=== PATIENT | female | born 1940 | race Caucasian/White ===

== ENCOUNTER 2017-06-10 15:57 | Emergency (ER) | payer MEDICARE ==
[2017-06-10] MEDS ORDERED: SODIUM CHLORIDE 0.9% 500 ML IV ONE (16:31)
[2017-06-10 16:42] LABS: Basophils # (A) 0.1 k/uL (0-0.2); Basophils % (A) 1 %; CH 30.9; CHCM 33.9; Eosinophils % (A) 0 %; HCT 43.3 % (34.0-46.0); HDW 2.79; Luc # (Auto) 0.27; Luc % (Auto) 3; Lymphocytes # (A) 0.8 k/uL (1.0-4.8); Lymphocytes % (A) 8 %; MCH 31.8 pg (25.0-35.0); MCHC 34.7 g/dL (31.0-37.0); MCV 91.6 fL (80.0-100.0); Mean Platelet Volume 8.1; Monocytes # (A) 0.9 k/uL (0-1.0); Monocytes % (A) 8 %; Neutrophils % (A) 81 %; RBC 4.73 m/uL (3.80-5.40); RDW 13.5 % (11.5-15.5); WBC (Perox) 11.32
--- NOTE | 2017-06-10 16:44 | ED ---
Syncope HPI - General Source: patient Mode of arrival: wheelchair Limitations: no limitations <Maxim Cash - Last Filed: 06/10/17 16:49> <YovanapetarPérez desai - Last Filed: 06/10/17 17:50> - General Chief Complaint: Syncope Stated Complaint: Fall left arm injury Time Seen by Provider: 06/10/17 16:20 - History of Present Illness Initial Comments: This is a 77-year-old female with a history of CHF with a pacemaker and AICD who presents emergency Department after a syncopal episode. She states that she was sitting on her couch watching NASCAR when all of a sudden she woke up on the ground. She was unable to get up and bruised her knee attempting to get up off the ground. She used her car alarm to notify her neighbor that she was in trouble came over and helped her back into her chair. The fall was around 140 in the afternoon today. The son was notified and told her that she needed to come emergency department because of the fact that she passed out. The patient complains mostly of bilateral arm pain which has been chronic for her after a fall previously however states it is worse. Also complaining of left knee pain. No headache. No nausea or vomiting. She also has chronic neck pain that is unchanged. No numbness, [place], or weakness in her extremities. No chest pain or shortness of breath. She states she had no preceding symptoms. Her photofinishing laboratory worker is Dr. Grijalva (Maxim Cash) - Related Data Home Medications Medication Instructions Recorded Confirmed ALPRAZolam [Xanax] 0.125 mg PO DAILY PRN 06/08/15 07/03/16 Aspirin 81 mg PO DAILY 06/08/15 07/03/16 Carvedilol [Coreg] 3.125 mg PO DAILY 06/08/15 07/03/16 Cholecalciferol [Vitamin D3] 2,000 unit PO DAILY 06/08/15 07/03/16 Levothyroxine Sodium [Synthroid] 50 mcg PO DAILY 06/08/15 07/03/16 Multivitamin [Children's 1 tab PO DAILY 06/08/15 07/03/16 Multivitamins] Omeprazole [PriLOSEC] 20 mg PO DAILY 06/08/15 07/03/16 Sennosides [Senokot] 8.6 mg PO DAILY 06/08/15 07/03/16 Simvastatin [Zocor] 40 mg PO HS 06/08/15 07/03/16 Furosemide [Lasix] 40 mg PO BID 10/17/15 07/03/16 Potassium Chloride [Klor-Con 40 meq PO BID 10/17/15 07/03/16 Packets] Febuxostat [Uloric] 40 mg PO DAILY 07/03/16 07/03/16 HYDROcodone/APAP 7.5-325MG [[place] 1 tab PO Q6H PRN 07/03/16 07/03/16 7.5-325] Spironolactone [Aldactone] 25 mg PO DAILY 07/03/16 07/03/16 Previous Rx's Medication Instructions Recorded Cefuroxime Axetil [Ceftin] 500 mg PO BID #4 tablet 07/06/16 Folic Acid 1 mg PO DAILY@1200 #30 tab 07/06/16 Metolazone [Zaroxolyn] 2.5 mg PO MoTh@0800 #10 tab 07/06/16 Thiamine [Vitamin B-1] 100 mg PO DAILY@1200 #30 tab 07/06/16 Allergies Allergy/AdvReac Type Severity Reaction Status Date / Time Penicillins Allergy Unknown Verified 06/10/17 16:01 dexamethasone AdvReac Unknown Verified 06/10/17 16:01 methylprednisolone AdvReac Unknown Verified 06/10/17 16:01 Review of Systems ROS Other: All systems not noted in ROS Statement are negative. <Maxim Cash - Last Filed: 06/10/17 16:49> ROS Other: All systems not noted in ROS Statement are negative. <Pérez Augustin - Last Filed: 06/10/17 17:50> ROS Statement: Those systems with pertinent positive or pertinent negative responses have been documented in the HPI. Past Medical History Past Medical History: Coronary Artery Disease (CAD), Heart Failure, COPD, Deep Vein Thrombosis (DVT), Myocardial Infarction (CA), Osteoarthritis (OA) Additional Past Medical History / Comment(s): uti-ecoli(05-23-14), 2013 rt axillary,brachial artery thrombosis, afib 2012, cardiomyopathy ef 35-40%(2012), djd ,falls, RENAL FX AT 65%(PER FAMILY), APPETITE DECREASED SINCE MARCH Last Myocardial Infarction Date:: 1999 History of Any Multi-Drug Resistant Organisms: None Reported Past Surgical History: Adenoidectomy, AICD, Breast Surgery, Cholecystectomy, Heart Catheterization With Stent, Hysterectomy, Joint Replacement, Pacemaker, Tonsillectomy, Tubal Ligation Additional Past Surgical History / Comment(s): 08-07-13 aicd(biventricular dual chamber aicd/pacemaker-[employer], thrombectomy rt arm,rt knee replacement Past Anesthesia/Blood Transfusion Reactions: No Reported Reaction Additional Past Anesthesia/Blood Transfusion Reaction / Comment(s): blood trandfusion 1968 Date of Last Stent Placement:: unk Type of Cardiac Device: Permanent Pacemaker, AICD Device Placement Date:: 08-07-13 Past Psychological History: Anxiety Smoking Status: Former smoker Past Alcohol Use History: None Reported Past Drug Use History: None Reported - Past Family History Father Family Medical History: Diabetes Mellitus, Myocardial Infarction (CA) Mother Family Medical History: Cancer, Hyperlipidemia, Hypertension Additional Family Medical History / Comment(s): BREAST CA Brother(s) Family Medical History: Myocardial Infarction (CA) Additional Family Medical History / Comment(s): AGE 57 FROM CA Sister(s) Family Medical History: Cancer Additional Family Medical History / Comment(s): YOUNGER SISTER FROM OVARIAN CANCER AGE 51 AND ANOTHER SISTER HAD CA/CAD,OPEN HEART W/VALVE REPLACEMENT AND DM <Maxim Cash - Last Filed: 06/10/17 16:49> General Exam Limitations: no limitations <Maxim Cash - Last Filed: 06/10/17 16:49> <Pérez Augustin - Last Filed: 06/10/17 17:50> - General Exam Comments Initial Comments: Constitutional: Awake alert Appears comfortable Head: Normocephalic, there is a contusion to the left frontal scalp Eyes: no conjunctival injection No scleral icterus EOMI, pupils are 4 mm and reactive bilaterally Neck: No JVD Supple, no midline tenderness, full range of motion Heart: Regular rate rhythm normal S1-S2 no murmurs Lungs: Clear to auscultation bilaterally No wheezing No rales Abdomen: Soft nondistended nontender Extremities: Non edematous DP pulses intact Radial pulses intact, there is tenderness to palpation in bilateral upper arm, no bruising to this area, no deformity, there is also a bruise to the left knee however the knee has full range of motion. Neurovascularly intact distally Neuro: A&Ox3 No focal neurologic deficits Psych: Appropriate mood and affect (Maxim Cash) Course <Maxim Cash - Last Filed: 06/10/17 16:49> <Pérez Augustin - Last Filed: 06/10/17 17:50> Vital Signs 06/10/17 16:00 Temperature 97.5 F L Pulse Rate 50 L Respiratory 20 Rate Blood Pressure 136/61 O2 Sat by Pulse 99 Oximetry - Reevaluation(s) Reevaluation #1: 06/10/17 16:49 Patient's care transitioned to Dr. Augustin. (Maxim Cash) EKG Findings - EKG Comments: EKG Findings:: EKG showing atrial paced rhythm with a rate of 50. No abnormal ST segment changes or T-wave inversions. QTC is 419. Other intervals are normal. No ectopy. <Maxim Cash - Last Filed: 06/10/17 16:49> Medical Decision Making - Lab Data Result diagrams: 06/10/17 16:15 <Maxim Cash - Last Filed: 06/10/17 16:49> - Lab Data Result diagrams: 06/10/17 16:15 06/10/17 16:15 <Pérez Augustin - Last Filed: 06/10/17 17:50> - Medical Decision Making 77 female, signed out from the previous doctor with chief complaint of syncope and head trauma. Patient does have a small hematoma on the right forehead. Head CT was obtained and was positive for subdural, subarachnoid, and interventricular blood. The patient is on Coumadin and her INR is 2.7. CT cervical spine shows no acute fracture dislocation. Patient was given vitamin K and 1 unit of fresh frozen plasma, awaiting transfer for neurosurgical evaluation. Patient will likely also require syncopal workup in addition to her intracranial hemorrhage. X-rays of the chest, pelvis, and upper extremities are pending at the time of this dictation. Diagnosis: Intracranial hemorrhage on Coumadin, disposition: Transfer to [facility] (Pérez Augustin) - Lab Data Lab Results 06/10/17 06/10/17 06/10/17 Range/Units 16:15 16:15 16:15 WBC 11.0 H (3.8-10.6) k/uL RBC 4.73 (3.80-5.40) m/uL Hgb 15.0 (11.4-16.0) gm/dL Hct 43.3 (34.0-46.0) % MCV 91.6 (80.0-100.0) fL MCH 31.8 (25.0-35.0) pg MCHC 34.7 (31.0-37.0) g/dL RDW 13.5 (11.5-15.5) % Plt Count 155 (150-450) k/uL Neutrophils % 81 % Lymphocytes % 8 % Monocytes % 8 % Eosinophils % 0 % Basophils % 1 % Neutrophils # 9.0 H (1.3-7.7) k/uL Lymphocytes # 0.8 L (1.0-4.8) k/uL Monocytes # 0.9 (0-1.0) k/uL Eosinophils # 0.0 (0-0.7) k/uL Basophils # 0.1 (0-0.2) k/uL PT (9.0-12.0) sec INR (<1.2) APTT (22.0-30.0) sec Sodium 139 (137-145) mmol/L Potassium 4.3 (3.5-5.1) mmol/L Chloride 99 (98-107) mmol/L Carbon Dioxide 30 (22-30) mmol/L Anion Gap 10 mmol/L BUN 32 H (7-17) mg/dL Creatinine 1.26 H (0.52-1.04) mg/dL Est GFR (MDRD) Af Amer 50 (>60 ml/min/1.73 sqM) Est GFR (MDRD) Non-Af 41 (>60 ml/min/1.73 sqM) Glucose 102 H (74-99) mg/dL Calcium 9.5 (8.4-10.2) mg/dL Magnesium 1.9 (1.6-2.3) mg/dL Total Bilirubin 1.2 (0.2-1.3) mg/dL AST 39 H (14-36) U/L ALT 35 (9-52) U/L Alkaline Phosphatase 89 (38-126) U/L CK-MB (CK-2) 1.8 (0.0-2.4) ng/mL Troponin I 0.023 (0.000-0.034) ng/mL NT-Pro-B Natriuret Pep pg/mL Total Protein 7.0 (6.3-8.2) g/dL Albumin 4.2 (3.5-5.0) g/dL 06/10/17 06/10/17 Range/Units 16:15 16:15 WBC (3.8-10.6) k/uL RBC (3.80-5.40) m/uL Hgb (11.4-16.0) gm/dL Hct (34.0-46.0) % MCV (80.0-100.0) fL MCH (25.0-35.0) pg MCHC (31.0-37.0) g/dL RDW (11.5-15.5) % Plt Count (150-450) k/uL Neutrophils % % Lymphocytes % % Monocytes % % Eosinophils % % Basophils % % Neutrophils # (1.3-7.7) k/uL Lymphocytes # (1.0-4.8) k/uL Monocytes # (0-1.0) k/uL Eosinophils # (0-0.7) k/uL Basophils # (0-0.2) k/uL PT 26.5 H (9.0-12.0) sec INR 2.7 H (<1.2) APTT 29.8 (22.0-30.0) sec Sodium (137-145) mmol/L Potassium (3.5-5.1) mmol/L Chloride (98-107) mmol/L Carbon Dioxide (22-30) mmol/L Anion Gap mmol/L BUN (7-17) mg/dL Creatinine (0.52-1.04) mg/dL Est GFR (MDRD) Af Amer (>60 ml/min/1.73 sqM) Est GFR (MDRD) Non-Af (>60 ml/min/1.73 sqM) Glucose (74-99) mg/dL Calcium (8.4-10.2) mg/dL Magnesium (1.6-2.3) mg/dL Total Bilirubin (0.2-1.3) mg/dL AST (14-36) U/L ALT (9-52) U/L Alkaline Phosphatase (38-126) U/L CK-MB (CK-2) (0.0-2.4) ng/mL Troponin I (0.000-0.034) ng/mL NT-Pro-B Natriuret Pep 2470 pg/mL Total Protein (6.3-8.2) g/dL Albumin (3.5-5.0) g/dL Critical Care Time Critical Care Time: Yes Total Critical Care Time: 42 <Pérez Augustin - Last Filed: 06/10/17 17:50> Disposition <Maxim Cash - Last Filed: 06/10/17 16:49> - Out of Hospital Transfer - Req. Specs Out of Hospital Transfer - Requested Specifics: Surgical ICU (Transfer to [facility]) <Pérez Augustin - Last Filed: 06/10/17 17:50> Clinical Impression: Intracranial hemorrhage Disposition: OTHER INSTITUTION NOT DEFINED Condition: Serious Referrals: Lan Hedrick DO [Primary Care Provider] - 1-2 days
[2017-06-10 16:50] LABS: INR 2.7 (<1.2); Partial Thromboplastin Time 29.8 sec (22.0-30.0); Prothrombin Time 26.5 sec (9.0-12.0)
[2017-06-10 16:55] LABS: Calcium 9.5 mg/dL (8.4-10.2); Magnesium 1.9 mg/dL (1.6-2.3); Potassium 4.3 mmol/L (3.5-5.1); Total Bilirubin 1.2 mg/dL (0.2-1.3)
[2017-06-10 17:16] LABS: Creatine Kinase MB 1.8 ng/mL (0.0-2.4); Troponin I 0.023 ng/mL (0.000-0.034)
--- NOTE | 2017-06-10 17:26 | CT ---
EXAMINATION TYPE: CT brain tonny ying DATE OF EXAM: 06/10/2017 COMPARISON: 07/04/2016 HISTORY: 77-year-old female with fall injury today. CT DLP: 1269.1 mGycm Automated exposure control for dose reduction was used. Technique: Examination of the head was done in axial plane without intravenous contrast. Coronal and sagittal reconstructions performed. CT of the cervical spine was obtained in axial plane without intravenous injection of contrast mater ial. Coronal and sagittal reformatted images were obtained from the axial views for evaluation of f ractures, spinal alignment and canal. FINDINGS: Head: There is mild generalized supratentorial volume loss. Small amount of acute subarachnoid blood is present in the superior right frontal region. There may b e some additional subtle subarachnoid blood in the region of the left sylvian fissure. There are a couple nodular foci of hyperdensity along the mid falx at the level of the lateral ventri cles measuring is a 7 mm suspected to represent tiny subdurals. Minimal layering intraventricular hem orrhage within the occipital horn of the left lateral ventricle. No midline shift or mass effect. No hydrocephalus. No effacement of basal subarachnoid cisterns. Paranasal sinuses and mastoid air cells are well pneumatized. Orbits and globes are intact. No calvar ial fracture. Cervical spine: No craniocervical junction abnormality, predental space widening, or prevertebral soft tissue swellin g. There is leftward tilt of the patient's head that could be positional. Mild to moderate multilevel degenerative disc disease. Additional hypertrophic facet arthropathy and uncovertebral joint degenerative change. There is grade 1 anterolisthesis at C4-C5. Posterior disc protrusion at C5-6 mildly narrow the spinal canal. No acute fracture identified cervical spine. Mild left neuroforaminal stenosis and C4-C5 and mild rig ht C5-C6. Sagittal and coronal reformatted images confirm above findings. COMBINED IMPRESSION: 1. Small amounts of scattered acute intracranial hemorrhage. This includes a small subarachnoid bleed in the right frontal region, in the left sylvian fissure, a couple small nodular subdurals along the mid falx measuring up to 7 mm, and trace layering intraventricular hemorrhage in the occipital horn of the left lateral ventricle. No mass effect or midline shift. 2. No acute fracture of the cervical spine. Moderate spondylotic change with a degenerative grade 1 a nterolisthesis at C4-C5. Mild spinal canal stenosis at C5-C6. 3. Leftward tilt of the patient's head could be positional or due to muscle spasm/pain. Critical findings called to Dr. Augustin in the ER at 5:20 PM.
[2017-06-10] MEDS ORDERED: PHYTONADIONE 5 MG in SODIUM CHLORIDE 0.9% 50 ML IVPB STA (17:28)
--- NOTE | 2017-06-10 17:51 | XR ---
EXAMINATION TYPE: XR chest 2V, XR pelvis AP view, XR knee complete 3 views LT, XR humerus bilateral 2 views each DATE OF EXAM: 06/10/2017 COMPARISON: Chest 07/05/2016 HISTORY: 77-year-old female with pain after fall FINDINGS: CHEST: Left anterior chest wall AICD generator with right atrial and right ventricular leads. Heart is borde rline to mildly enlarged. Diffuse interstitial prominence has a chronic appearance. No consolidation, pneumothorax, or pleural effusion. Pelvis: There is marked osteopenia and further limitations due to patient's large body habitus. Mild degenera tive changes of the right hip and moderate at the left hip. Some surgical material projects at the [facility] lower abdomen. No displaced fracture seen. Left knee: Tricompartmental degenerative change with joint space narrowing and marginal spurring. There is synov ial and meniscal chondrocalcinosis noted. Small knee joint effusion. Mild anterior soft tissue swelli ng overlying the patellar tendon. Extensor mechanism is intact. No acute fracture, subluxation, or di slocation seen. Humeri: Bony changes on both sides suggests chronic rotator cuff tendinopathy. Additional degenerative change at the AC joints. No humeral shaft fracture on either side. IMPRESSION: 1. Chest: Cardiomegaly with chronic changes. No acute process seen. 2. Pelvis: Osteopenia without displaced fracture. Moderate left and mild right hip osteoarthrosis. Du e to the osteopenia, if the patient is nonweightbearing, MRI can provide more sensitive evaluation. 3. Left knee: Tricompartmental osteoarthrosis, meniscal chondrocalcinosis, synovial calcifications, a nd small knee joint effusion. 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 No acute osseous abnormality seen . Anterior soft tissue swelling could represent soft tissue contusion. 4. Humeri: No acute osseous abnormal seen.
[2017-06-10 18:24] VITALS: BP 148/85; PULSE 72; RESP 18; TEMP 97.9
== END 2017-06-10 18:30 | disposition other institution (70) ==
LOC: EC 15:57
DX: S06.9X0A Unspecified intracranial injury without loss of consciousness, initial encounter (principal); S80.02XA Contusion of left knee, initial encounter; I50.9 Heart failure, unspecified; I25.10 Atherosclerotic heart disease of native coronary artery without angina pectoris; I25.2 Old myocardial infarction; M19.90 Unspecified osteoarthritis, unspecified site; Z86.718 Personal history of other venous thrombosis and embolism; Z87.891 Personal history of nicotine dependence; Z79.01 Long term (current) use of anticoagulants; Z79.82 Long term (current) use of aspirin; Z79.899 Other long term (current) drug therapy; Z88.0 Allergy status to penicillin; Z88.8 Allergy status to other drugs, medicaments and biological substances; W18.39XA Other fall on same level, initial encounter
CPT/HCPCS: 36415; 93005; 83880; 80053; 82553; 83735; 84484; 85025; 85610; 85730; 71020; 73060; 72170; 73562; 72125; 70450; 99291; 96365; P9059; J3430

== ENCOUNTER → 2017-08-02 | Outpatient (CLI) | payer MEDICARE ==
--- NOTE | 2017-08-02 09:40 | CT ---
EXAMINATION TYPE: CT brain wo con DATE OF EXAM: 08/02/2017 COMPARISON: 06/10/2017 HISTORY: 77-year-old female follow-up Intracranial hemorrhage TECHNIQUE: Examination was done in axial plane without intravenous contrast. Coronal and sagittal r econstructions performed. CT DLP: 1380 mGycm Automated exposure control for dose reduction was used. FINDINGS: There is no evidence of acute intracranial hemorrhage, acute ischemic changes, mass, mass-effect, or extra-axial fluid collection. There is no effacement of cerebral sulci or basal subarachnoid cister ns. There is no hydrocephalus. There is no midline shift. Colvin-white matter distinction is preserv ed. Moderate cerebral cortical volume loss is similar. Previous subarachnoid hemorrhages in the right frontal lobe and left sylvian fissure, tiny nodular nails bdural hematomas along the midline septum, and layering intraventricular hemorrhage in the left occip ital horn have all resolved in the interval. Paranasal sinuses and mastoid air cells are well pneumatized. Orbits and globes are intact. IMPRESSION: 1. Interval resolution of the previous scattered areas of acute intracranial bleeding. No acute intra cranial abnormality seen. 2. Similar moderate cortical atrophy.
== END | disposition home or self-care (01) ==
LOC: RADCTMAIN 08:59
PROVIDERS: ATTEND Family Medicine
DX: G31.9 Degenerative disease of nervous system, unspecified (principal)
CPT/HCPCS: 70450

== ENCOUNTER → 2017-10-05 | Outpatient (CLI) | payer MEDICARE ==
--- NOTE | 2017-10-05 08:45 | US ---
EXAMINATION TYPE: US kidneys/renal and bladder DATE OF EXAM: 10/05/2017 COMPARISON: Ultrasound 10/17/2015 CLINICAL HISTORY: 77-year-old female R60.0 EDEMA. Edema to extremities, abnormal labs. TECHNIQUE: Multiple sonographic images of the kidneys and bladder are obtained. FINDINGS: DEFENSE ANALYST NOTES: Difficult exam, elderly pt unable to ambulate well Right Kidney: 9.4 x 4.5 x 4.6 cm without hydronephrosis. There is a 4.4 x 4.1 x 3.8 cm cyst at the l ateral midpole. In 2014, this measured 5.4 cm. Some minimal internal echoes are felt to be artifactua l. Left Kidney: 10.0 x 4.5 x 4.9 cm without hydronephrosis. Limited visualization of the upper and lower pole due to shadowing from bowel gas. There is an echogenic focus in the lower pole measuring 1 cm. Underdistention of the bladder limits its evaluation. IMPRESSION: 1. No hydronephrosis. 2. The 4.4 cm right renal cyst is 1 cm smaller from 2014. 3. Suggestion of a 1 cm nonobstructive calculus in the left lower pole. 4. Nondistention of the bladder limits its evaluation.
== END | disposition home or self-care (01) ==
LOC: RADUSWWP 07:59
PROVIDERS: ATTEND Internal Medicine Nephrology
DX: N28.1 Cyst of kidney, acquired (principal)
CPT/HCPCS: 76770

== ENCOUNTER 2017-12-12 14:01 | Inpatient (IN) | payer MEDICARE ==
[~2017-12-12 14:01] MED LIST: MAGNESIUM SULFATE SYG 4.06 MEQ/ML SYRINGE ONE
[2017-12-12 14:18] LABS: Basophils % (A) 0 %; Eosinophils % (A) 1 %; HCT 40.5 % (34.0-46.0); HGB 13.1 gm/dL (11.4-16.0); Lymphocytes # (A) 0.6 k/uL (1.0-4.8); Lymphocytes % (A) 11 %; MCH 29.9 pg (25.0-35.0); MCHC 32.4 g/dL (31.0-37.0); MCV 92.5 fL (80.0-100.0); Mean Platelet Volume 9.3; Monocytes # (A) 0.2 k/uL (0-1.0); Monocytes % (A) 4 %; Neutrophils # (A) 4.7 k/uL (1.3-7.7); Neutrophils % (A) 82 %; Platelet Count 105 k/uL (150-450); RBC 4.38 m/uL (3.80-5.40); RDW 14.3 % (11.5-15.5); WBC 5.7 k/uL (3.8-10.6)
[2017-12-12] MEDS ORDERED: SODIUM CHLORIDE 0.9% 1,000 ML IV ONE ×3 (14:26→15:15)
--- NOTE | 2017-12-12 14:26 | XR ---
EXAMINATION TYPE: XR chest 1V portable DATE OF EXAM: 12/12/2017 COMPARISON: Chest x-ray June 10, 2017 HISTORY: Chest pain. ST elevated myocardial infarction. TECHNIQUE: Single AP portable frontal upright view of the chest is obtained. FINDINGS: There is chronic parenchymal change without suspicious new focal air space opacity, pleura l effusion, or pneumothorax seen. The cardiac silhouette size remains enlarged with dual lead pacema ker and atherosclerotic aorta. The osseous structures remain demineralized. IMPRESSION: Chronic changes and cardiomegaly without acute pulmonary process. No significant change from prior.
[2017-12-12] MEDS: ASPIRIN 81 MG PO STA ×2 (14:27→14:28)
--- NOTE | 2017-12-12 14:29 | ED ---
Chest Pain HPI - General Chief Complaint: Chest Pain Stated Complaint: Stemi Time Seen by Provider: 12/12/17 14:08 Source: patient, EMS Mode of arrival: ambulatory Limitations: no limitations - History of Present Illness Initial Comments: Patient presents with chest pain. Pain is substernal. It does not radiate. Nothing makes it better or worse. She describes the pain as pressure. She rates the pain 8/10. She was given aspirin by EMS prior to arrival. She has no nausea or vomiting or diaphoresis. She has no neck pain or stiffness. She has no headache. - Related Data Home Medications Medication Instructions Recorded Confirmed ALPRAZolam [Xanax] 0.125 mg PO DAILY PRN 06/08/15 06/10/17 Aspirin 81 mg PO DAILY 06/08/15 06/10/17 Cholecalciferol [Vitamin D3] 2,000 unit PO DAILY 06/08/15 06/10/17 Levothyroxine Sodium [Synthroid] 50 mcg PO DAILY 06/08/15 06/10/17 Omeprazole [PriLOSEC] 20 mg PO DAILY 06/08/15 06/10/17 Sennosides [Senokot] 8.6 mg PO DAILY 06/08/15 06/10/17 Simvastatin [Zocor] 40 mg PO HS 06/08/15 06/10/17 Furosemide [Lasix] 40 mg PO BID 10/17/15 06/10/17 HYDROcodone/APAP 7.5-325MG [[place] 1 tab PO Q6H PRN 07/03/16 06/10/17 7.5-325] Spironolactone [Aldactone] 50 mg PO DAILY 07/03/16 06/10/17 Carvedilol [Coreg] 3.125 mg PO DAILY 06/10/17 06/10/17 Febuxostat [Uloric] 80 mg PO DAILY 06/10/17 06/10/17 Metolazone [Zaroxolyn] 2.5 mg PO Q7D 06/10/17 06/10/17 Multivitamin [Multivitamins Adult 1 tab PO DAILY 06/10/17 06/10/17 Gummies] Potassium Chloride [K-Tab ER] 10 meq PO 5XD 06/10/17 06/10/17 Warfarin Sodium [Coumadin] 4 mg PO DAILY 06/10/17 06/10/17 Previous Rx's Medication Instructions Recorded Folic Acid 1 mg PO DAILY@1200 #30 tab 07/06/16 Allergies Allergy/AdvReac Type Severity Reaction Status Date / Time Penicillins Allergy Unknown Verified 12/12/17 14:27 dexamethasone AdvReac Unknown Verified 12/12/17 14:27 methylprednisolone AdvReac Unknown Verified 12/12/17 14:27 Review of Systems ROS Statement: Those systems with pertinent positive or pertinent negative responses have been documented in the HPI. ROS Other: All systems not noted in ROS Statement are negative. EKG Findings - EKG Comments: EKG Findings:: Twelve-lead EKG shows ventricular rate 126 bpm, the QRS complexes are wide, there is evidence of ST elevation with reciprocal changes. Interpreted by me as STEMI. Past Medical History Past Medical History: Coronary Artery Disease (CAD), Heart Failure, COPD, Deep Vein Thrombosis (DVT), Myocardial Infarction ([place]), Osteoarthritis (OA) Additional Past Medical History / Comment(s): uti-ecoli(05-23-14), 2012 rt axillary,brachial artery thrombosis, afib 2012, cardiomyopathy ef 35-40%(2012), djd ,falls, RENAL FX AT 65%(PER FAMILY), APPETITE DECREASED SINCE MARCH Last Myocardial Infarction Date:: 1999 History of Any Multi-Drug Resistant Organisms: None Reported Past Surgical History: Adenoidectomy, AICD, Breast Surgery, Cholecystectomy, Heart Catheterization With Stent, Hysterectomy, Joint Replacement, Pacemaker, Tonsillectomy, Tubal Ligation Additional Past Surgical History / Comment(s): 08-07-13 aicd(biventricular dual chamber aicd/pacemaker-[employer], thrombectomy rt arm,rt knee replacement Past Anesthesia/Blood Transfusion Reactions: No Reported Reaction Additional Past Anesthesia/Blood Transfusion Reaction / Comment(s): blood trandfusion 1968 Date of Last Stent Placement:: unk Type of Cardiac Device: Permanent Pacemaker, AICD Device Placement Date:: 08-07-13 Past Psychological History: Anxiety Smoking Status: Former smoker Past Alcohol Use History: None Reported Past Drug Use History: None Reported - Past Family History Father Family Medical History: Diabetes Mellitus, Myocardial Infarction ([place]) Mother Family Medical History: Cancer, Hyperlipidemia, Hypertension Additional Family Medical History / Comment(s): BREAST CA Brother(s) Family Medical History: Myocardial Infarction ([place]) Additional Family Medical History / Comment(s): AGE 57 FROM [place] Sister(s) Family Medical History: Cancer Additional Family Medical History / Comment(s): YOUNGER SISTER FROM OVARIAN CANCER AGE 51 AND ANOTHER SISTER HAD [place]/CAD,OPEN HEART W/VALVE REPLACEMENT AND DM General Exam Limitations: no limitations General appearance: alert, in no apparent distress Head exam: Present: atraumatic, normocephalic, normal inspection Eye exam: Present: normal appearance, PERRL, EOMI. Absent: scleral icterus, conjunctival injection, periorbital swelling ENT exam: Present: normal exam, mucous membranes moist Neck exam: Present: normal inspection. Absent: tenderness, meningismus, lymphadenopathy Respiratory exam: Present: normal lung sounds bilaterally. Absent: respiratory distress, wheezes, rales, rhonchi, stridor Cardiovascular Exam: Present: regular rate, normal rhythm, normal heart sounds. Absent: systolic murmur, diastolic murmur, rubs, gallop, clicks GI/Abdominal exam: Present: soft, normal bowel sounds. Absent: distended, tenderness, guarding, rebound, rigid Extremities exam: Present: normal inspection, full ROM, normal capillary refill. Absent: tenderness, pedal edema, joint swelling, calf tenderness Back exam: Present: normal inspection Neurological exam: Present: alert, oriented X3, CN II-XII intact Psychiatric exam: Present: normal affect, normal mood Skin exam: Present: warm, dry, intact, normal color. Absent: rash Course Vital Signs 12/12/17 12/12/17 14:03 14:13 Temperature 97.0 F L Pulse Rate 113 H Pulse Rate [ 102 H Oim Consultant ] Respiratory 18 Rate O2 Sat by Pulse 98 Oximetry Chest Pain MDM - [facility] Patient presents with chest pain. She has evidence of acute MN. I activated the [place] pager. Patient will be admitted to the hospital. Disposition Clinical Impression: ST elevation myocardial infarction (STEMI) Disposition: ADMITTED IP TO THIS HOSP Condition: Serious Referrals: Lan Hedrick DO [Primary Care Provider] - 1-2 days Time of Disposition: 14:28
[2017-12-12] MEDS ORDERED: LIDOCAINE 2% INJ 20 MG/ML SQ ONE (14:34)
[2017-12-12] MEDS ORDERED: IV FLUID CONTINUATION 1,000 ML IV ONE (14:35)
[2017-12-12 14:36] LABS: Albumin 3.9 g/dL (3.5-5.0); Calcium 9.8 mg/dL (8.4-10.2); Total Bilirubin 0.9 mg/dL (0.2-1.3); Total Protein 6.4 g/dL (6.3-8.2)
[2017-12-12] MEDS ORDERED: NOREPINEPHRIN 4 MG-0.9% NS PMX 4 MG/250 ML ML IV ONE (14:36)
[2017-12-12] MEDS ORDERED: METOPROLOL TARTRATE 5 MG/5 ML VIAL IVP ONE ×3 (14:37→14:55)
[2017-12-12] MEDS ORDERED: fentaNYL (PF) 50 MCG/ML 2 ML AMP ONE (14:37)
[2017-12-12] MEDS ORDERED: fentaNYL (PF) 50 MCG/ML 2 ML AMP IVP ONE (14:38)
[2017-12-12 14:40] LABS: Potassium 8.2 mmol/L (3.5-5.1)
[2017-12-12 14:41] LABS: Partial Thromboplastin Time 42.8 sec (22.0-30.0); Prothrombin Time 97.5 sec (9.0-12.0)
[2017-12-12] MEDS ORDERED: DEXTROSE 50%-WATER 50 ML SYRINGE IVP ONE ×2 (14:43→15:05)
[2017-12-12] MEDS ORDERED: INSULIN REGULAR 100 UNIT/ML VIAL IV ONE ×3 (14:44→21:31)
[2017-12-12] MEDS ORDERED: AMIODARONE 50 MG/ML 3 ML VIAL IV ONE (14:46)
[2017-12-12] MEDS ORDERED: SODIUM CHLORIDE 0.9% 500 ML IV ONE (14:47)
--- NOTE | 2017-12-12 14:47 | P.CRDCN ---
History of Present Illness Consult date: 12/12/17 Requesting physician: Evelyn Maher Reason for Consult (text): Acute HI Chief complaint: Scapula and upper back discomfort History of present illness: This is a pleasant 77-year-old female who follows with Dr. Waqar Grijalva in the office. She has a known history of coronary artery disease with prior stent placement of the RCA, patient is known to have a total occlusion of the mid circumflex and proximal RCA, ischemic cardio myopathy with prior AICD implantation, paroxysmal atrial fibrillation, hypertension, COPD, hypothyroidism peripheral arterial disease status post carotid endarterectomy, renal insufficiency, hypothyroidism, hyperlipidemia, and history of DVT. Patient presents to the hospital with symptoms of severe discomfort in her upper back and scapula area, positive shortness of breath and diaphoresis. EKG on arrival here showed a normal sinus rhythm with left bundle branch block pattern and ST elevation in the inferior leads with ST depression noted in the anterior leads. Patient continued to have pain in the emergency room, developed significant nausea. Blood pressure 80/60. No lab data is yet back. Patient has been given aspirin as well as sublingual nitroglycerin. She was advised to go directly to the cardiac catheterization lab, the risks and the benefits explained to her in detail. Cardiac catheterization will be performed by Dr. West. Her son and [id number] are present. According to the patient, she just recently lost her sister within this past week, she also states that she lost her son approximately a month ago. Past Medical History Past Medical History: Coronary Artery Disease (CAD), Heart Failure, COPD, Deep Vein Thrombosis (DVT), Myocardial Infarction ([place]), Osteoarthritis (OA) Additional Past Medical History / Comment(s): uti-ecoli(05-23-14), 2013 rt axillary,brachial artery thrombosis, afib 2012, cardiomyopathy ef 35-40%(2012), djd ,falls, RENAL FX AT 65%(PER FAMILY), APPETITE DECREASED SINCE MARCH Last Myocardial Infarction Date:: 1999 History of Any Multi-Drug Resistant Organisms: None Reported Past Surgical History: Adenoidectomy, AICD, Breast Surgery, Cholecystectomy, Heart Catheterization With Stent, Hysterectomy, Joint Replacement, Pacemaker, Tonsillectomy, Tubal Ligation Additional Past Surgical History / Comment(s): 08-07-13 aicd(biventricular dual chamber aicd/pacemaker-[employer], thrombectomy rt arm,rt knee replacement Past Anesthesia/Blood Transfusion Reactions: No Reported Reaction Additional Past Anesthesia/Blood Transfusion Reaction / Comment(s): blood trandfusion 1968 Date of Last Stent Placement:: unk Type of Cardiac Device: Permanent Pacemaker, AICD Device Placement Date:: 08-07-13 Past Psychological History: Anxiety Smoking Status: Former smoker Past Alcohol Use History: None Reported Past Drug Use History: None Reported - Past Family History Father Family Medical History: Diabetes Mellitus, Myocardial Infarction ([place]) Mother Family Medical History: Cancer, Hyperlipidemia, Hypertension Additional Family Medical History / Comment(s): BREAST CA Brother(s) Family Medical History: Myocardial Infarction ([place]) Additional Family Medical History / Comment(s): AGE 57 FROM [place] Sister(s) Family Medical History: Cancer Additional Family Medical History / Comment(s): YOUNGER SISTER FROM OVARIAN CANCER AGE 51 AND ANOTHER SISTER HAD [place]/CAD,OPEN HEART W/VALVE REPLACEMENT AND DM Medications and Allergies Home Medications Medication Instructions Recorded Confirmed Type ALPRAZolam [Xanax] 0.25 mg PO TID PRN 06/08/15 12/12/17 History Aspirin 81 mg PO DAILY 06/08/15 12/12/17 History Cholecalciferol [Vitamin D3] 2,000 unit PO DAILY 06/08/15 12/12/17 History Levothyroxine Sodium [Synthroid] 50 mcg PO DAILY 06/08/15 12/12/17 History Omeprazole [PriLOSEC] 20 mg PO DAILY 06/08/15 12/12/17 History Simvastatin [Zocor] 40 mg PO HS 06/08/15 12/12/17 History Furosemide [Lasix] 40 mg PO BID 10/17/15 12/12/17 History HYDROcodone/APAP 7.5-325MG [[place] 1 tab PO Q4H PRN 07/03/16 12/12/17 History 7.5-325] Spironolactone [Aldactone] 50 mg PO DAILY 07/03/16 12/12/17 History Carvedilol [Coreg] 3.125 mg PO DAILY 06/10/17 12/12/17 History Febuxostat [Uloric] 80 mg PO DAILY 06/10/17 12/12/17 History Metolazone [Zaroxolyn] 2.5 mg PO MOTH 06/10/17 12/12/17 History Multivitamin [Multivitamins Adult 1 tab PO DAILY 06/10/17 12/12/17 History Gummies] Potassium Chloride [K-Tab ER] 10 meq PO QID 06/10/17 12/12/17 History Warfarin Sodium [Coumadin] 4 mg PO DAILY 06/10/17 12/12/17 History Folic Acid 1 mg PO DAILY 12/12/17 12/12/17 History Lisinopril [Prinivil] 5 mg PO DAILY 12/12/17 12/12/17 History Thiamine [Vitamin B-1] 100 mg PO DAILY 12/12/17 12/12/17 History Allergies Allergy/AdvReac Type Severity Reaction Status Date / Time Penicillins Allergy Unknown Verified 12/12/17 14:27 dexamethasone AdvReac Unknown Verified 12/12/17 14:27 methylprednisolone AdvReac Unknown Verified 12/12/17 14:27 Physical Exam Vitals: Vital Signs Temp Pulse Pulse Resp Pulse Ox 12/12/17 14:13 102 H 12/12/17 14:03 97.0 F L 113 H 18 98 Intake and Output 12/11/17 12/12/17 12/12/17 22:59 06:59 14:59 Other: Weight 74.389 kg Patient Weight 12/13/17 06:59 Weight 74.389 kg PHYSICAL EXAMINATION: HEENT: Head is atraumatic, normocephalic. Pupils equal, round. Neck is supple. There is no elevated jugular venous pressure. HEART EXAMINATION: Heart S1 S2 1 systolic murmur is heard. CHEST EXAMINATION: Lungs are clear with diminished air entry to bilateral bases. ABDOMEN: Soft, nontender. Bowel sounds are heard. No organomegaly noted. EXTREMITIES:[ 1+ peripheral pulses with trace evidence of peripheral edema bilateral lower extremity discoloration NEUROLOGIC patient is awake, alert and oriented -3. . Results 12/12/17 14:05 CBC 12/12/17 Range/Units 14:05 WBC 5.7 (3.8-10.6) k/uL RBC 4.38 (3.80-5.40) m/uL Hgb 13.1 (11.4-16.0) gm/dL Hct 40.5 (34.0-46.0) % Plt Count 105 L (150-450) k/uL Current Medications Generic Name Dose Route Start Last Admin Trade Name Freq PRN Reason Stop Dose Admin Sodium Chloride 1,000 mls @ 999 mls/hr 12/12/17 14:26 12/12/17 14:20 Saline 0.9% IV 12/12/17 15:26 999 mls/hr .Q1H1M ONE Administration Intake and Output 12/11/17 12/12/17 12/12/17 22:59 06:59 14:59 Other: Weight 74.389 kg Patient Weight 12/13/17 06:59 Weight 74.389 kg 12/12/17 14:05 EKG Interpretations (text) EKG shows a normal sinus rhythm with left bundle branch block pattern significant ST elevation in the inferior leads with ST depression noted anteriorly Assessment and Plan Plan: Assessment and plan #[address] elevation myocardial infarction #2 history of prior HI with stenting of the right coronary artery, patient has a known total occlusion of the mid circumflex and proximal RCA. #3 ischemic cardio myopathy with prior AICD #4 history of smoking #5 paroxysmal atrial fibrillation, on Coumadin for anticoagulation #6 COPD #7 PAD #8 hypertension #9 hyperlipidemia #10 hypothyroidism Plan Patient was advised to go directly to the cardiac catheterization lab. The risks and benefits were explained to her and her family in detail. Cardiac catheterization will be performed by Dr. Connor. Further recommendations will be based on these findings and patient's clinical course. DNP note has been reviewed, I agree with a documented findings and plan of care. Patient was seen and examined.
[2017-12-12 14:52] LABS: INR >10.0 (<1.2)
[2017-12-12 14:53] LABS: Creatine Kinase MB 1.8 ng/mL (0.0-2.4); Troponin I 0.013 ng/mL (0.000-0.034)
[2017-12-12] MEDS ORDERED: CALCIUM CHLORIDE 100 MG/ML 10 ML SYRINGE IV ONE (14:54)
[2017-12-12] MEDS ORDERED: CALCIUM GLUCONATE 1,000 MG in SODIUM CHLORIDE 0.9% 100 ML IVPB STA (14:56)
[2017-12-12] MEDS ORDERED: ONDANSETRON 4 MG/2 ML VIAL IVP ONE (14:58)
[2017-12-12] MEDS ORDERED: INSULIN REGULAR 100 UNIT in SODIUM CHLORIDE 0.9% 100 ML IV ONE (15:00)
[2017-12-12] MEDS ORDERED: PHYTONADIONE 10 MG in SODIUM CHLORIDE 0.9% 50 ML IVPB STA (15:02)
[2017-12-12] MEDS: NITROGLYCERIN 1000MCG/10ML SYRINGE INTRACORON ONE ×2 (15:23→15:31)
[2017-12-12] MEDS ORDERED: BIVALIRUDIN 250 MG in SODIUM CHLORIDE 0.9% 50 ML IV ONE (15:25)
[2017-12-12] MEDS ORDERED: BIVALIRUDIN BOLUS 250 MG/50 ML IV ONE (15:25)
[2017-12-12] MEDS ORDERED: CLOPIDOGREL 75 MG TAB ONE (15:38)
[2017-12-12] MEDS ORDERED: CLOPIDOGREL 75 MG TAB PO ONE (15:42)
[2017-12-12] MEDS ORDERED: IODIXANOL 320 MG/ML 100 ML INTRAARTER ONE (15:43)
[2017-12-12] MEDS ORDERED: MAG HYDROX/AL HYDROX/SIMETH 30 ML CUP PO PRN (15:45)
[2017-12-12] MEDS ORDERED: ZOLPIDEM 5 MG TAB PO PRN (15:45)
[2017-12-12] MEDS ORDERED: NITROGLYCERIN SL TABS 0.4 MG TAB SUBLINGUAL PRN (15:45)
[2017-12-12] MEDS ORDERED: ATROPINE SULFATE 0.1 MG/ML 10ML SYRINGE IV PRN (15:45)
[2017-12-12] MEDS ORDERED: RX INFO: IV CONTRAST WAS GIVEN 1 EACH MISC MISCELLANE PRN (15:45)
[2017-12-12 16:01] LABS: Albumin 2.9 g/dL (3.5-5.0); Total Bilirubin 0.9 mg/dL (0.2-1.3); Total Protein 5.3 g/dL (6.3-8.2)
[2017-12-12 16:02] LABS: Calcium 10.3 mg/dL (8.4-10.2)
[2017-12-12 16:06] LABS: Potassium 6.5 mmol/L (3.5-5.1)
[2017-12-12 16:45] LABS: Glucose,Whole Blood 145 mg/dL (75-99)
--- NOTE | 2017-12-12 17:27 | PTCA ---
PERCUTANEOUSTRANS CORORONARY ANGIOGRAPHY DATE OF SERVICE: 12/12/2017 PERFORMING PHYSICIAN: Steven Hugo MD, [email or web address]. PROCEDURE PERFORMED: Successful stenting of the proximal left anterior descending coronary artery using a 2.5 x 18 mm Xience drug-eluting stent, with good angiographic results. INDICATION: This is a pleasant 77-year-old female patient who presented to the hospital with back discomfort and was diagnosed with a new left bundle branch block. She was seen and evaluated by Dr. West, who performed a heart catheterization and the patient was found to have severe disease involving the proximal LAD. She was brought today to undergo an intervention. APPROACH: Right common femoral artery. COMPLICATIONS: None. LEVEL OF SEDATION: Moderate with sedation length of 29 minutes. PROCEDURE DESCRIPTION: After diagnostic heart catheterization was performed by Dr. West, anticoagulation was initiated using Angiomax. Subsequently I took a JL3 guide and the LAD was engaged. A Whisper wire was used to wire the LAD. After that I did balloon angioplasty using a 2.0 x 12 mm balloon and then I deployed a 2.5 x 18 mm Xience CAPRICE where the stent was positioned under fluoroscopy guidance and deployed under 12 atmospheres for 20 seconds. The following angiogram showed good angiographic results. The procedure was completed without any complication. POST-PROCEDURE MANAGEMENT: 1. Dual anti-platelet therapy. 2. Risk factor modifications. 3. Followup with the patient. MMODL / IJN: [id number] /
[2017-12-12] MEDS ORDERED: NOREPINEPHRIN 4 MG-0.9% NS PMX 4 MG/250 ML ML IV SCH (17:30)
[2017-12-12] MEDS ORDERED: SODIUM BICARB 8.4% 50 ML SYR (1 MEQ/ML) IV ONE ×3 (17:38→21:31)
[2017-12-12] MEDS ORDERED: ALBUTEROL NEBULIZED (CONC) 20 MG, SODIUM CHLORIDE 0.9% NEBULIZ 3 ML INHALATION ONE ×2 (17:39)
[2017-12-12] MEDS ORDERED: FUROSEMIDE 10 MG/ML 4 ML VIAL IV STA (17:39)
[2017-12-12 17:42] LABS: Magnesium 2.3 mg/dL (1.6-2.3)
[2017-12-12] MEDS ORDERED: ALBUTEROL NEB (CONC) 2.5 MG/0.5 ML INHALATION STA ×2 (17:56→21:31)
--- NOTE | 2017-12-12 18:11 | P.CNPUL ---
History of Present Illness Consult date: 12/12/17 Reason for consult: chest pain, COPD Chief complaint: Chest pain across the back. History of present illness: This is a 77-year-old female with history of multiple medical problems including coronary artery disease, previous stenting of the RCA, history of deep vein thromboses involving the right upper extremity, patient had previous thrombectomy, history of underlying COPD, previous [place], chronic kidney disease, history of ischemic cardiomyopathy and previous AICD placement with paroxysmal atrial fibrillation, patient presented today to the ER with severe pain across the back and the scapular area. Patient was also complaining of shortness of breath and diaphoresis. EKG showed normal sinus rhythm with left bundle branch block pattern and ST elevation in the inferior leads, ST depression in the anterior leads. Patient was in severe pain, blood pressure was 80/60 on presentation. Hence the patient was taken straight to the cardiac labor trainer, underwent stenting of the LAD which was 70% occluded, did not correlate with the findings noted on the EKG which were mostly suggestive of inferior wall myocardial infarction. Patient did have previous inferior wall IL years ago. After cardiac cath, patient was noted to have significantly abnormal labs including elevated INR of more than 10, potassium was 8.2, and with treatment went down to 6.5 given to her by cardiology. Her BUN was 84 on presentation and creatinine was 4.64. Troponin was 0.013 CPK was 162. At any rate, patient was transferred to the ICU from the cardiac labor trainer, and I was asked to see her on consultation. Presently the patient denies any chest pain, no back pain , no shortness of breath, no nausea no vomiting no abdominal pain, no melena, no hematemesis, no nausea no vomiting. She seems to be hemodynamically stable, but the patient is also on 7 mics of levo fed because she was noted to be hypotensive at the end of the procedure in the [employer] [facility]. Review of Systems 14 point review of systems were obtained, please refer to pertinent positives in HPI otherwise remaining systems are negative Past Medical History Past Medical History: Coronary Artery Disease (CAD), Heart Failure, COPD, Deep Vein Thrombosis (DVT), Myocardial Infarction ([place]), Osteoarthritis (OA) Additional Past Medical History / Comment(s): uti-ecoli(05-23-14), 2012 rt axillary,brachial artery thrombosis, afib 2012, cardiomyopathy ef 35-40%(2012), djd ,falls, RENAL FX AT 65%(PER FAMILY), APPETITE DECREASED SINCE MARCH Last Myocardial Infarction Date:: 1999 History of Any Multi-Drug Resistant Organisms: None Reported Past Surgical History: Adenoidectomy, AICD, Breast Surgery, Cholecystectomy, Heart Catheterization With Stent, Hysterectomy, Joint Replacement, Pacemaker, Tonsillectomy, Tubal Ligation Additional Past Surgical History / Comment(s): 08-07-13 aicd(biventricular dual chamber aicd/pacemaker-[employer], thrombectomy rt arm,rt knee replacement Past Anesthesia/Blood Transfusion Reactions: No Reported Reaction Additional Past Anesthesia/Blood Transfusion Reaction / Comment(s): blood trandfusion 1968 Date of Last Stent Placement:: unk Type of Cardiac Device: Permanent Pacemaker, AICD Device Placement Date:: 08-07-13 Past Psychological History: Anxiety Smoking Status: Former smoker Past Alcohol Use History: None Reported Past Drug Use History: None Reported - Past Family History Father Family Medical History: Diabetes Mellitus, Myocardial Infarction ([place]) Mother Family Medical History: Cancer, Hyperlipidemia, Hypertension Additional Family Medical History / Comment(s): BREAST CA Brother(s) Family Medical History: Myocardial Infarction ([place]) Additional Family Medical History / Comment(s): AGE 57 FROM [place] Sister(s) Family Medical History: Cancer Additional Family Medical History / Comment(s): YOUNGER SISTER FROM OVARIAN CANCER AGE 51 AND ANOTHER SISTER HAD [place]/CAD,OPEN HEART W/VALVE REPLACEMENT AND DM Medications and Allergies Home Medications Medication Instructions Recorded Confirmed Type ALPRAZolam [Xanax] 0.25 mg PO TID PRN 06/08/15 12/12/17 History Aspirin 81 mg PO DAILY 06/08/15 12/12/17 History Cholecalciferol [Vitamin D3] 2,000 unit PO DAILY 06/08/15 12/12/17 History Levothyroxine Sodium [Synthroid] 50 mcg PO DAILY 06/08/15 12/12/17 History Omeprazole [PriLOSEC] 20 mg PO DAILY 06/08/15 12/12/17 History Simvastatin [Zocor] 40 mg PO HS 06/08/15 12/12/17 History Furosemide [Lasix] 40 mg PO BID 10/17/15 12/12/17 History HYDROcodone/APAP 7.5-325MG [[place] 1 tab PO Q4H PRN 07/03/16 12/12/17 History 7.5-325] Spironolactone [Aldactone] 50 mg PO DAILY 07/03/16 12/12/17 History Carvedilol [Coreg] 3.125 mg PO DAILY 06/10/17 12/12/17 History Febuxostat [Uloric] 80 mg PO DAILY 06/10/17 12/12/17 History Metolazone [Zaroxolyn] 2.5 mg PO MOTH 06/10/17 12/12/17 History Multivitamin [Multivitamins Adult 1 tab PO DAILY 06/10/17 12/12/17 History Gummies] Potassium Chloride [K-Tab ER] 10 meq PO QID 06/10/17 12/12/17 History Warfarin Sodium [Coumadin] 4 mg PO DAILY 06/10/17 12/12/17 History Folic Acid 1 mg PO DAILY 12/12/17 12/12/17 History Lisinopril [Prinivil] 5 mg PO DAILY 12/12/17 12/12/17 History Thiamine [Vitamin B-1] 100 mg PO DAILY 12/12/17 12/12/17 History Allergies Allergy/AdvReac Type Severity Reaction Status Date / Time Penicillins Allergy Unknown Verified 12/12/17 14:27 dexamethasone AdvReac Unknown Verified 12/12/17 14:27 methylprednisolone AdvReac Unknown Verified 12/12/17 14:27 Physical Exam Vitals: Vital Signs Temp Pulse Pulse Resp BP Pulse Ox 12/12/17 17:00 97.7 F 44 L 14 99/57 96 12/12/17 14:13 102 H 12/12/17 14:03 97.0 F L 113 H 18 98 Intake and Output 12/12/17 12/12/17 12/12/17 06:59 14:59 22:59 Intake Total 700 508.36 Balance 700 508.36 Intake: IV 700 508.36 Other: Weight 74.389 kg 75.3 kg Patient Weight 12/13/17 06:59 Weight 75.3 kg Physical Exam: Revealed a 77-year-old female in no distress, very pleasant. And a very good historian. HEENT:[Neck is supple.] [No neck masses.] [No thyromegaly.] [No JVD.] Chest: [Clear throughout, no crackles, no rhonchi, no wheezes.] Cardiac Exam: [Normal S1 and S2, no S3 gallop, 2/6 systolic murmur heard throughout the precordium.] Abdomen: [Soft, nontender, no megaly, no rebound, no guarding, normal bowel sounds.] Extremities: [No clubbing, no edema, no cyanosis.] Neurological Exam: [No focal neurologic deficit.] Psychiatric: Normal mood affect and mental status examination Musculoskeletal: Normal range of motion, no deformities. Lymphatics: No lymphadenopathy. Results - Laboratory Findings CBC and BMP: 12/12/17 14:05 12/12/17 15:38 PT/INR, D-dimer PT 97.5 sec (9.0-12.0) H 12/12/17 14:05 INR >10.0 (<1.2) H* 12/12/17 14:05 Abnormal lab findings: Abnormal Labs 12/12/17 12/12/17 12/12/17 14:05 14:05 14:05 Plt Count 105 L Lymphocytes # 0.6 L PT INR APTT Sodium Potassium 8.2 H* Carbon Dioxide 20 L BUN 84 H* Creatinine 4.64 H Glucose 118 H POC Glucose (mg/dL) Calcium AST Total Creatine Kinase 162 H Total Protein Albumin 12/12/17 12/12/17 12/12/17 14:05 15:38 16:43 Plt Count Lymphocytes # PT 97.5 H INR >10.0 H* APTT 42.8 H Sodium 135 L Potassium 6.5 H* Carbon Dioxide 17 L BUN 75 H Creatinine 4.15 H Glucose 237 H POC Glucose (mg/dL) 145 H Calcium 10.3 H AST 55 H Total Creatine Kinase Total Protein 5.3 L Albumin 2.9 L - Diagnostic Findings Chest x-ray: image reviewed (Chronic changes, cardiomegaly, no acute pulmonary process noted on presentation.) Assessment and Plan Assessment: Impression: [address] elevation myocardial infarction 2 status post stenting of LAD postoperative day #0 3 history of previous inferior wall [place] and stenting of RCA. Patient had total occlusion of the mid circumflex and proximal RCA. 4 history of ischemic cardiomyopathy and previous AICD placement 5 acute on chronic renal failure, suspect possible some component of cardiorenal syndrome. 6 paroxysmal atrial fibrillation, 7 Coumadin related coagulopathy 8 history of underlying COPD but presently asymptomatic 9 history of benign essential hypertension 10 history of hypothyroidism 11 history of deep vein thromboses involving right upper extremity 12 acute hyperkalemia secondary to renal failure 13 non-anion gap metabolic acidosis related to renal failure Recommendation: Agree with the present treatment plan as outlined by cardiology , also agree with the treatment plan of her hyperkalemia as outlined by nephrology, continue Plavix, Nitrostat, patient received vitamin K for her Coumadin related coagulopathy. Patient is receiving sodium bicarb for her hyperkalemia, and Lasix was given earlier. May or may not require Kayexalate. We'll continue to follow, we'll monitor the patient in the ICU overnight. Time with Patient: Greater than 30
[2017-12-12] MEDS: SODIUM CHLORIDE 0.9% 1,000 ML IV SCH (18:13)
[2017-12-12 20:07] VITALS: BMI 33.5
[2017-12-12] MEDS ORDERED: NALOXONE 0.4 MG/ML 1 ML VIAL IV PRN (20:42)
[2017-12-12] MEDS ORDERED: NOREPINEPHRIN 16 MG-0.9%NS PMX 16 MG/250 ML ML IV SCH (21:15)
[2017-12-12] MEDS ORDERED: CALCIUM GLUCONATE 1,000 MG in SODIUM CHLORIDE 0.9% 100 ML IVPB ONE (21:31)
[2017-12-12 21:35] LABS: Appearance,Urine Clear (Clear); Bilirubin,Urine Negative (Negative); Blood,Urine Small (Negative); Color,Urine Light Yellow; Glucose,Urine (UA) Negative (Negative); Hyaline Casts,Urine 148 /lpf (0-2); Ketones,Urine Negative (Negative); Leukocyte Esterase,Urine Trace (Negative); Nitrite,Urine Negative (Negative); Protein,Urine Negative (Negative); RBC,Urine 8 /hpf (0-5); Specific Gravity,Urine 1.016 (1.001-1.035); Squamous Epithelial Cell,Urine <1 /hpf (0-4); Urobilinogen,Urine <2.0 mg/dL (<2.0); WBC,Urine 2 /hpf (0-5)
[2017-12-12] MEDS ORDERED: FUROSEMIDE 10 MG/ML 10 ML VIAL IV STA (21:42)
[2017-12-12] MEDS ORDERED: DEXTROSE 50%-WATER 50 ML SYRINGE IVP STA (21:42)
[2017-12-12] MEDS ORDERED: HYDROcodone/APAP 7.5-325MG 1 EACH TAB PO PRN (23:07)
--- NOTE | 2017-12-12 23:49 | HP ---
HISTORY AND PHYSICAL DATE OF ADMISSION: 12/12/2017. PRESENTING COMPLAINT: Back pain. HISTORY OF PRESENTING COMPLAINT: This is a pleasant 77-year-old patient of Dr. Hedrick. The patient's chronic stable medical conditions include CHF, COPD, osteoarthritis, chronic kidney disease, and has a known history of coronary artery disease. The patient is going through lot of stress. Patient's son just about a month ago and she is trying to get some of her family memorabilia back from his girlfriend. Also sister and she went to the home this morning. The patient became rather nauseated and had sharp pain in the back. She felt sweaty all morning, tired, run down and decided to come down to the ER. The patient was having an acute WI. The patient was taken to the cardiac laborer operator. Actually patient had a new left bundle branch block. Initial cardiac cath was done by Dr. West. The patient had a stent placed to the LAD. The LAD patient is in the ICU. Blood pressure is running low on Levophed drip. The patient is also hypercalcemic and nephrology was going over the medication with the same. Patient was lying in bed with Levophed drip. Patient also had INR greater than 10 on presentation, was given 10 mg of vitamin K. REVIEW OF SYSTEMS: Constitutional: Weak and tired. HEENT: None. Respiratory: Some shortness of breath. Cardiovascular: As above. Gastrointestinal: None. Genitourinary: None. Musculoskeletal: Arthritic pain in many joints. Dermatological and hematologic lymphatic: None. Psychiatry: None. Neurological: None. PAST MEDICAL HISTORY: Congestive heart failure, COPD, osteoarthritis, coronary artery disease, atrial fibrillation, chronic kidney disease, AICD, brachial artery thrombosis, cardiomyopathy EF 35% to 40%. PAST SURGICAL HISTORY: Adenoidectomy, AICD, breast surgery, cholecystectomy, cardiac cath with stent, hysterectomy, pacemaker, biventricular dual-chamber AICD pacemaker in 2012, thrombectomy of the right arm, right knee replacement. PSYCH HISTORY: Anxiety. SOCIAL HISTORY: Patient smoked about half a pack a day for 30 years. Stopped in 2012. FAMILY HISTORY: Diabetes, myocardial infarction, breast cancer. HOME MEDICATIONS: 1. Coumadin 4 mg daily. 2. Vitamin B1, 100 mg p.o. daily. 3. Potassium 10 mEq p.o. q.i.d. 4. Multivitamin 1 tab p.o. daily. 5. Uloric 80 mg p.o. daily. 6. Vitamin D3, 2000 units p.o. daily. 7. Aldactone 50 mg p.o. daily. 8. Zocor 40 mg at bedtime. 9. Prilosec 20 mg p.o. daily. 10.Zaroxolyn 2.5 mg Sunday and . 11.Prinivil 5 mg p.o. daily. 12.Synthroid 50 mcg p.o. daily. 13.[place] 7.5 one tab every 4 hours p.r.n. 14.Lasix 40 mg p.o. b.i.d. 15.Folic acid 1 mg p.o. daily. 16.Coreg 3.125 p.o. daily. 17.Aspirin 81 mg p.o. daily. 18.Xanax 0.25 p.o. t.i.d. p.r.n. ALLERGIES: 1. Penicillin. 2. Dexamethasone. 3. Methylprednisolone. PHYSICAL EXAMINATION: On examination, afebrile, pulse 50, blood pressure 73/46, pulse of 106/42, pulse ox 94% on 3 L. GENERAL APPEARANC: Well built, BMI 33.5, lying in bed, anxious appearing. EYES: Clear. Conjunctivae normal. HEENT: Oral cavity normal. NECK: JVD not raised. Mass not palpable. RESPIRATORY: Respiratory effort normal. Lungs diminished breath sounds. CARDIOVASCULAR: 1st and 2nd sounds normal. No edema. ABDOMEN: Soft, nontender. Liver and spleen not palpable. LYMPHATIC: No lymph nodes palpable. PSYCHIATRY: Alert, oriented x3. Mood and affect slightly anxious-appearing. NEUROLOGIC: Pupils equal. Cranial nerves grossly intact. Power and sensation grossly intact. MUSCULOSKELETAL: Evidence of osteoarthritis, especially in the hands. INVESTIGATIONS: White count 5.7, hemoglobin 13.1. INR was greater than 10 on presentation. Potassium was 8.2, BUN 84, creatinine 4.64. EKG showed a broadened QRS complex. ASSESSMENT: 1. Acute myocardial infarction with emergent stent to the left anterior descending by Dr. Hugo. 2. Severe hyperkalemia secondary to renal failure. 3. Coumadin toxicity with INR greater than 10. The patient received vitamin K in the ER. 4. Stage 4 chronic kidney disease disease present on admission. 5. Chronic obstructive pulmonary disease. 6. Ex-smoker. 7. Primary osteoarthritis multiple joints bilateral. 8. Known coronary artery disease with prior stents. 9. Automatic implantable cardioverter defibrillator. 10.History of atrial fibrillation for which patient is on Coumadin. 11.Cardiogenic shock. Patient currently on Levophed. 12.Hypothyroidism. 13.Anxiety, not otherwise specified, due to social reasons. PLAN: Patient is currently on aspirin, Plavix, [place], Levophed drip. We will also resume the patient's Synthroid. Consultation to cardiology and Nephrology. Dr. Dunham prescribed medication for hyperkalemia. The patient is a high risk for going into full renal replacement because of additional contrast induced nephropathy. Care was discussed with the patient. MMODL / IJN: [id number] /
[2017-12-13 01:54] LABS: Calcium 10.5 mg/dL (8.4-10.2); Magnesium 2.3 mg/dL (1.6-2.3); Potassium 5.5 mmol/L (3.5-5.1)
[2017-12-13] MEDS: HYDROcodone/APAP 7.5-325MG 1 EACH TAB PO PRN ×4 (02:51→20:00)
[2017-12-13] MEDS: SODIUM CHLORIDE 0.9% 1,000 ML IV SCH (03:49)
[2017-12-13 05:47] LABS: Basophils % (A) 0 %; Eosinophils % (A) 0 %; HCT 40.1 % (34.0-46.0); HGB 12.8 gm/dL (11.4-16.0); Lymphocytes # (A) 0.7 k/uL (1.0-4.8); Lymphocytes % (A) 10 %; MCH 29.8 pg (25.0-35.0); MCHC 31.8 g/dL (31.0-37.0); MCV 93.5 fL (80.0-100.0); Mean Platelet Volume 10.4; Monocytes # (A) 0.7 k/uL (0-1.0); Monocytes % (A) 10 %; Neutrophils # (A) 5.7 k/uL (1.3-7.7); Neutrophils % (A) 78 %; Platelet Count 118 k/uL (150-450); RBC 4.29 m/uL (3.80-5.40); RDW 15.5 % (11.5-15.5); WBC 7.4 k/uL (3.8-10.6)
[2017-12-13 06:11] LABS: Calcium 10.3 mg/dL (8.4-10.2); Magnesium 2.1 mg/dL (1.6-2.3); Phosphorus 5.6 mg/dL (2.5-4.5); Potassium 5.5 mmol/L (3.5-5.1)
--- NOTE | 2017-12-13 08:13 | XR ---
EXAMINATION TYPE: XR chest 1V DATE OF EXAM: 12/13/2017 COMPARISON: Prior chest x-ray 12/12/2017 HISTORY: Abnormal chest x-ray, chest pain, myocardial infarction TECHNIQUE: Single frontal view of the chest is obtained. FINDINGS: Patient is rotated. Defibrillator leads are stable. The heart is enlarged. No evident pneu mothorax or pleural effusion. Pulmonary vascularity and carmelo not significantly changed. Minimal patch y basilar density is noted. Lung volumes somewhat lower. IMPRESSION: Rotated expiratory exam. Basilar atelectasis. Stable cardiomegaly.
[2017-12-13] MEDS ORDERED: NON-FORMULARY DRUG (Omeprazole [Prilosec] 20 MG) PO SCH (09:00)
[2017-12-13] MEDS ORDERED: PHYTONADIONE 1 MG in SODIUM CHLORIDE 0.9% 50 ML IVPB STA (09:26)
[2017-12-13] MEDS: ALLOPURINOL 100 MG TAB PO SCH (09:33)
[2017-12-13] MEDS: FOLIC ACID 1 MG TAB PO SCH (09:34)
[2017-12-13] MEDS: ASPIRIN 325 MG TAB PO SCH (09:34)
[2017-12-13] MEDS: LEVOTHYROXINE 50 MCG TAB PO SCH (09:35)
--- NOTE | 2017-12-13 10:01 | ECHOF ---
Referral Reason:stemi MEASUREMENTS -------- HEIGHT: 132.1 cm WEIGHT: 74.8 kg BP: 140/52 RVIDd: 3.3 cm (< 3.3) IVSd: 0.8 cm (0.6 - 1.1) LVIDd: 4.5 cm (3.9 - 5.3) LVPWd: 0.9 cm (0.6 - 1.1) IVSs: 1.7 cm LVIDs: 3.8 cm LVPWs: 0.8 cm Ao Diam: 3.1 cm (2.0 - 3.7) AV Cusp: 1.7 cm (1.5 - 2.6) LA Diam: 3.2 cm (2.7 - 3.8) MV EXCURSION: 17.354 mm (> 18.000) MV EF SLOPE: 71 mm/s (70 - 150) EPSS: 1.3 cm MV E Dustin: 0.94 m/s MV DecT: 251 ms MV A Dustin: 0.94 m/s MV E/A Ratio: 1.01 RAP: 5.00 mmHg RVSP: 34.81 mmHg FINDINGS -------- Sinus rhythm. AICD This was a technically difficult study with suboptimal views. The left ventricular size is normal. Left ventricular wall thickness is normal. Overall left vent ricular systolic function is moderately impaired with, an EF between 35 - 40 %. Inferiorlateral Hyp okinesis Septal Hypokinesis The right ventricle is normal in size and function. The left atrium is normal in size. The right atrium is normal in size. Aortic valve is trileaflet and is mildly thickened. The mitral valve leaflets are mildly thickened. Mild mitral annular calcification present. Mild m itral regurgitation is present. Severe tricuspid regurgitation present. The right ventricular systolic pressure, as measured by Dop pler, is 34.81mmHg. Pulmonic valve appears structurally normal. The aortic root size is normal. The pericardium is normal. CONCLUSIONS -------- 1. Sinus rhythm. 2. AICD 3. This was a technically difficult study with suboptimal views. 4. The left ventricular size is normal. 5. Left ventricular wall thickness is normal. 6. Overall left ventricular systolic function is moderately impaired with, an EF between 35 - 40 %. 7. Inferiorlateral Hypokinesis 8. Septal Hypokinesis 9. The right ventricle is normal in size and function. 10. The left atrium is normal in size. 11. The right atrium is normal in size. 12. Lumason used 13. Aortic valve is trileaflet and is mildly thickened. 14. The mitral valve leaflets are mildly thickened. 15. Mild mitral annular calcification present. 16. Mild mitral regurgitation is present. 17. Severe tricuspid regurgitation present. 18. The right ventricular systolic pressure, as measured by Doppler, is 34.81mmHg. 19. Pulmonic valve appears structurally normal. 20. The aortic root size is normal. 21. The pericardium is normal. STRIPPING SHOVEL OILER: Marge Swartz RDCS
[2017-12-13] MEDS: PANTOPRAZOLE 40 MG/10 ML VIAL IV SCH (10:16)
[2017-12-13] MEDS: METOPROLOL SUCCINATE (ER) 25 MG TAB.ER.24H PO SCH (10:18)
--- NOTE | 2017-12-13 11:36 | P.NPCON ---
History of Present Illness - Reason for Consult acute renal failure - History of Present Illness Reason for consultation: Acute kidney injury on chronic kidney disease History of present illness: Patient is a 77-year-old female seen in renal consultation for acute kidney injury on chronic kidney disease. Patient has chronic kidney disease stage III with baseline creatinine in the range of 1-1.2. Her creatinine was 4.6 this admission and is down to 4.0 today. Patient presented to the hospital with nausea and also had sharp pain in her back. Patient's has been quite stressed as she lost her son as well as her sister recently. There was concern for acute myocardial infarction and she was taken for a cardiac catheterization and a stent to the LAD was placed. Her potassium was noted to be elevated at 8.2 which was medically treated and is down to 5.5 this morning. She does admit to taking Aldactone, lisinopril as well as potassium supplementation as an outpatient. She is noted to have ejection fraction of 35-40% with severe tricuspid regurgitation. No proteinuria noted on urinalysis. No history of diabetes. She is maintained on normal saline at 100 mL an hour. Urine output is good with 400 mL an hour for the last few hours. She was on levo fed which has now been discontinued. She is awake and alert. Denies any active chest pain or shortness of breath. Vital signs are stable. General: The patient appeared well nourished and normally developed. HEENT: Head exam is unremarkable. Neck is without jugular venous distension. LUNGS: Lungs are clear to auscultation and percussion. Breath sounds decreased. HEART: Rate and Rhythm are regular. First and second heart sounds normal. No murmurs, rubs or gallops. ABDOMEN: Abdominal exam reveals normal bowel sounds. Non-tender and non- distended. No evidence of peritonitis. EXTREMITITES: No clubbing, cyanosis, or edema. 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,brachial artery thrombosis, afib 2012, cardiomyopathy ef 35-40%(2012), djd ,falls, RENAL FX AT 65%(PER FAMILY), APPETITE DECREASED SINCE MARCH Last Myocardial Infarction Date:: 1999 History of Any Multi-Drug Resistant Organisms: None Reported Past Surgical History: Adenoidectomy, AICD, Breast Surgery, Cholecystectomy, Heart Catheterization With Stent, Hysterectomy, Joint Replacement, Pacemaker, Tonsillectomy, Tubal Ligation Additional Past Surgical History / Comment(s): 08-07-13 aicd(biventricular dual chamber aicd/pacemaker-[employer], thrombectomy rt arm,rt knee replacement Past Anesthesia/Blood Transfusion Reactions: No Reported Reaction Additional Past Anesthesia/Blood Transfusion Reaction / Comment(s): blood trandfusion 1968 Date of Last Stent Placement:: unk Type of Cardiac Device: Permanent Pacemaker, AICD Device Placement Date:: 08-07-13 Smoking Status: Former smoker - Past Family History Father Family Medical History: Diabetes Mellitus, Myocardial Infarction (DE) Mother Family Medical History: Cancer, Hyperlipidemia, Hypertension Additional Family Medical History / Comment(s): BREAST CA Brother(s) Family Medical History: Myocardial Infarction (DE) Additional Family Medical History / Comment(s): AGE 57 FROM [place] Sister(s) Family Medical History: Cancer Additional Family Medical History / Comment(s): YOUNGER SISTER FROM OVARIAN CANCER AGE 51 AND ANOTHER SISTER HAD DE/CAD,OPEN HEART W/VALVE REPLACEMENT AND DM Medications and Allergies Home Medications Medication Instructions Recorded Confirmed Type ALPRAZolam [Xanax] 0.25 mg PO TID PRN 06/08/15 12/12/17 History Aspirin 81 mg PO DAILY 06/08/15 12/12/17 History Cholecalciferol [Vitamin D3] 2,000 unit PO DAILY 06/08/15 12/12/17 History Levothyroxine Sodium [Synthroid] 50 mcg PO DAILY 06/08/15 12/12/17 History Omeprazole [PriLOSEC] 20 mg PO DAILY 06/08/15 12/12/17 History Simvastatin [Zocor] 40 mg PO HS 06/08/15 12/12/17 History Furosemide [Lasix] 40 mg PO BID 10/17/15 12/12/17 History HYDROcodone/APAP 7.5-325MG [Erwin 1 tab PO Q4H PRN 07/03/16 12/12/17 History 7.5-325] Spironolactone [Aldactone] 50 mg PO DAILY 07/03/16 12/12/17 History Carvedilol [Coreg] 3.125 mg PO DAILY 06/10/17 12/12/17 History Febuxostat [Uloric] 80 mg PO DAILY 06/10/17 12/12/17 History Metolazone [Zaroxolyn] 2.5 mg PO MOTH 06/10/17 12/12/17 History Multivitamin [Multivitamins Adult 1 tab PO DAILY 06/10/17 12/12/17 History Gummies] Potassium Chloride [K-Tab ER] 10 meq PO QID 06/10/17 12/12/17 History Warfarin Sodium [Coumadin] 4 mg PO DAILY 06/10/17 12/12/17 History Folic Acid 1 mg PO DAILY 12/12/17 12/12/17 History Lisinopril [Prinivil] 5 mg PO DAILY 12/12/17 12/12/17 History Thiamine [Vitamin B-1] 100 mg PO DAILY 12/12/17 12/12/17 History Allergies Allergy/AdvReac Type Severity Reaction Status Date / Time Penicillins Allergy Unknown Verified 12/12/17 14:27 dexamethasone AdvReac Unknown Verified 12/12/17 14:27 methylprednisolone AdvReac Unknown Verified 12/12/17 14:27 Physical Exam Vitals: Vital Signs Temp Pulse Pulse Resp BP Pulse Ox 12/13/17 07:00 53 L 22 125/47 98 12/13/17 06:40 52 L 20 118/71 99 12/13/17 06:20 50 L 21 110/61 100 12/13/17 06:00 53 L 14 128/63 98 12/13/17 05:40 45 L 20 115/45 99 12/13/17 05:20 52 L 18 128/67 98 12/13/17 05:00 52 L 18 115/50 98 12/13/17 04:40 59 L 16 119/55 99 12/13/17 04:20 48 L 11 L 124/63 98 12/13/17 04:00 98.3 F 66 18 111/63 98 12/13/17 03:40 53 L 116 H 84/62 98 12/13/17 03:20 64 17 95/38 97 12/13/17 03:00 55 L 16 156/122 98 12/13/17 02:40 56 L 14 139/85 98 12/13/17 02:20 57 L 16 131/70 96 12/13/17 02:00 53 L 17 138/63 98 12/13/17 01:40 50 L 17 94/45 97 12/13/17 01:20 52 L 16 97/47 97 12/13/17 01:00 50 L 16 119/61 97 12/13/17 00:40 61 17 137/62 96 12/13/17 00:20 55 L 14 104/52 96 12/13/17 00:00 98.2 F 51 L 16 105/54 97 12/12/17 23:40 52 L 17 114/53 97 12/12/17 23:20 57 L 16 136/54 94 L 12/12/17 23:00 77 15 101/58 97 12/12/17 22:40 73 17 81/41 97 12/12/17 22:20 76 18 130/56 97 12/12/17 22:16 75 12/12/17 22:00 50 L 102/70 95 12/12/17 21:55 50 L 12/12/17 21:40 50 L 115/57 94 L 12/12/17 21:20 50 L 107/47 98 12/12/17 21:00 50 L 73/46 94 L 12/12/17 20:40 98.6 F 50 L 109/64 96 12/12/17 20:00 50 L 96 12/12/17 19:24 50 L 12/12/17 19:00 50 L 137/93 96 12/12/17 18:30 49 L 112/60 97 12/12/17 18:15 50 L 118/69 89 L 12/12/17 18:00 49 L 115/54 95 12/12/17 17:45 50 L 112/55 91 L 12/12/17 17:30 44 L 96/62 87 L 12/12/17 17:15 97.7 F 50 L 105/53 99 12/12/17 17:00 97.7 F 44 L 14 99/57 96 12/12/17 14:13 102 H 12/12/17 14:03 97.0 F L 113 H 18 98 Intake and Output 12/12/17 12/13/17 12/13/17 22:59 06:59 14:59 Intake Total 1451.328 961.813 478.642 Output Total 480 955 750 Balance 971.328 6.813 -271.358 Intake: IV 1142.36 924 412 Calcium Gluconate 1,000 100 mg In Sodium Chloride 0.9 % 100 ml @ 100 mls/hr IVPB ONCE ONE Rx#: [id number] D50 25 Pressure Bag for Sheath 9 24 12 Sodium Chloride 0.9% 1, 600 800 400 000 ml @ 100 mls/hr IV . Q10H [facility] Rx#:[id number] Intake, IV Titration 108.968 37.813 66.642 Amount Norepinephrin 16 mg-0.9% 4.531 37.813 16.642 Ns Pmx 16 mg In 250 ml @ Titrate IV .Q0M [facility] Rx#: [id number] Norepinephrin 4 mg-0.9% 104.437 Ns Pmx 4 mg In 250 ml @ Titrate IV .Q0M [facility] Rx#: [id number] Phytonadione 1 mg In 50 Sodium Chloride 0.9% 50 ml @ 100 mls/hr IVPB ONCE STA Rx#:[id number] Oral 200 Output: Urine 480 955 750 Other: Voiding Method Indwelling Catheter Indwelling Catheter Weight 75.3 kg 75.2 kg 75.2 kg Patient Weight 12/14/17 06:59 Weight 75.2 kg ABP, PAP, CO, CI - Last 8 Hours Arterial Blood Pressure 124/44 Arterial Blood Pressure 134/45 Arterial Blood Pressure 131/45 Arterial Blood Pressure 128/45 Arterial Blood Pressure 124/48 Arterial Blood Pressure 123/44 Arterial Blood Pressure 140/52 Arterial Blood Pressure 138/49 Arterial Blood Pressure 140/47 Arterial Blood Pressure 146/52 Arterial Blood Pressure 85/32 Results - Lab Results Most recent lab results Calcium 10.3 mg/dL (8.4-10.2) H 12/13/17 05:40 Phosphorus 5.6 mg/dL (2.5-4.5) H 12/13/17 05:40 Magnesium 2.1 mg/dL (1.6-2.3) 12/13/17 05:40 12/13/17 05:40 12/13/17 05:40 Assessment and Plan Plan: Assessment: #1. Nonoliguric acute kidney injury secondary to ischemic ATN secondary to acute myocardial infarction. Creatinine was 4.6 on admission and is down to 4.0 today. No proteinuria noted on urinalysis. #2. Rule out chronic kidney disease. Baseline creatinine has been in the range of 1-1.2. Etiology is nephrosclerosis and cardiorenal syndrome. #3. Acute DE status post cardiac catheterization with stent placed to the LAD on 12/12/2017. #4. Hyperkalemia secondary to acute kidney injury and metabolic acidosis. Further worsened with the use of Aldactone and potassium supplementation. Improved with medical management. #5. Hypercalcemia. Unclear etiology. I don't see any calcium or vitamin D supplementation and her home medications. #6. Metabolic acidosis secondary to acute kidney injury. Improved. Plan: Continue normal saline to be run at 100 mL an hour. Encouraged oral intake. Avoid nephrotoxic agents and hypotensive episodes. Diuretics held for now. Check PTH, ROULA and vitamin D level. Repeat electrolytes in the morning. No urgent need for renal replacement therapy at this time - patient does not want any form of renal replacement therapy if indicated. Thank you for the consultation. I will continue to follow patient with you during her hospital stay.
--- NOTE | 2017-12-13 11:52 | P.PN ---
Subjective Progress Note Date: 12/13/17 Principal diagnosis: Acute inferior ST elevation myocardial infarction This is a 77-year-old female with history of multiple medical problems including coronary artery disease, previous stenting of the RCA, history of deep vein thromboses involving the right upper extremity, patient had previous thrombectomy, history of underlying COPD, previous GA, chronic kidney disease, history of ischemic cardiomyopathy and previous AICD placement with paroxysmal atrial fibrillation, patient presented today to the ER with severe pain across the back and the scapular area. Patient was also complaining of shortness of breath and diaphoresis. EKG showed normal sinus rhythm with left bundle branch block pattern and ST elevation in the inferior leads, ST depression in the anterior leads. Patient was in severe pain, blood pressure was 80/60 on presentation. Hence the patient was taken straight to the cardiac director of labor and delivery, underwent stenting of the LAD which was 70% occluded, did not correlate with the findings noted on the EKG which were mostly suggestive of inferior wall myocardial infarction. Patient did have previous inferior wall GA years ago. After cardiac cath, patient was noted to have significantly abnormal labs including elevated INR of more than 10, potassium was 8.2, and with treatment went down to 6.5 given to her by cardiology. Her BUN was 84 on presentation and creatinine was 4.64. Troponin was 0.013 CPK was 162. At any rate, patient was transferred to the ICU from the cardiac director of labor and delivery, and I was asked to see her on consultation. Presently the patient denies any chest pain, no back pain , no shortness of breath, no nausea no vomiting no abdominal pain, no melena, no hematemesis, no nausea no vomiting. She seems to be hemodynamically stable, but the patient is also on 7 mics of levo fed because she was noted to be hypotensive at the end of the procedure in the [employer]. Patient was reevaluated today on 12/13/2017, seems to be doing better than yesterday, have some vague chest discomfort, no shortness of breath, no cough no wheezing no nausea no vomiting no abdominal pain. CBC is relatively normal, potassium is down to 5.5 today from 7.1 last night BUN is 73 creatinine is down to 4.0 from 4.20 yesterday. Troponin is 1.170. Chest x-ray showed minimal basilar atelectasis otherwise unremarkable. Objective - Vital Signs Vital signs: Vital Signs Temp 98.3 F 12/13/17 04:00 Pulse 53 L 12/13/17 07:00 Resp 22 12/13/17 07:00 BP 125/47 12/13/17 07:00 Pulse Ox 98 12/13/17 07:00 Intake & Output 12/12/17 12/13/17 12/13/17 18:59 06:59 18:59 Intake Total 6488.507 4644.406 478.642 Output Total 230 1205 750 Balance 1343.735 334.406 -271.358 Weight 75.3 kg 75.2 kg 75.2 kg Intake: IV 1508.36 1258 412 Calcium Gluconate 1,000 100 mg In Sodium Chloride 0.9 % 100 ml @ 100 mls/hr IVPB ONCE ONE Rx#: [id number] D50 25 Pressure Bag for Sheath 33 12 Sodium Chloride 0.9% 1, 300 1100 400 000 ml @ 100 mls/hr IV . Q10H [facility] Rx#:[id number] Intake, IV Titration 65.375 81.406 66.642 Amount Norepinephrin 16 mg-0.9% 42.344 16.642 Ns Pmx 16 mg In 250 ml @ Titrate IV .Q0M [facility] Rx#: [id number] Norepinephrin 4 mg-0.9% 65.375 39.062 Ns Pmx 4 mg In 250 ml @ Titrate IV .Q0M [facility] Rx#: [id number] Phytonadione 1 mg In 50 Sodium Chloride 0.9% 50 ml @ 100 mls/hr IVPB ONCE STA Rx#:[id number] Oral 200 Output: Urine 230 1205 750 Other: Voiding Method Indwelling Catheter Indwelling Catheter ABP, PAP, CO, CI - Last Documented Arterial Blood Pressure 124/44 - Exam Physical Exam: Revealed a 77-year-old female in no distress, very pleasant. And a very good historian. HEENT:[Neck is supple.] [No neck masses.] [No thyromegaly.] [No JVD.] Chest: [Clear throughout, no crackles, no rhonchi, no wheezes.] Cardiac Exam: [Normal S1 and S2, no S3 gallop, 2/6 systolic murmur heard throughout the precordium.] Abdomen: [Soft, nontender, no megaly, no rebound, no guarding, normal bowel sounds.] Extremities: [No clubbing, no edema, no cyanosis.] Neurological Exam: [No focal neurologic deficit.] Psychiatric: Normal mood affect and mental status examination Musculoskeletal: Normal range of motion, no deformities. Lymphatics: No lymphadenopathy. - Labs CBC & Chem 7: 12/13/17 05:40 12/13/17 05:40 Labs: Abnormal Lab Results - Last 24 Hours (Table) 12/12/17 12/12/17 12/12/17 Range/Units 14:05 14:05 14:05 Plt Count 105 L (150-450) k/uL Lymphocytes # 0.6 L (1.0-4.8) k/uL PT (9.0-12.0) sec INR (<1.2) APTT (22.0-30.0) sec Sodium (137-145) mmol/L Potassium 8.2 H* (3.5-5.1) mmol/L Carbon Dioxide 20 L (22-30) mmol/L BUN 84 H* (7-17) mg/dL Creatinine 4.64 H (0.52-1.04) mg/dL Glucose 118 H (74-99) mg/dL POC Glucose (mg/dL) (75-99) mg/dL Calcium (8.4-10.2) mg/dL Phosphorus (2.5-4.5) mg/dL AST (14-36) U/L Total Creatine Kinase 162 H (30-135) U/L Troponin I (0.000-0.034) ng/mL Total Protein (6.3-8.2) g/dL Albumin (3.5-5.0) g/dL Urine Blood (Negative) Ur Leukocyte Esterase (Negative) Urine RBC (0-5) /hpf Hyaline Casts (0-2) /lpf 12/12/17 12/12/17 12/12/17 Range/Units 14:05 15:38 16:43 Plt Count (150-450) k/uL Lymphocytes # (1.0-4.8) k/uL PT 97.5 H (9.0-12.0) sec INR >10.0 H* (<1.2) APTT 42.8 H (22.0-30.0) sec Sodium 135 L (137-145) mmol/L Potassium 6.5 H* (3.5-5.1) mmol/L Carbon Dioxide 17 L (22-30) mmol/L BUN 75 H (7-17) mg/dL Creatinine 4.15 H (0.52-1.04) mg/dL Glucose 237 H (74-99) mg/dL POC Glucose (mg/dL) 145 H (75-99) mg/dL Calcium 10.3 H (8.4-10.2) mg/dL Phosphorus (2.5-4.5) mg/dL AST 55 H (14-36) U/L Total Creatine Kinase (30-135) U/L Troponin I (0.000-0.034) ng/mL Total Protein 5.3 L (6.3-8.2) g/dL Albumin 2.9 L (3.5-5.0) g/dL Urine Blood (Negative) Ur Leukocyte Esterase (Negative) Urine RBC (0-5) /hpf Hyaline Casts (0-2) /lpf 12/12/17 12/12/17 12/13/17 Range/Units 19:35 21:05 01:10 Plt Count (150-450) k/uL Lymphocytes # (1.0-4.8) k/uL PT (9.0-12.0) sec INR (<1.2) APTT (22.0-30.0) sec Sodium (137-145) mmol/L Potassium 7.1 H* 5.5 H (3.5-5.1) mmol/L Carbon Dioxide (22-30) mmol/L BUN 78 H (7-17) mg/dL Creatinine 4.20 H (0.52-1.04) mg/dL Glucose 129 H (74-99) mg/dL POC Glucose (mg/dL) (75-99) mg/dL Calcium 10.5 H (8.4-10.2) mg/dL Phosphorus (2.5-4.5) mg/dL AST (14-36) U/L Total Creatine Kinase (30-135) U/L Troponin I (0.000-0.034) ng/mL Total Protein (6.3-8.2) g/dL Albumin (3.5-5.0) g/dL Urine Blood Small H (Negative) Ur Leukocyte Esterase Trace H (Negative) Urine RBC 8 H (0-5) /hpf Hyaline Casts 148 H (0-2) /lpf 12/13/17 12/13/17 12/13/17 Range/Units 05:40 05:40 05:40 Plt Count 118 L (150-450) k/uL Lymphocytes # 0.7 L (1.0-4.8) k/uL PT 18.0 H (9.0-12.0) sec INR 2.0 H (<1.2) APTT (22.0-30.0) sec Sodium (137-145) mmol/L Potassium 5.5 H (3.5-5.1) mmol/L Carbon Dioxide (22-30) mmol/L BUN 73 H (7-17) mg/dL Creatinine 4.00 H (0.52-1.04) mg/dL Glucose 105 H (74-99) mg/dL POC Glucose (mg/dL) (75-99) mg/dL Calcium 10.3 H (8.4-10.2) mg/dL Phosphorus 5.6 H (2.5-4.5) mg/dL AST (14-36) U/L Total Creatine Kinase (30-135) U/L Troponin I (0.000-0.034) ng/mL Total Protein (6.3-8.2) g/dL Albumin (3.5-5.0) g/dL Urine Blood (Negative) Ur Leukocyte Esterase (Negative) Urine RBC (0-5) /hpf Hyaline Casts (0-2) /lpf 12/13/17 Range/Units 05:40 Plt Count (150-450) k/uL Lymphocytes # (1.0-4.8) k/uL PT (9.0-12.0) sec INR (<1.2) APTT (22.0-30.0) sec Sodium (137-145) mmol/L Potassium (3.5-5.1) mmol/L Carbon Dioxide (22-30) mmol/L BUN (7-17) mg/dL Creatinine (0.52-1.04) mg/dL Glucose (74-99) mg/dL POC Glucose (mg/dL) (75-99) mg/dL Calcium (8.4-10.2) mg/dL Phosphorus (2.5-4.5) mg/dL AST (14-36) U/L Total Creatine Kinase (30-135) U/L Troponin I 1.170 H* (0.000-0.034) ng/mL Total Protein (6.3-8.2) g/dL Albumin (3.5-5.0) g/dL Urine Blood (Negative) Ur Leukocyte Esterase (Negative) Urine RBC (0-5) /hpf Hyaline Casts (0-2) /lpf Assessment and Plan Assessment: Impression: [address] elevation myocardial infarction 2 status post stenting of LAD postoperative day #1 3 history of previous inferior wall GA and stenting of RCA. Patient had total occlusion of the mid circumflex and proximal RCA. 4 history of ischemic cardiomyopathy and previous AICD placement 5 acute on chronic renal failure, suspect possible some component of cardiorenal syndrome. 6 paroxysmal atrial fibrillation, 7 Coumadin related coagulopathy 8 history of underlying COPD but presently asymptomatic 9 history of benign essential hypertension 10 history of hypothyroidism 11 history of deep vein thromboses involving right upper extremity 12 acute hyperkalemia secondary to renal failure 13 non-anion gap metabolic acidosis related to renal failure Recommendation: Agree with the present treatment plan as outlined by cardiology , also agree with the treatment plan of her hyperkalemia as outlined by nephrology, continue Plavix, Nitrostat, patient received vitamin K for her Coumadin related coagulopathy. Patient's potassium is responding well to treatment, still needs to be lowered below 5.5, and again that being addressed by nephrology. We'll continue to follow, consider transferring the patient to a monitored bed on selective today or tomorrow. Time with Patient: Less than 30
--- NOTE | 2017-12-13 12:38 | CC ---
CARDIAC CATHETERIZATION REPORT INDICATION: Acute coronary syndrome. This is a 77-year-old lady who presented to hospital with persistent chest pain, was found to be in wide-complex tachycardia. She was taken for cardiac catheterization with a view to performing emergent cath and possible angioplasty. The patient was explained the risks, benefits and alternatives, understood and accepted. After obtaining informed consent, left heart catheterization and coronary angiogram were performed via the right femoral artery using standard Ruben catheters. The left coronary artery was engaged using a size 3.0 Ruben catheter after trying a 4.0 and a 3.5, and the right coronary artery was selectively engaged using a regular Ruben catheter. Patient received moderate conscious sedation. Total sedation time was 30 minutes. FINDINGS: 1. HEMODYNAMICS: Central aortic pressure was 130/70 mm. 2. LEFT VENTRICULOGRAM: Left ventriculogram was not performed. 3. ANGIOGRAPHIC DATA:. Left main coronary artery appears calcified. LAD and circ have almost separate ostia. The circ has moderate disease in the proximal part. The LAD shows a focal area of stenosis in its midportion. Right coronary artery is chronically occluded in the proximal part. CONCLUSIONS: [place] 3-vessel coronary artery disease with 70% stenosis involving mid left anterior descending artery. PLAN: Patient will undergo angioplasty of the same. After we started the cardiac cath, the patient had runs of ventricular tachycardia and received intravenous amiodarone. We found out that the potassium is 8.0. We gave her calcium gluconate, insulin, dextrose. Subsequently, patient's heart rate came down to 50 beats per minute. She also has renal failure and coagulopathy and she received 10 mg of vitamin K to reverse the Coumadin. MMODL / IJN: [id number] /
--- NOTE | 2017-12-13 12:40 | CONS ---
CONSULTATION Rhoda is a 77-year-old lady who presented to hospital yesterday with acute ischemic syndrome and underwent emergent cardiac catheterization. While we were doing the cardiac catheterization we got back her labs. She had severe hyperkalemia, new onset renal failure and severely elevated INR. Patient underwent cardiac catheterization and angioplasty of the mid LAD. She had a chronically occluded red devil right coronary artery. This morning her potassium is 5.5, troponin is 1.1, hemoglobin is 12.8, INR is down to 2 after receiving vitamin K. She still has sheath in the femoral artery. I will give her another dose of vitamin K and take the sheath off. She does not have any more chest pain and she remains in regular rhythm. Yesterday, she when she came in, she had a wide-complex tachycardia, either an SVT with aberrancy on and she also had runs of ventricular tachycardia. PHYSICAL EXAM: Comfortable at rest. Heart rate is in the 50s per minute. Blood pressure is 125/47, respiratory rate is 18. Chest exam reveals diminished air entry at the bases. Heart exam reveals first and second heart sounds. Systolic murmur at the left lower sternal border. Abdomen is soft. Exam of extremities did not reveal any edema. Peripheral pulses are palpable. Groin has a sheath in place and has mild discomfort. Hemoglobin is 12.8, potassium is 5.5, BUN and creatinine are elevated. ASSESSMENT: 1. Acute ischemic syndrome. 2. Acute on chronic renal failure. 3. Coagulopathy. 4. Patient had an echo done yesterday that revealed moderate left ventricular dysfunction with an ejection fraction of 35% to 40%. 5. Acute coronary syndrome, status post catheterization and angioplasty. PLAN: Patient is on aspirin, Plavix, which I am going to continue. Start on Toprol-XL 25 mg daily and resume the statin that the patient was on at home. I will hold the Coumadin, give her another dose of vitamin K today and pull the sheath later today. MMODL / IJN: [id number] /
[2017-12-13 14:37] LABS: Hemoglobin A1C 5.6 % (4.0-6.0)
[2017-12-13 15:17] LABS: INR 1.6 (<1.2); Prothrombin Time 14.9 sec (9.0-12.0)
[2017-12-13] MEDS ORDERED: ATROPINE SULFATE 0.1 MG/ML 10ML SYRINGE ONE (15:43)
[2017-12-13 16:38] LABS: Vitamin D 25 Hydroxy 33.8 ng/mL (30.0-100.0)
[2017-12-13] MEDS: CLOPIDOGREL 75 MG TAB PO SCH (17:19)
[2017-12-13 18:00] LABS: Parathyroid Hormone Intact 61.4 pg/mL (14.0-72.0)
[2017-12-13] MEDS: ATORVASTATIN 40 MG TAB PO SCH (20:00)
--- NOTE | 2017-12-13 21:48 | P.PN ---
Progress Note - Text Progress Note Date: 12/13/17 DATE OF SERVICE: 12/13/2017 PRESENTING COMPLAINT: Back pain HISTORY OF PRESENT ILLNESS: 77-year-old female who had been having a lot of stress in her life with the of her son, and her sister recently passed with being this morning. Developed nausea feeling tired and rundown sweaty and developed a sharp pain in her back. Came to the emergency department for further evaluation found to be having an acute [place]. Taken to the cardiac catheterization lab and had a stent placed to the LAD. Return to the ICU Hypotensive requiring Levophed drip. INR on admission was 10.0 received vitamin K 2 doses. INTERVAL HISTORY: 12/13/2017: Lying in bed somewhat anxious appearing. Right groin sheath remains in place, awaiting reduced ACT time prior to pulling sheath. Status post angioplasty and stent to LAD. The Levophed off blood pressure stabilized. Potassium was 8.0 received calcium gluconate insulin and dextrose. Remains nothing by mouth. On strict bed rest while sheath in place. REVIEW OF SYSTEMS: Done for constitutional ,cardiovascular, GI, pulmonary with relevant findings as above. CURRENT MEDICATIONS [place], Maalox, Zyloprim, aspirin, Lipitor, atropine, Plavix, folic acid, Synthroid, Toprol-XL, Narcan, Nitrostat, Ambien. PHYSICAL EXAM VITAL SIGNS: Temperature 98.2, pulse 57, respiratory rate 16, oxygen saturation 98% on 3 L, blood pressure 116/43. GENERAL APPEARANCE: Lying in bed, anxious appearing HENT: Normocephalic, JVD not raised. Mass not palpable. Oral cavity normal, external appearance of ears and nose normal. EYES:Pupils equal. Conjunctiva normal. RESPIRATORY: Respiratory effort normal. Lungs diminished to auscultation. CARDIOVASCULAR: First and second sounds normal. No edema. ABDOMEN: Soft. Liver and spleen not palpable. No tenderness. No mass palpable. PSYCHIATRY: Alert and oriented x3. Mood and affect anxious appearing NEUROLOGICAL: Cranial nerves grossly intact. No facial asymmetry. Power and sensation grossly intact EXTREMITY: Right groin site femoral sheath in place no bleeding or hematoma noted INVESTIGATIONS: ASSESSMENT: -Acute myocardial infarction with emergent stent to the left anterior descending by Dr. Hugo. -Severe hyperkalemia secondary to renal failure. -Coumadin toxicity with INR greater than 10. Patient received vitamin K in the ER. -Stage III chronic kidney disease present on admission, due to nephrosclerosis and cardiorenal syndrome. -Chronic obstructive pulmonary disease. -Ex-smoker. -Primary osteoarthritis multiple joints bilateral. -Known coronary artery disease with prior stents. -Automatic implantable cardioverter defibrillator. -History of atrial fibrillation for which patient is on Coumadin. -Cardiogenic shock, resolved, patient was on Levophed. -Hypothyroidism. -Anxiety, not otherwise specified, due to social reasons. PLAN: Continue aspirin and Plavix and add Toprol-XL 25 mg daily per cardiology Coumadin to be held and patient to receive another dose of vitamin K with a sheath to be pulled later today. Continue normal saline, hold diuretics, check parathyroid and vitamin D. Plan of care discussed at the bedside patient is agreeable we'll follow closely. PATROL LADY statement: Patient was seen and examined by nurse practitioner Sandra Brown and all elements of the case discussed with attending Dr. Dorantes
[2017-12-13] MEDS: ALPRAZolam 0.25 MG TAB PO PRN (23:57)
[2017-12-14] MEDS: HYDROcodone/APAP 7.5-325MG 1 EACH TAB PO PRN ×4 (04:30→20:59)
[2017-12-14 05:00] LABS: Basophils % (A) 1 %; Eosinophils # (A) 0.2 k/uL (0-0.7); Eosinophils % (A) 4 %; HCT 39.5 % (34.0-46.0); HGB 12.9 gm/dL (11.4-16.0); Lymphocytes # (A) 0.7 k/uL (1.0-4.8); Lymphocytes % (A) 12 %; MCHC 32.5 g/dL (31.0-37.0); MCV 95.2 fL (80.0-100.0); Mean Platelet Volume 8.9; Monocytes # (A) 0.6 k/uL (0-1.0); Monocytes % (A) 10 %; Neutrophils % (A) 70 %; RBC 4.15 m/uL (3.80-5.40); RDW 15.6 % (11.5-15.5); WBC 5.8 k/uL (3.8-10.6)
[2017-12-14 05:13] LABS: Calcium 9.3 mg/dL (8.4-10.2); Phosphorus 4.3 mg/dL (2.5-4.5); Potassium 4.4 mmol/L (3.5-5.1)
[2017-12-14 05:22] LABS: Platelet Count 70 k/uL (150-450)
--- NOTE | 2017-12-14 07:12 | PN ---
PROGRESS NOTE DATE OF SERVICE: 12/13/17 PRESENTING COMPLAINT: Back pain. INTERVAL HISTORY: This is a patient under a lot of stress, presented with acute MA, underwent cardiac cath with stent to the LAD. The patient's Levophed drip was stopped around 6:30 this morning. Also was on Coumadin toxicity. Did receive vitamin K and really did not eat this morning, tired. The patient's close friend is at the bedside. REVIEW OF SYSTEMS: Done for constitutional, cardiovascular, GI, pulmonary; relevant findings as above. CURRENT MEDICATIONS: Reviewed that include allopurinol, aspirin Lipitor, Plavix, [place], Synthroid, Toprol- XL, Levophed, now taken off Protonix and Ambien. PHYSICAL EXAMINATION: Temperature 97.4, pulse 53, respiration 25, blood pressure 93/36, pulse ox 98% on 2 L. HEENT: Normocephalic. Oral cavity normal. EYES: Pupils equal. Conjunctivae normal. NECK: JVD not raised. Mass not palpable. RESPIRATORY: Effort, lungs are clear. CARDIOVASCULAR: First and second sounds, no edema. ABDOMEN: Soft, nontender. Liver and spleen not palpable. No palpable. PSYCHIATRY: Alert and oriented x3. Mood and affect anxious-appearing. INVESTIGATIONS: White count 7.4, hemoglobin 12.8, potassium 5.5, BUN 33, creatinine 4.0, troponin 1.1, calcium 10.3. ASSESSMENT: 1. Acute myocardial infarction with emergent stent to the LAD. 2. Cardiac catheterization showing triple-vessel disease. 3. Severe hyperkalemia secondary to renal failure slowly coming down. 4. Coumadin toxicity, present on admission. Patient did receive vitamin K in the ER. 5. Stage III chronic kidney disease, present on admission, due to nephrosclerosis and cardiorenal syndrome. 6. Chronic obstructive pulmonary disease in an ex-smoker. 7. Primary osteoarthritis in multiple joints bilateral. 8. AICD. 9. History of atrial fibrillation for which patient had been on Coumadin. 10.Cardiogenic shock, resolved. Patient had been on Levophed, now resolved. 11.Hypothyroidism. 12.Anxiety, not otherwise specified, multifactorial. 13.Hypercalcemia from renal failure. 14.Secondary hyperparathyroidism with elevated phosphorus. PLAN: Continue current medication and treatment plan. Coumadin continues to be held. Levophed had been taken off. Electrolytes are being followed very closely. Care was discussed with the patient and friend at the bedside. Questions were answered. Prognosis guarded. MMODL / IJN: [id number] /
--- NOTE | 2017-12-14 07:47 | XR ---
EXAMINATION TYPE: XR chest 1V DATE OF EXAM: 12/14/2017 COMPARISON: Prior chest x-ray 12/13/2017 HISTORY: Abnormal chest x-ray, assess lungs TECHNIQUE: Single frontal view of the chest is obtained. FINDINGS: Similar findings. Cardiomegaly is noted. Defibrillator leads are stable. No pneumothorax o r pleural effusion. Patchy basilar density is noted. There may be some improvement in aeration. IMPRESSION: Improvement in aeration, volume status. Cardiomegaly.
[2017-12-14] MEDS: ASPIRIN 325 MG TAB PO SCH (08:51)
[2017-12-14] MEDS: ALLOPURINOL 100 MG TAB PO SCH (08:51)
[2017-12-14] MEDS: CLOPIDOGREL 75 MG TAB PO SCH (08:52)
[2017-12-14] MEDS: PANTOPRAZOLE 40 MG/10 ML VIAL IV SCH (08:52)
[2017-12-14] MEDS: LEVOTHYROXINE 50 MCG TAB PO SCH (08:52)
[2017-12-14] MEDS: FOLIC ACID 1 MG TAB PO SCH (08:52)
[2017-12-14] MEDS: METOPROLOL SUCCINATE (ER) 25 MG TAB.ER.24H PO SCH (08:52)
--- NOTE | 2017-12-14 09:35 | PN ---
PROGRESS NOTE Rhoda is a 77-year-old lady who was admitted to the hospital with acute myocardial infarction. Underwent emergent cardiac catheterization and angioplasty, had hyperkalemia with wide-complex tachycardia, renal failure. The patient is getting gradually better. Her urine output has improved. Renal functions have improved. She is free of cardiac symptoms. Her INR was down to 1.4 yesterday and the sheath had been pulled. Will resume the Coumadin that she was on at home. Both BUN and creatinine have improved significantly. On admission, they were 78 and 4.2 and this morning it is 62 and 2.8. Hemoglobin is 12.9. PHYSICAL EXAMINATION: On exam, she is comfortable at rest. Heart rate is 50 beats per minute. Blood pressure is 102/50, respiratory rate is 18. Chest exam reveals diminished air entry at the bases. Heart exam reveals first and second heart sounds. Has a systolic murmur at the left lower sternal border. Abdomen is soft. Exam of the extremities reveals 1+ edema. Peripheral pulses are felt. Patient is currently on aspirin, Lipitor, Plavix, Toprol XL, and Coumadin. At home, patient was on Prinivil and Lasix. I am going to hold the Lasix at this time and also the Prinivil given the renal failure. I will stop the IV fluids at this time as the patient is developing leg edema. ASSESSMENT: 1. Acute myocardial infarction, status post catheterization and angioplasty. 2. Acute on chronic renal failure with severe hyperkalemia. 3. Coagulopathy. The patient is doing much better. We can transfer her out of ICU. Her groin is free of bleeding, bruit, hematoma, appears somewhat tender: We will hold off on spironolactone and Zaroxolyn that she is on currently. MMODL / IJN: [id number] /
--- NOTE | 2017-12-14 12:42 | P.PN ---
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 Patient was also complaining of shortness of breath and diaphoresis. EKG showed normal sinus rhythm with left bundle branch block pattern and ST elevation in the inferior leads, ST depression in the anterior leads. Patient was in severe pain, blood pressure was 80/60 on presentation. Hence the patient was taken straight to the cardiac laboratory chemical assistant, underwent stenting of the LAD which was 70% occluded, did not correlate with the findings noted on the EKG which were mostly suggestive of inferior wall myocardial infarction. Patient did have previous inferior wall CA years ago. After cardiac cath, patient was noted to have significantly abnormal labs including elevated INR of more than 10, potassium was 8.2, and with treatment went down to 6.5 given to her by cardiology. Her BUN was 84 on presentation and creatinine was 4.64. Troponin was 0.013 CPK was 162. At any rate, patient was transferred to the ICU from the cardiac laboratory chemical assistant, and I was asked to see her on consultation. Presently the patient denies any chest pain, no back pain , no shortness of breath, no nausea no vomiting no abdominal pain, no melena, no hematemesis, no nausea no vomiting. She seems to be hemodynamically stable, but the patient is also on 7 mics of levo fed because she was noted to be hypotensive at the end of the procedure in the [facility]. Patient was reevaluated today on 12/13/2017, seems to be doing better than yesterday, have some vague chest discomfort, no shortness of breath, no cough no wheezing no nausea no vomiting no abdominal pain. CBC is relatively normal, potassium is down to 5.5 today from 7.1 last night BUN is 73 creatinine is down to 4.0 from 4.20 yesterday. Troponin is 1.170. Chest x-ray showed minimal basilar atelectasis otherwise unremarkable. Patient was reevaluated today on 12/14/2017, continues to have some neck pain, seems to be musculoskeletal, no chest pain, no diaphoresis. No shortness of breath no cough no wheezing. No nausea no vomiting no abdominal pain. Her labs were reviewed, and her renal profile seems to be significantly improved BUN is down to 62 creatinine is down to 2.80. CBC is relatively unremarkable. Objective - Vital Signs Vital signs: Vital Signs Temp 98.1 F 12/14/17 08:00 Pulse 50 L 12/14/17 12:00 Resp 17 12/14/17 12:00 BP 108/57 12/14/17 12:00 Pulse Ox 92 L 12/14/17 12:00 Intake & Output 12/13/17 12/14/17 12/14/17 18:59 06:59 18:59 Intake Total 0835.973 2665 Output Total 1400 1500 150 Balance -103.358 -200 -150 Weight 75.2 kg 76.3 kg Intake: IV 1230 1300 Pressure Bag for Sheath 30 Sodium Chloride 0.9% 1, 1200 1300 000 ml @ 100 mls/hr IV . Q10H ANNELIESE Rx#:[id number] Intake, IV Titration 66.642 Amount Norepinephrin 16 mg-0.9% 16.642 Ns Pmx 16 mg In 250 ml @ Titrate IV .Q0M ANNELIESE Rx#: [id number] Phytonadione 1 mg In 50 Sodium Chloride 0.9% 50 ml @ 100 mls/hr IVPB ONCE STA Rx#:[id number] Output: Urine 1400 1500 150 Other: Voiding Method Indwelling Catheter Indwelling Catheter Indwelling Catheter ABP, PAP, CO, CI - Last Documented Arterial Blood Pressure 104/44 - Exam Physical Exam: Revealed a 77-year-old female in no distress, very pleasant. And a very good historian. HEENT:[Neck is supple.] [No neck masses.] [No thyromegaly.] [No JVD.] Chest: [Clear throughout, no crackles, no rhonchi, no wheezes.] Cardiac Exam: [Normal S1 and S2, no S3 gallop, 2/6 systolic murmur heard throughout the precordium.] Abdomen: [Soft, nontender, no megaly, no rebound, no guarding, normal bowel sounds.] Extremities: [No clubbing, no edema, no cyanosis.] Neurological Exam: [No focal neurologic deficit.] Psychiatric: Normal mood affect and mental status examination Musculoskeletal: Normal range of motion, no deformities. Lymphatics: No lymphadenopathy. - Labs CBC & Chem 7: 12/14/17 04:30 12/14/17 04:30 Labs: Abnormal Lab Results - Last 24 Hours (Table) 12/13/17 12/13/17 12/14/17 Range/Units 05:40 15:00 04:30 RDW 15.6 H (11.5-15.5) % Plt Count 70 L (150-450) k/uL Lymphocytes # 0.7 L (1.0-4.8) k/uL PT 14.9 H (9.0-12.0) sec INR 1.6 H (<1.2) BUN (7-17) mg/dL Creatinine (0.52-1.04) mg/dL Glucose (74-99) mg/dL Angiotensin Convert Enz 7 L (8-52) U/L 12/14/17 Range/Units 04:30 RDW (11.5-15.5) % Plt Count (150-450) k/uL Lymphocytes # (1.0-4.8) k/uL PT (9.0-12.0) sec INR (<1.2) BUN 62 H (7-17) mg/dL Creatinine 2.80 H (0.52-1.04) mg/dL Glucose 121 H (74-99) mg/dL Angiotensin Convert Enz (8-52) U/L Assessment and Plan Assessment: Impression: [address] elevation myocardial infarction 2 status post stenting of LAD postoperative day #2 3 history of previous inferior wall CA and stenting of RCA. Patient had total occlusion of the mid circumflex and proximal RCA. 4 history of ischemic cardiomyopathy and previous AICD placement 5 acute on chronic renal failure, suspect possible some component of cardiorenal syndrome. Renal functioning seems to be improving, the contrast media may have also contributed to her renal failure 6 paroxysmal atrial fibrillation, 7 Coumadin related coagulopathy 8 history of underlying COPD but presently asymptomatic 9 history of benign essential hypertension 10 history of hypothyroidism 11 history of deep vein thromboses involving right upper extremity 12 acute hyperkalemia secondary to renal failure 13 non-anion gap metabolic acidosis related to renal failure Recommendation: Agree with the present treatment plan consider transferring the patient out of the ICU today, and we can follow on when necessary basis. Time with Patient: Less than 30
--- NOTE | 2017-12-14 14:38 | PN ---
PROGRESS NOTE Patient is seen for followup for acute kidney injury. Patient was admitted to the hospital with a creatinine of about 4.6 mg/dL. She was taken to the Physiotherapy Practice Manager for cardiac catheterization and had stent to LAD. She was also severely hyperkalemic on initial admission with a potassium of 8.2. Her renal function has improved. Creatinine is down to 2.8. Her previous creatinine was 1.26 on 06/10/2017. Currently, patient has had good urine output. She was maintained on normal saline which was discontinued this morning. PHYSICAL EXAMINATION: Patient is comfortable. She is awake. She is not in any acute distress. Blood pressure is 108/57, heart rate 50 per minute. She is afebrile. Examination of the heart, S1, S2. Examination of the lungs, bilateral breath sounds are heard. Abdomen is soft, obese nontender. Examination of the lower extremity shows trace edema bilaterally. REMOTE RECRUITER exam is grossly intact. Patient moving all 4 extremities. LABS: Show sodium 141, potassium 4.4, serum creatinine 2.8, hemoglobin 12.9 g/dL. ASSESSMENT: 1. Acute kidney injury, most likely prerenal, currently improving. Patient is status post IV fluids. Her calcium was also elevated, which definitely contributed to the acute kidney injury. Calcium is now down to 9.3. Patient has had IV contrast and we will continue to monitor her renal function. 2. Hypercalcemia, most likely secondary to underlying primary hyperparathyroidism given the PTH of 61 for a serum calcium of 10.5 and 10.3. Her Micha level is not elevated and 125 hydroxy level is low and the 25 hydroxy vitamin D is 33.8. 3. Severe hyperkalemia, associated with acute kidney injury. Patient was also on home medications including Aldactone and potassium supplements about 50 mEq daily. 4. Status post cardiac catheterization and coronary stent placement to LAD. PLAN: Continue off of IV fluids. Encourage increased oral intake. Repeat labs in a.m. Avoid nephrotoxic agents. Monitor urine output closely. MMODL / IJN: [id number] /
[2017-12-14] MEDS: WARFARIN 2 MG TAB PO SCH (18:11)
[2017-12-14] MEDS: ATORVASTATIN 40 MG TAB PO SCH (20:59)
[2017-12-14] MEDS: ALPRAZolam 0.25 MG TAB PO PRN (23:17)
--- NOTE | 2017-12-14 23:37 | P.PN ---
Progress Note - Text Progress Note Date: 12/14/17 DATE OF SERVICE: 12/14/2017 PRESENTING COMPLAINT: Back pain HISTORY OF PRESENT ILLNESS: 77-year-old female who had been having a lot of stress in her life with the of her son, and her sister recently passed with being this morning. Developed nausea feeling tired and rundown sweaty and developed a sharp pain in her back. Came to the emergency department for further evaluation found to be having an acute AR. Taken to the cardiac catheterization lab and had a stent placed to the LAD. Return to the ICU Hypotensive requiring Levophed drip. INR on admission was 10.0 received vitamin K 2 doses. INTERVAL HISTORY: 12/14/2017: Lying in bed somewhat anxious appearing. No acute overnight events, vital signs stable, afebrile. Blood pressure stabilized no longer requiring pressor support. Kidney function remains elevated. But improving. Appetite is low but improving eating between 20 and 40% of her meals. Has not yet really been out of bed encourage patient to be up for every meal and at least to sit on the bedside or change positions. Last BM prior to admission. INR has become therapeutic. 12/13/2017: Lying in bed somewhat anxious appearing. Right groin sheath remains in place, awaiting reduced ACT time prior to pulling sheath. Status post angioplasty and stent to LAD. The Levophed off blood pressure stabilized. Potassium was 8.0 received calcium gluconate insulin and dextrose. Remains nothing by mouth. On strict bed rest while sheath in place. REVIEW OF SYSTEMS: Done for constitutional ,cardiovascular, GI, pulmonary with relevant findings as above. CURRENT MEDICATIONS [place], Maalox, Zyloprim, aspirin, Lipitor, atropine, Plavix, folic acid, Synthroid, Toprol-XL, Narcan, Nitrostat, Protonix Ambien. Coumadin PHYSICAL EXAM VITAL SIGNS: Temperature 98.1, pulse 55, respirations 17, blood pressure 100/43, oxygen saturation 99% on 3 L. GENERAL APPEARANCE: Lying in bed, anxious appearing HENT: Normocephalic, JVD not raised. Mass not palpable. Oral cavity normal, external appearance of ears and nose normal. EYES:Pupils equal. Conjunctiva normal. RESPIRATORY: Respiratory effort normal. Lungs diminished to auscultation. CARDIOVASCULAR: First and second sounds normal. No edema. ABDOMEN: Soft. Liver and spleen not palpable. No tenderness. No mass palpable. PSYCHIATRY: Alert and oriented x3. Mood and affect anxious appearing INVESTIGATIONS: LABS: Platelet count 70, BUN 62, creatinine 2.80, Accu-Cheks noted. Chest x-ray: Improvement in aeration, volume status, cardiomegaly. ASSESSMENT: -Acute myocardial infarction with emergent stent to the left anterior descending by Dr. Hugo. -Cardiac catheterization showing triple-vessel disease -Severe hyperkalemia secondary to renal failure, resolved. -Coumadin toxicity with INR greater than 10. Patient received vitamin K in the ER, INR therapeutic -Stage III chronic kidney disease present on admission, due to nephrosclerosis and cardiorenal syndrome. -Chronic obstructive pulmonary disease. In an ex-smoker -Primary osteoarthritis multiple joints bilateral. -Automatic implantable cardioverter defibrillator. -History of atrial fibrillation for which patient is on Coumadin. -Cardiogenic shock, resolved, patient was on Levophed now resolved -Hypothyroidism. -Anxiety, not otherwise specified, multifactorial -Hypercalcemia from renal failure. -Secondary hyperparathyroidism with elevated phosphorus PLAN: Continue current medication and treatment plan patient expected to be transferred from the ICU today. Plan of care discussed at the bedside patient is in agreement we will follow closely. OPHTHALMIC DISPENSER statement: Patient was seen and examined by nurse practitioner Sandra Brown and all elements of the case discussed with attending Dr. Dorantes
[2017-12-15] MEDS: HYDROcodone/APAP 7.5-325MG 1 EACH TAB PO PRN ×4 (03:54→20:32)
[2017-12-15 05:39] LABS: Basophils % (A) 0 %; Eosinophils # (A) 0.2 k/uL (0-0.7); Eosinophils % (A) 4 %; HCT 32.8 % (34.0-46.0); Lymphocytes # (A) 0.6 k/uL (1.0-4.8); Lymphocytes % (A) 12 %; MCH 30.6 pg (25.0-35.0); MCHC 33.5 g/dL (31.0-37.0); MCV 91.4 fL (80.0-100.0); Mean Platelet Volume 10.3; Monocytes # (A) 0.5 k/uL (0-1.0); Monocytes % (A) 9 %; Neutrophils # (A) 3.8 k/uL (1.3-7.7); Neutrophils % (A) 72 %; RBC 3.59 m/uL (3.80-5.40); RDW 15.4 % (11.5-15.5); WBC 5.2 k/uL (3.8-10.6)
[2017-12-15 05:45] LABS: INR 1.5 (<1.2); Prothrombin Time 14.2 sec (9.0-12.0)
[2017-12-15 05:49] LABS: Platelet Count 83 k/uL (150-450)
[2017-12-15 05:52] LABS: Magnesium 1.7 mg/dL (1.6-2.3); Phosphorus 2.8 mg/dL (2.5-4.5); Potassium 3.8 mmol/L (3.5-5.1)
[2017-12-15] MEDS: PANTOPRAZOLE 40 MG TABLET PO SCH (07:02)
--- NOTE | 2017-12-15 07:05 | XR ---
EXAMINATION TYPE: XR chest 1V DATE OF EXAM: 12/15/2017 HISTORY: assess lungs. REFERENCE: Previous study dated 12/14/2017. FINDINGS: There is a bipolar pacemaker place on the left. There is multichamber cardiac enlargement. There is mild vascular congestion. There is no definite pn eum[place] or edema. IMPRESSION: CARDIOMEGALY AND VASCULAR CONGESTION.
[2017-12-15] MEDS: CLOPIDOGREL 75 MG TAB PO SCH (08:18)
[2017-12-15] MEDS: ALLOPURINOL 100 MG TAB PO SCH (08:18)
[2017-12-15] MEDS: LEVOTHYROXINE 50 MCG TAB PO SCH (08:18)
[2017-12-15] MEDS: ASPIRIN 325 MG TAB PO SCH (08:18)
[2017-12-15] MEDS: METOPROLOL SUCCINATE (ER) 25 MG TAB.ER.24H PO SCH (08:18)
[2017-12-15] MEDS: FOLIC ACID 1 MG TAB PO SCH (08:18)
--- NOTE | 2017-12-15 08:38 | PN ---
PROGRESS NOTE DATE OF SERVICE: December 14, 2017. ATTENDING NOTE: Patient seen and examined by me on December 14, 2017. Discussed with nurse practitioner Ana Laura Kevin. Patient feels a bit more perky. Family at the bedside. Did tolerate a bit more of diet. The patient is off any pressure support. Ate a little bit better. INR has been coming down. PHYSICAL EXAMINATION: Temperature 98.1, pulse 55, respiration 17, blood pressure 100/74, pulse ox 99% on 3 L. Lying in bed, comfortable. Neck: JVD not raised. Respiratory effort normal. Lungs fair entry. Cardiovascular 1st and 2nd sounds normal. INVESTIGATIONS: White count 5.8, hemoglobin 12.9, platelets 70, potassium 4.4, BUN 62, creatinine 2.8. ASSESSMENT: 1. Acute myocardial infarction with stent to the LAD showing triple-vessel disease. 2. Coumadin toxicity with INR now coming down. 3. Acute renal failure component actually improving. 4. Underlying chronic kidney disease. PLAN: Care was discussed with the patient and family at the bedside. The patient is currently on allopurinol, aspirin, Plavix, Synthroid, Toprol-XL, Coumadin was resumed. Given multiple problems, given that patient is on Coumadin and aspirin, we will cut back the dose of aspirin 81, much higher risk of bleeding given that also patient is on Plavix. MMODL / IJN: [id number] /
--- NOTE | 2017-12-15 11:12 | P.PN ---
Subjective Progress Note Date: 12/15/17 Principal diagnosis: Acute inferior ST elevation myocardial infarction This is a 77-year-old female with history of multiple medical problems including coronary artery disease, previous stenting of the RCA, history of deep vein thromboses involving the right upper extremity, patient had previous thrombectomy, history of underlying COPD, previous NM, chronic kidney disease, history of ischemic cardiomyopathy and previous AICD placement with paroxysmal atrial fibrillation, patient presented today to the ER with severe pain across the back and the scapular area. Patient was also complaining of shortness of breath and diaphoresis. EKG showed normal sinus rhythm with left bundle branch block pattern and ST elevation in the inferior leads, ST depression in the anterior leads. Patient was in severe pain, blood pressure was 80/60 on presentation. Hence the patient was taken straight to the cardiac slab puller, underwent stenting of the LAD which was 70% occluded, did not correlate with the findings noted on the EKG which were mostly suggestive of inferior wall myocardial infarction. Patient did have previous inferior wall NM years ago. After cardiac cath, patient was noted to have significantly abnormal labs including elevated INR of more than 10, potassium was 8.2, and with treatment went down to 6.5 given to her by cardiology. Her BUN was 84 on presentation and creatinine was 4.64. Troponin was 0.013 CPK was 162. At any rate, patient was transferred to the ICU from the cardiac slab puller, and I was asked to see her on consultation. Presently the patient denies any chest pain, no back pain , no shortness of breath, no nausea no vomiting no abdominal pain, no melena, no hematemesis, no nausea no vomiting. She seems to be hemodynamically stable, but the patient is also on 7 mics of levo fed because she was noted to be hypotensive at the end of the procedure in the Customer Liaison. Patient was reevaluated today on 12/13/2017, seems to be doing better than yesterday, have some vague chest discomfort, no shortness of breath, no cough no wheezing no nausea no vomiting no abdominal pain. CBC is relatively normal, potassium is down to 5.5 today from 7.1 last night BUN is 73 creatinine is down to 4.0 from 4.20 yesterday. Troponin is 1.170. Chest x-ray showed minimal basilar atelectasis otherwise unremarkable. Patient was reevaluated today on 12/14/2017, continues to have some neck pain, seems to be musculoskeletal, no chest pain, no diaphoresis. No shortness of breath no cough no wheezing. No nausea no vomiting no abdominal pain. Her labs were reviewed, and her renal profile seems to be significantly improved BUN is down to 62 creatinine is down to 2.80. CBC is relatively unremarkable. Patient was reevaluated today on 12/15/2017, doing much better, no more pain, no shortness of breath, no cough, no wheezing. Patient however feels that she is generally weak, and she wouldn't mind being sent to a rehab facility for a week or 2 weeks before she gets to go home. She is open to the idea of referral to rehab. CBC is relatively normal. Electrolytes are normal. Renal profile is improving, creatinine is down to 1.86 from 2.80 yesterday and BUN is 51 Objective - Vital Signs Vital signs: Vital Signs Temp 96.5 F L 12/15/17 08:00 Pulse 55 L 12/15/17 08:00 Resp 18 12/15/17 08:00 BP 103/54 12/15/17 08:00 Pulse Ox 95 12/15/17 08:00 Intake & Output 12/14/17 12/15/17 12/15/17 18:59 06:59 18:59 Intake Total 240 10 400 Output Total 550 Balance -310 10 400 Weight 75.3 kg Intake: IV 10 160 0.9 10 160 Oral 240 240 Output: Urine 550 Other: Voiding Method Indwelling Catheter Bedpan ABP, PAP, CO, CI - Last Documented Arterial Blood Pressure 104/44 - Exam Physical Exam: Revealed a 77-year-old female in no distress, very pleasant. And a very good historian. HEENT:[Neck is supple.] [No neck masses.] [No thyromegaly.] [No JVD.] Chest: [Clear throughout, no crackles, no rhonchi, no wheezes.] Cardiac Exam: [Normal S1 and S2, no S3 gallop, 2/6 systolic murmur heard throughout the precordium.] Abdomen: [Soft, nontender, no megaly, no rebound, no guarding, normal bowel sounds.] Extremities: [No clubbing, no edema, no cyanosis.] Neurological Exam: [No focal neurologic deficit.] Psychiatric: Normal mood affect and mental status examination Musculoskeletal: Normal range of motion, no deformities. Lymphatics: No lymphadenopathy. - Labs CBC & Chem 7: 12/15/17 05:29 12/15/17 05:29 Labs: Abnormal Lab Results - Last 24 Hours (Table) 12/13/17 12/15/17 12/15/17 Range/Units 05:40 05:29 05:29 RBC 3.59 L (3.80-5.40) m/uL Hgb 11.0 L (11.4-16.0) gm/dL Hct 32.8 L (34.0-46.0) % Plt Count 83 L (150-450) k/uL Lymphocytes # 0.6 L (1.0-4.8) k/uL PT (9.0-12.0) sec INR (<1.2) BUN 51 H (7-17) mg/dL Creatinine 1.86 H (0.52-1.04) mg/dL Vit D 1,25-Dihydroxy 11 L (20 - 79) pg/mL 12/15/17 Range/Units 05:29 RBC (3.80-5.40) m/uL Hgb (11.4-16.0) gm/dL Hct (34.0-46.0) % Plt Count (150-450) k/uL Lymphocytes # (1.0-4.8) k/uL PT 14.2 H (9.0-12.0) sec INR 1.5 H (<1.2) BUN (7-17) mg/dL Creatinine (0.52-1.04) mg/dL Vit D 1,25-Dihydroxy (20 - 79) pg/mL Assessment and Plan Assessment: Impression: [address] elevation myocardial infarction 2 status post stenting of LAD postoperative day #3 3 history of previous inferior wall NM and stenting of RCA. Patient had total occlusion of the mid circumflex and proximal RCA. 4 history of ischemic cardiomyopathy and previous AICD placement 5 acute on chronic renal failure, suspect possible some component of cardiorenal syndrome. Renal functioning seems to be improving, the contrast media may have also contributed to her renal failure 6 paroxysmal atrial fibrillation, 7 Coumadin related coagulopathy 8 history of underlying COPD but presently asymptomatic 9 history of benign essential hypertension 10 history of hypothyroidism 11 history of deep vein thromboses involving right upper extremity 12 acute hyperkalemia secondary to renal failure 13 non-anion gap metabolic acidosis related to renal failure Recommendation: Agree with the present treatment plan consider rehab referral in the next 24-48 hours. Will follow on when necessary basis. Time with Patient: Less than 30
--- NOTE | 2017-12-15 11:51 | P.PN ---
Subjective Progress Note Date: 12/15/17 Seen and examined for the follow-up of acute kidney injury. Making good amount of urine. [place] bit dizzy this morning while going to the bathroom. No syncope or loss of consciousness Objective - Vital Signs Vital signs: Vital Signs Temp 96.5 F L 12/15/17 08:00 Pulse 55 L 12/15/17 08:00 Resp 18 12/15/17 08:00 BP 103/54 12/15/17 08:00 Pulse Ox 95 12/15/17 08:00 Intake & Output 12/14/17 12/15/17 12/15/17 18:59 06:59 18:59 Intake Total 240 10 400 Output Total 550 Balance -310 10 400 Weight 75.3 kg Intake: IV 10 160 0.9 10 160 Oral 240 240 Output: Urine 550 Other: Voiding Method Indwelling Catheter Bedpan ABP, PAP, CO, CI - Last Documented Arterial Blood Pressure 104/44 - Exam Lying in the bed no acute distress S1-S2 heard Lungs clear to auscultation No edema - Labs CBC & Chem 7: 12/15/17 05:29 12/15/17 05:29 Labs: Abnormal Lab Results - Last 24 Hours (Table) 12/13/17 12/15/17 12/15/17 Range/Units 05:40 05:29 05:29 RBC 3.59 L (3.80-5.40) m/uL Hgb 11.0 L (11.4-16.0) gm/dL Hct 32.8 L (34.0-46.0) % Plt Count 83 L (150-450) k/uL Lymphocytes # 0.6 L (1.0-4.8) k/uL PT (9.0-12.0) sec INR (<1.2) BUN 51 H (7-17) mg/dL Creatinine 1.86 H (0.52-1.04) mg/dL Vit D 1,25-Dihydroxy 11 L (20 - 79) pg/mL 12/15/17 Range/Units 05:29 RBC (3.80-5.40) m/uL Hgb (11.4-16.0) gm/dL Hct (34.0-46.0) % Plt Count (150-450) k/uL Lymphocytes # (1.0-4.8) k/uL PT 14.2 H (9.0-12.0) sec INR 1.5 H (<1.2) BUN (7-17) mg/dL Creatinine (0.52-1.04) mg/dL Vit D 1,25-Dihydroxy (20 - 79) pg/mL Assessment and Plan Assessment: Impression: #1 acute kidney injury secondary to toxic ATN, creatinine improving #2 low normal blood pressure #3 uncontrolled diabetes #4 CAD status post stent Recommendations: #1 renal functions improving continue supportive care #2 avoid nephrotoxic agents and hypotensive episodes #3 repeat labs in the morning
--- NOTE | 2017-12-15 13:04 | P.PN ---
Subjective Progress Note Date: 12/15/17 This is a pleasant 77 stroke female admitted to the hospital with acute myocardial infarction, she underwent emergent cardiac catheterization with subsequent stenting of the LAD. Subsequent to the procedure, she was also noted to have significant hyperkalemia contributing to wide-complex tachycardia , she was also in renal failure. Patient was seen and examined this morning, feeling much better overall, complaining of some bilateral shoulder discomfort which she thinks she may have strained trying to get up out of bed. At pressure 114/50 with a heart rate in the 50s. White blood cell count 5.2, 11.0 hemoglobin, platelet count 83. INR today 1.5, potassium 3.8, BUN 51, creatinine 1.8. Objective - Vital Signs Vital signs: Vital Signs Temp 97.3 F L 12/15/17 12:00 Pulse 50 L 12/15/17 12:00 Resp 18 12/15/17 12:00 BP 113/54 12/15/17 12:00 Pulse Ox 97 12/15/17 12:00 Intake & Output 12/14/17 12/15/17 12/15/17 18:59 06:59 18:59 Intake Total 240 10 400 Output Total 550 Balance -310 10 400 Weight 75.3 kg Intake: IV 10 160 0.9 10 160 Oral 240 240 Output: Urine 550 Other: Voiding Method Indwelling Catheter Bedpan ABP, PAP, CO, CI - Last Documented Arterial Blood Pressure 104/44 - Exam PHYSICAL EXAMINATION: HEENT: Head is atraumatic, normocephalic. Pupils equal, round. Neck is supple. There is no elevated jugular venous pressure. HEART EXAMINATION: Heart S1 and S2 with systolic murmur is heard. CHEST EXAMINATION: Circumflex clear with diminished air entry to bilateral bases. ABDOMEN: Soft, nontender. Bowel sounds are heard. No organomegaly noted. EXTREMITIES: 2+ peripheral pulses with 1+ evidence of peripheral edema and no calf tenderness noted. NEUROLOGIC patient is awake, alert and oriented -3. . - Labs CBC & Chem 7: 12/15/17 05:29 12/15/17 05:29 Labs: Abnormal Lab Results - Last 24 Hours (Table) 12/13/17 12/15/17 12/15/17 Range/Units 05:40 05:29 05:29 RBC 3.59 L (3.80-5.40) m/uL Hgb 11.0 L (11.4-16.0) gm/dL Hct 32.8 L (34.0-46.0) % Plt Count 83 L (150-450) k/uL Lymphocytes # 0.6 L (1.0-4.8) k/uL PT (9.0-12.0) sec INR (<1.2) BUN 51 H (7-17) mg/dL Creatinine 1.86 H (0.52-1.04) mg/dL Troponin I (0.000-0.034) ng/mL Vit D 1,25-Dihydroxy 11 L (20 - 79) pg/mL 12/15/17 12/15/17 Range/Units 05:29 05:29 RBC (3.80-5.40) m/uL Hgb (11.4-16.0) gm/dL Hct (34.0-46.0) % Plt Count (150-450) k/uL Lymphocytes # (1.0-4.8) k/uL PT 14.2 H (9.0-12.0) sec INR 1.5 H (<1.2) BUN (7-17) mg/dL Creatinine (0.52-1.04) mg/dL Troponin I 0.217 H* (0.000-0.034) ng/mL Vit D 1,25-Dihydroxy (20 - 79) pg/mL Assessment and Plan Plan: Assessment and plan #1 acute myocardial infarction status post stenting of the LAD #2 history of prior CO with stenting of the right coronary artery, patient has a known total occlusion of the mid circumflex and proximal RCA. #3 ischemic cardio myopathy with prior AICD #4 history of smoking #5 paroxysmal atrial fibrillation, on Coumadin for anticoagulation #6 COPD #7 PAD #8 hypertension #9 hyperlipidemia #10 hypothyroidism #11 hyperkalemia #12 renal failure Plan I'm cardiology's perspective, we will recommend to continue the patient on her current medications. Renal function continues to improve. Patient wishes to go to an ECF post discharge for rehab. DNP note has been reviewed, I agree with a documented findings and plan of care. Patient was seen and examined.
[2017-12-15] MEDS: WARFARIN 2 MG TAB PO SCH (17:22)
[2017-12-15] MEDS: ATORVASTATIN 40 MG TAB PO SCH (20:32)
[2017-12-15] MEDS: DOCUSATE 100 MG CAP PO PRN (20:33)
[2017-12-16 06:14] LABS: Basophils % (A) 0 %; Eosinophils # (A) 0.3 k/uL (0-0.7); Eosinophils % (A) 5 %; HCT 35.5 % (34.0-46.0); HGB 11.5 gm/dL (11.4-16.0); Lymphocytes # (A) 0.7 k/uL (1.0-4.8); Lymphocytes % (A) 13 %; MCH 29.9 pg (25.0-35.0); MCHC 32.3 g/dL (31.0-37.0); MCV 92.5 fL (80.0-100.0); Mean Platelet Volume 9.2; Monocytes # (A) 0.5 k/uL (0-1.0); Monocytes % (A) 9 %; Neutrophils # (A) 3.8 k/uL (1.3-7.7); Neutrophils % (A) 70 %; RBC 3.84 m/uL (3.80-5.40); RDW 14.4 % (11.5-15.5); WBC 5.4 k/uL (3.8-10.6)
[2017-12-16 06:15] LABS: Platelet Count 95 k/uL (150-450)
[2017-12-16 06:17] LABS: INR 1.9 (<1.2); Prothrombin Time 17.5 sec (9.0-12.0)
[2017-12-16 06:21] LABS: Calcium 8.9 mg/dL (8.4-10.2); Magnesium 1.7 mg/dL (1.6-2.3); Phosphorus 2.4 mg/dL (2.5-4.5)
[2017-12-16] MEDS: PANTOPRAZOLE 40 MG TABLET PO SCH (06:38)
[2017-12-16] MEDS: HYDROcodone/APAP 7.5-325MG 1 EACH TAB PO PRN ×4 (06:41→21:50)
--- NOTE | 2017-12-16 07:22 | PN ---
PROGRESS NOTE DATE OF SERVICE: 12/15/17. PRESENTING COMPLAINT: Tired. INTERVAL HISTORY: This is a patient who presented with acute myocardial infarction with stent to the LAD. Also had renal failure, Coumadin toxicity, and chronic kidney disease. The patient moved out of the ICU, feels tired and dizzy when she tries to get up. Did tolerate a diet. Tired. Overall, though feels a bit better. REVIEW OF SYSTEMS: Done for constitutional, cardiovascular, GI, pulmonary; relevant findings as above. CURRENT MEDICATIONS: Reviewed that include allopurinol, Xanax, aspirin, Lipitor, Plavix, [place], Synthroid, Toprol-XL, Protonix, Coumadin. PHYSICAL EXAMINATION: Temperature 97.2, pulse 58, respiratory 18, blood pressure 103/56, pulse ox 97% on room air. GENERAL APPEARANCE: Lying in bed. EYES: Pupils equal. Conjunctivae normal. HEENT: External appearance of nose and ears normal. Oral cavity normal. NECK: JVD not raised. Mass not palpable. RESPIRATORY: Effort, lungs slightly decreased breath sounds. CARDIOVASCULAR: First and second sounds normal. No edema. ABDOMEN: Soft, nontender. Liver and spleen not palpable. PSYCHIATRY: Alert and oriented x3. Mood and affect normal. INVESTIGATIONS: White count 5.2, hemoglobin 11, INR 1.5, potassium 3.8, BUN 51, creatinine 1.86. ASSESSMENT: 1. Acute myocardial infarction with emergent stent to the LAD by Dr. Hugo. 2. Triple-vessel coronary artery disease per cardiac cath. 3. Severe hyperkalemia secondary to renal failure, now resolved. 4. Coumadin toxicity on presentation. The patient did receive vitamin K. Do not expect the INR to respond to Coumadin for at least a week. 5. Chronic kidney disease stage III from nephrosclerosis. 6. Chronic obstructive pulmonary disease in an ex-smoker. 7. Primary osteoarthritis multiple joints bilateral. 8. AICD. 9. History of atrial fibrillation for which patient is on Coumadin. 10.Cardiogenic shock. The patient was on Levophed now resolved. 11.Hypothyroidism. 12.Anxiety, not otherwise specified. 13.Hypercalcemia, renal failure. 14.Secondary hyperparathyroidism. 15.Acute renal failure probably from hypotension/ATN with improvement. The patient's creatinine has come down from 4.6 down to 1.86. 16.Medical debility due to factors above. PLAN: At this point, continue medication treatment plan. Care was discussed with the patient. Patient will discuss with Cardiology to use a different anticoagulated though with patient's renal failure choices may be limited. Care was discussed. The patient will get inpatient rehab. KEREN / QUINTIN: [id number] /
[2017-12-16] MEDS: LEVOTHYROXINE 50 MCG TAB PO SCH (08:17)
[2017-12-16] MEDS: METOPROLOL SUCCINATE (ER) 25 MG TAB.ER.24H PO SCH (08:17)
[2017-12-16] MEDS: CLOPIDOGREL 75 MG TAB PO SCH (08:17)
[2017-12-16] MEDS: ALLOPURINOL 100 MG TAB PO SCH (08:17)
[2017-12-16] MEDS: FOLIC ACID 1 MG TAB PO SCH (08:17)
[2017-12-16] MEDS: ASPIRIN 325 MG TAB PO SCH (08:17)
[2017-12-16] MEDS: DOCUSATE 100 MG CAP PO PRN (10:30)
--- NOTE | 2017-12-16 10:30 | P.PN ---
Subjective Progress Note Date: 12/16/17 Seen and examined for the follow-up of acute kidney injury. Tolerating therapy. Denies any new complaints Objective - Vital Signs Vital signs: Vital Signs Temp 96.6 F L 12/16/17 08:00 Pulse 55 L 12/16/17 08:00 Resp 18 12/16/17 08:00 BP 105/51 12/16/17 08:00 Pulse Ox 95 12/16/17 08:00 Intake & Output 12/15/17 12/16/17 12/16/17 18:59 06:59 18:59 Intake Total 880 10 240 Output Total 900 Balance -20 10 240 Weight 79.6 kg Intake: IV 160 10 0.9 160 10 Oral 720 240 Output: Urine 900 Other: Voiding Method Toilet # Bowel Movements 0 ABP, PAP, CO, CI - Last Documented Arterial Blood Pressure 104/44 - Exam No acute distress S1-S2 heard Lungs clear No edema - Labs CBC & Chem 7: 12/16/17 05:55 12/16/17 05:55 Labs: Abnormal Lab Results - Last 24 Hours (Table) 12/15/17 12/16/17 12/16/17 Range/Units 05:29 05:55 05:55 Plt Count 95 L (150-450) k/uL Lymphocytes # 0.7 L (1.0-4.8) k/uL PT (9.0-12.0) sec INR (<1.2) BUN 41 H (7-17) mg/dL Creatinine 1.35 H (0.52-1.04) mg/dL Phosphorus 2.4 L (2.5-4.5) mg/dL Troponin I 0.217 H* (0.000-0.034) ng/mL 12/16/17 Range/Units 05:55 Plt Count (150-450) k/uL Lymphocytes # (1.0-4.8) k/uL PT 17.5 H (9.0-12.0) sec INR 1.9 H (<1.2) BUN (7-17) mg/dL Creatinine (0.52-1.04) mg/dL Phosphorus (2.5-4.5) mg/dL Troponin I (0.000-0.034) ng/mL Assessment and Plan Assessment: Impression: #1 nonoliguric acute kidney injury secondary to toxic ATN creatinine improving #2 low normal blood pressure #3 uncontrolled diabetes #4 CAD status post stents Recommendations: #1 renal function stable and improving. Avoid nephrotoxic agents #2 stable from nephrology point of view for discharge.
--- NOTE | 2017-12-16 11:20 | P.PN ---
Subjective Progress Note Date: 12/16/17 This is a pleasant 77 stroke female admitted to the hospital with acute myocardial infarction, she underwent emergent cardiac catheterization with subsequent stenting of the LAD. Subsequent to the procedure, she was also noted to have significant hyperkalemia contributing to wide-complex tachycardia , she was also in renal failure. Patient was seen and examined this morning, feeling much better overall, complaining of some bilateral shoulder discomfort which she thinks she may have strained trying to get up out of bed. At pressure 114/50 with a heart rate in the 50s. White blood cell count 5.2, 11.0 hemoglobin, platelet count 83. INR today 1.5, potassium 3.8, BUN 51, creatinine 1.8. 12/16/2017 The patient was seen and examined this morning resting comfortably in bed. She denies any symptoms of chest pain, shortness of breath, dizziness, palpitations , nausea, vomiting or diaphoresis. She continues to complain of some right shoulder discomfort that is related to activity and nonreproducible on palpation. Hemoglobin 11.5, platelets 95, INR 1.9, potassium 4.0, creatinine 1.35, magnesium 1.7. Objective - Vital Signs Vital signs: Vital Signs Temp 96.6 F L 12/16/17 08:00 Pulse 55 L 12/16/17 08:00 Resp 18 12/16/17 08:00 BP 105/51 12/16/17 08:00 Pulse Ox 95 12/16/17 08:00 Intake & Output 12/15/17 12/16/17 12/16/17 18:59 06:59 18:59 Intake Total 880 10 240 Output Total 900 Balance -20 10 240 Weight 79.6 kg Intake: IV 160 10 0.9 160 10 Oral 720 240 Output: Urine 900 Other: Voiding Method Toilet # Bowel Movements 0 ABP, PAP, CO, CI - Last Documented Arterial Blood Pressure 104/44 - Exam Blood pressure 105/51 heart rate 55 afebrile GENERAL: Well-appearing, well-nourished and in no acute distress. NECK: Supple without JVD or thyromegaly. LUNGS: Breath sounds clear to auscultation bilaterally. Respiration equal and unlabored. No wheezes, rales or rhonchi. HEART: Regular rate and rhythm with systolic ejection murmur, no rubs or gallops. S1 and S2 heard. EXTREMITIES: Normal range of motion, trace non-pitting edema. No clubbing or cyanosis. Peripheral pulses intact and strong. - Labs CBC & Chem 7: 12/16/17 05:55 12/16/17 05:55 Labs: Abnormal Lab Results - Last 24 Hours (Table) 12/15/17 12/16/17 12/16/17 Range/Units 05:29 05:55 05:55 Plt Count 95 L (150-450) k/uL Lymphocytes # 0.7 L (1.0-4.8) k/uL PT (9.0-12.0) sec INR (<1.2) BUN 41 H (7-17) mg/dL Creatinine 1.35 H (0.52-1.04) mg/dL Phosphorus 2.4 L (2.5-4.5) mg/dL Troponin I 0.217 H* (0.000-0.034) ng/mL 12/16/17 Range/Units 05:55 Plt Count (150-450) k/uL Lymphocytes # (1.0-4.8) k/uL PT 17.5 H (9.0-12.0) sec INR 1.9 H (<1.2) BUN (7-17) mg/dL Creatinine (0.52-1.04) mg/dL Phosphorus (2.5-4.5) mg/dL Troponin I (0.000-0.034) ng/mL Assessment and Plan Assessment: ASSESSMENT 1. Acute myocardial infarction status post stenting of the LAD 2. History of prior NV with stenting of the RCA as well as a known total occlusion of the mid circumflex and proximal RCA 3. Ischemic cardiomyopathy status post AICD placement 4. History of tobacco use 5. Paroxysmal atrial fibrillation on long-term anticoagulation with Coumadin currently maintaining sinus mechanism 6. COPD 7. Peripheral arterial disease 8. Hypertension 9. Dyslipidemia 10. Hypothyroidism 11. Hyperkalemia, resolved 12. Chronic renal failure, GFR 38, stage 3B. improving creatinine 1.3 today. PLAN From cardiac perspective, continue her on her current medications. She is stable for transfer to [facility] from a cardiac perspective. Follow-up with Dr. Hugo upon discharge. Nurse Practitioner note has been reviewed, I agree with a documented findings and plan of care. Patient was seen and examined.
[2017-12-16] MEDS: WARFARIN 2 MG TAB PO SCH (18:10)
[2017-12-16] MEDS: ATORVASTATIN 40 MG TAB PO SCH (21:49)
[2017-12-17] MEDS: HYDROcodone/APAP 7.5-325MG 1 EACH TAB PO PRN ×3 (02:29→21:19)
[2017-12-17 06:20] LABS: Anisocytosis Slight; Basophils % (A) 0 %; Eosinophils # (A) 0.3 k/uL (0-0.7); Eosinophils % (A) 5 %; HCT 35.9 % (34.0-46.0); HGB 11.6 gm/dL (11.4-16.0); Lymphocytes # (A) 1.2 k/uL (1.0-4.8); Lymphocytes % (A) 19 %; MCH 30.5 pg (25.0-35.0); MCHC 32.2 g/dL (31.0-37.0); MCV 94.7 fL (80.0-100.0); Mean Platelet Volume 9.8; Monocytes # (A) 0.4 k/uL (0-1.0); Monocytes % (A) 7 %; Neutrophils % (A) 65 %; Platelet Count 110 k/uL (150-450); RBC 3.79 m/uL (3.80-5.40); RDW 16.4 % (11.5-15.5); WBC 6.2 k/uL (3.8-10.6)
[2017-12-17 06:37] LABS: Calcium 9.3 mg/dL (8.4-10.2); Magnesium 1.7 mg/dL (1.6-2.3); Phosphorus 2.6 mg/dL (2.5-4.5)
--- NOTE | 2017-12-17 07:29 | PN ---
PROGRESS NOTE PRESENTING COMPLAINT: Tired. INTERVAL HISTORY: The patient presented with acute myocardial infarction with stent to the LAD. Also renal failure. Coumadin toxicity. The patient is feeling better, did actually walk about 20 feet per PT notes. Does not have much of an appetite. Breathing is stable. No chest pain. REVIEW OF SYSTEMS: Done for constitutional, cardiovascular, GI, pulmonary, relevant findings as above. CURRENT MEDICATIONS: Reviewed that include aspirin, Lipitor, Plavix, Synthroid, Toprol-XL, Protonix, Coumadin. PHYSICAL EXAMINATION: Temperature 96.4, pulse 51, respiratory 18, blood pressure 109/55, pulse ox 93% on room air. GENERAL APPEARANCE: Sitting at the edge of the bed, tired appearing. Eyes: Pupils equal. Conjunctivae are normal. HEENT external appearance of nose and ears normal. Oral cavity normal. Neck JVD not raised. Mass not palpable. Respiratory effort normal. Lungs slightly decreased breath sounds. Cardiovascular 1st and 2nd sounds normal. No edema. ABDOMEN: Soft, nontender. Liver and spleen not palpable. No mass palpable. Psychiatry alert and oriented x3. Mood is slightly anxious-appearing. INVESTIGATIONS: White count 5.4, hemoglobin 11.5 potassium 4, BUN 41, creatinine 1.35. ASSESSMENT: 1. Acute myocardial infarction with emergent stent to the LAD. 2. Triple-vessel coronary artery disease per cardiac cath. 3. Severe hypokalemia secondary to renal failure, now resolved. 4. Coumadin toxicity and vitamin K, we did get vitamin K. 5. Chronic kidney disease stage 3 from nephrosclerosis. 6. Chronic obstructive pulmonary disease in an ex-smoker. 7. Primary osteoarthritis of multiple joints bilateral. 8. AICD. 9. History of atrial fibrillation for which patient is on Coumadin. 10.Cardiogenic shock. Patient status post Levophed. 11.Hypothyroidism. 12.Anxiety, not otherwise specified. 13.Hypercalcemia, renal failure. 14.Secondary hyperparathyroidism. 15.Acute renal failure, likely from hypertension/ATN with improvement. Creatinine slowly continues to come down. 16.Medical debility due to factors above. PLAN: Patient did walk a bit with physical therapy. Appetite still does not remain good. Given renal failure there is a high chance of bleeding, especially with Coumadin. Will cut back the dose of aspirin to 81 mg. The patient already on Plavix and Coumadin. MMODL / IJN: [id number] /
[2017-12-17] MEDS: FOLIC ACID 1 MG TAB PO SCH (08:43)
[2017-12-17] MEDS: METOPROLOL SUCCINATE (ER) 25 MG TAB.ER.24H PO SCH (08:43)
[2017-12-17] MEDS: LEVOTHYROXINE 50 MCG TAB PO SCH (08:43)
[2017-12-17] MEDS: PANTOPRAZOLE 40 MG TABLET PO SCH (08:43)
[2017-12-17] MEDS: ALLOPURINOL 100 MG TAB PO SCH (08:43)
[2017-12-17] MEDS: ASPIRIN 81 MG PO SCH (08:44)
[2017-12-17] MEDS: CLOPIDOGREL 75 MG TAB PO SCH (08:44)
[2017-12-17] MEDS ORDERED: BISACODYL 5 MG TABLET.DR PO STA (12:39)
--- NOTE | 2017-12-17 14:52 | P.PN ---
Subjective Progress Note Date: 12/17/17 This is a pleasant 77 stroke female admitted to the hospital with acute myocardial infarction, she underwent emergent cardiac catheterization with subsequent stenting of the LAD. Subsequent to the procedure, she was also noted to have significant hyperkalemia contributing to wide-complex tachycardia , she was also in renal failure. Patient was seen and examined this morning, feeling much better overall, complaining of some bilateral shoulder discomfort which she thinks she may have strained trying to get up out of bed. Blood pressure 114/50 with a heart rate in the 50s. White blood cell count 5.2, 11.0 hemoglobin, platelet count 83. INR today 1.5, potassium 3.8, BUN 51, creatinine 1.8. Patient seen and examined this morning, complaints of feeling weak, denies any chest pain. Arrangements are being made to go to extended care facility for rehab. We will check a TSH level. Objective - Vital Signs Vital signs: Vital Signs Temp 97.5 F L 12/17/17 11:16 Pulse 50 L 12/17/17 11:16 Resp 18 12/17/17 11:16 BP 156/71 12/17/17 11:16 Pulse Ox 97 12/17/17 11:16 Intake & Output 12/16/17 12/17/17 12/17/17 18:59 06:59 18:59 Intake Total 840 416 Output Total 1800 Balance 840 -1800 416 Weight 80.1 kg Intake: Oral 840 416 Output: Urine 1800 Other: Voiding Method Toilet Toilet # Voids 2 1 # Bowel Movements 0 0 ABP, PAP, CO, CI - Last Documented Arterial Blood Pressure 104/44 - Exam PHYSICAL EXAMINATION: HEENT: Head is atraumatic, normocephalic. Pupils equal, round. Neck is supple. There is no elevated jugular venous pressure. HEART EXAMINATION: Heart S1 and S2 with systolic murmur is heard. CHEST EXAMINATION: Circumflex clear with diminished air entry to bilateral bases. ABDOMEN: Soft, nontender. Bowel sounds are heard. No organomegaly noted. EXTREMITIES: 2+ peripheral pulses with 1+ evidence of peripheral edema and no calf tenderness noted. NEUROLOGIC patient is awake, alert and oriented -3. . - Labs CBC & Chem 7: 12/17/17 05:44 12/17/17 05:44 Labs: Abnormal Lab Results - Last 24 Hours (Table) 12/17/17 12/17/17 12/17/17 Range/Units 05:44 05:44 05:44 RBC 3.79 L (3.80-5.40) m/uL RDW 16.4 H (11.5-15.5) % Plt Count 110 L (150-450) k/uL PT 18.0 H (9.0-12.0) sec INR 2.0 H (<1.2) BUN 33 H (7-17) mg/dL Creatinine 1.20 H (0.52-1.04) mg/dL Assessment and Plan Plan: Assessment and plan #1 acute myocardial infarction status post stenting of the LAD #2 history of prior [place] with stenting of the right coronary artery, patient has a known total occlusion of the mid circumflex and proximal RCA. 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 Patient wishes to go to an ECF post discharge for rehab. We will check a TSH level. DNP note has been reviewed, I agree with a documented findings and plan of care. Patient was seen and examined.
[2017-12-17] MEDS: WARFARIN 2 MG TAB PO SCH (17:23)
--- NOTE | 2017-12-17 18:20 | PN ---
PROGRESS NOTE The patient is seen for followup for CKD and acute kidney injury. She was admitted with a serum creatinine of 4.64. She was volume depleted and hypotensive and severely hyperkalemic. Her renal function has improved. Creatinine is down to 1.2, potassium staying at 4. Potassium supplementation and Aldactone are currently on hold. The patient is feeling well. She denies any significant chest pain, shortness of breath, nausea or vomiting. None of her diuretics have been restarted. IV fluids are now discontinued. ROULA inhibitors remain on hold as well. PHYSICAL EXAMINATION: On examination today, blood pressure is 154/67, heart rate 53 per minute. Patient is afebrile. Examination of the heart: S1, S2. Examination lungs: Bilateral breath sounds are heard. Decreased breath sounds at bases. Abdomen is soft, nontender. Examination lower extremity shows no significant edema. NEUROSURGERY PHYSICIAN exam is grossly intact. LABS SHOW: Sodium 140, potassium 4.0, chloride 104, BUN 33, serum creatinine 1.2, hemoglobin 11.6 g/dL. ASSESSMENT: 1. Acute kidney injury, prerenal and secondary to intravascular volume depletion, currently improved. Patient has been off of IV fluids. Her blood pressure is staying slightly on the high side. If she continues to be hypertensive, we can resume low-dose ROULA inhibitors. 2. Hyperkalemia on initial admission. The patient's potassium has been staying at about 4 mEq/L. Prior to admission, she has been as low as 2.7 and 2.2 mEq/L. Therefore, patient was maintained on 40 mEq daily of potassium chloride at home. At this time, we will continue to hold off on potassium supplementation. 3. Cardiomyopathy, EF 35-40%. 4. Status post coronary stent placement and cardiac catheterization. 5. Hypertension. Patient had been hypotensive initially. Currently, blood pressure is staying slightly on the higher side. 6. Hypothyroidism noted on elevated TSH which was drawn today. I believe this was done as workup for bradycardia. 7. Chronic kidney disease NKF stage III secondary to nephrosclerosis. PLAN: Resume low-dose ROULA inhibitors if blood pressure continues to be elevated. Continue to hold off on the potassium supplementation for now. May need to resume loop diuretics at the time of discharge and start thyroid supplementation. We will see the patient back for followup in the office in about 1-2 weeks time. MMODL / IJN: [id number] /
[2017-12-17] MEDS: ATORVASTATIN 40 MG TAB PO SCH (21:20)
[2017-12-18] MEDS: HYDROcodone/APAP 7.5-325MG 1 EACH TAB PO PRN ×4 (03:53→21:58)
[2017-12-18 06:17] LABS: INR 2.1 (<1.2); Prothrombin Time 18.6 sec (9.0-12.0)
[2017-12-18] MEDS: PANTOPRAZOLE 40 MG TABLET PO SCH (06:59)
--- NOTE | 2017-12-18 07:21 | PN ---
PROGRESS NOTE DATE OF SERVICE: 12/17/2017 PRESENTING COMPLAINT: Tired. INTERVAL HISTORY: The patient with acute myocardial infarction with stent to the LAD, renal failure, Coumadin toxicity. Continues to feel better. Appetite is slowly improving, but feels tired. REVIEW OF SYSTEMS: Review of systems done for constitutional, cardiovascular, GI, pulmonary; relevant findings as above. MEDICATIONS: Current medications are reviewed. PHYSICAL EXAMINATION: On examination, temperature 97.5, pulse 50, respiratory 18, blood pressure 156/71, pulse ox 97% on room air. GENERAL APPEARANCE: Sitting up. Comfortable. EYES: Pupils equal. Conjunctive normal. HENT: External appearance of nose, ears and oral cavity normal. NECK: JVD not raised. Mass not palpable. RESPIRATORY: Effort normal. LUNGS: Decreased breath sounds. CARDIOVASCULAR: First and second sounds normal. No edema. ABDOMEN: Soft, nontender. Liver and spleen not palpable. PSYCHIATRY: Alert and oriented x3. Mood and affect normal. INVESTIGATIONS: White count 6.2. Potassium 4. INR is 2. BUN 33, creatinine 1.20. ASSESSMENT: 1. Acute myocardial infarction with stent to the left anterior descending artery. 2. Triple-vessel coronary artery disease. 3. Severe hyperkalemia secondary to renal failure, resolved. 4. Coumadin toxicity. Patient did get vitamin K. 5. Chronic kidney disease stage 3 from nephrosclerosis. 6. Chronic obstructive pulmonary disease in an ex-smoker. 7. Primary osteoarthritis multiple joints bilateral. 8. Automated implantable cardioverter-defibrillator. 9. History of atrial fibrillation for which patient is on Coumadin. 10.Cardiogenic shock, status post Levophed. 11.Hypothyroidism. 12.Anxiety, not otherwise specified. 13.Hypercalcemia from renal failure. 14.Secondary hyperparathyroidism. 15.Acute renal failure likely acute tubular necrosis with significant improvement. 16.Medical debility due to above. PLAN: Continue medication and treatment plan, looking at placement decision from public health social worker, case worker. MMODL / IJN: [id number] /
[2017-12-18] MEDS: METOPROLOL SUCCINATE (ER) 25 MG TAB.ER.24H PO SCH (08:31)
[2017-12-18] MEDS: LEVOTHYROXINE 50 MCG TAB PO SCH (08:31)
[2017-12-18] MEDS: CLOPIDOGREL 75 MG TAB PO SCH (08:31)
[2017-12-18] MEDS: ALLOPURINOL 100 MG TAB PO SCH (08:31)
[2017-12-18] MEDS: FOLIC ACID 1 MG TAB PO SCH (08:31)
[2017-12-18] MEDS: ASPIRIN 81 MG PO SCH (08:31)
--- NOTE | 2017-12-18 13:44 | P.PN ---
Subjective Progress Note Date: 12/18/17 This is a pleasant 77 stroke female admitted to the hospital with acute myocardial infarction, she underwent emergent cardiac catheterization with subsequent stenting of the LAD. Subsequent to the procedure, she was also noted to have significant hyperkalemia contributing to wide-complex tachycardia , she was also in renal failure. Patient was seen and examined this morning, feeling much better overall, complaining of some bilateral shoulder discomfort which she thinks she may have strained trying to get up out of bed. Blood pressure 114/50 with a heart rate in the 50s. White blood cell count 5.2, 11.0 hemoglobin, platelet count 83. INR today 1.5, potassium 3.8, BUN 51, creatinine 1.8. Patient seen and examined this morning, complaints of feeling weak, denies any chest pain. Arrangements are being made to go to extended care facility for rehab. We will check a TSH level. 12/18/2017 Patient seen and examined this morning, sitting up in the chair at bedside. Feeling better overall, still mildly weak. TSH level 5.7, patient is currently on Synthroid 50 micrograms daily. Consider increasing the dose. We will continue with her other medications, she is hemodynamically stable Objective - Vital Signs Vital signs: Vital Signs Temp 96.4 F L 12/18/17 11:12 Pulse 50 L 12/18/17 11:12 Resp 18 12/18/17 11:12 BP 114/58 12/18/17 11:12 Pulse Ox 97 12/18/17 11:12 Intake & Output 12/17/17 12/18/17 12/18/17 18:59 06:59 18:59 Intake Total 652 462 Output Total 250 Balance 402 462 Weight 79.8 kg Intake: Oral 652 462 Output: Urine 250 Other: Voiding Method Toilet Toilet Toilet # Voids 1 1 ABP, PAP, CO, CI - Last Documented Arterial Blood Pressure 104/44 - Exam PHYSICAL EXAMINATION: HEENT: Head is atraumatic, normocephalic. Pupils equal, round. Neck is supple. There is no elevated jugular venous pressure. HEART EXAMINATION: Heart S1 and S2 with systolic murmur is heard. CHEST EXAMINATION: Circumflex clear with diminished air entry to bilateral bases. ABDOMEN: Soft, nontender. Bowel sounds are heard. No organomegaly noted. EXTREMITIES: 2+ peripheral pulses with 1+ evidence of peripheral edema and no calf tenderness noted. NEUROLOGIC patient is awake, alert and oriented -3. . - Labs CBC & Chem 7: 12/17/17 05:44 12/17/17 05:44 Labs: Abnormal Lab Results - Last 24 Hours (Table) 12/17/17 12/18/17 Range/Units 05:44 05:44 PT 18.6 H (9.0-12.0) sec INR 2.1 H (<1.2) TSH 5.710 H (0.465-4.680) mIU/L Assessment and Plan Plan: Assessment and plan #1 acute myocardial infarction status post stenting of the LAD #2 history of prior IN with stenting of the right coronary artery, patient has a known total occlusion of the mid circumflex and proximal RCA. 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 Consider increasing the dose of steroid. Patient wishes to go to an ECF post discharge for rehab. DNP note has been reviewed, I agree with a documented findings and plan of care. Patient was seen and examined.
[2017-12-18] MEDS: WARFARIN 2 MG TAB PO SCH (17:27)
[2017-12-18] MEDS: ATORVASTATIN 40 MG TAB PO SCH (20:53)
--- NOTE | 2017-12-18 21:59 | PN ---
PROGRESS NOTE Patient is seen for followup for acute kidney injury and chronic kidney disease. Her renal function has improved significantly. Labs from yesterday show serum creatinine down to 1.2 mg/dL. Currently, patient is awaiting insurance approval for transfer to rehab. EXAMINATION: She is currently comfortable, awake, alert, oriented x3, not in any acute distress. Blood pressure is 127/58, heart rate 54 per minute. She is afebrile. HEART: S1, S2. LUNGS: Decreased breath sounds at the bases. Abdomen is soft, nontender. Lower extremities show no significant edema. BLUE[employer]OR is grossly intact. Labs show sodium 140, potassium 4.0, BUN 33, serum creatinine 1.2 from 12/17/2017. ASSESSMENT: 1. Acute kidney injury secondary to hypotension, hypoperfusion, currently resolved. 2. Hyperkalemia on initial admission, now normokalemia and maintained off of all potassium supplements. 3. Cardiomyopathy, ejection fraction 35%-40%. 4. Status post coronary artery stent placement and cardiac catheterization this admission. 5. Chronic kidney disease stage 3 secondary to nephrosclerosis. 6. Hypothyroidism, started on supplementation. 7. Bradycardia. Expect improvement with Synthroid supplementation. PLAN: Repeat labs in a.m. Continue to hold off on diuretics for now and potassium supplements. MMODL / IJN: [id number] /
--- NOTE | 2017-12-19 01:36 | PN ---
PROGRESS NOTE DATE OF SERVICE: 12/18/17 PRESENTING COMPLAINT: Tired. INTERVAL HISTORY: This patient with acute myocardial infarction with stent to the LAD, renal failure, Coumadin toxicity, continues to feel better. hoist worker looking into placement. The patient is walking even better. Less dizzy. Oral intake is improved. REVIEW OF SYSTEMS: Done for constitutional, cardiovascular, GI, pulmonary, relevant findings as above. CURRENT MEDICATIONS: Reviewed. EXAMINATION: Temperature 96.9, pulse 54, respiratory 18, blood pressure 127/58, pulse ox 97% on room air. General appearance: Sitting up, feels looking better. Eyes pupils are equal. Conjunctivae normal. HEENT: External appearance of nose and ears normal. Oral cavity normal. Neck JVD not raised. Mass not palpable. Respiratory effort lungs decreased breath sounds. Cardiovascular: 1st and 2nd sounds normal. No edema. ABDOMEN: Soft. Nontender. Liver and spleen not palpable. Psychiatry: Alert and oriented times three. Mood and affect more perky. INVESTIGATIONS: INR 2.1. ASSESSMENT: 1. Acute myocardial infarction with stent to the LAD. 2. Triple-vessel coronary artery disease. 3. Severe hypokalemia secondary to renal failure, resolved. 4. Coumadin toxicity. The patient did get vitamin K on presentation. 5. Chronic kidney stage 3 from nephrosclerosis. 6. Chronic obstructive pulmonary disease in an ex-smoker. 7. Primary osteoarthritis multiple joints bilateral. 8. AICD. 9. History of atrial fibrillation with patient being on Coumadin. 10.Cardiogenic shock, status post Levophed. 11.Hypothyroidism, currently TSH is a bit high that could be from sick euthyroid syndrome, will not adjust the dose any further. 12.Anxiety, not otherwise specified. 13.Hypocalcemia. Renal failure improved. 14.Secondary hyperparathyroidism. 15.Acute renal failure, likely from acute tubular necrosis with significant improvement. 16.Medical debility, to follow. The patient continues to do better. hoist worker looking into if the patient is candidate for rehab but patient ambulating much better. Repeat electrolytes in the morning. MMODL / IJN: [id number] /
[2017-12-19] MEDS: HYDROcodone/APAP 7.5-325MG 1 EACH TAB PO PRN ×3 (02:16→15:16)
[2017-12-19 06:28] LABS: INR 2.3 (<1.2); Prothrombin Time 20.9 sec (9.0-12.0)
[2017-12-19] MEDS ORDERED: LEVOTHYROXINE 75 MCG TAB PO SCH (06:30)
[2017-12-19 06:42] LABS: Calcium 8.8 mg/dL (8.4-10.2); Potassium 3.7 mmol/L (3.5-5.1)
[2017-12-19] MEDS: PANTOPRAZOLE 40 MG TABLET PO SCH (06:43)
[2017-12-19] MEDS: METOPROLOL SUCCINATE (ER) 25 MG TAB.ER.24H PO SCH (08:34)
[2017-12-19] MEDS: CLOPIDOGREL 75 MG TAB PO SCH (08:34)
[2017-12-19] MEDS: ASPIRIN 81 MG PO SCH (08:34)
[2017-12-19] MEDS: FOLIC ACID 1 MG TAB PO SCH (08:34)
[2017-12-19] MEDS: ALLOPURINOL 100 MG TAB PO SCH (08:34)
[2017-12-19 10:03] VITALS: RESP 20
[2017-12-19 11:36] VITALS: PULSE 51
--- NOTE | 2017-12-19 14:44 | P.PN ---
Subjective Progress Note Date: 12/19/17 This is a pleasant 77 stroke female admitted to the hospital with acute myocardial infarction, she underwent emergent cardiac catheterization with subsequent stenting of the LAD. Subsequent to the procedure, she was also noted to have significant hyperkalemia contributing to wide-complex tachycardia , she was also in renal failure. Patient was seen and examined this morning, feeling much better overall, complaining of some bilateral shoulder discomfort which she thinks she may have strained trying to get up out of bed. Blood pressure 114/50 with a heart rate in the 50s. White blood cell count 5.2, 11.0 hemoglobin, platelet count 83. INR today 1.5, potassium 3.8, BUN 51, creatinine 1.8. Patient seen and examined this morning, complaints of feeling weak, denies any chest pain. Arrangements are being made to go to extended care facility for rehab. We will check a TSH level. 12/18/2017 Patient seen and examined this morning, sitting up in the chair at bedside. Feeling better overall, still mildly weak. TSH level 5.7, patient is currently on Synthroid 50 micrograms daily. Consider increasing the dose. We will continue with her other medications, she is hemodynamically stable. O2 2017 Patient was seen and examined this morning, feeling better today, awaiting for transfer to [facility] today. Objective - Vital Signs Vital signs: Vital Signs Temp 96.9 F L 12/19/17 11:35 Pulse 51 L 12/19/17 11:35 Resp 20 12/19/17 11:35 BP 136/60 12/19/17 11:35 Pulse Ox 97 12/19/17 11:35 Intake & Output 12/18/17 12/19/17 12/19/17 18:59 06:59 18:59 Intake Total 822 200 600 Output Total 500 Balance 822 -300 600 Weight 79.7 kg Intake: IV 0 0.9 0 Oral 822 200 600 Output: Urine 500 Other: Voiding Method Toilet Toilet # Voids 1 # Bowel Movements 1 1 ABP, PAP, CO, CI - Last Documented Arterial Blood Pressure 104/44 - Exam PHYSICAL EXAMINATION: HEENT: Head is atraumatic, normocephalic. Pupils equal, round. Neck is supple. There is no elevated jugular venous pressure. HEART EXAMINATION: Heart S1 and S2 with systolic murmur is heard. CHEST EXAMINATION: Circumflex clear with diminished air entry to bilateral bases. ABDOMEN: Soft, nontender. Bowel sounds are heard. No organomegaly noted. EXTREMITIES: 2+ peripheral pulses with 1+ evidence of peripheral edema and no calf tenderness noted. NEUROLOGIC patient is awake, alert and oriented -3. . - Labs CBC & Chem 7: 12/17/17 05:44 12/19/17 05:33 Labs: Abnormal Lab Results - Last 24 Hours (Table) 12/19/17 12/19/17 Range/Units 05:33 05:33 PT 20.9 H (9.0-12.0) sec INR 2.3 H (<1.2) Chloride 109 H (98-107) mmol/L BUN 26 H (7-17) mg/dL Creatinine 1.08 H (0.52-1.04) mg/dL Assessment and Plan Plan: Assessment and plan #1 acute myocardial infarction status post stenting of the LAD #2 history of prior [place] with stenting of the right coronary artery, patient has a known total occlusion of the mid circumflex and proximal RCA. 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 Transferred to [facility] today. Follow-up with BOB Grijalva in the office. DNP note has been reviewed, I agree with a documented findings and plan of care. Patient was seen and examined.
[2017-12-19 15:49] VITALS: BP 114/62; TEMP 97.1
--- NOTE | 2017-12-19 16:40 | DS ---
DISCHARGE SUMMARY DATE OF ADMISSION: 12/12/17 DATE OF DISCHARGE: 12/19/17. FINAL DIAGNOSES: 1. Acute myocardial infarction with stent to the LAD. 2. Triple-vessel coronary artery disease per cardiac cath. 3. Severe hyperkalemia secondary to renal failure, now resolved. 4. Coumadin toxicity on presentation. Patient did get vitamin K initially. 5. Chronic kidney disease stage 3 from nephrosclerosis. 6. Chronic obstructive pulmonary disease in an ex-smoker. 7. Primary osteoarthritis multiple joints bilateral. 8. AICD. 9. History of atrial fibrillation. The patient is on Coumadin. 10.Cardiogenic shock. The patient was on Levophed. 11.Hypothyroidism. 12.Anxiety, not otherwise specified. 13.Hypercalcemia secondary to renal failure. 14.Secondary hyperparathyroidism. 15.Acute renal failure, likely from acute tubular necrosis. 16.Medical debility to follow. 17.Ischemic cardiomyopathy, ejection fraction 35-40%/systolic dysfunction. 18.Severe tricuspid regurgitation, nonrheumatic. HOSPITAL COURSE: This is a pleasant patient of Dr. Hedrick, multiple medical problems, including known history of coronary artery disease, going through a lot of stress, presented with an acute GA. The patient is found to have a new left bundle branch block. The patient had a stent placed to the LAD was also in cardiogenic shock, was on Levophed drip in the ICU. The patient also was on Coumadin toxicity. Did receive vitamin K. Patient's creatinine initially was 4.64 by the time of discharge, has come down to 1.08. The patient's ROULA inhibitor has not be reintroduced. INR which initially was 10, given vitamin K, Coumadin was resumed. INR is now 2.3. The patient's 2D echocardiogram shows EF of 35-40% and severe tricuspid regurgitation. CONSULTATION: 1. Dr. Kc from Nephrology. 2. Dr. Tolbert from [facility]. 3. [facility]. Currently patient doing much better. Up and about, tolerating a diet. INR is 2.3, potassium 3.7, BUN 26, creatinine 1.08. DC MEDICATIONS: 1. Aspirin 81 mg a day. 2. Vitamin D3 2000 units p.o. daily. 3. Synthroid 50 mcg a day. 4. Prilosec 20 mg a day. 5. Aldactone 50 mg a day. 6. Uloric 80 mg p.o. daily. 7. Multivitamin 1 tab p.o. daily. 8. Coumadin 4 mg p.o. daily. 9. Folic acid 1 mg p.o. daily. 10.Prinivil 5 mg p.o. daily. 11.Thiamine 100 mg p.o. daily. 12.Lipitor 40 mg q.h.s. 13.Maalox 30 mL q.4h p.r.n. 14.Xanax 0.25 p.o. t.i.d. p.r.n. 15.Plavix 75 mg p.o. daily. 16.[place] 7.5 one tablet q.4 p.r.n. 17.Toprol-XL 25 mg p.o. daily. 18.Nitrostat 0.4 sublingual q.5 p.r.n. Follow up with Dr. Carmen Grijalva in 1 week. Follow up with Dr. Hedrick after discharge from the ECF and follow up with Dr. Crow in the F. DISPOSITION: [facility]. CODE STATUS: DNR. Discussion and discharge planning more than 35 minutes. MMODL / IJN: [id number] /
--- NOTE | 2017-12-19 16:55 | PN ---
PROGRESS NOTE Patient is seen for followup for acute kidney injury which has resolved. The patient's serum creatinine today is down to 1.08. She feels well. She denies any significant complaints. Potassium is now trending towards lower side. She will need to be restarted on potassium supplementation. EXAMINATION: Patient is comfortable. Blood pressure is 136/60, heart rate 51 per minute. She is afebrile. Examination of the heart S1, S2. Examination lungs bilateral breath sounds are heard. Abdomen is soft, nontender. Examination lower extremity shows no evidence of edema. RESIDENTIAL FEE APPRAISER exam is grossly intact. LAB: Show serum creatinine 1.08, sodium 141, potassium 3.7, chloride 109. ASSESSMENT: 1. Acute kidney injury, prerenal, currently improved. The patient remains off of ROULA inhibitors and diuretics. 2. Hyperkalemia on initial admission, currently improved and potassium is trending down. Patient will need to be restarted on a small amount of potassium supplementation post discharge with close monitoring of labs. Previously, patient has been as low as 2.5 and 2.7 mg/L on her serum potassium levels as outpatient. 3. Hypertension. Blood pressure is currently controlled. 4. Hypothyroidism, maintained on Synthroid. 5. Acute myocardial infarction status post emergent cardiac catheterization and stenting of LAD. PLAN: Monitor labs as outpatient. The patient will need the potassium supplementation to be restarted depending on labs as outpatient. MMODL / IJN: [id number] /
[2017-12-19] MEDS: WARFARIN 2 MG TAB PO SCH (17:05)
== END 2017-12-19 18:23 | DRG 246 ==
LOC: EC 14:01 → 6ICU 14:37 → 6SEL 12-14 16:08
PROVIDERS: ADMIT Hospitalist; ATTEND Hospitalist
PROC: B2111ZZ Fluoroscopy of Multiple Coronary Arteries using Low Osmolar Contrast (ICD-10-PCS; principal; 2017-12-12 13:15)
PROC: 4A023N7 Measurement of Cardiac Sampling and Pressure, Left Heart, Percutaneous Approach (ICD-10-PCS; principal; 2017-12-12 13:15)
PROC: 027034Z Dilation of Coronary Artery, One Artery with Drug-eluting Intraluminal Device, Percutaneous Approach (ICD-10-PCS; 2017-12-12 13:15)
DX: I21.19 ST elevation (STEMI) myocardial infarction involving other coronary artery of inferior wall (principal); N17.0 Acute kidney failure with tubular necrosis; R57.0 Cardiogenic shock; I47.2 Ventricular tachycardia; N18.4 Chronic kidney disease, stage 4 (severe); E87.2 Acidosis; I36.1 Nonrheumatic tricuspid (valve) insufficiency; E11.22 Type 2 diabetes mellitus with diabetic chronic kidney disease; I47.1 Supraventricular tachycardia; I13.0 Hypertensive heart and chronic kidney disease with heart failure and stage 1 through stage 4 chronic kidney disease, or unspecified chronic kidney disease; N25.81 Secondary hyperparathyroidism of renal origin; E11.51 Type 2 diabetes mellitus with diabetic peripheral angiopathy without gangrene; E11.65 Type 2 diabetes mellitus with hyperglycemia; E86.9 Volume depletion, unspecified; I48.0 Paroxysmal atrial fibrillation; E03.9 Hypothyroidism, unspecified; E21.0 Primary hyperparathyroidism; E78.5 Hyperlipidemia, unspecified; E87.5 Hyperkalemia; I25.10 Atherosclerotic heart disease of native coronary artery without angina pectoris; I25.2 Old myocardial infarction; I25.5 Ischemic cardiomyopathy; I44.7 Left bundle-branch block, unspecified; I50.9 Heart failure, unspecified; F41.9 Anxiety disorder, unspecified; J44.9 Chronic obstructive pulmonary disease, unspecified; M15.9 Polyosteoarthritis, unspecified; T45.515A Adverse effect of anticoagulants, initial encounter; R79.1 Abnormal coagulation profile; Z66 Do not resuscitate; Z79.01 Long term (current) use of anticoagulants; Z79.82 Long term (current) use of aspirin; Z79.899 Other long term (current) drug therapy; Z80.3 Family history of malignant neoplasm of breast; Z80.41 Family history of malignant neoplasm of ovary; Z82.49 Family history of ischemic heart disease and other diseases of the circulatory system; Z83.3 Family history of diabetes mellitus; Z86.718 Personal history of other venous thrombosis and embolism; Z87.891 Personal history of nicotine dependence; Z90.710 Acquired absence of both cervix and uterus; Z95.5 Presence of coronary angioplasty implant and graft; Z95.810 Presence of automatic (implantable) cardiac defibrillator; Z96.651 Presence of right artificial knee joint; Z79.890 Hormone replacement therapy; Z79.891 Long term (current) use of opiate analgesic; Z88.0 Allergy status to penicillin; R00.1 Bradycardia, unspecified
CPT/HCPCS: 36415; 71045; 80048; 80053; 81001; 82164; 82306; 82550; 82553; 82652; 83036; 83690; 83735; 83880; 83970; 84100; 84132; 84443; 84484; 85025; 85610; 85730; 93005; 93306; 93458; 94644; 94645; 99285

== ENCOUNTER 2018-02-27 17:37 | Inpatient (IN) | payer MEDICARE ==
[2018-02-27] MEDS ORDERED: SODIUM CHLORIDE 0.9% 1,000 ML IV STA (20:23)
[2018-02-27] MEDS ORDERED: ONDANSETRON 4 MG/2 ML VIAL IVP STA (20:23)
--- NOTE | 2018-02-27 20:47 | ED ---
Nausea/Vomiting/Diarrhea HPI - General Source: patient Mode of arrival: wheelchair Limitations: no limitations <Olga Alvarez - Last Filed: 02/28/18 02:26> <Michele Aguilar - Last Filed: 03/03/18 10:05> - General Chief complaint: Nausea/Vomiting/Diarrhea Stated complaint: vomiting all day, nausea x 3 days, nosebleed Time Seen by Provider: 02/27/18 20:20 - History of Present Illness Initial comments: 77-year-old female patient presents to the emergency department today for complaints of vomiting. Family reports the patient has had dry heaves over the last week however started actually vomiting earlier today. States she just feels very nauseated and weak from vomiting. They deny any recent travel or ingestion of questionable foods. Patient denies any abdominal pain, constipation , or diarrhea. She denies any sick contacts. She denies any hematuria, dysuria , urinary frequency, urinary urgency. Patient denies any recent rash, fever, chills, shortness breath, chest pain, back pain, numbness, tingling, dizziness, weakness, headache, visual changes, or any other complaints. (Olga Alvarez) - Related Data Home Medications Medication Instructions Recorded Confirmed Aspirin 81 mg PO DAILY@89906/08/15 02/27/18 Cholecalciferol [Vitamin D3] 2,000 unit PO DAILY@89906/08/15 02/27/18 Levothyroxine Sodium [Synthroid] 50 mcg PO DAILY@59906/08/15 02/27/18 Omeprazole [PriLOSEC] 20 mg PO DAILY@89906/08/15 02/27/18 Spironolactone [Aldactone] 50 mg PO DAILY@89907/03/16 02/27/18 Febuxostat [Uloric] 80 mg PO DAILY@89906/10/17 02/27/18 Multivitamin [Multivitamins Adult 1 tab PO DAILY@89906/10/17 02/27/18 Gummies] Warfarin Sodium [Coumadin] 4 mg PO DAILY@169906/10/17 02/27/18 ALPRAZolam [Xanax] 0.25 mg PO TID PRN 02/27/18 02/27/18 Clopidogrel [Plavix] 75 mg PO DAILY@0900 02/27/18 02/27/18 Furosemide [Lasix] 40 mg PO DAILY@0900 02/27/18 02/27/18 HYDROcodone/APAP 7.5-325MG [[place] 1 tab PO Q4H PRN 02/27/18 02/27/18 7.5-325] Lisinopril [Zestril] 5 mg PO DAILY@1700 02/27/18 02/27/18 Potassium Chloride [K-Tab ER] 10 meq PO DAILY 02/27/18 02/27/18 Venelex Ointment 1 applic TOPICAL Q12H 02/27/18 02/27/18 Previous Rx's Medication Instructions Recorded Atorvastatin [Lipitor] 40 mg PO HS #30 tab 12/15/17 Mag Hydrox/Al Hydrox/Simeth 30 ml PO Q4HR PRN cup 12/15/17 [Maalox] Metoprolol Succinate (ER) [Toprol 25 mg PO DAILY tab.er.24h 12/19/17 XL] Nitroglycerin Sl Tabs [Nitrostat] 0.4 mg SUBLINGUAL Q5M PRN tab 12/19/17 Allergies Allergy/AdvReac Type Severity Reaction Status Date / Time Penicillins Allergy Unknown Verified 02/27/18 18:46 dexamethasone AdvReac Unknown Verified 02/27/18 18:46 methylprednisolone AdvReac Unknown Verified 02/27/18 18:46 Review of Systems ROS Other: All systems not noted in ROS Statement are negative. <Olga Alvarez - Last Filed: 02/28/18 02:26> ROS Other: All systems not noted in ROS Statement are negative. <Michele Aguilar - Last Filed: 03/03/18 10:05> ROS Statement: Those systems with pertinent positive or pertinent negative responses have been documented in the HPI. Past Medical History Past Medical History: Coronary Artery Disease (CAD), Heart Failure, COPD, Deep Vein Thrombosis (DVT), Myocardial Infarction ([place]), Osteoarthritis (OA) Additional Past Medical History / Comment(s): uti-ecoli(05-23-14), 2012 rt axillary,brachial artery thrombosis, afib 2012, cardiomyopathy ef 35-40%(2012), djd ,falls, RENAL FX AT 65%(PER FAMILY), APPETITE DECREASED SINCE MARCH Last Myocardial Infarction Date:: 1999 History of Any Multi-Drug Resistant Organisms: None Reported Past Surgical History: Adenoidectomy, AICD, Breast Surgery, Cholecystectomy, Heart Catheterization With Stent, Hysterectomy, Joint Replacement, Pacemaker, Tonsillectomy, Tubal Ligation Additional Past Surgical History / Comment(s): 08-07-13 aicd(biventricular dual chamber aicd/pacemaker-[employer], thrombectomy rt arm,rt knee replacement Past Anesthesia/Blood Transfusion Reactions: No Reported Reaction Additional Past Anesthesia/Blood Transfusion Reaction / Comment(s): blood trandfusion 1968 Date of Last Stent Placement:: unk Type of Cardiac Device: Permanent Pacemaker, AICD Device Placement Date:: 08-07-13 Past Psychological History: Anxiety Smoking Status: Former smoker Past Alcohol Use History: None Reported Past Drug Use History: None Reported - Past Family History Father Family Medical History: Diabetes Mellitus, Myocardial Infarction ([place]) Mother Family Medical History: Cancer, Hyperlipidemia, Hypertension Additional Family Medical History / Comment(s): BREAST CA Brother(s) Family Medical History: Myocardial Infarction ([place]) Additional Family Medical History / Comment(s): AGE 57 FROM [place] Sister(s) Family Medical History: Cancer Additional Family Medical History / Comment(s): YOUNGER SISTER FROM OVARIAN CANCER AGE 51 AND ANOTHER SISTER HAD [place]/CAD,OPEN HEART W/VALVE REPLACEMENT AND DM <Olga Alvarez M - Last Filed: 02/28/18 02:26> General Exam Limitations: no limitations General appearance: alert, in no apparent distress, other (This is a well- developed, well-nourished elderly female patient in no acute distress. Vital signs upon presentation To 98.6, pulse 59, respirations 20, blood pressure 158/ 61, pulse ox 99% on room air.) Eye exam: Present: normal appearance, PERRL, EOMI. Absent: scleral icterus, conjunctival injection, periorbital swelling ENT exam: Present: normal exam, normal oropharynx, mucous membranes moist Respiratory exam: Present: normal lung sounds bilaterally. Absent: respiratory distress, wheezes, rales, rhonchi, stridor Cardiovascular Exam: Present: regular rate, normal rhythm, normal heart sounds. Absent: systolic murmur, diastolic murmur, rubs, gallop, clicks GI/Abdominal exam: Present: soft, normal bowel sounds, other (Vomit is bilious) . Absent: distended, tenderness, guarding, rebound, rigid Neurological exam: Present: alert, oriented X3, CN II-XII intact Psychiatric exam: Present: normal affect, normal mood Skin exam: Present: warm, dry, intact, normal color. Absent: rash <Olga Alvarez - Last Filed: 02/28/18 02:26> Vital Signs 02/27/18 02/27/18 02/27/18 18:44 21:00 23:16 Temperature 98.6 F Pulse Rate 59 L 71 73 Respiratory 20 18 18 Rate Blood Pressure 158/61 109/53 131/58 O2 Sat by Pulse 99 95 96 Oximetry 02/28/18 00:17 Temperature 97.9 F Pulse Rate 69 Respiratory 18 Rate Blood Pressure 133/91 O2 Sat by Pulse 98 Oximetry Medical Decision Making - Lab Data Result diagrams: 02/27/18 21:05 02/27/18 21:05 - EKG Data -: EKG Interpreted by Ct <Olga Alvarez - Last Filed: 02/28/18 02:26> - Lab Data Result diagrams: 02/28/18 06:38 03/03/18 06:56 <Michele Aguilar - Last Filed: 03/03/18 10:05> - Medical Decision Making 77-year-old female patient presented to the emergency department today for complaints of vomiting without abdominal pain. Physical examination is relatively unremarkable. Abdomen soft and nontender. Labs reviewed and did show an elevated BUN at 139, creatinine was 6.07. Potassium was 5.5. Patient was given nausea medication and IV fluids here in the department. Urinalysis showed a cloudy appearance with trace protein, large leukocyte esterase, 111 white blood cells, moderate white blood cell clumps, occasional amorphous sediment, and many bacteria. This has been sent for culture. Will start patient on IV Rocephin. Symptoms are improved at time of disposition. Case will be discussed with Dr. Dorantes. She will be admitted with nephrology consult and IV fluids. (Olga Alvarez) I saw this patient in conjunction with the physician assistant to the president. I performed independent history and physical exam. Agree with case management. (Michele Aguilar) - Lab Data Lab Results 02/27/18 02/27/18 02/27/18 Range/Units 21:05 21:05 21:05 WBC 10.4 (3.8-10.6) k/uL RBC 4.13 (3.80-5.40) m/uL Hgb 12.6 (11.4-16.0) gm/dL Hct 37.3 (34.0-46.0) % MCV 90.5 (80.0-100.0) fL MCH 30.5 (25.0-35.0) pg MCHC 33.7 (31.0-37.0) g/dL RDW 14.0 (11.5-15.5) % Plt Count 148 L (150-450) k/uL Neutrophils % 89 % Lymphocytes % 6 % Monocytes % 4 % Eosinophils % 0 % Basophils % 0 % Neutrophils # 9.3 H (1.3-7.7) k/uL Lymphocytes # 0.6 L (1.0-4.8) k/uL Monocytes # 0.4 (0-1.0) k/uL Eosinophils # 0.0 (0-0.7) k/uL Basophils # 0.0 (0-0.2) k/uL Sodium 141 (137-145) mmol/L Potassium 5.5 H (3.5-5.1) mmol/L Chloride 98 (98-107) mmol/L Carbon Dioxide 21 L (22-30) mmol/L Anion Gap 22 mmol/L BUN 139 H* (7-17) mg/dL Creatinine 6.07 H* (0.52-1.04) mg/dL Est GFR (CKD-EPI)AfAm 7 (>60 ml/min/1.73 sqM) Est GFR (CKD-EPI)NonAf 6 (>60 ml/min/1.73 sqM) Glucose 138 H (74-99) mg/dL Calcium 10.3 H (8.4-10.2) mg/dL Total Bilirubin 1.0 (0.2-1.3) mg/dL AST 25 (14-36) U/L ALT 17 (9-52) U/L Alkaline Phosphatase 82 (38-126) U/L Total Protein 7.4 (6.3-8.2) g/dL Albumin 4.4 (3.5-5.0) g/dL Amylase 89 (30-110) U/L Lipase 115 (23-300) U/L Urine Color Light Yellow Urine Appearance Cloudy H (Clear) Urine pH 5.0 (5.0-8.0) Ur Specific [place] 1.011 (1.001-1.035) Urine Protein Trace H (Negative) Urine Glucose (UA) Negative (Negative) Urine Ketones Negative (Negative) Urine Blood Negative (Negative) Urine Nitrite Negative (Negative) Urine Bilirubin Negative (Negative) Urine Urobilinogen <2.0 (<2.0) mg/dL Ur Leukocyte Esterase Large H (Negative) Urine RBC 2 (0-5) /hpf Urine WBC 111 H (0-5) /hpf Urine WBC Clumps Moderate H (None) /hpf Ur Squamous Epith Cells 4 (0-4) /hpf Amorphous Sediment Occasional H (None) /hpf Urine Bacteria Many H (None) /hpf Hyaline Casts 1 (0-2) /lpf - EKG Data EKG Comments: EKG obtained at 2041 shows normal sinus rhythm with a full voltage QRS, ventricular rate is 69, SC interval 158, QR/96, QT 410, QTC 439. (Olga Alvarez) Disposition Is patient prescribed a controlled substance at d/c from ED?: No Decision to Admit Reason: Admit from EC Decision Date: 02/27/18 Decision Time: 22:33 <Olga Alvarez - Last Filed: 02/28/18 02:26> <Michele Aguilar - Last Filed: 03/03/18 10:05> Clinical Impression: Acute on chronic renal failure, Vomiting, Urinary tract infection Disposition: ADMITTED IP TO THIS [facility] Condition: Serious
[2018-02-27 21:15] LABS: Basophils % (A) 0 %; Eosinophils % (A) 0 %; HCT 37.3 % (34.0-46.0); HGB 12.6 gm/dL (11.4-16.0); Lymphocytes # (A) 0.6 k/uL (1.0-4.8); Lymphocytes % (A) 6 %; MCH 30.5 pg (25.0-35.0); MCHC 33.7 g/dL (31.0-37.0); MCV 90.5 fL (80.0-100.0); Mean Platelet Volume 9.4; Monocytes # (A) 0.4 k/uL (0-1.0); Monocytes % (A) 4 %; Neutrophils # (A) 9.3 k/uL (1.3-7.7); Neutrophils % (A) 89 %; Platelet Count 148 k/uL (150-450); RBC 4.13 m/uL (3.80-5.40); WBC 10.4 k/uL (3.8-10.6)
[2018-02-27 21:25] LABS: Amorphous Sediment,Urine Occasional /hpf; Appearance,Urine Cloudy (Clear); Bacteria,Urine Many /hpf; Bilirubin,Urine Negative (Negative); Blood,Urine Negative (Negative); Color,Urine Light Yellow; Glucose,Urine (UA) Negative (Negative); Hyaline Casts,Urine 1 /lpf (0-2); Ketones,Urine Negative (Negative); Leukocyte Esterase,Urine Large (Negative); Nitrite,Urine Negative (Negative); Protein,Urine Trace (Negative); RBC,Urine 2 /hpf (0-5); Specific Gravity,Urine 1.011 (1.001-1.035); Squamous Epithelial Cell,Urine 4 /hpf (0-4); Urobilinogen,Urine <2.0 mg/dL (<2.0); WBC,Urine 111 /hpf (0-5)
[2018-02-27] MEDS ORDERED: METOCLOPRAMIDE 5 MG/ML 2 ML VIAL IVP STA (21:32)
[2018-02-27] MEDS ORDERED: diphenhydrAMINE 50 MG/ML 1 ML VIAL IVP STA (21:32)
[2018-02-27 21:33] LABS: Albumin 4.4 g/dL (3.5-5.0); Calcium 10.3 mg/dL (8.4-10.2); Potassium 5.5 mmol/L (3.5-5.1); Total Protein 7.4 g/dL (6.3-8.2)
--- NOTE | 2018-02-27 21:33 | XR ---
EXAMINATION TYPE: XR KUB DATE OF EXAM: 02/27/2018 9:27 PM CLINICAL HISTORY: Nausea vomiting and diarrhea. TECHNIQUE: Supine and upright views of the abdomen are obtained. COMPARISON: CT abdomen and pelvis October 17, 2015 FINDINGS: Scattered gas is seen in non-distended small bowel loops. Gas is also seen in non-distended colon. There is slight prominence of fecal material in the rectum. Cholecystectomy clips are now miguelito ntified. Sutures right upper pelvis corresponding to subcutaneous location on prior CT. Cardiomegaly with partial visualization of pacemaker/defibrillator is redemonstrated. Moderate joint space loss lisa th hips is seen. There is mild multilevel spurring in the spine. No pneumoperitoneum is noted. Rectan gular calcification above right iliac crest correlates with posterior dystrophic calcification on CT. IMPRESSION: Overall nonspecific but felt to be nonobstructive bowel gas pattern.
[2018-02-27] MEDS ORDERED: NALOXONE 0.4 MG/ML 1 ML VIAL IV PRN (22:26)
[2018-02-27] MEDS ORDERED: SODIUM CHLORIDE 0.9% 1,000 ML IV SCH (22:30)
[2018-02-27] MEDS ORDERED: cefTRIAXone IN SWFI 1,000 MG/10 ML SYRINGE IVP STA (22:30)
[2018-02-27 23:33] LABS: Glucose,Whole Blood 126 mg/dL (75-99)
[2018-02-28] MEDS ORDERED: MAG HYDROX/AL HYDROX/SIMETH 30 ML CUP PO PRN (00:11)
[2018-02-28] MEDS ORDERED: NITROGLYCERIN SL TABS 0.4 MG TAB SUBLINGUAL PRN (00:11)
[2018-02-28] MEDS ORDERED: ALPRAZolam 0.25 MG TAB PO PRN (00:11)
[2018-02-28 01:07] VITALS: BMI 32.3
[2018-02-28] MEDS: VENELEX TOPICAL SCH ×2 (01:25→15:38)
[2018-02-28] MEDS: METOCLOPRAMIDE 5 MG/ML 2 ML VIAL IVP PRN ×3 (01:25→16:11)
[2018-02-28] MEDS: HYDROcodone/APAP 7.5-325MG 1 EACH TAB PO PRN ×4 (05:39→21:43)
[2018-02-28] MEDS: LEVOTHYROXINE 50 MCG TAB PO SCH (05:40)
[2018-02-28] MEDS ORDERED: METOCLOPRAMIDE 5 MG/ML 2 ML VIAL IVP SCH (06:00)
[2018-02-28 07:27] LABS: Basophils % (A) 0 %; Eosinophils % (A) 0 %; HCT 34.6 % (34.0-46.0); HGB 11.7 gm/dL (11.4-16.0); Lymphocytes # (A) 0.4 k/uL (1.0-4.8); Lymphocytes % (A) 4 %; MCH 30.9 pg (25.0-35.0); MCHC 33.7 g/dL (31.0-37.0); MCV 91.5 fL (80.0-100.0); Mean Platelet Volume 8.3; Monocytes # (A) 0.3 k/uL (0-1.0); Monocytes % (A) 4 %; Neutrophils # (A) 8.4 k/uL (1.3-7.7); Neutrophils % (A) 91 %; Platelet Count 122 k/uL (150-450); RBC 3.78 m/uL (3.80-5.40); WBC 9.2 k/uL (3.8-10.6)
[2018-02-28 07:44] LABS: Glucose,Whole Blood 118 mg/dL (75-99)
[2018-02-28 07:58] LABS: Calcium 9.6 mg/dL (8.4-10.2); Potassium 4.8 mmol/L (3.5-5.1)
[2018-02-28] MEDS ORDERED: ALLOPURINOL 100 MG TAB PO SCH (09:00)
[2018-02-28 09:07] LABS: Prothrombin Time 125.9 sec (9.0-12.0)
[2018-02-28 09:27] LABS: INR >10.0 (<1.2)
[2018-02-28] MEDS ORDERED: PHYTONADIONE 5 MG in SODIUM CHLORIDE 0.9% 50 ML IVPB STA (09:49)
[2018-02-28] MEDS: CHOLECALCIFEROL 1,000 UNIT TAB PO SCH (10:42)
[2018-02-28] MEDS: PANTOPRAZOLE 40 MG TABLET PO SCH (10:42)
[2018-02-28] MEDS: MULTIVITAMINS, THERA 1 EACH TAB PO SCH (10:43)
[2018-02-28] MEDS: CLOPIDOGREL 75 MG TAB PO SCH (10:44)
[2018-02-28] MEDS: METOPROLOL SUCCINATE (ER) 25 MG TAB.ER.24H PO SCH (10:44)
--- NOTE | 2018-02-28 11:02 | P.NPCON ---
History of Present Illness - Reason for Consult acute renal failure - History of Present Illness reason for consultation: Acute kidney injury History of present illness: Patient is a 77-year-old female seen in renal consultation for acute kidney injury. Her creatinine in November 2017 was as low as 1.08. Creatinine this admission was 6.07 and is down to 4.63 with IV hydration. Patient presented to the hospital with vomiting which started yesterday. Patient states she's been having dry heaves for the last week or so and has not been able to tolerate much oral intake. Her urine output was also diminished. She denies hematuria or dysuria. Additionally she was taking Lasix as well as spironolactone and lisinopril as an outpatient. She denies history of diabetes. Denies chest pain or shortness of breath. Urine output has improved. She is currently maintained on normal saline at 80 mL an hour. Sodium level is up to 147 today. Potassium level was 5.5 on admission is down to 4.8 today. She is also noted to be acidotic with a bicarb level of 17 today. Denies use of NSAIDs. Denies any family history of renal disease. Vital signs are stable. General: The patient appeared well nourished and normally developed. HEENT: Head exam is unremarkable. Neck is without jugular venous distension. LUNGS: Lungs are clear to auscultation and percussion. Breath sounds decreased. HEART: Rate and Rhythm are regular. First and second heart sounds normal. No murmurs, rubs or gallops. ABDOMEN: Abdominal exam reveals normal bowel sounds. Non-tender and non- distended. No evidence of peritonitis. EXTREMITITES: No clubbing, cyanosis, or edema. Past Medical History Past Medical History: Coronary Artery Disease (CAD), Heart Failure, COPD, Deep Vein Thrombosis (DVT), Myocardial Infarction ([place]), Osteoarthritis (OA) Additional Past Medical History / Comment(s): uti-ecoli(05-23-14), 2013 rt axillary,brachial artery thrombosis, afib 2012, cardiomyopathy ef 35-40%(2012), djd ,falls, RENAL FX AT 65%(PER FAMILY), APPETITE DECREASED SINCE MARCH Last Myocardial Infarction Date:: 1999 History of Any Multi-Drug Resistant Organisms: None Reported Past Surgical History: Adenoidectomy, AICD, Breast Surgery, Cholecystectomy, Heart Catheterization With Stent, Hysterectomy, Joint Replacement, Pacemaker, Tonsillectomy, Tubal Ligation Additional Past Surgical History / Comment(s): 08-07-13 aicd(biventricular dual chamber aicd/pacemaker-[employer], thrombectomy rt arm,rt knee replacement Past Anesthesia/Blood Transfusion Reactions: No Reported Reaction Additional Past Anesthesia/Blood Transfusion Reaction / Comment(s): blood trandfusion 1968 Date of Last Stent Placement:: unk Type of Cardiac Device: Permanent Pacemaker, AICD Device Placement Date:: 08-07-13 Past Psychological History: Anxiety Smoking Status: Former smoker Past Alcohol Use History: None Reported Past Drug Use History: None Reported - Past Family History Father Family Medical History: Diabetes Mellitus, Myocardial Infarction ([place]) Mother Family Medical History: Cancer, Hyperlipidemia, Hypertension Additional Family Medical History / Comment(s): BREAST CA Brother(s) Family Medical History: Myocardial Infarction ([place]) Additional Family Medical History / Comment(s): AGE 57 FROM [place] Sister(s) Family Medical History: Cancer Additional Family Medical History / Comment(s): YOUNGER SISTER FROM OVARIAN CANCER AGE 51 AND ANOTHER SISTER HAD [place]/CAD,OPEN HEART W/VALVE REPLACEMENT AND DM Medications and Allergies Home Medications Medication Instructions Recorded Confirmed Type Aspirin 81 mg PO DAILY@89906/08/15 02/27/18 History Cholecalciferol [Vitamin D3] 2,000 unit PO DAILY@89906/08/15 02/27/18 History Levothyroxine Sodium [Synthroid] 50 mcg PO DAILY@59906/08/15 02/27/18 History Omeprazole [PriLOSEC] 20 mg PO DAILY@89906/08/15 02/27/18 History Spironolactone [Aldactone] 50 mg PO DAILY@89907/03/16 02/27/18 History Febuxostat [Uloric] 80 mg PO DAILY@89906/10/17 02/27/18 History Multivitamin [Multivitamins Adult 1 tab PO DAILY@89906/10/17 02/27/18 History Gummies] Warfarin Sodium [Coumadin] 4 mg PO DAILY@169906/10/17 02/27/18 History Atorvastatin [Lipitor] 40 mg PO HS #30 tab 12/15/17 02/27/18 Rx Mag Hydrox/Al Hydrox/Simeth 30 ml PO Q4HR PRN cup 12/15/17 02/27/18 Rx [Maalox] Metoprolol Succinate (ER) [Toprol 25 mg PO DAILY tab.er.24h 12/19/17 02/27/18 Rx XL] Nitroglycerin Sl Tabs [Nitrostat] 0.4 mg SUBLINGUAL Q5M PRN tab 12/19/17 Rx ALPRAZolam [Xanax] 0.25 mg PO TID PRN 02/27/18 02/27/18 History Clopidogrel [Plavix] 75 mg PO DAILY@0900 02/27/18 02/27/18 History Furosemide [Lasix] 40 mg PO DAILY@0900 02/27/18 02/27/18 History HYDROcodone/APAP 7.5-325MG [[place] 1 tab PO Q4H PRN 02/27/18 02/27/18 History 7.5-325] Lisinopril [Zestril] 5 mg PO DAILY@1700 02/27/18 02/27/18 History Potassium Chloride [K-Tab ER] 10 meq PO DAILY 02/27/18 02/27/18 History Venelex Ointment 1 applic TOPICAL Q12H 02/27/18 02/27/18 History Allergies Allergy/AdvReac Type Severity Reaction Status Date / Time Penicillins Allergy Unknown Verified 02/27/18 18:46 dexamethasone AdvReac Unknown Verified 02/27/18 18:46 methylprednisolone AdvReac Unknown Verified 02/27/18 18:46 Physical Exam Vitals: Vital Signs Temp Pulse Pulse Resp BP BP BP 02/28/18 10:37 110/60 02/28/18 08:34 16 02/28/18 08:26 97.9 F 70 16 108/51 02/28/18 01:20 98.2 F 81 16 118/69 02/28/18 00:17 97.9 F 69 18 133/91 02/27/18 23:16 73 18 131/58 02/27/18 21:00 71 18 109/53 02/27/18 18:44 98.6 F 59 L 20 158/61 Pulse Ox 02/28/18 10:37 02/28/18 08:34 02/28/18 08:26 97 02/28/18 01:20 95 02/28/18 00:17 98 02/27/18 23:16 96 02/27/18 21:00 95 02/27/18 18:44 99 Intake and Output 02/27/18 02/28/18 02/28/18 22:59 06:59 14:59 Other: Voiding Method Bedpan # Voids 1 Weight 72.575 kg 72.57 kg Results - Lab Results Most recent lab results Calcium 9.6 mg/dL (8.4-10.2) 02/28/18 06:38 02/28/18 06:38 02/28/18 06:38 Assessment and Plan Plan: assessment: #1. Nonoliguric acute kidney injury mostly prerenal secondary to severe intravascular volume depletion from vomiting and further worsened with the use of diuretics and ROULA inhibitor. Creatinine was 6.07 on admission and is down to 4.63 today. Urinalysis is quite benign. #2. Metabolic acidosis secondary to acute kidney injury and IV fluids. #3. Hypernatremia secondary to lack of oral water intake. #4. Mild hyperkalemia secondary to acute kidney injury and metabolic acidosis. Resolved. #5. Rule out chronic kidney disease. Creatinine was as low as 1.08 in November 2017. #6. Pyuria. Follow-up urine culture. #7. Coagulopathy with INR greater than 10. Plan: I will change IV fluids to half-normal saline to be run at 125 mL an hour. Advance diet as tolerated. Check renal ultrasound. Add oral sodium bicarbonate. Follow-up urine culture. Avoid nephrotoxic agents and hypotensive episodes. Diuretics and lisinopril held for now. Repeat electrolytes in the morning. No urgent need for renal replacement therapy at this time. Thank you for the consultation. I will continue to follow the patient with you during her hospital stay.
[2018-02-28 12:00] LABS: Glucose,Whole Blood 147 mg/dL (75-99)
--- NOTE | 2018-02-28 13:45 | US ---
EXAMINATION TYPE: US kidneys/renal and bladder DATE OF EXAM: 02/28/2018 COMPARISON: US 10/05/2017 CLINICAL HISTORY: sonny. Very difficult exam due to patient body habitus and overlying bowel gas EXAM MEASUREMENTS: Right Kidney: 9.7 x 4.2 x 5.0 cm Left Kidney: 8.9 x 4.9 x 4.6 cm Right Kidney: No hydronephrosis. Two cystic areas visualized, largest measuring 4.4 x 3.7 x 3.5 cm, w alls are anechoic, there is increased through transmission, michael are imperceptible similar to prior exam Left Kidney: No hydronephrosis or masses seen and cortical medullary differentiation is maintained b ilaterally Bladder: wnl as visualized, not fully distended Bilateral Jets seen: No IMPRESSION: Exam is limited. No evident hydronephrosis. Simple cysts right kidney.
[2018-02-28] MEDS: SODIUM CHLORIDE 0.45% 1,000 ML IV SCH ×2 (14:23→21:45)
[2018-02-28] MEDS: SODIUM BICARBONATE TAB 650 MG TAB PO SCH ×2 (15:37→21:44)
[2018-02-28] MEDS ORDERED: LISINOPRIL 5 MG TAB PO SCH (17:00)
[2018-02-28 17:25] LABS: Glucose,Whole Blood 93 mg/dL (75-99)
--- NOTE | 2018-02-28 17:55 | HP ---
HISTORY AND PHYSICAL DATE OF SERVICE: 02/28/2018 PRESENTING COMPLAINT: Persistent vomiting. HISTORY OF PRESENTING COMPLAINT: This is a 77-year-old patient with a rather extensive medical history. The patient's chronic stable medical conditions include coronary artery disease, chronic kidney disease, COPD, osteoarthritis, atrial fibrillation, hypothyroid, medical debility and cardiomyopathy. The patient has been having nausea for about a week and has been retching. The patient started having severe bouts of vomiting yesterday, vomited multiple times; also had a couple of bouts of diarrhea, she says, 2 days ago. Slight abdominal discomfort. Denies any obvious fever. Feeling tired and rundown. Appetite has not been good. When patient came in, she was found to have an INR greater than 10. Early this morning I ordered vitamin K. REVIEW OF SYSTEMS: CONSTITUTIONAL: Weak and tired. HEENT: None. RESPIRATORY: None. CARDIOVASCULAR: None. GASTROINTESTINAL: As above. GENITOURINARY: None. MUSCULOSKELETAL: Pain in different joints. DERMATOLOGICAL: Some bruising. HEMATOLOGICAL: None. LYMPHATICS: None. PSYCHIATRY: Slightly anxious. NEUROLOGICAL: None. PAST MEDICAL HISTORY: 1. Coronary artery disease with stent in December of this year and triple-vessel coronary artery disease. 2. Chronic kidney disease, stage III. 3. COPD. 4. Osteoarthritis. 5. Atrial fibrillation. 6. Hypothyroid. 7. Anxiety. 8. Secondary hyperparathyroidism. 9. Medical debility. 10.CHF, EF 35% to 40%. 11.Severe tricuspid regurgitation. PAST SURGICAL HISTORY: 1. Adenoidectomy. 2. AICD. 3. Breast surgery. 4. Cholecystectomy. 5. Cardiac cath with stent. 6. Biventricular dual-chamber pacemaker. SOCIAL HISTORY: The patient smoked for about 30 years about half a pack a day; stopped in 2012. No significant alcohol history. FAMILY HISTORY: Myocardial infarction, diabetes, breast cancer. HOME MEDICATIONS: 1. Coumadin 4 mg a day. 2. Venelex ointment topically q.12. 3. Aldactone 50 mg a day. 4. Potassium 10 mEq a day. 5. Prilosec 20 mg a day. 6. Nitrostat 0.4 sublingually q.5 p.r.n. 7. Multivitamin 1 tablet p.o. daily. 8. Toprol XL 25 mg a day. 9. Maalox 30 mL q.4 p.r.n. 10.Zestril 5 mg a day. 11.Synthroid 50 mcg p.o. daily. 12.[place] 7.5 one tablet q.4 p.r.n. 13.Lasix 40 mg p.o. daily. 14.Uloric 80 mg p.o. daily. 15.Plavix 75 mg p.o. daily. 16.Vitamin D3 2000 units p.o. daily. 17.Lipitor 40 mg p.o. at bedtime. \. 18.Aspirin 81 mg p.o. daily. 19.Xanax 0.25 p.o. t.i.d. p.r.n. ALLERGIES: 1. PENICILLIN. 2. DEXAMETHASONE. 3. METHYLPREDNISOLONE. PHYSICAL EXAMINATION: VITAL SIGNS ON PRESENTATION: Temperature 98.6, pulse 69, respiration 20, blood pressure 158/61, pulse ox 99% on room air. GENERAL APPEARANCE: Average build. BMI 32.3. Lying in bed, tired-appearing. EYES: Pupils equal. Conjunctivae pale. HEENT: External appearance of nose and ears normal. Oral cavity with dry mucous membrane. NECK: JVD unable to assess. Mass not palpable. RESPIRATORY: Effort normal. LUNGS: Diminished breath sounds. CARDIOVASCULAR: First and second sounds normal. No edema. ABDOMEN: Soft. Minimal tenderness. Liver and spleen not palpable. LYMPHATIC: No lymph node palpable in neck or axillae. PSYCHIATRY: Alert and oriented x3. Mood and affect normal. DERMATOLOGICAL: Some bruising. INVESTIGATIONS: White count 10.4, hemoglobin 12.6, potassium 5.5. BUN 139, creatinine 6.07. The patient's BUN and creatinine were 26 and 1.08 back on December 19. UA positive for leukocyte esterase, WBC. INR greater than 10. ASSESSMENT: 1. Acute severe renal failure, mainly a component of prerenal; cannot rule out a component of acute tubular necrosis. The patient has been having nausea and vomiting and also patient had been on Aldactone and Lasix. 2. Acute urinary tract infection that could have precipitated the events of patient having nausea, vomiting. 3. Coronary artery disease with a stent to left anterior descending coronary artery in December of 2017 and also triple-vessel coronary artery disease. 4. Coumadin toxicity, present on admission. 5. Baseline chronic kidney disease, stage III, from nephrosclerosis. Creatinine of 1.08. 6. Chronic obstructive pulmonary disease in an ex-smoker. 7. Primary osteoarthritis in multiple joints, bilateral. 8. Automated implantable cardioverter defibrillator. 9. History of atrial fibrillation, for which patient is on Coumadin. 10.Hypothyroidism. 11.Anxiety not otherwise specified. 12.Chronic kidney disease with mineral bone disease. 13.Chronic congestive heart failure from systolic dysfunction, ejection fraction 35% to 40%, from underlying coronary artery disease. 14.Severe tricuspid regurgitation, non-rheumatic. PLAN: The patient's renal-offensive drugs have been discontinued, including Aldactone, Zestril and Lasix. The patient has been put on saline bicarbonate. Patient did receive some vitamin K 5 mg earlier. INR will be closely followed. Nephrology was consulted. Close eye will be kept on patient's renal function. Care was discussed with the patient. KEREN / QUINTIN: [id number] /
[2018-02-28] MEDS ORDERED: WARFARIN 2 MG TAB PO SCH (18:00)
[2018-02-28] MEDS: ATORVASTATIN 40 MG TAB PO SCH (21:44)
[2018-02-28] MEDS: cefTRIAXone IN SWFI 1,000 MG/10 ML SYRINGE IVP SCH (21:47)
[2018-03-01] MEDS: VENELEX TOPICAL SCH ×2 (00:18→14:27)
[2018-03-01 03:06] LABS: Glucose,Whole Blood 85 mg/dL (75-99)
[2018-03-01] MEDS: SODIUM CHLORIDE 0.45% 1,000 ML IV SCH ×2 (04:14→11:08)
[2018-03-01] MEDS: LEVOTHYROXINE 50 MCG TAB PO SCH (05:07)
[2018-03-01] MEDS: HYDROcodone/APAP 7.5-325MG 1 EACH TAB PO PRN ×4 (05:09→20:29)
[2018-03-01 07:35] LABS: INR 1.7 (<1.2); Prothrombin Time 15.4 sec (9.0-12.0)
[2018-03-01] MEDS: METOCLOPRAMIDE 5 MG/ML 2 ML VIAL IVP PRN (07:38)
[2018-03-01] MEDS: ALLOPURINOL 100 MG TAB PO SCH (07:39)
[2018-03-01] MEDS: CLOPIDOGREL 75 MG TAB PO SCH (07:39)
[2018-03-01] MEDS: CHOLECALCIFEROL 1,000 UNIT TAB PO SCH (07:39)
[2018-03-01] MEDS: SODIUM BICARBONATE TAB 650 MG TAB PO SCH ×2 (07:39→20:30)
[2018-03-01] MEDS: MULTIVITAMINS, THERA 1 EACH TAB PO SCH (07:39)
[2018-03-01] MEDS: PANTOPRAZOLE 40 MG TABLET PO SCH (07:40)
[2018-03-01] MEDS: METOPROLOL SUCCINATE (ER) 25 MG TAB.ER.24H PO SCH (07:40)
[2018-03-01 07:46] LABS: Glucose,Whole Blood 81 mg/dL (75-99)
[2018-03-01 07:58] LABS: Calcium 8.9 mg/dL (8.4-10.2); Magnesium 1.8 mg/dL (1.6-2.3); Potassium 4.1 mmol/L (3.5-5.1)
[2018-03-01 11:19] LABS: Glucose,Whole Blood 84 mg/dL (75-99)
--- NOTE | 2018-03-01 14:49 | P.PN ---
Subjective Patient is seen in follow-up for acute kidney injury. Creatinine was 6.07 on admission and is down to 2.8 today. She is currently maintained on half-normal saline at 125 mL an hour. She is tolerating oral intake well. No vomiting or diarrhea. Denies chest pain or shortness of breath. Diuretics are held. Hemodynamically stable. She did feel quite dizzy ambulating this morning. Vital signs are stable. General: The patient appeared well nourished and normally developed. HEENT: Head exam is unremarkable. Neck is without jugular venous distension. LUNGS: Lungs are clear to auscultation and percussion. Breath sounds decreased. HEART: Rate and Rhythm are regular. First and second heart sounds normal. No murmurs, rubs or gallops. ABDOMEN: Abdominal exam reveals normal bowel sounds. Non-tender and non- distended. No evidence of peritonitis. EXTREMITITES: No clubbing, cyanosis, or edema. Objective - Vital Signs Vital signs: Vital Signs Temp 97.7 F 03/01/18 07:16 Pulse 52 L 03/01/18 07:16 Resp 16 03/01/18 07:16 BP 102/63 03/01/18 07:16 Pulse Ox 98 03/01/18 07:16 Intake & Output 02/28/18 03/01/18 03/01/18 18:59 06:59 18:59 Intake Total 225 Balance 225 Weight 72.57 kg 72.57 kg Intake: Oral 225 Other: Voiding Method Bedpan Toilet # Voids 2 5 - Labs CBC & Chem 7: 02/28/18 06:38 03/01/18 06:55 Labs: Abnormal Lab Results - Last 24 Hours (Table) 03/01/18 03/01/18 Range/Units 06:55 06:55 PT 15.4 H (9.0-12.0) sec INR 1.7 H (<1.2) Carbon Dioxide 20 L (22-30) mmol/L BUN 96 H* (7-17) mg/dL Creatinine 2.80 H (0.52-1.04) mg/dL Microbiology - Last 24 Hours (Table) 02/27/18 21:05 Urine Culture - Preliminary Urine,Voided Gram Neg Bacilli Gram Neg Bacilli#2 Assessment and Plan Plan: assessment: #1. Nonoliguric acute kidney injury mostly prerenal secondary to severe intravascular volume depletion from vomiting and further worsened with the use of diuretics and ROULA inhibitor. Creatinine was 6.07 on admission and is down to 2.8 today. Urinalysis is quite benign. No evidence of hydronephrosis noted on renal ultrasound. #2. Metabolic acidosis secondary to acute kidney injury and IV fluids. Improved. #3. Hypernatremia secondary to lack of oral water intake. Improved. #4. Mild hyperkalemia secondary to acute kidney injury and metabolic acidosis. Resolved. #5. Rule out chronic kidney disease. Creatinine was as low as 1.08 in November 2017. #6. UTI. Urine culture positive for gram-negative bacilli maintained on Rocephin. #7. Coagulopathy with INR greater than 10. Plan: I will change IV fluids to normal saline at 75 mL an hour. Advance diet as tolerated. Maintain oral sodium bicarbonate. Follow-up urine culture. Avoid nephrotoxic agents and hypotensive episodes. Diuretics and lisinopril held for now. Repeat electrolytes in the morning. No urgent need for renal replacement therapy at this time.
[2018-03-01] MEDS: SODIUM CHLORIDE 0.9% 1,000 ML IV SCH (15:48)
[2018-03-01 16:38] LABS: Glucose,Whole Blood 139 mg/dL (75-99)
[2018-03-01] MEDS: WARFARIN 2.5 MG TAB PO SCH (18:02)
--- NOTE | 2018-03-01 18:50 | PN ---
PROGRESS NOTE DATE OF SERVICE: 03/01/2018 PRESENTING COMPLAINT: Persistent vomiting. INTERVAL HISTORY: Patient presented with acute severe renal failure secondary to persistent vomiting felt to be from UTI. Patient is doing a bit better today, though tired. Did tolerate some liquid diet. Family at the bedside. Does feel rundown and tired. Patient did get vitamin K for Coumadin toxicity. REVIEW OF SYSTEMS: Done for constitutional, cardiovascular, GI, pulmonary; relevant findings as above. CURRENT MEDICATIONS: Current medications include sodium bicarb and saline. PHYSICAL EXAMINATION: Temperature 97.7, pulse 52, respiration 16, blood pressure 102/63, pulse ox 98% on room air. GENERAL APPEARANCE: Lying in bed, tired-appearing. EYES: Pupils equal. Conjunctivae pale. HEENT: External appearance of nose and ears normal. Oral cavity dry. NECK: JVD unable to assess. Mass not palpable. RESPIRATORY: Effort normal. LUNGS: Decreased breath sounds. CARDIOVASCULAR: First and second sounds normal. No edema. ABDOMEN: Soft, nontender. Liver and spleen not palpable. PSYCHIATRY: Alert and oriented x3. Mood and affect normal. DERMATOLOGICAL: Bruising is present. INVESTIGATIONS: INR 1.7, potassium 4.1, BUN 96, creatinine 2.80. ASSESSMENT: 1. Acute severe renal failure, component of prerenal; cannot rule out acute tubular necrosis. Biochemically improving. 2. Acute urinary tract infection. 3. Coronary artery disease with stent to the left anterior descending coronary artery in December of 2017 and triple-vessel coronary artery disease. 4. Coumadin toxicity, present on admission, now resolved. 5. Baseline chronic kidney disease, stage III, from nephrosclerosis. Creatinine 1.08. 6. Chronic obstructive pulmonary disease. 7. Smoker. 8. Primary osteoarthritis in multiple joints, bilateral. 9. Automated implantable cardioverter defibrillator. 10.History of atrial fibrillation, for which patient is on Coumadin. 11.Hypothyroidism. 12.Anxiety not otherwise specified. 13.Chronic kidney disease with mineral bone disease. 14.Chronic congestive heart failure from systolic dysfunction, ejection fraction 35% to 40%, with underlying coronary artery disease. 15.Severe tricuspid regurgitation, non-rheumatic. 16.Acute urinary tract infection from Gram-negative bacilli. PLAN: Continue to hydrate the patient. Will resume patient's Coumadin today. Care was discussed with the patient. MMODL / IJN: [id number] /
[2018-03-01] MEDS: ATORVASTATIN 40 MG TAB PO SCH (20:30)
[2018-03-01] MEDS: cefTRIAXone IN SWFI 1,000 MG/10 ML SYRINGE IVP SCH (20:31)
[2018-03-02] MEDS: HYDROcodone/APAP 7.5-325MG 1 EACH TAB PO PRN ×6 (00:15→23:53)
[2018-03-02] MEDS: LEVOTHYROXINE 50 MCG TAB PO SCH (05:03)
[2018-03-02] MEDS: SODIUM CHLORIDE 0.9% 1,000 ML IV SCH ×2 (05:06→17:27)
[2018-03-02 06:48] LABS: Glucose,Whole Blood 87 mg/dL (75-99)
[2018-03-02 08:12] LABS: Calcium 8.8 mg/dL (8.4-10.2); Magnesium 1.6 mg/dL (1.6-2.3); Potassium 4.1 mmol/L (3.5-5.1)
[2018-03-02] MEDS: MULTIVITAMINS, THERA 1 EACH TAB PO SCH (08:36)
[2018-03-02] MEDS: SODIUM BICARBONATE TAB 650 MG TAB PO SCH ×2 (08:36→19:46)
[2018-03-02] MEDS: ALLOPURINOL 100 MG TAB PO SCH (08:36)
[2018-03-02] MEDS: PANTOPRAZOLE 40 MG TABLET PO SCH (08:36)
[2018-03-02] MEDS: CHOLECALCIFEROL 1,000 UNIT TAB PO SCH (08:36)
[2018-03-02] MEDS: CLOPIDOGREL 75 MG TAB PO SCH (08:36)
[2018-03-02] MEDS: METOPROLOL SUCCINATE (ER) 25 MG TAB.ER.24H PO SCH (08:36)
[2018-03-02 08:41] LABS: INR 1.2 (<1.2); Prothrombin Time 11.8 sec (9.0-12.0)
--- NOTE | 2018-03-02 10:50 | P.PN ---
Subjective Patient is seen in follow-up for acute kidney injury. Creatinine was 6.07 on admission and is down to 1.6 today. She is currently maintained on normal saline at 75 mL an hour. She is tolerating oral intake well. No vomiting or diarrhea. Denies chest pain or shortness of breath. Diuretics are held. Hemodynamically stable. Morning blood pressure 134/60. Vital signs are stable. General: The patient appeared well nourished and normally developed. HEENT: Head exam is unremarkable. Neck is without jugular venous distension. LUNGS: Lungs are clear to auscultation and percussion. Breath sounds decreased. HEART: Rate and Rhythm are regular. First and second heart sounds normal. No murmurs, rubs or gallops. ABDOMEN: Abdominal exam reveals normal bowel sounds. Non-tender and non- distended. No evidence of peritonitis. EXTREMITITES: No clubbing, cyanosis, or edema. Objective - Vital Signs Vital signs: Vital Signs Temp 97.9 F 03/02/18 07:00 Pulse 94 03/02/18 07:00 Resp 18 03/02/18 07:00 BP 134/60 03/02/18 07:00 Pulse Ox 100 03/02/18 01:00 Intake & Output 03/01/18 03/02/18 03/02/18 18:59 06:59 18:59 Intake Total 2375 480 240 Balance 2375 480 240 Weight 72.57 kg 72.57 kg Intake: Intake, IV Titration 1350 Amount Sodium Chloride 0.45% 1, 1125 000 ml @ 125 mls/hr IV . Q8H ANNELIESE Rx#:[id number] Sodium Chloride 0.9% 1, 225 000 ml @ 75 mls/hr IV . [id number] ANNELIESE Rx#:[id number] Oral 1025 480 240 Other: Voiding Method Toilet Toilet # Voids 5 1 - Labs CBC & Chem 7: 02/28/18 06:38 03/02/18 07:20 Labs: Abnormal Lab Results - Last 24 Hours (Table) 03/01/18 03/02/18 03/02/18 Range/Units 16:36 07:20 08:10 INR 1.2 H (<1.2) Chloride 109 H (98-107) mmol/L BUN 62 H (7-17) mg/dL Creatinine 1.60 H (0.52-1.04) mg/dL POC Glucose (mg/dL) 139 H (75-99) mg/dL Microbiology - Last 24 Hours (Table) 02/27/18 21:05 Urine Culture - Final Urine,Voided Klebsiella pneumoniae Escherichia coli Assessment and Plan Plan: assessment: #1. Nonoliguric acute kidney injury mostly prerenal secondary to severe intravascular volume depletion from vomiting and further worsened with the use of diuretics and ROULA inhibitor. Creatinine was 6.07 on admission and is down to 1.6 today. Urinalysis is quite benign. No evidence of hydronephrosis noted on renal ultrasound. #2. Metabolic acidosis secondary to acute kidney injury and IV fluids. Improved. #3. Hypernatremia secondary to lack of oral water intake. Improved. #4. Mild hyperkalemia secondary to acute kidney injury and metabolic acidosis. Resolved. #5. Rule out chronic kidney disease. Creatinine was as low as 1.08 in November 2017. #6. UTI. Urine culture positive for Klebsiella and E. coli maintained on Rocephin. #7. Coagulopathy with INR greater than 10. Resolved. Plan: Maintain normal saline at 75 mL an hour. Encouraged oral intake. Maintain oral sodium bicarbonate. Avoid nephrotoxic agents and hypotensive episodes. Diuretics and lisinopril held for now. Repeat electrolytes in the morning. Replace magnesium. 2 g IV today.
[2018-03-02 11:48] LABS: Glucose,Whole Blood 166 mg/dL (75-99)
[2018-03-02] MEDS: MAGNESIUM SULFATE-D5W PMX 1 GM in DEXTROSE/WATER 1 100ML.BAG IVPB SCH ×2 (13:37→14:44)
--- NOTE | 2018-03-02 16:24 | PN ---
PROGRESS NOTE DATE OF SERVICE: 03/02/2018 PRESENTING COMPLAINT: Tired. INTERVAL HISTORY: Patient presented with acute severe renal failure, acute urinary tract infection. Continues to feel better, a bit dizzy. Eating much better. Also Coumadin toxicity is improved. REVIEW OF SYSTEMS: Done for constitutional, cardiovascular, GI, pulmonary; relevant findings as above. CURRENT MEDICATIONS: Reviewed that include IV ceftriaxone, Coumadin, normal saline 75 mL an hour. PHYSICAL EXAMINATION: Temperature 97.3, pulse 60, respiratory 18, blood pressure 134/59, pulse ox 99% on room air. GENERAL APPEARANCE: Lying in bed more awake. EYES: Pupils equal. Conjunctivae pale. HEENT: External appearance of nose and ears normal. Oral cavity normal. NECK: JVD not raised. Mass not palpable. RESPIRATORY: Effort, lungs decreased breath sounds. CARDIOVASCULAR: First and second sounds, no edema. ABDOMEN: Soft, nontender. Liver and spleen not palpable. PSYCHIATRY: Alert and oriented x3. Mood and affect normal. DERMATOLOGICAL: Some bruising is present. INVESTIGATIONS: BUN 62, creatinine 1.60. ASSESSMENT: 1. Acute severe renal failure component of prerenal biochemically, improving. 2. Acute urinary tract infection from Klebsiella pneumoniae and E coli. 3. Coronary artery disease with stent to the LAD in December 2017 and triple-vessel coronary artery disease. 4. Coumadin toxicity present on admission, now resolved. 5. Baseline chronic kidney disease stage 3 from nephrosclerosis. Creatinine normally around 1.08. 6. Chronic obstructive pulmonary disease. 7. Primary osteoarthritis in multiple joints bilateral. 8. AICD. 9. History of atrial fibrillation for which patient is on Coumadin. 10.Hypothyroidism. 11.Anxiety, not otherwise specified. 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 13.Chronic congestive heart failure from systolic dysfunction, ejection fraction 35- 40% from underlying coronary artery disease. 14.Severe tricuspid regurgitation, nonrheumatic. PLAN: We will switch the patient over to p.o. Keflex. Continue with IV fluids. Follow electrolytes closely. Encouraged the patient to be out of bed, see how she does and see if she needs assessment for IP rehab. MMODL / IJN: [id number] /
[2018-03-02 17:17] LABS: Glucose,Whole Blood 155 mg/dL (75-99)
[2018-03-02] MEDS: WARFARIN 2.5 MG TAB PO SCH (17:26)
[2018-03-02] MEDS: CEPHALEXIN 250 MG CAP PO SCH ×2 (17:31→21:02)
[2018-03-02] MEDS: ATORVASTATIN 40 MG TAB PO SCH (19:46)
[2018-03-03] MEDS: LEVOTHYROXINE 50 MCG TAB PO SCH (04:54)
[2018-03-03] MEDS: HYDROcodone/APAP 7.5-325MG 1 EACH TAB PO PRN ×5 (04:54→22:45)
[2018-03-03 07:28] LABS: INR 1.6 (<1.2); Prothrombin Time 14.6 sec (9.0-12.0)
[2018-03-03 07:43] LABS: Calcium 8.6 mg/dL (8.4-10.2)
[2018-03-03 07:58] LABS: Potassium 4.2 mmol/L (3.5-5.1)
[2018-03-03] MEDS: CHOLECALCIFEROL 1,000 UNIT TAB PO SCH (08:43)
[2018-03-03] MEDS: CLOPIDOGREL 75 MG TAB PO SCH (08:43)
[2018-03-03] MEDS: PANTOPRAZOLE 40 MG TABLET PO SCH (08:43)
[2018-03-03] MEDS: CEPHALEXIN 250 MG CAP PO SCH ×4 (08:43→22:41)
[2018-03-03] MEDS: ALLOPURINOL 100 MG TAB PO SCH (08:44)
[2018-03-03] MEDS: SODIUM BICARBONATE TAB 650 MG TAB PO SCH ×2 (08:44→19:49)
[2018-03-03] MEDS: MULTIVITAMINS, THERA 1 EACH TAB PO SCH (08:44)
--- NOTE | 2018-03-03 09:42 | P.PN ---
Subjective Patient is seen in follow-up for acute kidney injury. Creatinine was 6.07 on admission and is down to 1.04 today. She is currently maintained on normal saline at 75 mL an hour. She is tolerating oral intake well. No vomiting or diarrhea. Denies chest pain or shortness of breath. Diuretics are held. Hemodynamically stable. Morning blood pressure 154/69. Continues to complain of dizziness. Vital signs are stable. General: The patient appeared well nourished and normally developed. HEENT: Head exam is unremarkable. Neck is without jugular venous distension. LUNGS: Lungs are clear to auscultation and percussion. Breath sounds decreased. HEART: Rate and Rhythm are regular. First and second heart sounds normal. No murmurs, rubs or gallops. ABDOMEN: Abdominal exam reveals normal bowel sounds. Non-tender and non- distended. No evidence of peritonitis. EXTREMITITES: No clubbing, cyanosis, or edema. Objective - Vital Signs Vital signs: Vital Signs Temp 97.8 F 03/03/18 07:04 Pulse 56 L 03/03/18 08:41 Resp 16 03/03/18 07:04 BP 154/69 03/03/18 07:04 Pulse Ox 97 03/03/18 07:04 Intake & Output 03/02/18 03/03/18 03/03/18 18:59 06:59 18:59 Intake Total 1520 1400 Balance 1520 1400 Intake: IV 600 1200 Sodium Chloride 0.9% 1, 600 1200 000 ml @ 75 mls/hr IV . [id number] ANNELIESE Rx#:[id number] Intake, IV Titration 200 Amount Magnesium Sulfate-D5w Pmx 200 1 gm In Dextrose/Water 1 100ml.bag @ 100 mls/hr IVPB Q1H ANNELIESE Rx#: [id number] Oral 720 Other 200 Other: # Voids 1 3 - Labs CBC & Chem 7: 02/28/18 06:38 03/03/18 06:56 Labs: Abnormal Lab Results - Last 24 Hours (Table) 03/02/18 03/02/18 03/03/18 Range/Units 11:45 16:46 06:56 PT 14.6 H (9.0-12.0) sec INR 1.6 H (<1.2) Chloride (98-107) mmol/L BUN (7-17) mg/dL POC Glucose (mg/dL) 166 H 155 H (75-99) mg/dL 03/03/18 Range/Units 06:56 PT (9.0-12.0) sec INR (<1.2) Chloride 111 H (98-107) mmol/L BUN 33 H (7-17) mg/dL POC Glucose (mg/dL) (75-99) mg/dL Microbiology - Last 24 Hours (Table) 02/27/18 21:05 Urine Culture - Final Urine,Voided Klebsiella pneumoniae Escherichia coli Assessment and Plan Plan: assessment: #1. Nonoliguric acute kidney injury mostly prerenal secondary to severe intravascular volume depletion from vomiting and further worsened with the use of diuretics and ROULA inhibitor. Creatinine was 6.07 on admission and is down to 1.04 today. Urinalysis is quite benign. No evidence of hydronephrosis noted on renal ultrasound. #2. Metabolic acidosis secondary to acute kidney injury and IV fluids. Improved. #3. Hypernatremia secondary to lack of oral water intake. Improved. #4. Mild hyperkalemia secondary to acute kidney injury and metabolic acidosis. Resolved. #5. Rule out chronic kidney disease. Creatinine was as low as 1.08 in November 2017. #6. UTI. Urine culture positive for Klebsiella and E. coli maintained on Rocephin. #7. Coagulopathy with INR greater than 10. Resolved. #8. Dizziness. Likely related to underlying debility. Rule out orthostasis. She is volume replete. Plan: Maintain normal saline at 75 mL an hour. Encouraged oral intake. Maintain oral sodium bicarbonate. Avoid nephrotoxic agents and hypotensive episodes. Diuretics and lisinopril held for now. Repeat electrolytes in the morning. Check orthostatics. Patient wishes to go to a subacute rehab rather than home.
--- NOTE | 2018-03-03 13:01 | PN ---
PROGRESS NOTE DATE OF SERVICE: March 03, 2018. PRESENTING COMPLAINT: Tired. INTERVAL HISTORY: The patient presented with acute severe renal failure, acute UTI and Coumadin toxicity. Continues to improve, though feels tired. Oral intake is getting better. REVIEW OF SYSTEMS: Done for constitutional, cardiovascular, GI, pulmonary; relevant findings as above. CURRENT MEDICATIONS: Reviewed that include Coumadin 2.5 and saline 75 mL an hour. PHYSICAL EXAMINATION: Temperature 98.4, pulse 59, respirations 16, blood pressure 153/63, pulse ox 99% on room air. General appearance: Lying in bed, awake. Eyes: Pupils are equal. Conjunctivae pale. HEENT external appearance of nose and ears normal. Oral cavity normal. Neck JVD not raised. Mass not palpable. Respiratory effort normal. Lungs decreased breath sounds. Cardiovascular: First and second sounds normal. No edema. ABDOMEN: Soft, nontender. Liver and spleen not palpable. Psychiatry: Alert and oriented x3. Mood and affect normal. Dermatological: Some bruising present. INVESTIGATIONS: White count 4.2, BUN 33, creatinine 1.04. INR 1.6. ASSESSMENT: 1. Acute severe renal failure component of prerenal much improved. 2. Acute urinary tract infection from Klebsiella pneumoniae and E coli. 3. Coronary artery disease with stent to the LAD, December 2017, triple-vessel coronary artery disease. 4. Coumadin toxicity present on admission. 5. Baseline chronic kidney disease from nephrosclerosis, creatinine normally runs around 1.08. 6. Chronic obstructive pulmonary disease. 7. Primary osteoarthritis of multiple joints bilateral. 8. AICD. 9. History of atrial fibrillation for which patient is on Coumadin. 10.Hypothyroidism. 11.Anxiety, not otherwise specified. 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 13.Chronic congestive heart failure from systolic dysfunction, EF 35-40% from underlying coronary artery disease. 14.Severe tricuspid regurgitation, nonrheumatic. PLAN: Keep the patient on oral Keflex. We will discontinue p.o. IV fluids later this evening as creatinine has come down pretty nicely and given history of CHF. Looking at the patient go down to inpatient rehab. MMODL / IJN: [id number] /
[2018-03-03] MEDS: METOPROLOL SUCCINATE (ER) 25 MG TAB.ER.24H PO SCH (14:45)
[2018-03-03] MEDS: SODIUM CHLORIDE 0.9% 1,000 ML IV SCH (17:36)
[2018-03-03] MEDS: WARFARIN 2.5 MG TAB PO SCH (19:00)
[2018-03-03] MEDS: ATORVASTATIN 40 MG TAB PO SCH (19:49)
[2018-03-03 20:10] LABS: Glucose,Whole Blood 157 mg/dL (75-99)
[2018-03-04] MEDS: LEVOTHYROXINE 50 MCG TAB PO SCH (04:10)
[2018-03-04] MEDS: HYDROcodone/APAP 7.5-325MG 1 EACH TAB PO PRN ×4 (04:10→17:18)
[2018-03-04 07:13] LABS: INR 1.8 (<1.2); Prothrombin Time 16.2 sec (9.0-12.0)
[2018-03-04 07:24] LABS: Glucose,Whole Blood 92 mg/dL (75-99)
[2018-03-04 07:36] VITALS: RESP 17
[2018-03-04 07:38] LABS: Calcium 8.5 mg/dL (8.4-10.2); Magnesium 1.6 mg/dL (1.6-2.3); Potassium 4.5 mmol/L (3.5-5.1)
[2018-03-04] MEDS: CEPHALEXIN 250 MG CAP PO SCH ×2 (07:52→13:17)
[2018-03-04] MEDS: ALLOPURINOL 100 MG TAB PO SCH (07:53)
[2018-03-04] MEDS: CHOLECALCIFEROL 1,000 UNIT TAB PO SCH (07:53)
[2018-03-04] MEDS: CLOPIDOGREL 75 MG TAB PO SCH (07:53)
[2018-03-04] MEDS: METOPROLOL SUCCINATE (ER) 25 MG TAB.ER.24H PO SCH (07:54)
[2018-03-04] MEDS: SODIUM BICARBONATE TAB 650 MG TAB PO SCH (07:54)
[2018-03-04] MEDS: PANTOPRAZOLE 40 MG TABLET PO SCH (07:54)
[2018-03-04] MEDS: MULTIVITAMINS, THERA 1 EACH TAB PO SCH (07:54)
--- NOTE | 2018-03-04 10:44 | P.PN ---
Subjective Patient is seen in follow-up for acute kidney injury. Creatinine was 6.07 on admission and is down to 0.9 today. She is currently maintained on normal saline at 75 mL an hour. She is tolerating oral intake well. No vomiting or diarrhea. Denies chest pain or shortness of breath. Diuretics are held. Hemodynamically stable. Continues to complain of dizziness. Vital signs are stable. General: The patient appeared well nourished and normally developed. HEENT: Head exam is unremarkable. Neck is without jugular venous distension. LUNGS: Lungs are clear to auscultation and percussion. Breath sounds decreased. HEART: Rate and Rhythm are regular. First and second heart sounds normal. No murmurs, rubs or gallops. ABDOMEN: Abdominal exam reveals normal bowel sounds. Non-tender and non- distended. No evidence of peritonitis. EXTREMITITES: No clubbing, cyanosis, or edema. Objective - Vital Signs Vital signs: Vital Signs Temp 98.0 F 03/04/18 07:00 Pulse 52 L 03/04/18 07:00 Resp 17 03/04/18 07:00 BP 124/57 03/04/18 07:00 Pulse Ox 99 03/04/18 07:00 Intake & Output 03/03/18 03/04/18 03/04/18 18:59 06:59 18:59 Intake Total 180 800 240 Balance 180 800 240 Intake: IV 600 Sodium Chloride 0.9% 1, 600 000 ml @ 75 mls/hr IV . [id number] ANNELIESE Rx#:[id number] Oral 180 200 240 Other: # Voids 5 3 - Labs CBC & Chem 7: 02/28/18 06:38 03/04/18 06:23 Labs: Abnormal Lab Results - Last 24 Hours (Table) 03/03/18 03/04/18 03/04/18 Range/Units 20:07 06:23 06:23 PT 16.2 H (9.0-12.0) sec INR 1.8 H (<1.2) Chloride 111 H (98-107) mmol/L BUN 23 H (7-17) mg/dL POC Glucose (mg/dL) 157 H (75-99) mg/dL Assessment and Plan Plan: assessment: #1. Nonoliguric acute kidney injury mostly prerenal secondary to severe intravascular volume depletion from vomiting and further worsened with the use of diuretics and ROULA inhibitor. Creatinine was 6.07 on admission and is down to 0.9 today. Urinalysis is quite benign. No evidence of hydronephrosis noted on renal ultrasound. #2. Metabolic acidosis secondary to acute kidney injury and IV fluids. Improved. #3. Hypernatremia secondary to lack of oral water intake. Improved. #4. Mild hyperkalemia secondary to acute kidney injury and metabolic acidosis. Resolved. #5. Rule out chronic kidney disease. Creatinine was as low as 1.08 in November 2017. #6. UTI. Urine culture positive for Klebsiella and E. coli maintained on Rocephin. #7. Coagulopathy with INR greater than 10. Resolved. #8. Dizziness. Likely related to underlying debility. She is volume replete. #9. Hypomagnesemia due to poor oral intake. Plan: Hep-Lock IV fluids. Encouraged oral intake. Discontinue oral sodium bicarbonate. Avoid nephrotoxic agents and hypotensive episodes. Diuretics and lisinopril held for now. 2 g IV magnesium today. Add Mag-Ox once daily. Repeat electrolytes in the morning. Patient wishes to go to a subacute rehab rather than home. Anticipate discharge soon.
[2018-03-04] MEDS ORDERED: MAGNESIUM OXIDE 400 MG TAB PO SCH (10:45)
[2018-03-04] MEDS: MAGNESIUM SULFATE-D5W PMX 1 GM in DEXTROSE/WATER 1 100ML.BAG IVPB SCH ×2 (11:40→13:14)
[2018-03-04 14:38] VITALS: BP 106/47; PULSE 50; TEMP 98.3
--- NOTE | 2018-03-04 16:29 | DS ---
DISCHARGE SUMMARY DATE OF ADMISSION: 02/27/2018 DATE OF DISCHARGE: 03/04/2018 FINAL DIAGNOSES: 1. Acute severe renal failure, prerenal from diuretics, present on admission. 2. Acute urinary tract infection from Klebsiella pneumoniae and Escherichia coli, present on admission. 3. Coronary artery disease with stent to the left anterior descending coronary artery in December 2017 with triple-vessel coronary artery disease. 4. Coumadin toxicity, present on admission. 5. Baseline chronic kidney disease from nephrosclerosis, stage II. Creatinine runs around 1.08. 6. Chronic obstructive pulmonary disease. 7. Primary osteoarthritis in multiple joints, bilateral. 8. Automated implantable cardioverter defibrillator. 9. History of atrial fibrillation, for which patient is on Coumadin. 10.Hypothyroidism. 11.Anxiety not otherwise specified. 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 13.Chronic congestive heart failure from systolic dysfunction, ejection fraction 35% to 40%, from underlying coronary artery disease. 14.Severe tricuspid regurgitation, non-rheumatic. CONSULTATION: Dr. Dunham from Nephrology. HOSPITAL COURSE: This patient presented weak, tired, rundown, with creatinine up to 6.07. The patient's several diuretics were held and creatinine did come down to 0.90 by the time of discharge. Aldactone because of CHF is being re-introduced. Patient also had Coumadin toxicity with INR greater than 10. Patient did receive vitamin K. Coumadin has not been restarted. Patient is overall feeling much better right now. Today BUN and creatinine are 23 and 0.90. Potassium is 4.5. Patient had a UTI with cultures growing Klebsiella pneumoniae and E coli. On examination, lungs are clear. CARDIOVASCULAR: First and second sounds normal. Care was discussed with the patient. Discussion and discharge planning more than 35 minutes. DISCHARGE MEDICATIONS: 1. Aspirin 81 mg a day. 2. Vitamin D3 2000 units p.o. daily. 3. Synthroid 50 mcg p.o. daily. 4. Prilosec 20 mg p.o. daily. 5. Uloric 80 mg p.o. daily. 6. Multivitamin 1 tablet p.o. daily. 7. Lipitor 40 mg at bedtime. 8. Maalox 30 mL q.4 p.r.n. 9. Toprol XL 25 mg p.o. daily. 10.Nitrostat 0.4 sublingually q.5 p.r.n. 11.Plavix 75 mg p.o. daily. 12.Venelex application topically q.12. 13.Xanax 0.25 p.o. t.i.d. p.r.n. 14.Keflex 250 mg p.o. q.i.d.; 12 capsules. 15.Homer 7.5 one tablet q.4 p.r.n. 16.Magnesium oxide 400 mg p.o. daily. 17.Aldactone 25 mg p.o. daily. 18.Coumadin 2.5 mg daily. DISPOSITION: [facility]. Follow up with Dr. Crow at [facility]. Follow up with Dr. Hedrick after discharge from [facility]. MMODL / IJN: [id number] /
== END 2018-03-04 17:30 | DRG 683 ==
LOC: EC 17:37 → 3SUR 23:15
PROVIDERS: ADMIT Hospitalist; ATTEND Hospitalist
DX: N17.9 Acute kidney failure, unspecified (principal); E87.0 Hyperosmolality and hypernatremia; E87.2 Acidosis; E83.42 Hypomagnesemia; I36.1 Nonrheumatic tricuspid (valve) insufficiency; E86.9 Volume depletion, unspecified; E87.5 Hyperkalemia; I48.91 Unspecified atrial fibrillation; I42.9 Cardiomyopathy, unspecified; I13.0 Hypertensive heart and chronic kidney disease with heart failure and stage 1 through stage 4 chronic kidney disease, or unspecified chronic kidney disease; I50.22 Chronic systolic (congestive) heart failure; N39.0 Urinary tract infection, site not specified; B96.1 Klebsiella pneumoniae [K. pneumoniae] as the cause of diseases classified elsewhere; B96.20 Unspecified Escherichia coli [E. coli] as the cause of diseases classified elsewhere; E03.9 Hypothyroidism, unspecified; F17.200 Nicotine dependence, unspecified, uncomplicated; F41.9 Anxiety disorder, unspecified; I25.10 Atherosclerotic heart disease of native coronary artery without angina pectoris; I25.2 Old myocardial infarction; J44.9 Chronic obstructive pulmonary disease, unspecified; M15.9 Polyosteoarthritis, unspecified; N18.3 Chronic kidney disease, stage 3 (moderate); N25.81 Secondary hyperparathyroidism of renal origin; Z79.01 Long term (current) use of anticoagulants; Z79.02 Long term (current) use of antithrombotics/antiplatelets; Z79.82 Long term (current) use of aspirin; Z79.899 Other long term (current) drug therapy; Z80.3 Family history of malignant neoplasm of breast; Z80.41 Family history of malignant neoplasm of ovary; Z82.49 Family history of ischemic heart disease and other diseases of the circulatory system; Z83.3 Family history of diabetes mellitus; Z90.710 Acquired absence of both cervix and uterus; Z95.5 Presence of coronary angioplasty implant and graft; Z96.651 Presence of right artificial knee joint; Z95.810 Presence of automatic (implantable) cardiac defibrillator; Z79.890 Hormone replacement therapy; Z88.0 Allergy status to penicillin; Z88.8 Allergy status to other drugs, medicaments and biological substances; T45.515A Adverse effect of anticoagulants, initial encounter; R79.1 Abnormal coagulation profile
CPT/HCPCS: 00000; 36415; 74018; 76770; 80048; 80053; 81001; 82150; 83690; 83735; 85025; 85610; 87077; 87086; 87186; 93005; 96361; 96374; 96375; 99285

== ENCOUNTER 2018-05-30 08:44 | Day surgery (SDC) | payer MEDICARE ==
[2018-05-27 09:22] VITALS: BMI 32.3
[~2018-05-30 08:44] MED LIST changes: -MAGNESIUM SULFATE SYG 4.06 MEQ/ML SYRINGE ONE; +SODIUM CHLORIDE 0.9% 1,000 ML IV SCH
[2018-05-30 09:13] VITALS: TEMP 98.6
[2018-05-30 09:52] LABS: INR 1.5 (<1.2); Prothrombin Time 14.2 sec (9.0-12.0)
[2018-05-30] MEDS ORDERED: IOPAMIDOL-250 50ML BTL IV ONE (09:56)
[2018-05-30 09:58] LABS: Calcium 9.5 mg/dL (8.4-10.2); Potassium 4.4 mmol/L (3.5-5.1)
[2018-05-30 10:19] VITALS: BP 140/60; PULSE 61; RESP 16
--- NOTE | 2018-05-30 12:21 | P.PCN ---
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 At implant in 2012 it was 2.9 V at 0.5 ms R waves 13.9 mV, pacing impedance 497 ohms, which was 600 ohms at implant in 2012 RV pacing threshold 2 V at 1 ms With chronic pacing parameters she was paced 85% in the atrium and 79% in the ventricle with the average battery life of 3.5 years Changes made Pacemaker/ICD programmed to DDDR mode at 50-130 bpm, AV search hysteresis with sensed AV range of 200-350 ms range him to minimize RV pacing MADIT RIT programming for VT/VF With these changes the battery life is anticipated to be 6.5 years No indication for implantation of any new lead at this point Disposition: same day
== END 2018-05-30 10:45 | disposition home or self-care (01) ==
LOC: CATHEP 08:44
PROVIDERS: ATTEND Internal Medicine Clinical Cardiac Electrophysiology
DX: Z45.02 Encounter for adjustment and management of automatic implantable cardiac defibrillator (principal); I82.B12 Acute embolism and thrombosis of left subclavian vein; I82.A12 Acute embolism and thrombosis of left axillary vein; I25.5 Ischemic cardiomyopathy; E78.5 Hyperlipidemia, unspecified; I73.9 Peripheral vascular disease, unspecified; I25.10 Atherosclerotic heart disease of native coronary artery without angina pectoris; J44.9 Chronic obstructive pulmonary disease, unspecified; I48.0 Paroxysmal atrial fibrillation; I11.0 Hypertensive heart disease with heart failure; I50.22 Chronic systolic (congestive) heart failure; F17.210 Nicotine dependence, cigarettes, uncomplicated; I25.2 Old myocardial infarction; Z95.5 Presence of coronary angioplasty implant and graft; Z79.01 Long term (current) use of anticoagulants; Z79.02 Long term (current) use of antithrombotics/antiplatelets; Z79.82 Long term (current) use of aspirin; Z79.890 Hormone replacement therapy; Z79.899 Other long term (current) drug therapy; Z88.0 Allergy status to penicillin; Z88.8 Allergy status to other drugs, medicaments and biological substances
CPT/HCPCS: 75820; 76000; 93283; 80048; 85610; Q9966

== ENCOUNTER 2018-08-26 19:37 | Emergency (ER) | payer MEDICARE ==
[2018-08-26 19:47] VITALS: BP 145/70; PULSE 70; RESP 18; TEMP 97.8
--- NOTE | 2018-08-26 20:37 | ED ---
Fall HPI - General Chief Complaint: Fall Stated Complaint: Fall Time Seen by Provider: 08/26/18 19:55 Source: patient Mode of arrival: ambulatory - History of Present Illness Initial Comments: 78-year-old female patient presents to the emergency department today for evaluation after experiencing a fall on . Patient states that she was up to the bathroom and using the sink as an ambulatory aid when the syncopal to a fall causing her to fall. Patient states that she did fall onto her buttocks and struck her right shoulder. She denies hitting her head or losing consciousness during the fall. States she is having pain to the right shoulder , left ribs, and buttock area. States that she does take Plavix and does have extensive bruising to the right arm and to the buttocks. Patient is also having some soreness to the bilateral anterior thighs. She denies any numbness or tingling to her extremities. She denies any dizziness or weakness. Patient denies any headache, neck pain, back pain, chest pain, shortness of breath, dizziness, weakness, abdominal pain, nausea, vomiting, or difficulties with bowel movements or urination. - Related Data Home Medications Medication Instructions Recorded Confirmed Aspirin 81 mg PO DAILY@89906/08/15 05/30/18 Levothyroxine Sodium [Synthroid] 50 mcg PO DAILY@59906/08/15 05/30/18 Omeprazole [PriLOSEC] 20 mg PO DAILY@89906/08/15 05/30/18 Febuxostat [Uloric] 80 mg PO DAILY@89906/10/17 05/30/18 Multivitamin [Multivitamins Adult 1 tab PO DAILY@89906/10/17 05/30/18 Gummies] Clopidogrel [Plavix] 75 mg PO DAILY@89902/27/18 05/30/18 Docusate Sodium [Dok] 100 mg PO BID 05/27/18 05/30/18 Ferrous Sulfate [Feosol] 325 mg PO DAILY 05/27/18 05/30/18 Furosemide [Lasix] 20 mg PO DAILY 05/27/18 05/30/18 Lisinopril [Zestril] 5 mg PO DAILY 05/27/18 05/30/18 Metolazone [Zaroxolyn] 2.5 mg PO MOTH 05/27/18 05/30/18 Spironolactone 25 mg PO DAILY 05/27/18 05/30/18 Warfarin Sodium 4 mg PO SUTUTHSA 05/27/18 05/30/18 Warfarin [Coumadin] 2 mg PO MOWEFR 05/27/18 05/30/18 Ciprofloxacin HCl [Cipro] 250 mg PO Q12HR 05/30/18 05/30/18 Previous Rx's Medication Instructions Recorded Atorvastatin [Lipitor] 40 mg PO HS #30 tab 12/15/17 Nitroglycerin Sl Tabs [Nitrostat] 0.4 mg SUBLINGUAL Q5M PRN tab 12/19/17 ALPRAZolam [Xanax] 0.25 mg PO TID PRN #9 tablet 03/04/18 HYDROcodone/APAP 7.5-325MG [[place] 1 tab PO Q4H PRN #10 tab 03/04/18 7.5-325] Allergies Allergy/AdvReac Type Severity Reaction Status Date / Time Penicillins Allergy Rash/Hives Verified 08/26/18 19:47 dexamethasone AdvReac Nausea & Verified 08/26/18 19:47 Vomiting methylprednisolone AdvReac Unknown Verified 08/26/18 19:47 Review of Systems ROS Statement: Those systems with pertinent positive or pertinent negative responses have been documented in the HPI. ROS Other: All systems not noted in ROS Statement are negative. 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,brachial artery thrombosis, djd , RENAL FX AT 65%(PER FAMILY), HX BENIGN BREAST TUMORS, Last Myocardial Infarction Date:: 2017 History of Any Multi-Drug Resistant Organisms: None Reported Past Surgical History: Adenoidectomy, AICD, Breast Surgery, Cholecystectomy, Heart Catheterization With Stent, Hysterectomy, Joint Replacement, Pacemaker, Tonsillectomy, Tubal Ligation Additional Past Surgical History / Comment(s): 08-07-13 aicd(biventricular dual chamber aicd/pacemaker-[employer], thrombectomy rt arm, rt knee replacement, rt carotid endartectomy Past Anesthesia/Blood Transfusion Reactions: No Reported Reaction Additional Past Anesthesia/Blood Transfusion Reaction / Comment(s): blood tranfusion 1968 Date of Last Stent Placement:: 11/2017 Type of Cardiac Device: AICD Device Placement Date:: 08-07-13 Past Psychological History: Anxiety Smoking Status: Former smoker Past Alcohol Use History: None Reported Past Drug Use History: None Reported - Past Family History Father Family Medical History: Diabetes Mellitus, Myocardial Infarction (RI) Mother Family Medical History: Cancer, Hyperlipidemia, Hypertension Additional Family Medical History / Comment(s): BREAST CA Brother(s) Family Medical History: Myocardial Infarction ([place]) Additional Family Medical History / Comment(s): AGE 57 FROM [place] Sister(s) Family Medical History: Cancer Additional Family Medical History / Comment(s): YOUNGER SISTER FROM OVARIAN CANCER AGE 51 AND ANOTHER SISTER HAD RI/CAD,OPEN HEART W/VALVE REPLACEMENT AND DM General Exam Limitations: no limitations General appearance: alert, in no apparent distress, other (This is a well- developed, well-nourished elderly female patient in no acute distress. Vital signs upon presentation are temperature 97.8F, pulse 70, respirations 18, blood pressure 145/70, pulse ox 99% on room air.) Head exam: Present: atraumatic, normocephalic, normal inspection Eye exam: Present: normal appearance, PERRL, EOMI. Absent: scleral icterus, conjunctival injection, nystagmus, periorbital swelling ENT exam: Present: normal exam, normal oropharynx, mucous membranes moist Neck exam: Present: normal inspection, full ROM, other (Nontender, no step-off, no deformity to firm midline palpation of the posterior cervical spine. Full range of motion without pain or limitation.). Absent: tenderness, meningismus, lymphadenopathy Respiratory exam: Present: normal lung sounds bilaterally, chest wall tenderness (Left lateral ribs, fifth and sixth). Absent: respiratory distress, wheezes, rales, rhonchi, stridor Cardiovascular Exam: Present: regular rate, normal rhythm, normal heart sounds. Absent: systolic murmur, diastolic murmur, rubs, gallop, clicks GI/Abdominal exam: Present: soft, normal bowel sounds. Absent: distended, tenderness, guarding, rebound, rigid Extremities exam: Present: full ROM, tenderness (Right proximal humerus and right shoulder), normal capillary refill, other (Patient has dark purple ecchymosis noted to the right proximal lateral upper arm. Skin is otherwise pink, warm, and dry. Cap refills less than 3 seconds. Radial pulses 2+ and equal bilaterally. ). Absent: normal inspection, pedal edema, joint swelling, calf tenderness Back exam: Present: normal inspection, vertebral tenderness (Sacral) Neurological exam: Present: alert, oriented X3, CN II-XII intact Psychiatric exam: Present: normal affect, normal mood Skin exam: Present: warm, dry, intact, normal color, other (Patient has ecchymosis noted to the bilateral buttocks.). Absent: rash Course Vital Signs 08/26/18 19:41 Temperature 97.8 F Pulse Rate 70 Respiratory 18 Rate Blood Pressure 145/70 O2 Sat by Pulse 99 Oximetry Medical Decision Making - Medical Decision Making 78-year-old female patient presented to the emergency department today with multiple complaints after experiencing a fall at home on . Patient is complaining of right shoulder, tailbone, and left rib pain. Physical examination did reveal extensive ecchymosis to the right upper arm and to the buttocks. Tenderness over the left ribs. X-rays of the shoulder, coccyx/sacrum , left ribs and PA chest, pelvis were all negative for any evidence of fracture. Shoulder x-ray did show possibility of rotator cuff rupture however patient has full range of motion to the shoulder without pain or limitation. Did discuss results and findings with patient and family. We did discuss application of ice to the painful areas. She is instructed take home pain medication as directed. She states instructed to follow-up with her primary care physician for recheck in 1-2 days. Return parameters discussed in detail. She verbalizes understanding and agrees with this plan. - Radiology Data Radiology results: report reviewed, image reviewed 3 views of the right shoulder obtained. Report was reviewed in its entirety. Impression by Dr. Jessica Chong shows negative for fracture or malalignment., There is about min of the humeral head with the acromion consistent with rotator cuff rupture medial retraction of the supraspinatus. 3 views of the sacrum/coccyx were obtained. Report was reviewed in its entirety. Impression by Dr. Jessica Chong shows no definite acute process. 5 views of the chest and ribs are obtained. Report was reviewed in its entirety. Impression by Dr. Jessica Chong shows no acute process. Single view of the pelvis is obtained. There is no fracture or malalignment. Soft tissues are unremarkable. Impression by Dr. Jessica Chong shows no acute process. Disposition Clinical Impression: Traumatic hematoma of right upper arm, Traumatic hematoma of buttock, Contusion of rib on left side Disposition: HOME SELF-CARE Condition: Good Instructions: Fall Prevention for Older Adults (ED), Contusion in Adults (ED), Hematoma (ED) Additional Instructions: Apply ice to the painful areas. Follow-up with your primary care physician for recheck in 1-2 days. Return here immediately for any new, worsening, or concerning symptoms. Is patient prescribed a controlled substance at d/c from ED?: No Referrals: Lan Hedrick DO [Primary Care Provider] - 1-2 days Time of Disposition: 21:21
--- NOTE | 2018-08-26 21:01 | XR ---
PROCEDURE: XR ribs LT w pa chest xray 5V DATE AND TIME: 08/26/2018 8:39 PM CLINICAL INDICATION: [facility] Pain TECHNIQUE: PA Chest + 4 left rib radiographic views. Total 5V. COMPARISON: 12/15/2017 FINDINGS: Cardiac pacemaker and mild-moderately enlarged cardiac silhouette redemonstrated. There is no pneumothorax or pleural effusion. There is no fracture or malalignment. The soft tissues are unremarkable. IMPRESSION: NO ACUTE PROCESS.
--- NOTE | 2018-08-26 21:03 | XR ---
PROCEDURE: XR shoulder complete RT 3V DATE AND TIME: 08/26/2018 8:39 PM CLINICAL INDICATION: [facility] Pain TECHNIQUE: Department protocol. 3V COMPARISON: None FINDINGS: There is no fracture or malalignment. There is abutment of the humeral head with the acromion, consistent with rotator cuff rupture with me dial retraction of the supraspinatus. There is exuberant ossific spur formation at the acromioclavicular joint, consistent with advanced os teoarthritis. IMPRESSION: Negative for fracture or malalignment.
--- NOTE | 2018-08-26 21:04 | XR ---
PROCEDURE: XR pelvis AP view DATE AND TIME: 08/26/2018 8:38 PM CLINICAL INDICATION: [facility] Pain TECHNIQUE: Department protocol. COMPARISON: 06/10/2017 FINDINGS: There is no fracture or malalignment. The soft tissues are unremarkable. IMPRESSION: NO ACUTE PROCESS.
--- NOTE | 2018-08-26 21:06 | XR ---
PROCEDURE: XR sacrum coccyx 3V DATE AND TIME: 08/26/2018 8:39 PM CLINICAL INDICATION: [facility] Pain TECHNIQUE: Department protocol. 3V COMPARISON: None FINDINGS: There is no definite fracture or malalignment. The sacrococcygeal junction is not well-visualized. The soft tissues are unremarkable as seen. IMPRESSION: NO DEFINITE ACUTE PROCESS.
== END 2018-08-26 21:26 | disposition home or self-care (01) ==
LOC: EC 19:37
DX: S40.021A Contusion of right upper arm, initial encounter (principal); S30.0XXA Contusion of lower back and pelvis, initial encounter; S20.212A Contusion of left front wall of thorax, initial encounter; I25.2 Old myocardial infarction; E07.9 Disorder of thyroid, unspecified; Z87.891 Personal history of nicotine dependence; Z95.810 Presence of automatic (implantable) cardiac defibrillator; Z90.49 Acquired absence of other specified parts of digestive tract; Z95.5 Presence of coronary angioplasty implant and graft; Z96.651 Presence of right artificial knee joint; Z98.51 Tubal ligation status; Z90.710 Acquired absence of both cervix and uterus; Z98.890 Other specified postprocedural states; Z79.01 Long term (current) use of anticoagulants; Z79.02 Long term (current) use of antithrombotics/antiplatelets; Z79.82 Long term (current) use of aspirin; Z79.899 Other long term (current) drug therapy; W18.39XA Other fall on same level, initial encounter; Y92.009 Unspecified place in unspecified non-institutional (private) residence as the place of occurrence of the external cause
CPT/HCPCS: 72170; 72220; 99283; 99284

== ENCOUNTER 2018-12-12 13:14 | Inpatient (IN) | payer MEDICARE ==
[2018-12-12] MEDS ORDERED: SODIUM CHLORIDE 0.9% 1,000 ML IV STA (13:43)
--- NOTE | 2018-12-12 13:44 | ED ---
Female Urogenital HPI - General Source: patient, family, RN notes reviewed, old records reviewed Mode of arrival: wheelchair Limitations: no limitations <Katherine Morales - Last Filed: 12/12/18 16:04> <Adalberto Johnson - Last Filed: 12/12/18 16:44> - General Chief complaint: Urogenital Stated complaint: bladder infection Time Seen by Provider: 12/12/18 13:30 - History of Present Illness Initial comments: Patient is a 78-year-old female who presents emergency room today with her son and granddaughter complaints of increased weakness over the past few days. Patient reports that she was started on an antibiotic, cefuroxime for urinary tract infection. She states that she seemed to become progressively worse. She has a history of CHF. She reports she's had increased swelling of her lower extremities. She's had history of chronic kidney disease and has had problems with her sodium and potassium being low. Patient states she feels weak and tired similar to what her electrolytes were abnormal. Patient states that she has some suprapubic abdominal pain. She denies any fever. She denies any chest pain shortness of breath or headache. (Katherine Morales) - Related Data Home Medications Medication Instructions Recorded Confirmed Aspirin 81 mg PO DAILY@89906/08/15 12/12/18 Levothyroxine Sodium [Synthroid] 50 mcg PO DAILY@59906/08/15 12/12/18 Omeprazole [PriLOSEC] 20 mg PO DAILY@89906/08/15 12/12/18 Febuxostat [Uloric] 80 mg PO DAILY@89906/10/17 12/12/18 Multivitamin [Multivitamins Adult 1 tab PO DAILY@89906/10/17 12/12/18 Gummies] Clopidogrel [Plavix] 75 mg PO DAILY@0902/27/18 12/12/18 Docusate Sodium [Dok] 100 mg PO BID 05/27/18 12/12/18 Ferrous Sulfate [Feosol] 325 mg PO DAILY 05/27/18 12/12/18 Lisinopril [Zestril] 2.5 mg PO DAILY@1700 05/27/18 12/12/18 Spironolactone 25 mg PO DAILY 05/27/18 12/12/18 Warfarin Sodium 4 mg PO MOTUWETHFRSA 05/27/18 12/12/18 Warfarin [Coumadin] 2 mg PO ZAVALA 05/27/18 12/12/18 Cefuroxime [Ceftin] 250 mg PO BID 12/12/18 12/12/18 Metoprolol Succinate [Toprol Xl] 50 mg PO HS 12/12/18 12/12/18 Previous Rx's Medication Instructions Recorded Atorvastatin [Lipitor] 40 mg PO HS #30 tab 12/15/17 Nitroglycerin Sl Tabs [Nitrostat] 0.4 mg SUBLINGUAL Q5M PRN tab 12/19/17 ALPRAZolam [Xanax] 0.25 mg PO TID PRN #9 tablet 03/04/18 HYDROcodone/APAP 7.5-325MG [[place] 1 tab PO Q4H PRN #10 tab 03/04/18 7.5-325] Allergies Allergy/AdvReac Type Severity Reaction Status Date / Time Penicillins Allergy Rash/Hives Verified 12/12/18 14:21 dexamethasone AdvReac Nausea & Verified 12/12/18 14:21 Vomiting methylprednisolone AdvReac Unknown Verified 12/12/18 14:21 Review of Systems ROS Other: All systems not noted in ROS Statement are negative. <Katherine Morales - Last Filed: 12/12/18 16:04> ROS Other: All systems not noted in ROS Statement are negative. <Adalberto Johnson - Last Filed: 12/12/18 16:44> ROS Statement: Those systems with pertinent positive or pertinent negative responses have been documented in the HPI. 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,brachial artery thrombosis, djd , RENAL FX AT 66%(PER FAMILY), HX BENIGN BREAST TUMORS, Last Myocardial Infarction Date:: 2017 History of Any Multi-Drug Resistant Organisms: None Reported Past Surgical History: Adenoidectomy, AICD, Breast Surgery, Cholecystectomy, Heart Catheterization With Stent, Hysterectomy, Joint Replacement, Pacemaker, Tonsillectomy, Tubal Ligation Additional Past Surgical History / Comment(s): 08-07-13 aicd(biventricular dual chamber aicd/pacemaker-[employer], thrombectomy rt arm, rt knee replacement, rt carotid endartectomy Past Anesthesia/Blood Transfusion Reactions: No Reported Reaction Additional Past Anesthesia/Blood Transfusion Reaction / Comment(s): blood tranfusion 1968 Date of Last Stent Placement:: 11/2017 Type of Cardiac Device: AICD Device Placement Date:: 08-07-13 Past Psychological History: Anxiety Smoking Status: Former smoker Past Alcohol Use History: None Reported Past Drug Use History: None Reported - Past Family History Father Family Medical History: Diabetes Mellitus, Myocardial Infarction ([place]) Mother Family Medical History: Cancer, Hyperlipidemia, Hypertension Additional Family Medical History / Comment(s): BREAST CA Brother(s) Family Medical History: Myocardial Infarction ([place]) Additional Family Medical History / Comment(s): AGE 57 FROM [place] Sister(s) Family Medical History: Cancer Additional Family Medical History / Comment(s): YOUNGER SISTER FROM OVARIAN CANCER AGE 51 AND ANOTHER SISTER HAD ME/CAD,OPEN HEART W/VALVE REPLACEMENT AND DM <Katherine Morales - Last Filed: 12/12/18 16:04> General Exam Limitations: no limitations General appearance: alert, in no apparent distress Head exam: Present: atraumatic, normocephalic, normal inspection Eye exam: Present: normal appearance ENT exam: Present: normal exam, mucous membranes moist Neck exam: Present: normal inspection. Absent: tenderness, meningismus, lymphadenopathy Respiratory exam: Present: normal lung sounds bilaterally. Absent: respiratory distress, wheezes, rales, rhonchi, stridor Cardiovascular Exam: Present: regular rate GI/Abdominal exam: Present: soft, tenderness (Suprapubic), normal bowel sounds. Absent: distended, guarding, rebound, rigid Extremities exam: Present: normal inspection, full ROM, normal capillary refill , other (Bilateral pitting edema. Patient has a abrasion over the right lower extremity.). Absent: tenderness, pedal edema, joint swelling, calf tenderness Back exam: Present: normal inspection Neurological exam: Present: alert, oriented X3, CN II-XII intact Psychiatric exam: Present: normal affect, normal mood Skin exam: Present: warm, dry, intact, normal color. Absent: rash <Katherine Morales - Last Filed: 12/12/18 16:04> <Adalberto Johnson - Last Filed: 12/12/18 16:44> - General Exam Comments Initial Comments: 78-year-old female. Alert and oriented 3. Patient appears weak. (Katherine Morales) Course <Katherine Morales - Last Filed: 12/12/18 16:04> <Adalberto Johnson - Last Filed: 12/12/18 16:44> Vital Signs 12/12/18 12/12/18 13:22 15:20 Temperature 98 F Pulse Rate 50 L 55 L Respiratory 18 18 Rate Blood Pressure 127/49 128/57 O2 Sat by Pulse 98 97 Oximetry - Reevaluation(s) Reevaluation #1: 12/12/18 16:44 Case was discussed with Dr. wolff, who will admit. He is covering for Dr. cm, who admits for Dr. Hedrick. (Adalberto Johnson) Medical Decision Making - Lab Data Result diagrams: 12/12/18 14:19 12/12/18 14:19 - Radiology Data Radiology results: report reviewed <Katherine Morales - Last Filed: 12/12/18 16:04> - Lab Data Result diagrams: 12/12/18 14:19 12/12/18 14:19 <Adalberto Johnson - Last Filed: 12/12/18 16:44> - Medical Decision Making 78-year-old female presents emergency department today with generalized weakness fatigue. Patient states that she has had general malaise. In concern for falls. Patient has history of CK D. Patient presents today after being treated for urinary tract infection for the past 2 days. She's been on oral cefuroxime. Patient states that she continues to have dysuria and suprapubic abdominal pain. Patient also has a history of CHF who complains of worsening lower extremity swelling. She has 4+ pitting edema bilaterally. Vital signs have been stable. Labwork was reviewed. Patient has evidence of acute kidney injury on chronic renal disease. Urinalysis continues to show infection with 25 white blood cells. Cultures were obtained. Patient was given 1 dose of IV Rocephin at this time. Patient also given 1 dose of IV Lasix. I discussed case with Dr. Johnson. With patient's concern for falls and weakness family feels uncomfortable bringing her home. We will admit the Patient with gentle IV hydration, IV antibiotics. (Katherine Morales) - Lab Data Lab Results 12/12/18 12/12/18 12/12/18 Range/Units 14:19 14:19 14:19 WBC 5.0 (3.8-10.6) k/uL RBC 3.71 L (3.80-5.40) m/uL Hgb 11.5 (11.4-16.0) gm/dL Hct 35.2 (34.0-46.0) % MCV 94.9 (80.0-100.0) fL MCH 30.9 (25.0-35.0) pg MCHC 32.6 (31.0-37.0) g/dL RDW 14.6 (11.5-15.5) % Plt Count 107 L (150-450) k/uL Neutrophils % 66 % Lymphocytes % 14 % Monocytes % 12 % Eosinophils % 4 % Basophils % 1 % Neutrophils # 3.3 (1.3-7.7) k/uL Lymphocytes # 0.7 L (1.0-4.8) k/uL Monocytes # 0.6 (0-1.0) k/uL Eosinophils # 0.2 (0-0.7) k/uL Basophils # 0.0 (0-0.2) k/uL PT (9.0-12.0) sec INR (<1.2) APTT (22.0-30.0) sec Sodium 138 (137-145) mmol/L Potassium 5.6 H (3.5-5.1) mmol/L Chloride 108 H (98-107) mmol/L Carbon Dioxide 23 (22-30) mmol/L Anion Gap 7 mmol/L BUN 62 H (7-17) mg/dL Creatinine 1.84 H (0.52-1.04) mg/dL Est GFR (CKD-EPI)AfAm 30 (>60 ml/min/1.73 sqM) Est GFR (CKD-EPI)NonAf 26 (>60 ml/min/1.73 sqM) Glucose 105 H (74-99) mg/dL Plasma Lactic Acid Luis Daniel 1.3 (0.7-2.0) mmol/L Calcium 9.3 (8.4-10.2) mg/dL Total Bilirubin 1.6 H (0.2-1.3) mg/dL AST 35 (14-36) U/L ALT 36 (9-52) U/L Alkaline Phosphatase 88 (38-126) U/L Troponin I (0.000-0.034) ng/mL NT-Pro-B Natriuret Pep pg/mL Total Protein 6.2 L (6.3-8.2) g/dL Albumin 3.6 (3.5-5.0) g/dL Urine Color Urine Appearance (Clear) Urine pH (5.0-8.0) Ur Specific [place] (1.001-1.035) Urine Protein (Negative) Urine Glucose (UA) (Negative) Urine Ketones (Negative) Urine Blood (Negative) Urine Nitrite (Negative) Urine Bilirubin (Negative) Urine Urobilinogen (<2.0) mg/dL Ur Leukocyte Esterase (Negative) Urine RBC (0-5) /hpf Urine WBC (0-5) /hpf Ur Squamous Epith Cells (0-4) /hpf Urine Bacteria (None) /hpf Urine Mucus (None) /hpf 12/12/18 12/12/18 12/12/18 Range/Units 14:19 14:19 14:19 WBC (3.8-10.6) k/uL RBC (3.80-5.40) m/uL Hgb (11.4-16.0) gm/dL Hct (34.0-46.0) % MCV (80.0-100.0) fL MCH (25.0-35.0) pg MCHC (31.0-37.0) g/dL RDW (11.5-15.5) % Plt Count (150-450) k/uL Neutrophils % % Lymphocytes % % Monocytes % % Eosinophils % % Basophils % % Neutrophils # (1.3-7.7) k/uL Lymphocytes # (1.0-4.8) k/uL Monocytes # (0-1.0) k/uL Eosinophils # (0-0.7) k/uL Basophils # (0-0.2) k/uL PT 21.8 H (9.0-12.0) sec INR 2.2 H (<1.2) APTT 34.5 H (22.0-30.0) sec Sodium (137-145) mmol/L Potassium (3.5-5.1) mmol/L Chloride (98-107) mmol/L Carbon Dioxide (22-30) mmol/L Anion Gap mmol/L BUN (7-17) mg/dL Creatinine (0.52-1.04) mg/dL Est GFR (CKD-EPI)AfAm (>60 ml/min/1.73 sqM) Est GFR (CKD-EPI)NonAf (>60 ml/min/1.73 sqM) Glucose (74-99) mg/dL Plasma Lactic Acid Luis Daniel (0.7-2.0) mmol/L Calcium (8.4-10.2) mg/dL Total Bilirubin (0.2-1.3) mg/dL AST (14-36) U/L ALT (9-52) U/L Alkaline Phosphatase (38-126) U/L Troponin I <0.012 (0.000-0.034) ng/mL NT-Pro-B Natriuret Pep pg/mL Total Protein (6.3-8.2) g/dL Albumin (3.5-5.0) g/dL Urine Color Light Yellow Urine Appearance Cloudy H (Clear) Urine pH 5.0 (5.0-8.0) Ur Specific [place] 1.009 (1.001-1.035) Urine Protein Negative (Negative) Urine Glucose (UA) Negative (Negative) Urine Ketones Negative (Negative) Urine Blood Negative (Negative) Urine Nitrite Negative (Negative) Urine Bilirubin Negative (Negative) Urine Urobilinogen <2.0 (<2.0) mg/dL Ur Leukocyte Esterase Large H (Negative) Urine RBC 4 (0-5) /hpf Urine WBC 20 H (0-5) /hpf Ur Squamous Epith Cells 5 H (0-4) /hpf Urine Bacteria Rare H (None) /hpf Urine Mucus Rare H (None) /hpf 12/12/18 Range/Units 14:19 WBC (3.8-10.6) k/uL RBC (3.80-5.40) m/uL Hgb (11.4-16.0) gm/dL Hct (34.0-46.0) % MCV (80.0-100.0) fL MCH (25.0-35.0) pg MCHC (31.0-37.0) g/dL RDW (11.5-15.5) % Plt Count (150-450) k/uL Neutrophils % % Lymphocytes % % Monocytes % % Eosinophils % % Basophils % % Neutrophils # (1.3-7.7) k/uL Lymphocytes # (1.0-4.8) k/uL Monocytes # (0-1.0) k/uL Eosinophils # (0-0.7) k/uL Basophils # (0-0.2) k/uL PT (9.0-12.0) sec INR (<1.2) APTT (22.0-30.0) sec Sodium (137-145) mmol/L Potassium (3.5-5.1) mmol/L Chloride (98-107) mmol/L Carbon Dioxide (22-30) mmol/L Anion Gap mmol/L BUN (7-17) mg/dL Creatinine (0.52-1.04) mg/dL Est GFR (CKD-EPI)AfAm (>60 ml/min/1.73 sqM) Est GFR (CKD-EPI)NonAf (>60 ml/min/1.73 sqM) Glucose (74-99) mg/dL Plasma Lactic Acid Luis Daniel (0.7-2.0) mmol/L Calcium (8.4-10.2) mg/dL Total Bilirubin (0.2-1.3) mg/dL AST (14-36) U/L ALT (9-52) U/L Alkaline Phosphatase (38-126) U/L Troponin I (0.000-0.034) ng/mL NT-Pro-B Natriuret Pep 4220 pg/mL Total Protein (6.3-8.2) g/dL Albumin (3.5-5.0) g/dL Urine Color Urine Appearance (Clear) Urine pH (5.0-8.0) Ur Specific [place] (1.001-1.035) Urine Protein (Negative) Urine Glucose (UA) (Negative) Urine Ketones (Negative) Urine Blood (Negative) Urine Nitrite (Negative) Urine Bilirubin (Negative) Urine Urobilinogen (<2.0) mg/dL Ur Leukocyte Esterase (Negative) Urine RBC (0-5) /hpf Urine WBC (0-5) /hpf Ur Squamous Epith Cells (0-4) /hpf Urine Bacteria (None) /hpf Urine Mucus (None) /hpf 12/12/18 14:46 EKG shows atrial paced rhythm with prolonged AV conduction. Low voltage QRS. Inferior infarct age undetermined. Cannot rule out anterior infarct age undetermined. Ventricular rate 50 bpm. Pills to 50 ms. QRS ration 104. QT QTc is 382/439 ms. (Katherine Morales) - Radiology Data Interstitial changes could reflect bronchitis or asthma. Mild cardiomegaly noted. AICD generator was right atrial bradycardia ventricular leads noted. ( Katherine Morales) Disposition Is patient prescribed a controlled substance at d/c from ED?: No Time of Disposition: 16:06 <Katherine Morales - Last Filed: 12/12/18 16:04> <Adalberto Johnson - Last Filed: 12/12/18 16:44> Clinical Impression: CHF (congestive heart failure), Chronic renal disease, UTI (urinary tract infection), Failure of outpatient treatment Disposition: ADMITTED IP TO THIS HOSP Condition: Stable Referrals: Lan Hedrick DO [Primary Care Provider] - 1-2 days
[2018-12-12 14:55] LABS: Appearance,Urine Cloudy (Clear); Bacteria,Urine Rare /hpf; Bilirubin,Urine Negative (Negative); Blood,Urine Negative (Negative); Color,Urine Light Yellow; Glucose,Urine (UA) Negative (Negative); Ketones,Urine Negative (Negative); Leukocyte Esterase,Urine Large (Negative); Mucus,Urine Rare /hpf; Nitrite,Urine Negative (Negative); Protein,Urine Negative (Negative); RBC,Urine 4 /hpf (0-5); Specific Gravity,Urine 1.009 (1.001-1.035); Squamous Epithelial Cell,Urine 5 /hpf (0-4); Urobilinogen,Urine <2.0 mg/dL (<2.0); WBC,Urine 20 /hpf (0-5)
[2018-12-12 14:58] LABS: Basophils % (A) 1 %; Eosinophils # (A) 0.2 k/uL (0-0.7); Eosinophils % (A) 4 %; HCT 35.2 % (34.0-46.0); HGB 11.5 gm/dL (11.4-16.0); Lymphocytes # (A) 0.7 k/uL (1.0-4.8); Lymphocytes % (A) 14 %; MCH 30.9 pg (25.0-35.0); MCHC 32.6 g/dL (31.0-37.0); MCV 94.9 fL (80.0-100.0); Mean Platelet Volume 8.6; Monocytes # (A) 0.6 k/uL (0-1.0); Monocytes % (A) 12 %; Neutrophils # (A) 3.3 k/uL (1.3-7.7); Neutrophils % (A) 66 %; Platelet Count 107 k/uL (150-450); RBC 3.71 m/uL (3.80-5.40); RDW 14.6 % (11.5-15.5)
[2018-12-12 15:04] LABS: INR 2.2 (<1.2); Partial Thromboplastin Time 34.5 sec (22.0-30.0); Prothrombin Time 21.8 sec (9.0-12.0)
[2018-12-12 15:13] LABS: Albumin 3.6 g/dL (3.5-5.0); Calcium 9.3 mg/dL (8.4-10.2); Potassium 5.6 mmol/L (3.5-5.1); Total Bilirubin 1.6 mg/dL (0.2-1.3); Total Protein 6.2 g/dL (6.3-8.2)
--- NOTE | 2018-12-12 15:34 | XR ---
EXAMINATION TYPE: XR chest 2V DATE OF EXAM: 12/12/2018 COMPARISON: 08/26/2018 HISTORY: 78-year-old female with fever TECHNIQUE: AP and lateral views FINDINGS: Heart mildly enlarged. Left anterior chest wall AICD generator with right atrial and right ventricula r leads. Diffuse interstitial prominence. No consolidation or pleural effusion. Atherosclerotic calci fications throughout the aorta. IMPRESSION: 1. Interstitial changes could reflect bronchitis or asthma. 2. Mild cardiomegaly.
[2018-12-12] MEDS ORDERED: FUROSEMIDE 10 MG/ML 4 ML VIAL IV STA (16:03)
[2018-12-12] MEDS ORDERED: NALOXONE 0.4 MG/ML 1 ML VIAL IV PRN (16:07)
[2018-12-12] MEDS ORDERED: LORazepam 2 MG/ML INJ IV PRN (16:07)
[2018-12-12] MEDS ORDERED: ONDANSETRON 4 MG/2 ML VIAL IVP PRN (16:07)
[2018-12-12] MEDS ORDERED: ACETAMINOPHEN TAB 325 MG TAB PO PRN (16:07)
[2018-12-12] MEDS ORDERED: HYDROmorphone 0.5 MG/0.5 ML SYRINGE IVP PRN (16:07)
[2018-12-12] MEDS ORDERED: HYDROmorphone 1 MG/ML 1 ML SYRINGE IVP PRN (16:07)
[2018-12-12] MEDS ORDERED: ALPRAZolam 0.25 MG TAB PO PRN (16:09)
[2018-12-12] MEDS ORDERED: SODIUM CHLORIDE 0.9% 1,000 ML IV SCH (16:15)
[2018-12-12] MEDS ORDERED: LISINOPRIL 5 MG TAB PO SCH (17:00)
[2018-12-12] MEDS ORDERED: LISINOPRIL 2.5 MG TAB PO SCH (17:08)
[2018-12-12] MEDS ORDERED: SODIUM POLYSTYRENE SULFONATE 15 GM/60 ML BOTTLE PO STA (17:27)
--- NOTE | 2018-12-12 17:29 | P.HPIM ---
History of Present Illness Patient is a 78-year-old female with past medical history of coronary artery disease, congestive heart failure and she follow up with Dr. Grijalva. She is status post pacemaker and AICD. She has history of a clot in her right upper extremity in 2012 on Coumadin, just chronic kidney disease and she will up with Dr. Kc, hypothyroidism, possible GERD, hyper lipidemia, hypertension. She has been recently treated by her PCP Dr. Hedrick for UTI about 10 days ago, patient kept getting worse since then when she feels generally weak and associated with polyuria but no dysuria and exertional dyspnea, also patient complaining of worsening leg edema associated with redness and drives Wound on the medial side of the lower leg for about 5-7 days duration. Patient denies chest pain, no nausea vomiting, no altered mental status, no change in bowel habits. On admission vitals are stable, heart rate is 55 BPM, saturating 97% on room air. Labs showing abnormal urinalysis with large leukocyte esterase, suspicious for infection. INR is 2.2, no leukocytosis and CBC unremarkable. Potassium 5.6, creatinine 1.8 , where her baseline creatinine is fluctuating between 1.0 and 4+, creatinine was 6 months ago was 1.3. EKG showing atrial paced rhythm, with no significant ST-T changes, T-wave inversion in the inferior leads. QTC 439. In the emergency room she got Lasix 40 mg IV once, and ceftriaxone and started on gentle hydration at 50 mL per hour. Review of Systems CONSTITUTIONAL: No fever, no malaise, no fatigue. HEENT: No recent visual problems or hearing problems. Denied any sore throat. CARDIOVASCULAR: No orthopnea, PND, no palpitations, no syncope. PULMONARY: No shortness of breath, no cough, no hemoptysis. GASTROINTESTINAL: No diarrhea, no nausea, no vomiting, no abdominal pain. Normoactive bowel sounds. NEUROLOGICAL: No headaches, no weakness, no numbness. HEMATOLOGICAL: Denies any bleeding or petechiae. GENITOURINARY: Denies any burning micturition, frequency, or urgency. MUSCULOSKELETAL/RHEUMATOLOGICAL: Denies any joint pain, swelling, or any muscle pain. ENDOCRINE: Denies any polyuria or polydipsia. 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,brachial artery thrombosis, djd , RENAL FX AT 65%(PER FAMILY), HX BENIGN BREAST TUMORS, Last Myocardial Infarction Date:: 2017 History of Any Multi-Drug Resistant Organisms: None Reported Past Surgical History: Adenoidectomy, AICD, Breast Surgery, Cholecystectomy, Heart Catheterization With Stent, Hysterectomy, Joint Replacement, Pacemaker, Tonsillectomy, Tubal Ligation Additional Past Surgical History / Comment(s): 08-07-13 aicd(biventricular dual chamber aicd/pacemaker-[employer], thrombectomy rt arm, rt knee replacement, rt carotid endartectomy Past Anesthesia/Blood Transfusion Reactions: No Reported Reaction Additional Past Anesthesia/Blood Transfusion Reaction / Comment(s): blood tranfusion 1968 Date of Last Stent Placement:: 11/2017 Type of Cardiac Device: AICD Device Placement Date:: 08-07-13 Past Psychological History: Anxiety Smoking Status: Former smoker Past Alcohol Use History: None Reported Past Drug Use History: None Reported - Past Family History Father Family Medical History: Diabetes Mellitus, Myocardial Infarction ([place]) Mother Family Medical History: Cancer, Hyperlipidemia, Hypertension Additional Family Medical History / Comment(s): BREAST CA Brother(s) Family Medical History: Myocardial Infarction ([place]) Additional Family Medical History / Comment(s): AGE 57 FROM [place] Sister(s) Family Medical History: Cancer Additional Family Medical History / Comment(s): YOUNGER SISTER FROM OVARIAN CANCER AGE 51 AND ANOTHER SISTER HAD PR/CAD,OPEN HEART W/VALVE REPLACEMENT AND DM Medications and Allergies Home Medications Medication Instructions Recorded Confirmed Type RX: Aspirin 81 mg PO DAILY@89906/08/15 12/12/18 History RX: Levothyroxine Sodium 50 mcg PO DAILY@59906/08/15 12/12/18 History [Synthroid] RX: Omeprazole [PriLOSEC] 20 mg PO DAILY@89906/08/15 12/12/18 History RX: Febuxostat [Uloric] 80 mg PO DAILY@89906/10/17 12/12/18 History RX: Multivitamin [Multivitamins 1 tab PO DAILY@89906/10/17 12/12/18 History Adult Gummies] RX: Atorvastatin [Lipitor] 40 mg PO HS #30 tab 12/15/17 12/12/18 Rx RX: Nitroglycerin Sl Tabs 0.4 mg SUBLINGUAL Q5M PRN tab 12/19/17 12/12/18 Rx [Nitrostat] RX: Clopidogrel [Plavix] 75 mg PO DAILY@0900 02/27/18 12/12/18 History RX: ALPRAZolam [Xanax] 0.25 mg PO TID PRN #9 tablet 03/04/18 12/12/18 Rx RX: HYDROcodone/APAP 7.5-325MG 1 tab PO Q4H PRN #10 tab 03/04/18 12/12/18 Rx [[place] 7.5-325] Docusate Sodium [Dok] 100 mg PO BID 05/27/18 12/12/18 History Ferrous Sulfate [Feosol] 325 mg PO DAILY 05/27/18 12/12/18 History Lisinopril [Zestril] 2.5 mg PO DAILY@1700 05/27/18 12/12/18 History RX: Spironolactone 25 mg PO DAILY 05/27/18 12/12/18 History RX: Warfarin Sodium 4 mg PO MOTUWETHFRSA 05/27/18 12/12/18 History Warfarin [Coumadin] 2 mg PO ZAVALA 05/27/18 12/12/18 History Metoprolol Succinate [Toprol Xl] 50 mg PO HS 12/12/18 12/12/18 History RX: Cefuroxime [Ceftin] 250 mg PO BID 12/12/18 12/12/18 History Allergies Allergy/AdvReac Type Severity Reaction Status Date / Time Penicillins Allergy Rash/Hives Verified 12/12/18 14:21 dexamethasone AdvReac Nausea & Verified 12/12/18 14:21 Vomiting methylprednisolone AdvReac Unknown Verified 12/12/18 14:21 Physical Exam Vitals: Vital Signs Temp Pulse Resp BP Pulse Ox 12/12/18 15:20 55 L 18 128/57 97 12/12/18 13:22 98 F 50 L 18 127/49 98 Intake and Output 12/12/18 12/12/18 12/12/18 06:59 14:59 22:59 Other: Weight 77.111 kg GENERAL: The patient is alert and oriented x3, not in any acute distress. Well developed, well nourished. HEENT: Pupils are round and equally reacting to light. EOMI. No scleral icterus. No conjunctival pallor. Normocephalic, atraumatic. No pharyngeal erythema. No thyromegaly. CARDIOVASCULAR: S1 and S2 present. No murmurs, rubs, or gallops. -PULMONARY: Chest is clear to auscultation, no wheezing, bilateral basal crackles. -ABDOMEN: Soft, suprapubic tenderness, no rebound tenderness, nondistended, normoactive bowel sounds. No palpable organomegaly. MUSCULOSKELETAL: No joint swelling or deformity. -EXTREMITIES: Bilateral leg edema. Her right leg is red and tender and warm with dry 20 with this On the medial side. NEUROLOGICAL: Gross neurological examination did not reveal any focal deficits. SKIN: No rashes. Results CBC & Chem 7: 12/12/18 14:19 12/12/18 14: Labs: Abnormal Lab Results - Last 24 Hours (Table) 12/12/18 12/12/18 12/12/18 Range/Units 14: 14: 14:19 RBC 3.71 L (3.80-5.40) m/uL Plt Count 107 L (150-450) k/uL Lymphocytes # 0.7 L (1.0-4.8) k/uL PT 21.8 H (9.0-12.0) sec INR 2.2 H (<1.2) APTT 34.5 H (22.0-30.0) sec Potassium 5.6 H (3.5-5.1) mmol/L Chloride 108 H (98-107) mmol/L BUN 62 H (7-17) mg/dL Creatinine 1.84 H (0.52-1.04) mg/dL Glucose 105 H (74-99) mg/dL Total Bilirubin 1.6 H (0.2-1.3) mg/dL Total Protein 6.2 L (6.3-8.2) g/dL Urine Appearance (Clear) Ur Leukocyte Esterase (Negative) Urine WBC (0-5) /hpf Ur Squamous Epith Cells (0-4) /hpf Urine Bacteria (None) /hpf Urine Mucus (None) /hpf 12/12/18 Range/Units 14:19 RBC (3.80-5.40) m/uL Plt Count (150-450) k/uL Lymphocytes # (1.0-4.8) k/uL PT (9.0-12.0) sec INR (<1.2) APTT (22.0-30.0) sec Potassium (3.5-5.1) mmol/L Chloride (98-107) mmol/L BUN (7-17) mg/dL Creatinine (0.52-1.04) mg/dL Glucose (74-99) mg/dL Total Bilirubin (0.2-1.3) mg/dL Total Protein (6.3-8.2) g/dL Urine Appearance Cloudy H (Clear) Ur Leukocyte Esterase Large H (Negative) Urine WBC 20 H (0-5) /hpf Ur Squamous Epith Cells 5 H (0-4) /hpf Urine Bacteria Rare H (None) /hpf Urine Mucus Rare H (None) /hpf Assessment and Plan Assessment: Urinary tract infection Cellulitis of the right leg Acute and chronic systolic congestive heart failure, EF between 35-40%. Status post AICD. Status post pacemaker History of coronary artery disease History of DVT in the right upper extremity on warfarin, with therapeutic INR on admission. Chronic kidney disease, stage III Hypertension Hyperlipidemia History of hypothyroidism History of breast cancer, status post surgery Plan: This is a pleasant 78 years old female presents with UTI, cellulitis and acute CHF. Continue with antibiotic. Resume diuretics as Lasix. Discontinue IV fluids. Call cardiology consult nephrology and infectious disease for consultation. Labs and medication were reviewed.. Continue same treatment. Continue with symptomatic treatment. Resume home medication. Monitor lytes and vitals. DVT and GI prophylaxis. Further recommendations of the clinical course of the patient DVT prophylaxis: On warfarin GI Prophylaxis: Pepcid PT/OT: Pending Prognosis is guarded
[2018-12-12] MEDS ORDERED: WARFARIN 2 MG TAB PO SCH (18:00)
[2018-12-12] MEDS: ATORVASTATIN 40 MG TAB PO SCH (19:51)
[2018-12-12] MEDS: METOPROLOL SUCCINATE (ER) 50 MG TAB.ER.24H PO SCH (19:51)
[2018-12-12] MEDS: DOCUSATE 100 MG CAP PO SCH (19:51)
[2018-12-12 20:53] LABS: Creatine Kinase MB 0.9 ng/mL (0.0-2.4)
[2018-12-12] MEDS: LISINOPRIL 2.5 MG TAB PO SCH (23:21)
[2018-12-13 03:22] LABS: Creatine Kinase MB 1.1 ng/mL (0.0-2.4)
[2018-12-13] MEDS: LEVOTHYROXINE 50 MCG TAB PO SCH (04:46)
[2018-12-13] MEDS: ALLOPURINOL 100 MG TAB PO SCH (08:24)
[2018-12-13] MEDS: DOCUSATE 100 MG CAP PO SCH ×2 (08:24→20:24)
[2018-12-13] MEDS: ASPIRIN 81 MG PO SCH (08:25)
[2018-12-13] MEDS: MULTIVITAMINS, THERA 1 EACH TAB PO SCH (08:25)
[2018-12-13] MEDS: CLOPIDOGREL 75 MG TAB PO SCH (08:25)
[2018-12-13] MEDS: PANTOPRAZOLE 40 MG TABLET PO SCH (08:25)
[2018-12-13 08:50] LABS: Basophils % (A) 1 %; Eosinophils # (A) 0.2 k/uL (0-0.7); Eosinophils % (A) 4 %; HGB 11.7 gm/dL (11.4-16.0); Hypochromasia Slight; Lymphocytes # (A) 0.9 k/uL (1.0-4.8); Lymphocytes % (A) 20 %; MCH 30.2 pg (25.0-35.0); MCHC 31.6 g/dL (31.0-37.0); MCV 95.4 fL (80.0-100.0); Mean Platelet Volume 8.5; Monocytes # (A) 0.4 k/uL (0-1.0); Monocytes % (A) 9 %; Neutrophils # (A) 2.8 k/uL (1.3-7.7); Neutrophils % (A) 63 %; Platelet Count 104 k/uL (150-450); RBC 3.87 m/uL (3.80-5.40); RDW 14.6 % (11.5-15.5); WBC 4.5 k/uL (3.8-10.6)
[2018-12-13 09:00] LABS: Calcium 9.5 mg/dL (8.4-10.2)
[2018-12-13] MEDS ORDERED: SPIRONOLACTONE 25 MG TAB PO SCH (09:00)
[2018-12-13] MEDS ORDERED: FUROSEMIDE 10 MG/ML 4 ML VIAL IV SCH (09:00)
[2018-12-13] MEDS ORDERED: PANTOPRAZOLE 40 MG/10 ML VIAL IV SCH (09:00)
[2018-12-13 09:01] LABS: Prothrombin Time 19.6 sec (9.0-12.0)
--- NOTE | 2018-12-13 09:58 | P.NPCON ---
History of Present Illness - Reason for Consult chronic renal failure - History of Present Illness Reason for consultation: Acute kidney injury on chronic kidney disease History of present illness: Patient is a 78-year-old female seen in renal consultation for acute kidney injury on chronic kidney disease. Patient has chronic kidney disease stage III secondary to cardiorenal syndrome with baseline creatinine in the range of 1.5- 2. Creatinine was 1.84 yesterday and is 1.43 today. Patient presented to the hospital with generalized weakness. Patient states she was diagnosed with a UTI on December 03 and was taking antibiotics as an outpatient. However due to progressive weakness she came to the hospital. She also had edema in her lower extremities which she states has not improved. She is currently maintained on Lasix 40 mg IV twice daily. She does have history of systolic CHF with ejection fraction of 35-40% with severe tricuspid regurgitation. No vomiting or diarrhea. No hematuria or dysuria. Denies use of NSAIDs. Appetite is fair. Urine culture pending. No proteinuria on UA. Vital signs are stable. General: The patient appeared well nourished and normally developed. HEENT: Head exam is unremarkable. Neck is without jugular venous distension. LUNGS: Lungs are clear to auscultation and percussion. Breath sounds decreased. HEART: Rate and Rhythm are regular. First and second heart sounds normal. No murmurs, rubs or gallops. ABDOMEN: Abdominal exam reveals normal bowel sounds. Non-tender and non- distended. No evidence of peritonitis. EXTREMITITES: Trace edema. 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,brachial artery thrombosis, djd , RENAL FX AT 65%(PER FAMILY), HX BENIGN BREAST TUMORS, recurring uti, leg swelling Last Myocardial Infarction Date:: 2017 History of Any Multi-Drug Resistant Organisms: None Reported Past Surgical History: Adenoidectomy, AICD, Breast Surgery, Cholecystectomy, Heart Catheterization With Stent, Hysterectomy, Joint Replacement, Pacemaker, Tonsillectomy, Tubal Ligation Additional Past Surgical History / Comment(s): 08-07-13 aicd(biventricular dual chamber aicd/pacemaker-Threadflip, thrombectomy rt arm, rt knee replacement, rt carotid endartectomy Past Anesthesia/Blood Transfusion Reactions: No Reported Reaction Additional Past Anesthesia/Blood Transfusion Reaction / Comment(s): blood transfusion 1969- no reaction Date of Last Stent Placement:: 11/2017 Type of Cardiac Device: AICD Device Placement Date:: 08-07-13 Smoking Status: Former smoker - Past Family History Father Family Medical History: Diabetes Mellitus, Myocardial Infarction ([place]) Mother Family Medical History: Cancer, Hyperlipidemia, Hypertension Additional Family Medical History / Comment(s): BREAST CA Brother(s) Family Medical History: Myocardial Infarction ([place]) Additional Family Medical History / Comment(s): AGE 57 FROM [place] Sister(s) Family Medical History: Cancer Additional Family Medical History / Comment(s): YOUNGER SISTER FROM OVARIAN CANCER AGE 51 AND ANOTHER SISTER HAD [place]/CAD,OPEN HEART W/VALVE REPLACEMENT AND DM Medications and Allergies Home Medications Medication Instructions Recorded Confirmed Type Aspirin 81 mg PO DAILY@89906/08/15 12/12/18 History Levothyroxine Sodium [Synthroid] 50 mcg PO DAILY@59906/08/15 12/12/18 History Omeprazole [PriLOSEC] 20 mg PO DAILY@89906/08/15 12/12/18 History Febuxostat [Uloric] 80 mg PO DAILY@89906/10/17 12/12/18 History Multivitamin [Multivitamins Adult 1 tab PO DAILY@89906/10/17 12/12/18 History Gummies] Atorvastatin [Lipitor] 40 mg PO HS #30 tab 12/15/17 12/12/18 Rx Nitroglycerin Sl Tabs [Nitrostat] 0.4 mg SUBLINGUAL Q5M PRN tab 12/19/17 Rx Clopidogrel [Plavix] 75 mg PO DAILY@0900 02/27/18 12/12/18 History ALPRAZolam [Xanax] 0.25 mg PO TID PRN #9 tablet 03/04/18 12/12/18 Rx HYDROcodone/APAP 7.5-325MG [[place] 1 tab PO Q4H PRN #10 tab 03/04/18 12/12/18 Rx 7.5-325] Docusate Sodium [Dok] 100 mg PO BID 05/27/18 12/12/18 History Ferrous Sulfate [Feosol] 325 mg PO DAILY 05/27/18 12/12/18 History Lisinopril [Zestril] 2.5 mg PO DAILY@1700 05/27/18 12/12/18 History Spironolactone 25 mg PO DAILY 05/27/18 12/12/18 History Warfarin Sodium 4 mg PO MOTUWETHFRSA 05/27/18 12/12/18 History Warfarin [Coumadin] 2 mg PO ZAVALA 05/27/18 12/12/18 History Cefuroxime [Ceftin] 250 mg PO BID 12/12/18 12/12/18 History Metoprolol Succinate [Toprol Xl] 50 mg PO HS 12/12/18 12/12/18 History Allergies Allergy/AdvReac Type Severity Reaction Status Date / Time Penicillins Allergy Rash/Hives Verified 12/12/18 14:21 dexamethasone AdvReac Nausea & Verified 12/12/18 14:21 Vomiting methylprednisolone AdvReac Unknown Verified 12/12/18 14:21 Physical Exam Vitals: Vital Signs Temp Pulse Pulse Resp BP BP Pulse Ox 12/13/18 08:32 97.5 F L 60 16 110/58 96 12/13/18 00:45 97.8 F 52 L 18 100/50 96 12/12/18 20:00 98 F 55 L 18 125/49 98 12/12/18 17:30 52 L 18 122/47 99 12/12/18 17:00 50 L 18 125/46 97 12/12/18 16:30 49 L 18 123/48 100 12/12/18 16:00 49 L 19 127/47 99 12/12/18 15:20 55 L 18 128/57 97 12/12/18 13:22 98 F 50 L 18 127/49 98 Intake and Output 12/12/18 12/13/18 12/13/18 22:59 06:59 14:59 Intake Total 150 200 Balance 150 200 Intake: Intake, IV Titration 150 200 Amount Sodium Chloride 0.9% 1, 150 100 000 ml @ 50 mls/hr IV . Q20H [facility] Rx#:[id number] cefTRIAXone 1,000 mg In 100 Sodium Chloride 0.9% 50 ml @ 100 mls/hr IVPB ONCE STA Rx#:[id number] Other: Voiding Method Toilet # Voids 4 Results - Lab Results Most recent lab results Calcium 9.5 mg/dL (8.4-10.2) 12/13/18 08:06 12/13/18 08:06 12/13/18 08:06 Assessment and Plan Plan: Assessment: 1. Nonoliguric acute kidney injury mostly prerenal secondary to cardiorenal syndrome. Creatinine 1.43 today. No proteinuria on UA. 2. Systolic CHF with ejection fraction of 35-40% with severe tricuspid regurgitation. 3. Volume overload. Improved. 4. UTI. Patient did take antibiotics as an outpatient. Urine culture pending. 5. Hyperkalemia on admission. Better. Aldactone held. Plan: I will decrease Lasix to 40 mg IV once daily. Avoid nephrotoxins. Follow-up cultures. Repeat electrolytes in the morning. Hold lisinopril if systolic blood pressure less than 120. Thank you for the consultation. I will continue to follow the patient with you during her hospital stay.
[2018-12-13] MEDS: HYDROcodone/APAP 7.5-325MG 1 EACH TAB PO PRN ×3 (11:11→22:18)
--- NOTE | 2018-12-13 11:25 | P.PN ---
Subjective Patient is a 78-year-old female with past medical history of coronary artery disease, congestive heart failure and she follow up with Dr. Grijavla. She is status post pacemaker and AICD. She has history of a clot in her right upper extremity in 2012 on Coumadin, just chronic kidney disease and she will up with Dr. Kc, hypothyroidism, possible GERD, hyper lipidemia, hypertension. She has been recently treated by her PCP Dr. Hedrick for UTI about 10 days ago, patient kept getting worse since then when she feels generally weak and associated with polyuria but no dysuria and exertional dyspnea, also patient complaining of worsening leg edema associated with redness and drives Wound on the medial side of the lower leg for about 5-7 days duration. Patient denies chest pain, no nausea vomiting, no altered mental status, no change in bowel habits. On admission vitals are stable, heart rate is 55 BPM, saturating 97% on room air. Labs showing abnormal urinalysis with large leukocyte esterase, suspicious for infection. INR is 2.2, no leukocytosis and CBC unremarkable. Potassium 5.6, creatinine 1.8 , where her baseline creatinine is fluctuating between 1.0 and 4+, creatinine was 6 months ago was 1.3. EKG showing atrial paced rhythm, with no significant ST-T changes, T-wave inversion in the inferior leads. QTC 439. In the emergency room she got Lasix 40 mg IV once, and ceftriaxone and started on gentle hydration at 50 mL per hour. 12/13/2018 Patient feels better, no dyspnea or chest pain. Her abdominal pain is completely resolved. And there is no suprapubic tenderness which is resolved compared to yesterday. This dysuria and decreased frequency of urination and his right leg cellulitis is also improving. Vitas looks stable. CBC was unremarkable, INR 2.0. And creatinine is coming down 1.8 down to 1.4, nephrology input is appreciated. Decrease Lasix to 40 mg iv daily. Urine culture is still pending Objective - Vital Signs Vital signs: Vital Signs Temp 97.5 F L 12/13/18 08:32 Pulse 60 12/13/18 08:32 Resp 16 12/13/18 08:32 BP 110/58 12/13/18 08:32 Pulse Ox 96 12/13/18 08:32 Intake & Output 12/12/18 12/13/1819 18:59 06:59 18:59 Intake Total 350 Balance 350 Weight 77.111 kg Intake: Intake, IV Titration 350 Amount Sodium Chloride 0.9% 1, 250 000 ml @ 50 mls/hr IV . Q20H [facility] Rx#:[id number] cefTRIAXone 1,000 mg In 100 Sodium Chloride 0.9% 50 ml @ 100 mls/hr IVPB ONCE STA Rx#:[id number] Other: Voiding Method Toilet # Voids 4 - Exam GENERAL: The patient is alert and oriented x3, not in any acute distress. Well developed, well nourished. HEENT: Pupils are round and equally reacting to light. EOMI. No scleral icterus. No conjunctival pallor. Normocephalic, atraumatic. No pharyngeal erythema. No thyromegaly. CARDIOVASCULAR: S1 and S2 present. No murmurs, rubs, or gallops. -PULMONARY: Chest is clear to auscultation, no wheezing, bilateral basal crackles. ABDOMEN: Soft, no more suprapubic tenderness, no tenderness elsewhere, no rebound tenderness, nondistended, normoactive bowel sounds. No palpable organomegaly. MUSCULOSKELETAL: No joint swelling or deformity. -EXTREMITIES: Bilateral leg edema. Her right leg is red and tender and warm with dry scab On the medial side, improving NEUROLOGICAL: Gross neurological examination did not reveal any focal deficits. SKIN: No rashes. - Labs CBC & Chem 7: 12/13/18 08:06 12/13/18 08:06 Labs: Abnormal Lab Results - Last 24 Hours (Table) 12/12/18 12/12/18 12/12/18 Range/Units 14:19 14:19 14:19 RBC 3.71 L (3.80-5.40) m/uL Plt Count 107 L (150-450) k/uL Lymphocytes # 0.7 L (1.0-4.8) k/uL PT 21.8 H (9.0-12.0) sec INR 2.2 H (<1.2) APTT 34.5 H (22.0-30.0) sec Potassium 5.6 H (3.5-5.1) mmol/L Chloride 108 H (98-107) mmol/L BUN 62 H (7-17) mg/dL Creatinine 1.84 H (0.52-1.04) mg/dL Glucose 105 H (74-99) mg/dL Total Bilirubin 1.6 H (0.2-1.3) mg/dL Total Protein 6.2 L (6.3-8.2) g/dL Urine Appearance (Clear) Ur Leukocyte Esterase (Negative) Urine WBC (0-5) /hpf Ur Squamous Epith Cells (0-4) /hpf Urine Bacteria (None) /hpf Urine Mucus (None) /hpf 12/12/18 12/13/18 12/13/18 Range/Units 14:19 08:06 08:06 RBC (3.80-5.40) m/uL Plt Count 104 L (150-450) k/uL Lymphocytes # 0.9 L (1.0-4.8) k/uL PT (9.0-12.0) sec INR (<1.2) APTT (22.0-30.0) sec Potassium (3.5-5.1) mmol/L Chloride (98-107) mmol/L BUN 54 H (7-17) mg/dL Creatinine 1.43 H (0.52-1.04) mg/dL Glucose 125 H (74-99) mg/dL Total Bilirubin (0.2-1.3) mg/dL Total Protein (6.3-8.2) g/dL Urine Appearance Cloudy H (Clear) Ur Leukocyte Esterase Large H (Negative) Urine WBC 20 H (0-5) /hpf Ur Squamous Epith Cells 5 H (0-4) /hpf Urine Bacteria Rare H (None) /hpf Urine Mucus Rare H (None) /hpf 12/13/18 Range/Units 08:06 RBC (3.80-5.40) m/uL Plt Count (150-450) k/uL Lymphocytes # (1.0-4.8) k/uL PT 19.6 H (9.0-12.0) sec INR 2.0 H (<1.2) APTT (22.0-30.0) sec Potassium (3.5-5.1) mmol/L Chloride (98-107) mmol/L BUN (7-17) mg/dL Creatinine (0.52-1.04) mg/dL Glucose (74-99) mg/dL Total Bilirubin (0.2-1.3) mg/dL Total Protein (6.3-8.2) g/dL Urine Appearance (Clear) Ur Leukocyte Esterase (Negative) Urine WBC (0-5) /hpf Ur Squamous Epith Cells (0-4) /hpf Urine Bacteria (None) /hpf Urine Mucus (None) /hpf Microbiology - Last 24 Hours (Table) 12/12/18 14:19 Urine Culture - Preliminary Urine,Clean Catch Assessment and Plan Assessment: Urinary tract infection Cellulitis of the right leg Acute and chronic systolic congestive heart failure, EF between 35-40%. Status post AICD. Status post pacemaker History of coronary artery disease History of DVT in the right upper extremity on warfarin, with therapeutic INR on admission. Chronic kidney disease, stage III Hypertension Hyperlipidemia History of hypothyroidism History of breast cancer, status post surgery Plan: This is a pleasant 78 years old female presents with UTI, cellulitis and acute CHF. Continue with antibiotic. Resume diuretics as Lasix. Discontinue IV fluids. Call cardiology consult nephrology and infectious disease for consultation. Labs and medication were reviewed.. Continue same treatment. Continue with symptomatic treatment. Resume home medication. Monitor lytes and vitals. DVT and GI prophylaxis. Further recommendations of the clinical course of the patient DVT prophylaxis: On warfarin GI Prophylaxis: Pepcid PT/OT: Pending Prognosis is guarded
--- NOTE | 2018-12-13 14:31 | P.CRDCN ---
History of Present Illness History of present illness: This is a pleasant 78-year-old female past medical history significant for coronary artery disease status post recent angioplasty on dual anti-platelet therapy, chronic systolic heart failure, ischemic cardiomyopathy status post ICD, dyslipidemia, paroxysmal atrial fibrillation on emt intermediate anticoagulation with coumadin, hypertension, peripheral vascular disease status post right carotid endarterectomy, COPD, chronic kidney disease and former nicotine dependence. She follows in the office with Dr. Grijalva. We have asked to see her in consultation secondary to heart failure exacerbation. She presented to the hospital with symptoms of weakness, lower back pain and shortness of breath. She states she has been taking antibiotics for urinary tract infection for approximately the last week. She felt so the antibiotic wasn't helping her symptoms and therefore only progressing getting worse. She felt her shortness of breath was exertional. She denies chest pain, dizziness, palpitations, orthopnea or PND. Upon admission she was started on Lasix 40 mg IV twice a day. Medicines been decreased per nephrology's recommendations 40 mg IV daily. EKG on arrival reveals an atrial paced rhythm with T-wave inversions inferiorly and poor R-wave progression. No acute changes noted. Chest x-ray reveals evidence of interstitial changes. Laboratory data reviewed, to be VC 4.5, hemoglobin 11.7, platelets 104, sodium 140, potassium on admission 5.6 down to 5.0 today, creatinine on admission 1.84 down to 1.43 today, cardiac enzymes negative 1, NT proBNP 4220, INR 2. Current cardiac medications include aspirin 81 mg daily, atorvastatin 40 mg daily, Lasix 75 mg daily, lisinopril 2.5 mg daily, Toprol 50 mg daily, Aldactone 25 mg daily, Coumadin 4 mg every day except Sunday 2 mg. Most recent catheterization performed 12/12/2017 revealed left main coronary artery is calcified, moderate disease in the proximal circumflex, focal area of stenosis in the midportion of the LAD approximately 70% and RCA is chronically occluded proximal portion. At that time she underwent angioplasty of the LAD. At the time of my exam: CONSTITUTIONAL: Denies fever. Denies chills. EYES: Denies blurred vision. Denies vision changes. Denies eye pain. EARS, NOSE, MOUTH & THROAT: Denies headache. Denies sore throat. Denies ear pain. CARDIOVASCULAR: Denies chest pain. Denies shortness of breath. Denies orthopnea. Denies PND. Denies palpitations. RESPIRATORY: Denies cough. GASTROINTESTINAL: Denies abdominal pain. Denies diarrhea. Denies constipation. Denies nausea. Denies vomiting. MUSCULOSKELETAL: Denies myalgias. INTEGUMENTARY: Denies pruitis. Denies rash. NEUROLOGIC: Denies numbness. Denies tingling. Denies weakness. PSYCHIATRIC: Denies anxiety. Denies depression. ENDOCRINE: Denies fatigue. Denies weight change. Denies polydipsia. Denies polyurina. GENITOURINARY: Denies burning, hematuria or urgency with micturation. HEMATOLOGIC: Denies history of anemia. Denies bleeding. Blood pressure 99/61 heart rate 60 afebrile maintaining oxygen saturation on room air GENERAL: This is a 78-year-old female in no apparent distress at the time of my examination. HEENT: Head is atraumatic, normocephalic. Pupils are equal, round. Sclerae anicteric. Conjunctivae are clear. Mucous membranes of the mouth are moist. Neck is supple. There is jugular venous distention noted bilaterally. No carotid bruit is heard. LUNGS: Clear to auscultation no wheezes, rales or rhonchi. No chest wall tenderness is noted on palpation or with deep breathing. Diminished bilaterally with prolonged inspiration. HEART: Regular rate and rhythm with systolic ejection murmur at the left sternal border, no rubs or gallops. S1 and S2 heard. ABDOMEN: Soft, nontender. Bowel sounds are heard. No organomegaly noted. EXTREMITIES: 1+ bilateral lower extremity pitting edema bilaterally. No calf tenderness noted. VASCULAR: Radial and dorsalis pedis pulses palpated, no evidence of clubbing. NEUROLOGIC: Patient is awake, alert and oriented x3. ASSESSMENT Acute on chronic systolic heart failure, nephrology managing diuretics Acute on chronic kidney injury Urinary trace infection, failed outpatient therapy Hyperkalemia, aldactone held on admission History of coronary artery disease s/p recent PCI on dual anti-platelet therapy Chronic ischemic cardiomyopathy s/p AICD implantation Hypertension Dyslipidemia Paroxysmal atrial fibrillation on assisted anticoagulation Peripheral vascular disease s/p carotid endartectomy PLAN Agree with IV lasix for gentle diuresis. Discontinue IV fluids. Continue to hold aldactone. Continue aspirin, plavix, toprol, lisinopril and coumadin as previously ordered. Follow electrolytes and kidney function in the morning. Document daily weights and accurate intake and output. We will continue to make recommendations accordingly. Thank you kindly for this consultation. Nurse Practitioner note has been reviewed, I agree with a documented findings and plan of care. Patient was seen and examined. 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,brachial artery thrombosis, djd , RENAL FX AT 65%(PER FAMILY), HX BENIGN BREAST TUMORS, recurring uti, leg swelling Last Myocardial Infarction Date:: 2017 History of Any Multi-Drug Resistant Organisms: None Reported Past Surgical History: Adenoidectomy, AICD, Breast Surgery, Cholecystectomy, Heart Catheterization With Stent, Hysterectomy, Joint Replacement, Pacemaker, Tonsillectomy, Tubal Ligation Additional Past Surgical History / Comment(s): 08-07-13 aicd(biventricular dual chamber aicd/pacemaker-[employer], thrombectomy rt arm, rt knee replacement, rt carotid endartectomy Past Anesthesia/Blood Transfusion Reactions: No Reported Reaction Additional Past Anesthesia/Blood Transfusion Reaction / Comment(s): blood transfusion 1968- no reaction Date of Last Stent Placement:: 11/2017 Type of Cardiac Device: AICD Device Placement Date:: 08-07-13 Smoking Status: Former smoker - Past Family History Father Family Medical History: Diabetes Mellitus, Myocardial Infarction ([place]) Mother Family Medical History: Cancer, Hyperlipidemia, Hypertension Additional Family Medical History / Comment(s): BREAST CA Brother(s) Family Medical History: Myocardial Infarction ([place]) Additional Family Medical History / Comment(s): AGE 57 FROM [place] Sister(s) Family Medical History: Cancer Additional Family Medical History / Comment(s): YOUNGER SISTER FROM OVARIAN CANCER AGE 51 AND ANOTHER SISTER HAD [place]/CAD,OPEN HEART W/VALVE REPLACEMENT AND DM Medications and Allergies Home Medications Medication Instructions Recorded Confirmed Type Aspirin 81 mg PO DAILY@89906/08/15 12/12/18 History Levothyroxine Sodium [Synthroid] 50 mcg PO DAILY@59906/08/15 12/12/18 History Omeprazole [PriLOSEC] 20 mg PO DAILY@0906/08/15 12/12/18 History Febuxostat [Uloric] 80 mg PO DAILY@0906/10/17 12/12/18 History Multivitamin [Multivitamins Adult 1 tab PO DAILY@89906/10/17 12/12/18 History Gummies] Atorvastatin [Lipitor] 40 mg PO HS #30 tab 12/15/17 12/12/18 Rx Nitroglycerin Sl Tabs [Nitrostat] 0.4 mg SUBLINGUAL Q5M PRN tab 12/19/17 Rx Clopidogrel [Plavix] 75 mg PO DAILY@0900 02/27/18 12/12/18 History ALPRAZolam [Xanax] 0.25 mg PO TID PRN #9 tablet 03/04/18 12/12/18 Rx HYDROcodone/APAP 7.5-325MG [[place] 1 tab PO Q4H PRN #10 tab 03/04/18 12/12/18 Rx 7.5-325] Docusate Sodium [Dok] 100 mg PO BID 05/27/18 12/12/18 History Ferrous Sulfate [Feosol] 325 mg PO DAILY 05/27/18 12/12/18 History Lisinopril [Zestril] 2.5 mg PO DAILY@1700 05/27/18 12/12/18 History Spironolactone 25 mg PO DAILY 05/27/18 12/12/18 History Warfarin Sodium 4 mg PO MOTUWETHFRSA 05/27/18 12/12/18 History Warfarin [Coumadin] 2 mg PO ZAVALA 05/27/18 12/12/18 History Cefuroxime [Ceftin] 250 mg PO BID 12/12/18 12/12/18 History Metoprolol Succinate [Toprol Xl] 50 mg PO HS 12/12/18 12/12/18 History Allergies Allergy/AdvReac Type Severity Reaction Status Date / Time Penicillins Allergy Rash/Hives Verified 12/12/18 14:21 dexamethasone AdvReac Nausea & Verified 12/12/18 14:21 Vomiting methylprednisolone AdvReac Unknown Verified 12/12/18 14:21 Physical Exam Vitals: Vital Signs Temp Pulse Pulse Resp BP BP Pulse Ox 12/13/18 08:32 97.5 F L 60 16 110/58 96 12/13/18 00:45 97.8 F 52 L 18 100/50 96 12/12/18 20:00 98 F 55 L 18 125/49 98 12/12/18 17:30 52 L 18 122/47 99 12/12/18 17:00 50 L 18 125/46 97 12/12/18 16:30 49 L 18 123/48 100 12/12/18 16:00 49 L 19 127/47 99 12/12/18 15:20 55 L 18 128/57 97 Intake and Output 12/12/18 12/13/18 12/13/18 22:59 06:59 14:59 Intake Total 150 200 Balance 150 200 Intake: Intake, IV Titration 150 200 Amount Sodium Chloride 0.9% 1, 150 100 000 ml @ 50 mls/hr IV . Q20H ANNELIESE Rx#:[id number] cefTRIAXone 1,000 mg In 100 Sodium Chloride 0.9% 50 ml @ 100 mls/hr IVPB ONCE STA Rx#:[id number] Other: Voiding Method Toilet # Voids 4 Results 12/13/18 08:06 12/13/18 08:06 Cardiac Enzymes 12/12/18 12/12/18 12/12/18 Range/Units 14:19 14:19 20:01 AST 35 (14-36) U/L CK-MB (CK-2) 0.9 (0.0-2.4) ng/mL Troponin I <0.012 (0.000-0.034) ng/mL 12/13/18 Range/Units 02:27 AST (14-36) U/L CK-MB (CK-2) 1.1 (0.0-2.4) ng/mL Troponin I (0.000-0.034) ng/mL Coagulation 12/12/18 12/13/18 Range/Units 14:19 08:06 PT 21.8 H 19.6 H (9.0-12.0) sec APTT 34.5 H (22.0-30.0) sec CBC 12/12/18 12/13/18 Range/Units 14:19 08:06 WBC 5.0 4.5 (3.8-10.6) k/uL RBC 3.71 L 3.87 (3.80-5.40) m/uL Hgb 11.5 11.7 (11.4-16.0) gm/dL Hct 35.2 37.0 (34.0-46.0) % Plt Count 107 L 104 L (150-450) k/uL Comprehensive Metabolic Panel 12/12/18 12/13/18 Range/Units 14:19 08:06 Sodium 138 140 (137-145) mmol/L Potassium 5.6 H 5.0 (3.5-5.1) mmol/L Chloride 108 H 107 (98-107) mmol/L Carbon Dioxide 23 24 (22-30) mmol/L BUN 62 H 54 H (7-17) mg/dL Creatinine 1.84 H 1.43 H (0.52-1.04) mg/dL Glucose 105 H 125 H (74-99) mg/dL Calcium 9.3 9.5 (8.4-10.2) mg/dL AST 35 (14-36) U/L ALT 36 (9-52) U/L Alkaline Phosphatase 88 (38-126) U/L Total Protein 6.2 L (6.3-8.2) g/dL Albumin 3.6 (3.5-5.0) g/dL Current Medications Generic Name Dose Route Start Last Admin Trade Name Freq PRN Reason Stop Dose Admin Acetaminophen 650 mg 12/12/18 16:07 12/13/18 02:18 Tylenol Tab PO 650 mg Q6HR PRN Administration Mild Pain or Fever > 100.5 Hydrocodone Bitart/Acetaminophen 1 each 12/13/18 11:07 12/13/18 11:11 [place] 7.5-325 PO 1 each Q4H PRN Administration Moderate Pain Allopurinol 200 mg 12/13/18 09:00 12/13/18 08:24 Zyloprim PO 200 mg DAILY@0900 [facility] Administration Alprazolam 0.25 mg 12/12/18 16:09 Xanax PO TID PRN Anxiety Aspirin 81 mg 12/13/18 09:00 12/13/18 08:25 Aspirin PO 81 mg DAILY@0900 [facility] Administration Atorvastatin Calcium 40 mg 12/12/18 21:00 12/12/18 19:51 Lipitor PO 40 mg HS ANNELIESE Administration Clopidogrel Bisulfate 75 mg 12/13/18 09:00 12/13/18 08:25 Plavix PO 75 mg DAILY@0900 [facility] Administration Docusate Sodium 100 mg 12/12/18 21:00 12/13/18 08:24 Colace PO 100 mg BID ANNELIESE Administration Furosemide 40 mg 12/14/18 09:00 Lasix IV DAILY ANNELIESE Hydromorphone HCl 0.5 mg 12/12/18 16:07 12/12/18 22:06 Dilaudid IVP 0.5 mg Q3HR PRN Administration Moderate Pain Hydromorphone HCl 1 mg 12/12/18 16:07 Dilaudid IVP Q3HR PRN Severe Pain Sodium Chloride 1,000 mls @ 20 mls/hr 12/12/18 13:43 12/12/18 14:26 Saline 0.9% IV 12/13/18 13:42 20 mls/hr .Q24H STA Administration Levothyroxine Sodium 50 mcg 12/13/18 06:00 12/13/18 04:46 Synthroid PO 50 mcg DAILY@0600 ANNELIESE Administration Lisinopril 2.5 mg 12/12/18 17:15 12/12/18 23:21 Zestril PO Not Given DAILY@1700 [facility] Lorazepam 0.5 mg 12/12/18 16:07 Ativan IV Q6HR PRN Anxiety Metoprolol Succinate 50 mg 12/12/18 21:00 12/12/18 19:51 Toprol Xl PO 50 mg HS ANNELIESE Administration Miscellaneous Information 1 each 12/12/18 17:11 Coumadin Per Pharmacy MISCELLANE DIRECTED PRN COUMADIN Multivitamins 1 each 12/13/18 09:00 12/13/18 08:25 Theragran PO 1 each DAILY@0900 [facility] Administration Naloxone HCl 0.2 mg 12/12/18 16:07 Narcan IV Q2M PRN Opioid Reversal Ondansetron HCl 4 mg 12/12/18 16:07 Zofran IVP Q8HR PRN Nausea And Vomiting Pantoprazole Sodium 40 mg 12/13/18 09:00 12/13/18 08:25 Protonix PO 40 mg DAILY@0900 [facility] Administration Warfarin Sodium 5 mg 12/13/18 18:00 Coumadin PO 12/13/18 18:01 ONCE@1800 ONE Intake and Output 12/12/18 12/13/18 12/13/18 22:59 06:59 14:59 Intake Total 150 200 Balance 150 200 Intake: Intake, IV Titration 150 200 Amount Sodium Chloride 0.9% 1, 150 100 000 ml @ 50 mls/hr IV . Q20H [facility] Rx#:[id number] cefTRIAXone 1,000 mg In 100 Sodium Chloride 0.9% 50 ml @ 100 mls/hr IVPB ONCE STA Rx#:[id number] Other: Voiding Method Toilet # Voids 4 12/13/18 08:06 12/13/18 08:06
[2018-12-13] MEDS: LISINOPRIL 2.5 MG TAB PO SCH (17:35)
[2018-12-13] MEDS ORDERED: WARFARIN 5 MG TAB PO ONE (18:00)
[2018-12-13] MEDS: ATORVASTATIN 40 MG TAB PO SCH (20:23)
[2018-12-13] MEDS: METOPROLOL SUCCINATE (ER) 50 MG TAB.ER.24H PO SCH (20:23)
[2018-12-13] MEDS ORDERED: VANCOMYCIN IV PER PHARMACY 1 EACH MISC MISCELLANE PRN (22:54)
[2018-12-13] MEDS ORDERED: VANCOMYCIN 1,500 MG in SODIUM CHLORIDE 0.9% 250 ML IVPB ONE (23:45)
[2018-12-14 00:50] LABS: Appearance,Urine Clear (Clear); Bilirubin,Urine Negative (Negative); Blood,Urine Negative (Negative); Color,Urine Yellow; Glucose,Urine (UA) Negative (Negative); Hyaline Casts,Urine 3 /lpf (0-2); Ketones,Urine Negative (Negative); Leukocyte Esterase,Urine Small (Negative); Mucus,Urine Rare /hpf; Nitrite,Urine Negative (Negative); Protein,Urine Trace (Negative); RBC,Urine 2 /hpf (0-5); Specific Gravity,Urine 1.016 (1.001-1.035); Squamous Epithelial Cell,Urine 2 /hpf (0-4); Urobilinogen,Urine <2.0 mg/dL (<2.0)
[2018-12-14] MEDS: LEVOTHYROXINE 50 MCG TAB PO SCH (04:47)
[2018-12-14] MEDS: HYDROcodone/APAP 7.5-325MG 1 EACH TAB PO PRN ×4 (04:47→22:22)
[2018-12-14] MEDS ORDERED: VANCOMYCIN IV PER PHARMACY 1 EACH MISC MISCELLANE PRN (06:50)
[2018-12-14] MEDS: ALLOPURINOL 100 MG TAB PO SCH (08:09)
[2018-12-14] MEDS: DOCUSATE 100 MG CAP PO SCH ×2 (08:09→21:25)
[2018-12-14] MEDS: ASPIRIN 81 MG PO SCH (08:09)
[2018-12-14] MEDS: MULTIVITAMINS, THERA 1 EACH TAB PO SCH (08:09)
[2018-12-14] MEDS: PANTOPRAZOLE 40 MG TABLET PO SCH (08:10)
[2018-12-14] MEDS: FUROSEMIDE 10 MG/ML 4 ML VIAL IV SCH (08:10)
[2018-12-14] MEDS: CLOPIDOGREL 75 MG TAB PO SCH (08:10)
--- NOTE | 2018-12-14 08:16 | CONS ---
CONSULTATION DATE OF SERVICE: 12/13/2018. REASON FOR CONSULTATION: Urinary tract infection. HISTORY OF PRESENT ILLNESS: The patient is a 78, female, who was brought into the ER by the family with chief complaints of increasing weakness over the last few days. Apparently the patient has been diagnosed with UTI in the outpatient setting and had been started on oral antibiotic. However, the patient seemed to have no improvement with the same. The patient feeling weak and tired and no energy. There is no clear history of any falls. She did have slight burning of the urine but no frequency. No suprapubic pain. She also has some chronic swelling in the lower extremities, but no redness or any or any drainage. With these symptoms, the patient was evaluated by the ER physician. On arrival to the ER, the patient has been afebrile. The patient's white count was normal at 5.0, INR was 2.2. BUN and creatinine were slightly elevated. The patient's UA was cloudy with large leukocyte esterases, 10-20 WBC. The patient did receive a dose of Rocephin in the ER and admitted to the hospital. Infectious Disease was consulted for further recommendation regarding antibiotic therapy. The patient did have a chest x- ray showing interstitial changes, mild cardiomegaly. REVIEW OF SYSTEMS: Positive points have been mentioned in HPI. Other systems has been negative. MEDICAL HISTORY: DVT, [place], osteoarthritis, renal insufficiency, hypothyroidism, recurrent thrombosis. PAST SURGICAL HISTORY: Adenoidectomy, AICD placement, back surgery, cholecystectomy, heart catheterization, stent, hysterectomy, pacemaker placement, tonsillectomy, tubal ligation. SOCIAL HISTORY: Remote history of smoking. No drinking or drug use. FAMILY HISTORY: Father history of diabetes and [place]. Mother history of breast cancer, hypertension, hyperlipidemia, brother also from [place] age 57. ALLERGIES: PENICILLIN AND DEXAMETHASONE, METHYLPREDNISOLONE. MEDICATION: Medications include the patient is currently on: 1. Tylenol. 2. [place]. 3. Zyloprim. 4. Xanax. 5. Aspirin. 6. Lipitor. 7. in the ER. 8. Plavix. 9. Colace. 10.Lasix. 11.Dilaudid. 12.Synthroid. 13.Zestril. 14.Ativan. 15. . 16.Narcan. 17.Theragran. 18.Protonix. 19.Zofran. PHYSICAL EXAMINATION: Blood pressure is 121/57 with a pulse of 51, temperature 98.2. She is 97% on room air. General description is an elderly female lying bed in no distress. No tachypnea. No accessory muscles of respiration use. HEENT: Shows no pallor or scleral icterus. Oral mucosa membranes are dry. No pharyngeal erythema or thrush. Neck: Trachea central. No thyromegaly. Lungs unlabored breathing. Clear to auscultation anteriorly. No wheeze or crackles. Heart: S1, S2. Regular rate and rhythm. ABDOMEN: Soft, no tenderness. No guarding or rigidity. EXTREMITIES: No edema of the feet. Skin examination: No rash or mass palpable. NEUROLOGICAL: Patient is awake, alert, oriented times three. Mood and affect normal. LABS: Hemoglobin is 11.7, white count 4.5 with a BUN of 54, creatinine is 1.43, UA was positive. Urine culture now showing enterococcus. DIAGNOSTIC IMPRESSION AND PLAN: 1. Patient admitted to the hospital with generalized weakness in this patient who did have UTI failing outpatient oral Ceftin therapy. Now with urine showing group D Enterococcus, likely the infected pathogen. 2. Patient does have a borderline kidney function and high risk of nephrotoxicity. PLAN: 1. Discontinue Rocephin. 2. We will start the patient on vancomycin pharmacy to dose. However, need to monitor Vanco trough and kidney function very closely. 3. Repeat urine culture, clean catch. 4. We will follow up on clinical condition and culture to further adjust medication if needed. Thank you for this consultation. We will follow this patient along with you. MMODL / IJN: [id number] /
[2018-12-14 09:37] LABS: INR 2.4 (<1.2); Prothrombin Time 23.1 sec (9.0-12.0)
[2018-12-14 09:40] LABS: Calcium 9.3 mg/dL (8.4-10.2); Potassium 4.5 mmol/L (3.5-5.1)
[2018-12-14 10:00] LABS: Basophils % (A) 1 %; Eosinophils # (A) 0.2 k/uL (0-0.7); Eosinophils % (A) 4 %; HCT 35.7 % (34.0-46.0); HGB 11.7 gm/dL (11.4-16.0); Hypochromasia Slight; Lymphocytes # (A) 0.6 k/uL (1.0-4.8); Lymphocytes % (A) 14 %; MCH 31.4 pg (25.0-35.0); MCHC 32.8 g/dL (31.0-37.0); MCV 95.7 fL (80.0-100.0); Mean Platelet Volume 9.3; Monocytes # (A) 0.6 k/uL (0-1.0); Monocytes % (A) 12 %; Neutrophils # (A) 3.1 k/uL (1.3-7.7); Neutrophils % (A) 66 %; RBC 3.73 m/uL (3.80-5.40); RDW 14.6 % (11.5-15.5); WBC 4.7 k/uL (3.8-10.6)
[2018-12-14 12:14] LABS: Platelet Count 88 k/uL (150-450)
--- NOTE | 2018-12-14 12:27 | P.PN ---
Subjective Patient is a 78-year-old female with past medical history of coronary artery disease, congestive heart failure and she follow up with Dr. Grijalva. She is status post pacemaker and AICD. She has history of a clot in her right upper extremity in 2012 on Coumadin, just chronic kidney disease and she will up with Dr. Kc, hypothyroidism, possible GERD, hyper lipidemia, hypertension. She has been recently treated by her PCP Dr. Hedrick for UTI about 10 days ago, patient kept getting worse since then when she feels generally weak and associated with polyuria but no dysuria and exertional dyspnea, also patient complaining of worsening leg edema associated with redness and drives Wound on the medial side of the lower leg for about 5-7 days duration. Patient denies chest pain, no nausea vomiting, no altered mental status, no change in bowel habits. On admission vitals are stable, heart rate is 55 BPM, saturating 97% on room air. Labs showing abnormal urinalysis with large leukocyte esterase, suspicious for infection. INR is 2.2, no leukocytosis and CBC unremarkable. Potassium 5.6, creatinine 1.8 , where her baseline creatinine is fluctuating between 1.0 and 4+, creatinine was 6 months ago was 1.3. EKG showing atrial paced rhythm, with no significant ST-T changes, T-wave inversion in the inferior leads. QTC 439. In the emergency room she got Lasix 40 mg IV once, and ceftriaxone and started on gentle hydration at 50 mL per hour. 12/13/2018 Patient feels better, no dyspnea or chest pain. Her abdominal pain is completely resolved. And there is no suprapubic tenderness which is resolved compared to yesterday. This dysuria and decreased frequency of urination and his right leg cellulitis is also improving. Vitas looks stable. CBC was unremarkable, INR 2.0. And creatinine is coming down 1.8 down to 1.4, nephrology input is appreciated. Decrease Lasix to 40 mg iv daily. Urine culture is still pending 12/14/2018 Patient clinically the same with no chest pain or dyspnea. No abdominal pain. No nausea vomiting and tolerating diet well. No fever. Blood pressure 145/75. Saturating 94% and a 3 L. CBC unremarkable. INR 2.4. Creatinine 1.3. Patient remains on 40 mg IV Lasix daily. Her urine cultures, and back as group D enterococcus, sensitivities pending. Patient received 1 dose of vancomycin per infectious disease recommendation. Patient requesting melatonin. Objective - Vital Signs Vital signs: Vital Signs Temp 98.1 F 12/14/18 06:26 Pulse 50 L 12/14/18 06:26 Resp 16 12/14/18 07:26 BP 145/75 12/14/18 06:26 Pulse Ox 94 L 12/14/18 06:26 Intake & Output 12/13/18 12/14/18 12/14/18 18:59 06:59 18:59 Intake Total 450 Balance 450 Intake: Intake, IV Titration 450 Amount Sodium Chloride 0.9% 1, 200 000 ml @ 20 mls/hr IV . Q24H STA Rx#:[id number] Vancomycin 1,500 mg In 250 Sodium Chloride 0.9% 250 ml @ 125 mls/hr IVPB ONCE ONE Rx#:[id number] Other: Voiding Method Toilet # Voids 5 4 # Bowel Movements 1 1 - Exam GENERAL: The patient is alert and oriented x3, not in any acute distress. Well developed, well nourished. HEENT: Pupils are round and equally reacting to light. EOMI. No scleral icterus. No conjunctival pallor. Normocephalic, atraumatic. No pharyngeal erythema. No thyromegaly. CARDIOVASCULAR: S1 and S2 present. No murmurs, rubs, or gallops. -PULMONARY: Chest is clear to auscultation, no wheezing, bilateral basal crackles. ABDOMEN: Soft, no more suprapubic tenderness, no tenderness elsewhere, no rebound tenderness, nondistended, normoactive bowel sounds. No palpable organomegaly. MUSCULOSKELETAL: No joint swelling or deformity. -EXTREMITIES: Bilateral leg edema. Her right leg is red and tender and warm with dry scab On the medial side, improving NEUROLOGICAL: Gross neurological examination did not reveal any focal deficits. SKIN: No rashes. - Labs CBC & Chem 7: 12/14/18 09:02 12/14/18 09:02 Labs: Abnormal Lab Results - Last 24 Hours (Table) 12/14/18 12/14/18 12/14/18 Range/Units 00:05 09:02 09:02 RBC 3.73 L (3.80-5.40) m/uL Plt Count 88 L (150-450) k/uL Lymphocytes # 0.6 L (1.0-4.8) k/uL PT (9.0-12.0) sec INR (<1.2) BUN 49 H (7-17) mg/dL Creatinine 1.31 H (0.52-1.04) mg/dL Glucose 140 H (74-99) mg/dL Urine Protein Trace H (Negative) Ur Leukocyte Esterase Small H (Negative) Hyaline Casts 3 H (0-2) /lpf Urine Mucus Rare H (None) /hpf 12/14/18 Range/Units 09:02 RBC (3.80-5.40) m/uL Plt Count (150-450) k/uL Lymphocytes # (1.0-4.8) k/uL PT 23.1 H (9.0-12.0) sec INR 2.4 H (<1.2) BUN (7-17) mg/dL Creatinine (0.52-1.04) mg/dL Glucose (74-99) mg/dL Urine Protein (Negative) Ur Leukocyte Esterase (Negative) Hyaline Casts (0-2) /lpf Urine Mucus (None) /hpf Microbiology - Last 24 Hours (Table) 12/12/18 14:19 Urine Culture - Preliminary Urine,Clean Catch Group D Enterococcus 12/12/18 14:19 Blood Culture - Preliminary Blood No Growth after 24 hours Assessment and Plan Assessment: Urinary tract infection Cellulitis of the right leg Acute and chronic systolic congestive heart failure, EF between 35-40%. Status post AICD. Status post pacemaker History of coronary artery disease History of DVT in the right upper extremity on warfarin, with therapeutic INR on admission. Chronic kidney disease, stage III Hypertension Hyperlipidemia History of hypothyroidism History of breast cancer, status post surgery Plan: This is a pleasant 78 years old female presents with UTI, cellulitis and acute CHF. Continue with antibiotic. Resume diuretics as Lasix. Discontinue IV fluids. Call cardiology consult nephrology and infectious disease for consultation. Labs and medication were reviewed.. Continue same treatment. Continue with symptomatic treatment. Resume home medication. Monitor lytes and vitals. DVT and GI prophylaxis. Further recommendations of the clinical course of the patient DVT prophylaxis: On warfarin GI Prophylaxis: Pepcid PT/OT: Pending Prognosis is guarded
--- NOTE | 2018-12-14 13:44 | P.PN ---
Subjective Progress Note Date: 12/14/18 Seen and examined for the follow-up of acute kidney injury. Feels better no nausea vomiting diarrhea. Objective - Vital Signs Vital signs: Vital Signs Temp 98.1 F 12/14/18 06:26 Pulse 50 L 12/14/18 06:26 Resp 16 12/14/18 07:26 BP 145/75 12/14/18 06:26 Pulse Ox 94 L 12/14/18 06:26 Intake & Output 12/13/18 12/14/18 12/14/18 18:59 06:59 18:59 Intake Total 450 Balance 450 Intake: Intake, IV Titration 450 Amount Sodium Chloride 0.9% 1, 200 000 ml @ 20 mls/hr IV . Q24H STA Rx#:[id number] Vancomycin 1,500 mg In 250 Sodium Chloride 0.9% 250 ml @ 125 mls/hr IVPB ONCE ONE Rx#:[id number] Other: Voiding Method Toilet # Voids 5 4 # Bowel Movements 1 1 - Exam No acute distress S1-S2 heard Lungs clear Trace edema - Labs CBC & Chem 7: 12/14/18 09:02 12/14/18 09:02 Labs: Abnormal Lab Results - Last 24 Hours (Table) 12/14/18 12/14/18 12/14/18 Range/Units 00:05 09:02 09:02 RBC 3.73 L (3.80-5.40) m/uL Plt Count 88 L (150-450) k/uL Lymphocytes # 0.6 L (1.0-4.8) k/uL PT (9.0-12.0) sec INR (<1.2) BUN 49 H (7-17) mg/dL Creatinine 1.31 H (0.52-1.04) mg/dL Glucose 140 H (74-99) mg/dL Urine Protein Trace H (Negative) Ur Leukocyte Esterase Small H (Negative) Hyaline Casts 3 H (0-2) /lpf Urine Mucus Rare H (None) /hpf 12/14/18 Range/Units 09:02 RBC (3.80-5.40) m/uL Plt Count (150-450) k/uL Lymphocytes # (1.0-4.8) k/uL PT 23.1 H (9.0-12.0) sec INR 2.4 H (<1.2) BUN (7-17) mg/dL Creatinine (0.52-1.04) mg/dL Glucose (74-99) mg/dL Urine Protein (Negative) Ur Leukocyte Esterase (Negative) Hyaline Casts (0-2) /lpf Urine Mucus (None) /hpf Microbiology - Last 24 Hours (Table) 12/12/18 14:19 Urine Culture - Preliminary Urine,Clean Catch Group D Enterococcus 12/12/18 14:19 Blood Culture - Preliminary Blood No Growth after 24 hours Assessment and Plan Assessment: #1 nonoliguric acute kidney injury secondary to cardiorenal syndrome1. #2 CK D3 secondary to nephrosclerosis baseline creatinine 1.5. #3 systolic CHF with EF of 35-40% #4 hypertension with C daily #5 volume overload #6 alkalosis Plan: #1 creatinine improving. Consider chasing Lasix 40 mg IV daily 2 torsemide 20 daily by tomorrow. #2 avoid nephrotoxic agents and hypotensive episodes #3 repeat labs in the morning
[2018-12-14] MEDS: LISINOPRIL 2.5 MG TAB PO SCH (17:52)
[2018-12-14] MEDS ORDERED: WARFARIN 2 MG TAB PO ONE (18:00)
[2018-12-14] MEDS: MELATONIN 1 MG TAB PO SCH (21:25)
[2018-12-14] MEDS: METOPROLOL SUCCINATE (ER) 50 MG TAB.ER.24H PO SCH (21:25)
[2018-12-14] MEDS: ATORVASTATIN 40 MG TAB PO SCH (21:25)
--- NOTE | 2018-12-15 02:21 | PN ---
PROGRESS NOTE DATE OF SERVICE: 12/14/2018. REASON FOR FOLLOWUP: Urinary tract infection. INTERVAL HISTORY: The patient is currently afebrile. She is feeling slightly better, breathing comfortably. The patient denies having any chest pain or cough. No abdominal pain. No diarrhea. PHYSICAL EXAMINATION: Blood pressure 124/73 with a pulse of 52, temperature 98.2. She is 93% on room air. General description is an elderly female lying in bed in no distress. Respiratory system: Unlabored breathing. Clear to auscultation anteriorly. Heart S1, S2. Regular rate and rhythm. Abdomen soft, no tenderness. LABS: Hemoglobin is 11.7, white count 4.7, BUN 49, creatinine is 1.31. Urine with group D enterococcus. Sensitivities pending. DIAGNOSTIC IMPRESSION AND PLAN: Patient with low grade Enterococcus urinary tract infection, failing outpatient or therapy. The patient continue with vancomycin because of her PENICILLIN [employer]ERGY watching the kidney function very closely. Continue supportive care. MMODL / IJN: [id number] /
[2018-12-15] MEDS: LEVOTHYROXINE 50 MCG TAB PO SCH (05:45)
[2018-12-15] MEDS ORDERED: VANCOMYCIN 1,500 MG in SODIUM CHLORIDE 0.9% 250 ML IVPB ONE (06:00)
[2018-12-15 09:06] LABS: INR 2.6 (<1.2); Prothrombin Time 25.4 sec (9.0-12.0)
[2018-12-15 09:13] LABS: Potassium 4.5 mmol/L (3.5-5.1)
[2018-12-15] MEDS: MULTIVITAMINS, THERA 1 EACH TAB PO SCH (09:51)
[2018-12-15] MEDS: ASPIRIN 81 MG PO SCH (09:51)
[2018-12-15] MEDS: FUROSEMIDE 10 MG/ML 4 ML VIAL IV SCH (09:51)
[2018-12-15] MEDS: ALLOPURINOL 100 MG TAB PO SCH (09:51)
[2018-12-15] MEDS: CLOPIDOGREL 75 MG TAB PO SCH (09:51)
[2018-12-15] MEDS: DOCUSATE 100 MG CAP PO SCH ×2 (09:51→20:43)
[2018-12-15] MEDS: PANTOPRAZOLE 40 MG TABLET PO SCH (09:51)
--- NOTE | 2018-12-15 09:54 | P.PN ---
Subjective Patient is a 78-year-old female with past medical history of coronary artery disease, congestive heart failure and she follow up with Dr. Grijalva. She is status post pacemaker and AICD. She has history of a clot in her right upper extremity in 2012 on Coumadin, just chronic kidney disease and she will up with Dr. Kc, hypothyroidism, possible GERD, hyper lipidemia, hypertension. She has been recently treated by her PCP Dr. Hedrick for UTI about 10 days ago, patient kept getting worse since then when she feels generally weak and associated with polyuria but no dysuria and exertional dyspnea, also patient complaining of worsening leg edema associated with redness and drives Wound on the medial side of the lower leg for about 5-7 days duration. Patient denies chest pain, no nausea vomiting, no altered mental status, no change in bowel habits. On admission vitals are stable, heart rate is 55 BPM, saturating 97% on room air. Labs showing abnormal urinalysis with large leukocyte esterase, suspicious for infection. INR is 2.2, no leukocytosis and CBC unremarkable. Potassium 5.6, creatinine 1.8 , where her baseline creatinine is fluctuating between 1.0 and 4+, creatinine was 6 months ago was 1.3. EKG showing atrial paced rhythm, with no significant ST-T changes, T-wave inversion in the inferior leads. QTC 439. In the emergency room she got Lasix 40 mg IV once, and ceftriaxone and started on gentle hydration at 50 mL per hour. 12/13/2018 Patient feels better, no dyspnea or chest pain. Her abdominal pain is completely resolved. And there is no suprapubic tenderness which is resolved compared to yesterday. This dysuria and decreased frequency of urination and his right leg cellulitis is also improving. Vitas looks stable. CBC was unremarkable, INR 2.0. And creatinine is coming down 1.8 down to 1.4, nephrology input is appreciated. Decrease Lasix to 40 mg iv daily. Urine culture is still pending 12/14/2018 Patient clinically the same with no chest pain or dyspnea. No abdominal pain. No nausea vomiting and tolerating diet well. No fever. Blood pressure 145/75. Saturating 94% and a 3 L. CBC unremarkable. INR 2.4. Creatinine 1.3. Patient remains on 40 mg IV Lasix daily. Her urine cultures, and back as group D enterococcus, sensitivities pending. Patient received 1 dose of vancomycin per infectious disease recommendation. Patient requesting melatonin. 12/15/2018 Patient breathing is fine with no chest pain. Denies cough. Abdominal pain is resolved since couple days ago. No diarrhea. She still has polyuria and decreased frequency however dysuria has resolved. Urine culture is growing enterococcus. And patient is currently on vancomycin as per infectious disease recommendation. Nephrology input is appreciated and they recommended changing Lasix to torsemide 20 mg daily aspirin nephrology recommendation. Creatinine is improving down to 1.12 and electrolytes were normal. Vitas is stable. INR was therapeutic last time was checked, results from today's pending. Objective - Vital Signs Vital signs: Vital Signs Temp 97.5 F L 12/15/18 00:09 Pulse 50 L 12/15/18 00:09 Resp 16 12/15/18 00:09 BP 113/58 12/15/18 00:09 Pulse Ox 96 12/15/18 00:09 Intake & Output 12/14/18 12/15/18 12/15/18 18:59 06:59 18:59 Intake Total 476 200 Balance 476 200 Intake: Oral 476 200 Other: Voiding Method Toilet Diaper # Voids 4 2 # Bowel Movements 1 - Exam GENERAL: The patient is alert and oriented x3, not in any acute distress. Well developed, well nourished. HEENT: Pupils are round and equally reacting to light. EOMI. No scleral icterus. No conjunctival pallor. Normocephalic, atraumatic. No pharyngeal erythema. No thyromegaly. CARDIOVASCULAR: S1 and S2 present. No murmurs, rubs, or gallops. -PULMONARY: Chest is clear to auscultation, no wheezing, bilateral basal crackles. ABDOMEN: Soft, no more suprapubic tenderness, no tenderness elsewhere, no rebound tenderness, nondistended, normoactive bowel sounds. No palpable organomegaly. MUSCULOSKELETAL: No joint swelling or deformity. -EXTREMITIES: Bilateral leg edema. Her right leg is red and tender and warm with dry scab On the medial side, improving NEUROLOGICAL: Gross neurological examination did not reveal any focal deficits. SKIN: No rashes. - Labs CBC & Chem 7: 12/14/18 09:02 12/15/18 08:08 Labs: Abnormal Lab Results - Last 24 Hours (Table) 12/14/18 12/15/18 Range/Units 09:02 08:08 RBC 3.73 L (3.80-5.40) m/uL Plt Count 88 L (150-450) k/uL Lymphocytes # 0.6 L (1.0-4.8) k/uL Chloride 109 H (98-107) mmol/L BUN 45 H (7-17) mg/dL Creatinine 1.12 H (0.52-1.04) mg/dL Glucose 104 H (74-99) mg/dL Microbiology - Last 24 Hours (Table) 12/12/18 14:19 Urine Culture - Final Urine,Clean Catch Enterococcus faecalis 12/12/18 14:19 Blood Culture - Preliminary Blood No Growth after 48 hours Assessment and Plan Assessment: Urinary tract infection Cellulitis of the right leg Acute and chronic systolic congestive heart failure, EF between 35-40%. Status post AICD. Status post pacemaker History of coronary artery disease History of DVT in the right upper extremity on warfarin, with therapeutic INR on admission. Chronic kidney disease, stage III Hypertension Hyperlipidemia History of hypothyroidism History of breast cancer, status post surgery Plan: This is a pleasant 78 years old female presents with UTI, cellulitis and acute CHF. Continue with antibiotic. Resume diuretics as Lasix. Discontinue IV fluids. Call cardiology consult nephrology and infectious disease for consultation. Labs and medication were reviewed.. Continue same treatment. Continue with symptomatic treatment. Resume home medication. Monitor lytes and vitals. DVT and GI prophylaxis. Further recommendations of the clinical course of the patient DVT prophylaxis: On warfarin GI Prophylaxis: Pepcid PT/OT: Pending Prognosis is guarded
[2018-12-15] MEDS: HYDROcodone/APAP 7.5-325MG 1 EACH TAB PO PRN ×2 (11:02→17:34)
--- NOTE | 2018-12-15 12:55 | P.PN ---
Subjective Progress Note Date: 12/15/18 Seen and examined for the follow-up of acute kidney injury. Feels better no nausea vomiting diarrhea. Objective - Vital Signs Vital signs: Vital Signs Temp 97.7 F 12/15/18 09:58 Pulse 50 L 12/15/18 09:58 Resp 16 12/15/18 09:58 BP 133/56 12/15/18 09:58 Pulse Ox 96 12/15/18 09:58 Intake & Output 12/14/18 12/15/18 12/15/18 18:59 06:59 18:59 Intake Total 476 200 240 Balance 476 200 240 Intake: Oral 476 200 240 Other: Voiding Method Toilet Diaper # Voids 4 2 # Bowel Movements 1 - Exam No acute distress S1-S2 heard Lungs clear Trace edema - Labs CBC & Chem 7: 12/14/18 09:02 12/15/18 08:08 Labs: Abnormal Lab Results - Last 24 Hours (Table) 12/15/18 12/15/18 Range/Units 08:08 08:08 PT 25.4 H (9.0-12.0) sec INR 2.6 H (<1.2) Chloride 109 H (98-107) mmol/L BUN 45 H (7-17) mg/dL Creatinine 1.12 H (0.52-1.04) mg/dL Glucose 104 H (74-99) mg/dL Microbiology - Last 24 Hours (Table) 12/14/18 21:50 Urine Culture - Preliminary Urine,Voided 12/12/18 14:19 Urine Culture - Final Urine,Clean Catch Enterococcus faecalis 12/12/18 14:19 Blood Culture - Preliminary Blood No Growth after 48 hours Assessment and Plan Assessment: #1 nonoliguric acute kidney injury secondary to cardiorenal syndrome1. #2 CKD3 secondary to nephrosclerosis baseline creatinine 1.5. #3 systolic CHF with EF of 35-40% #4 hypertension with Ckd #5 volume overload #6 alkalosis Plan: #1 creatinine improving. Consider chasing Lasix 40 mg IV daily 2 torsemide 20 daily by tomorrow. #2 avoid nephrotoxic agents and hypotensive episodes #3 repeat labs in the morning
[2018-12-15] MEDS: LISINOPRIL 2.5 MG TAB PO SCH (17:34)
[2018-12-15] MEDS ORDERED: WARFARIN 2 MG TAB PO ONE (18:00)
[2018-12-15] MEDS ORDERED: WARFARIN 2 MG TAB PO SCH (18:00)
[2018-12-15] MEDS: MELATONIN 1 MG TAB PO SCH (20:43)
[2018-12-15] MEDS: METOPROLOL SUCCINATE (ER) 50 MG TAB.ER.24H PO SCH (20:43)
[2018-12-15] MEDS: ATORVASTATIN 40 MG TAB PO SCH (20:43)
--- NOTE | 2018-12-16 00:26 | PN ---
PROGRESS NOTE DATE OF SERVICE: 12/15/2018. REASON FOR FOLLOWUP: Urinary tract infection. INTERVAL HISTORY: The patient is currently afebrile. She is breathing comfortably. Denies any chest pain or any cough. No abdominal pain or any diarrhea. PHYSICAL EXAMINATION: Blood pressure 120/56 with a pulse of 52, temperature 97.6. She is 96% on room air. General description is an elderly female up in the bed in no distress. Respiratory system: Unlabored breathing. Clear to auscultation anteriorly. Heart S1, S2. Regular rate and rhythm. Abdomen soft, no tenderness. LABS: The repeat urine cultures currently pending. Creatinine is down to 1.12, 2.6. DIAGNOSTIC IMPRESSION AND PLAN: Patient with urinary tract infection. Penicillin sensitive, however, the patient . Currently on vancomycin to continue for now. Repeat urine cultures negative. Vancomycin can be safely discontinued urinary tract infection adequately treated. Continue supportive care. MMODL / IJN: [id number] /
[2018-12-16 00:46] VITALS: PULSE 50
[2018-12-16] MEDS: HYDROcodone/APAP 7.5-325MG 1 EACH TAB PO PRN ×2 (02:41→14:54)
[2018-12-16] MEDS: LEVOTHYROXINE 50 MCG TAB PO SCH (05:50)
[2018-12-16] MEDS ORDERED: VANCOMYCIN 1,500 MG in SODIUM CHLORIDE 0.9% 250 ML IVPB SCH (06:00)
[2018-12-16 06:54] LABS: INR 2.6 (<1.2); Prothrombin Time 24.8 sec (9.0-12.0)
[2018-12-16 06:59] LABS: Calcium 9.1 mg/dL (8.4-10.2); Potassium 4.4 mmol/L (3.5-5.1)
[2018-12-16] MEDS: ASPIRIN 81 MG PO SCH (08:55)
[2018-12-16] MEDS: ALLOPURINOL 100 MG TAB PO SCH (08:55)
[2018-12-16] MEDS: DOCUSATE 100 MG CAP PO SCH (08:56)
[2018-12-16] MEDS: MULTIVITAMINS, THERA 1 EACH TAB PO SCH (08:56)
[2018-12-16] MEDS: CLOPIDOGREL 75 MG TAB PO SCH (08:56)
[2018-12-16] MEDS: PANTOPRAZOLE 40 MG TABLET PO SCH (08:57)
[2018-12-16] MEDS ORDERED: TORSEMIDE 20 MG TAB PO SCH (09:00)
[2018-12-16 10:06] VITALS: BP 125/75; RESP 17; TEMP 97.6
[2018-12-16 13:00] VITALS: BMI 34.3
--- NOTE | 2018-12-16 14:15 | PN ---
PROGRESS NOTE DATE OF SERVICE: 12/16/2018 REASON FOR FOLLOWUP: Urinary tract infection. INTERVAL HISTORY: The patient is currently afebrile. She is breathing comfortably. Denies having any chest pain or cough. No abdominal pain or any diarrhea. PHYSICAL EXAMINATION: Blood pressure 125/75 with a pulse of 50, temperature 97.6. She is 97% on room air. General description is an elderly female, up in the bed in no distress. RESPIRATORY SYSTEM: Unlabored breathing with decreased breath sounds in the base, no wheeze. HEART: S1, S2. Regular rate and rhythm. ABDOMEN: Soft, no tenderness. LABS: BUN of 42, creatinine 1.06. Repeat cultures have been negative. DIAGNOSTIC IMPRESSION AND PLAN: Patient with Enterococcus faecalis urinary intact infection. Underlying UTI has been adequately treated. Patient repeat urine culture negative. Recommend discontinue vanc on discharge. Continue supportive care. MMODL / IJN: [id number] /
[2018-12-16] MEDS ORDERED: WARFARIN 2 MG TAB PO ONE (18:00)
--- NOTE | 2018-12-16 21:48 | PN ---
PROGRESS NOTE The patient is seen for followup for acute kidney injury with serum creatinine currently decreasing from 1.8-1.0 mg/dL now. The patient will be discharged today. She denies any other complaints. PHYSICAL EXAMINATION: This morning blood pressure was 125/75, heart rate 50 per minute. She is afebrile. Examination of the heart S1, S2. Examination of the lungs bilateral breath sounds are heard. Abdomen is soft, obese, nontender. Examination lower extremity shows edema 1+ bilaterally. [employer] exam is grossly intact. LABS: Show serum creatinine down to 1.06. Sodium 140, potassium 4.4. ASSESSMENT: 1. Acute kidney injury, currently improved. 2. Chronic kidney disease stage 3 secondary to nephrosclerosis. Baseline about 1.5. 3. Congestive heart failure, systolic, acute on top of chronic. 4. Cardiomyopathy, ejection fraction 35-40 percent. 5. Volume overload. PLAN: The patient can be discharged from nephrology standpoint and follow up as outpatient in about 1-2 weeks. MMODL / IJN: [id number] /
--- NOTE | 2018-12-17 09:04 | DS ---
DISCHARGE SUMMARY DATE OF ADMISSION: 12/12/2018 DATE OF DISCHARGE: 12/16/2018 FINAL DIAGNOSES: 1. Acute urinary tract infection from cystitis from Enterococcus faecalis. 2. Coronary artery disease with prior history of bypass and stent to the LAD. 3. Chronic kidney disease stage II, probably from nephrosclerosis. 4. Chronic obstructive pulmonary disease. 5. Primary osteoarthritis in multiple joints. 6. AICD. 7. History of atrial fibrillation for which patient is on Coumadin. 8. Hypothyroidism. 9. Anxiety, not otherwise specified. 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 11.Severe tricuspid regurgitation, nonrheumatic. 12.Acute on chronic congestive heart failure from systolic dysfunction, ejection fraction 35%-40%. 13.Severe tricuspid regurgitation, nonrheumatic. 14.Chronic obstructive pulmonary disease in an ex-smoker. 15.Essential hypertension. 16.Hyperlipidemia. 17.Coumadin monitoring. 18.Hypothyroidism. HOSPITAL COURSE: This patient noted dealing with a UTI, presented with the same. Patient was treated on Vancomycin, did complete a course of antibiotics. Also was treated for CHF exacerbation. CONSULTATIONS: Dr. Kc and colleagues from Nephrology; Dr. Magallanes from Infectious Disease; Dr. Cortez from Cardiology. PHYSICAL EXAMINATION: Temperature 97.6, pulse 50, respiration 17, blood pressure 125/75, pulse ox 97% on room air. GENERAL APPEARANCE: Heart sounds irregular. LUNGS: Fair air entry. LABS: INR 2.6, potassium 4.4, BUN 42, creatinine 1.06. DISCHARGE MEDICATIONS: 1. Aspirin 81 mg a day. 2. Synthroid 50 mcg a day. 3. Prilosec 20 mg a day. 4. Uloric 80 mg p.o. daily. 5. Multivitamin 1 tablet p.o. daily. 6. Lipitor 40 mg q.h.s. 7. Nitrostat 0.4 sublingual q.5 p.r.n. 8. Plavix 75 mg a day. 9. Xanax 0.25 p.o. t.i.d. p.r.n. 10.[place] 7.5 one tablet q.4 p.r.n. 11.Colace 100 mg b.i.d. 12.Elemental 325 p.o. daily. 13.Zestril 2.5 p.o. daily. 14.Aldactone 25 mg p.o. daily. 15.Coumadin 4 mg Sunday, Sunday, Sunday, , Sunday, Sunday and 2 mg on Sunday. 16.Toprol-XL 50 mg p.o. q.h.s. 17.Demadex 20 mg p.o. daily. LABS: BMP in 3 days. Follow up with Dr. Kc on ; Dr. Carmen Grijalva in 2 weeks; Dr. Hedrick on 12/24/2018. [facility] to follow. MMODL / IJN: [id number] /
== END 2018-12-16 16:30 | disposition home health service (06) | DRG 291 ==
LOC: EC 13:14 → 4SSUR 16:45 → OBSVTOIN 12-14 13:13
PROVIDERS: ADMIT Hospitalist; ATTEND Hospitalist
DX: I13.0 Hypertensive heart and chronic kidney disease with heart failure and stage 1 through stage 4 chronic kidney disease, or unspecified chronic kidney disease (principal); I50.23 Acute on chronic systolic (congestive) heart failure; E87.3 Alkalosis; L03.115 Cellulitis of right lower limb; N17.9 Acute kidney failure, unspecified; B95.2 Enterococcus as the cause of diseases classified elsewhere; E03.9 Hypothyroidism, unspecified; E78.5 Hyperlipidemia, unspecified; E87.5 Hyperkalemia; F41.9 Anxiety disorder, unspecified; I07.1 Rheumatic tricuspid insufficiency; I25.10 Atherosclerotic heart disease of native coronary artery without angina pectoris; I25.2 Old myocardial infarction; I25.5 Ischemic cardiomyopathy; I48.0 Paroxysmal atrial fibrillation; I73.9 Peripheral vascular disease, unspecified; J44.9 Chronic obstructive pulmonary disease, unspecified; N18.3 Chronic kidney disease, stage 3 (moderate); N30.90 Cystitis, unspecified without hematuria; Z79.01 Long term (current) use of anticoagulants; Z79.02 Long term (current) use of antithrombotics/antiplatelets; Z79.82 Long term (current) use of aspirin; Z79.890 Hormone replacement therapy; Z79.899 Other long term (current) drug therapy; Z80.3 Family history of malignant neoplasm of breast; Z80.41 Family history of malignant neoplasm of ovary; Z82.49 Family history of ischemic heart disease and other diseases of the circulatory system; Z83.3 Family history of diabetes mellitus; Z85.3 Personal history of malignant neoplasm of breast; Z86.718 Personal history of other venous thrombosis and embolism; Z87.891 Personal history of nicotine dependence; Z88.0 Allergy status to penicillin; Z90.710 Acquired absence of both cervix and uterus; Z95.810 Presence of automatic (implantable) cardiac defibrillator; Z96.651 Presence of right artificial knee joint; Z98.61 Coronary angioplasty status; Z90.49 Acquired absence of other specified parts of digestive tract; Z88.8 Allergy status to other drugs, medicaments and biological substances; M19.90 Unspecified osteoarthritis, unspecified site
CPT/HCPCS: 36415; 71046; 80048; 80053; 81001; 82550; 82553; 83605; 83880; 84484; 85025; 85610; 85730; 87040; 87077; 87086; 87186; 93005; 96365; 96375; 99285

== ENCOUNTER 2019-04-13 17:59 | Inpatient (IN) | payer MEDICARE ==
[2019-04-13] MEDS ORDERED: FUROSEMIDE 10 MG/ML 10 ML VIAL IV STA (18:41)
--- NOTE | 2019-04-13 18:43 | ED ---
General Adult HPI - General Chief complaint: Extremity Problem,Nontraumatic Stated complaint: bilat leg drainage Time Seen by Provider: 04/13/19 18:05 Source: patient, RN notes reviewed Mode of arrival: ambulatory Limitations: no limitations - History of Present Illness Initial comments: This is a 79-year-old female who presents emergency department with past medical history significant for coronary artery syndrome multiple stents multiple heart attacks and fluctuating pedal edema. Patient states over the last week she's been 11 pounds in the legs are so swollen area just weeping. Patient states she has noted also to 15 emergency department. Patient denies any chest pain but states she is a little more short of breath than normal. Patient denies any recent fever chills or cough per patient denies abdominal pain patient denies nausea vomiting diarrhea. Patient denies headache patient denies numbness weakness. Patient denies any lightheadedness dizziness or near syncopal episode. - Related Data Home Medications Medication Instructions Recorded Confirmed Aspirin 81 mg PO DAILY 06/08/15 04/13/19 Levothyroxine Sodium [Synthroid] 50 mcg PO DAILY@0600 06/08/15 04/13/19 Omeprazole [PriLOSEC] 20 mg PO DAILY 06/08/15 04/13/19 Febuxostat [Uloric] 80 mg PO DAILY 06/10/17 04/13/19 Lisinopril [Zestril] 2.5 mg PO DAILY@1700 05/27/18 04/13/19 Warfarin Sodium 4 mg PO MOWETHFRSA 05/27/18 04/13/19 Warfarin [Coumadin] 2 mg PO SUTU 05/27/18 04/13/19 Metoprolol Succinate [Toprol Xl] 50 mg PO DAILY 12/12/18 04/13/19 Calcitriol 0.5 mcg PO Q7D 04/13/19 04/13/19 Colace 50mg 50 mg PO BID 04/13/19 04/13/19 Midodrine [ProAmatine] 5 mg PO TID PRN 04/13/19 04/13/19 Spironolactone [Aldactone] 12.5 mg PO DAILY 04/13/19 04/13/19 Torsemide [Demadex] 20 mg PO Q48H 04/13/19 04/13/19 Previous Rx's Medication Instructions Recorded Atorvastatin [Lipitor] 40 mg PO HS #30 tab 12/15/17 Nitroglycerin Sl Tabs [Nitrostat] 0.4 mg SUBLINGUAL Q5M PRN tab 12/19/17 ALPRAZolam [Xanax] 0.25 mg PO TID PRN #9 tablet 03/04/18 HYDROcodone/APAP 7.5-325MG [[place] 1 tab PO Q4H PRN #10 tab 03/04/18 7.5-325] Allergies Allergy/AdvReac Type Severity Reaction Status Date / Time Penicillins Allergy Rash/Hives Verified 04/13/19 18:29 dexamethasone AdvReac Nausea & Verified 04/13/19 18:29 Vomiting methylprednisolone AdvReac Unknown Verified 04/13/19 18:29 Review of Systems ROS Statement: Those systems with pertinent positive or pertinent negative responses have been documented in the HPI. ROS Other: All systems not noted in ROS Statement are negative. 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,brachial artery thrombosis, djd , RENAL FX AT 65%(PER FAMILY), HX BENIGN BREAST TUMORS, recurring uti, leg swelling Last Myocardial Infarction Date:: 2017 History of Any Multi-Drug Resistant Organisms: None Reported Past Surgical History: Adenoidectomy, AICD, Breast Surgery, Cholecystectomy, Heart Catheterization With Stent, Hysterectomy, Joint Replacement, Pacemaker, Tonsillectomy, Tubal Ligation Additional Past Surgical History / Comment(s): 08-07-13 aicd(biventricular dual chamber aicd/pacemaker-[employer] [facility], thrombectomy rt arm, rt knee replacement, rt carotid endartectomy Past Anesthesia/Blood Transfusion Reactions: No Reported Reaction Additional Past Anesthesia/Blood Transfusion Reaction / Comment(s): blood transfusion 1969- no reaction Date of Last Stent Placement:: 11/2017 Type of Cardiac Device: AICD Device Placement Date:: 08-07-13 Past Psychological History: Anxiety, Depression Smoking Status: Former smoker Past Alcohol Use History: None Reported Past Drug Use History: None Reported - Past Family History Father Family Medical History: Diabetes Mellitus, Myocardial Infarction (HI) Mother Family Medical History: Cancer, Hyperlipidemia, Hypertension Additional Family Medical History / Comment(s): BREAST CA Brother(s) Family Medical History: Myocardial Infarction ([place]) Additional Family Medical History / Comment(s): AGE 57 FROM [place] Sister(s) Family Medical History: Cancer Additional Family Medical History / Comment(s): YOUNGER SISTER FROM OVARIAN CANCER AGE 51 AND ANOTHER SISTER HAD HI/CAD,OPEN HEART W/VALVE REPLACEMENT AND DM General Exam - General Exam Comments Initial Comments: GENERAL: Patient is well-developed and well-nourished. Patient is nontoxic and well- hydrated and is in no acute distress. ENT: Neck is soft and supple. No significant lymphadenopathy is noted. Oropharynx is clear. Moist mucous membranes. Neck has full range of motion without eliciting any pain. EYES: The sclera were anicteric and conjunctiva were pink and moist. Extraocular movements were intact and pupils were equal round and reactive to light. Eyelids were unremarkable. PULMONARY: Unlabored respirations. Good breath sounds bilaterally. No audible rales rhonchi or wheezing was noted. CARDIOVASCULAR: There is a regular rate and rhythm without any murmurs gallops or rubs. ABDOMEN: Soft and nontender with normal bowel sounds. SKIN: Skin is clear with no lesions or rashes and otherwise unremarkable. NEUROLOGIC: Patient is alert and oriented x3. Cranial nerves II through XII are grossly intact. Motor and sensory are also intact. Normal speech, volume and content. Symmetrical smile. MUSCULOSKELETAL: Normal extremities with adequate strength and full range of motion. 2+ edema bilaterally LYMPHATICS: No significant lymphadenopathy is noted PSYCHIATRIC: Normal psychiatric evaluation. Limitations: no limitations Course Vital Signs 04/13/19 04/13/19 18:04 19:27 Temperature 98.7 F Pulse Rate 50 L 50 L Respiratory 18 18 Rate Blood Pressure 137/64 129/47 O2 Sat by Pulse 96 96 Oximetry Medical Decision Making - Medical Decision Making EKG shows paced rhythm at 50 bpm QRS 150 QT intervals 534 QTC is 46 per patient's EKG shows no ST segment elevation or depression. Chest x-ray shows mild pulmonary edema Spoke to Dr. Dorantes he agreed to admit the patient admitted the patient I wrote admitting orders - Lab Data Result diagrams: 04/13/19 18:39 04/13/19 18:39 Lab Results 06/02/19 06/02/19 06/02/19 Range/Units 18:39 18:39 18:39 WBC 3.6 L (3.8-10.6) k/uL RBC 4.07 (3.80-5.40) m/uL Hgb 11.8 (11.4-16.0) gm/dL Hct 38.3 (34.0-46.0) % MCV 94.1 (80.0-100.0) fL MCH 29.1 (25.0-35.0) pg MCHC 30.9 L (31.0-37.0) g/dL RDW 15.3 (11.5-15.5) % Plt Count 86 L (150-450) k/uL Neutrophils % 62 % Lymphocytes % 15 % Monocytes % 13 % Eosinophils % 4 % Basophils % 1 % Neutrophils # 2.3 (1.3-7.7) k/uL Lymphocytes # 0.6 L (1.0-4.8) k/uL Monocytes # 0.5 (0-1.0) k/uL Eosinophils # 0.2 (0-0.7) k/uL Basophils # 0.0 (0-0.2) k/uL Manual Slide Review Performed Hypochromasia Slight Poikilocytosis (manual Present PT (9.0-12.0) sec INR (<1.2) APTT (22.0-30.0) sec Sodium 140 (137-145) mmol/L Potassium 4.8 (3.5-5.1) mmol/L Chloride 108 H (98-107) mmol/L Carbon Dioxide 25 (22-30) mmol/L Anion Gap 7 mmol/L BUN 34 H (7-17) mg/dL Creatinine 1.21 H (0.52-1.04) mg/dL Est GFR (CKD-EPI)AfAm 50 (>60 ml/min/1.73 sqM) Est GFR (CKD-EPI)NonAf 43 (>60 ml/min/1.73 sqM) Glucose 141 H (74-99) mg/dL Calcium 9.1 (8.4-10.2) mg/dL Magnesium 2.1 (1.6-2.3) mg/dL Total Bilirubin 1.6 H (0.2-1.3) mg/dL AST 38 H (14-36) U/L ALT 26 (9-52) U/L Alkaline Phosphatase 99 (38-126) U/L Troponin I (0.000-0.034) ng/mL NT-Pro-B Natriuret Pep 3850 pg/mL Total Protein 6.0 L (6.3-8.2) g/dL Albumin 3.4 L (3.5-5.0) g/dL 04/13/19 04/13/19 Range/Units 18:39 18:39 WBC (3.8-10.6) k/uL RBC (3.80-5.40) m/uL Hgb (11.4-16.0) gm/dL Hct (34.0-46.0) % MCV (80.0-100.0) fL MCH (25.0-35.0) pg MCHC (31.0-37.0) g/dL RDW (11.5-15.5) % Plt Count (150-450) k/uL Neutrophils % % Lymphocytes % % Monocytes % % Eosinophils % % Basophils % % Neutrophils # (1.3-7.7) k/uL Lymphocytes # (1.0-4.8) k/uL Monocytes # (0-1.0) k/uL Eosinophils # (0-0.7) k/uL Basophils # (0-0.2) k/uL Manual Slide Review Hypochromasia Poikilocytosis (manual PT 22.3 H (9.0-12.0) sec INR 2.3 H (<1.2) APTT 35.1 H (22.0-30.0) sec Sodium (137-145) mmol/L Potassium (3.5-5.1) mmol/L Chloride (98-107) mmol/L Carbon Dioxide (22-30) mmol/L Anion Gap mmol/L BUN (7-17) mg/dL Creatinine (0.52-1.04) mg/dL Est GFR (CKD-EPI)AfAm (>60 ml/min/1.73 sqM) Est GFR (CKD-EPI)NonAf (>60 ml/min/1.73 sqM) Glucose (74-99) mg/dL Calcium (8.4-10.2) mg/dL Magnesium (1.6-2.3) mg/dL Total Bilirubin (0.2-1.3) mg/dL AST (14-36) U/L ALT (9-52) U/L Alkaline Phosphatase (38-126) U/L Troponin I <0.012 (0.000-0.034) ng/mL NT-Pro-B Natriuret Pep pg/mL Total Protein (6.3-8.2) g/dL Albumin (3.5-5.0) g/dL Disposition Clinical Impression: Pedal edema, Pulmonary edema Disposition: ADMITTED IP TO THIS HOSP Referrals: Lan Hedrick DO [Primary Care Provider] - 1-2 days Time of Disposition: 20:10
[2019-04-13 19:01] LABS: INR 2.3 (<1.2); Partial Thromboplastin Time 35.1 sec (22.0-30.0); Prothrombin Time 22.3 sec (9.0-12.0)
[2019-04-13 19:03] LABS: Basophils % (A) 1 %; Eosinophils # (A) 0.2 k/uL (0-0.7); Eosinophils % (A) 4 %; HCT 38.3 % (34.0-46.0); HGB 11.8 gm/dL (11.4-16.0); Hypochromasia Slight; Lymphocytes # (A) 0.6 k/uL (1.0-4.8); Lymphocytes % (A) 15 %; MCH 29.1 pg (25.0-35.0); MCHC 30.9 g/dL (31.0-37.0); MCV 94.1 fL (80.0-100.0); Mean Platelet Volume 10.3; Monocytes # (A) 0.5 k/uL (0-1.0); Monocytes % (A) 13 %; Neutrophils # (A) 2.3 k/uL (1.3-7.7); Neutrophils % (A) 62 %; Platelet Count 86 k/uL (150-450); RBC 4.07 m/uL (3.80-5.40); RDW 15.3 % (11.5-15.5); WBC 3.6 k/uL (3.8-10.6)
[2019-04-13 19:09] LABS: Albumin 3.4 g/dL (3.5-5.0); Calcium 9.1 mg/dL (8.4-10.2); Magnesium 2.1 mg/dL (1.6-2.3); Potassium 4.8 mmol/L (3.5-5.1); Total Bilirubin 1.6 mg/dL (0.2-1.3)
[2019-04-13 19:17] LABS: Poikilocytosis (M) Present
--- NOTE | 2019-04-13 19:26 | XR ---
EXAMINATION TYPE: XR chest 2V DATE OF EXAM: 04/13/2019 COMPARISON: 12/12/2018 HISTORY: Chest pain TECHNIQUE: Frontal and lateral views of the chest are obtained. FINDINGS: There is redemonstration of an enlarged cardiomediastinal silhouette with dual lead left-s ided cardiac device. Chronic interstitial prominence is unchanged. No discrete pulmonary vascular con gestion are pleural effusion. No pneumothorax. Multilevel degenerative changes of the spine and diffu se osseous demineralization are seen. Moderate degenerative changes of the shoulders. IMPRESSION: Chronic findings with no acute cardiopulmonary process.
[2019-04-14] MEDS ORDERED: NITROGLYCERIN SL TABS 0.4 MG TAB SUBLINGUAL PRN (00:47)
[2019-04-14] MEDS: HYDROcodone/APAP 7.5-325MG 1 EACH TAB PO PRN ×4 (01:03→20:44)
[2019-04-14] MEDS: FUROSEMIDE 10 MG/ML 4 ML VIAL IV SCH ×3 (03:35→17:10)
[2019-04-14] MEDS: LEVOTHYROXINE 50 MCG TAB PO SCH (05:05)
[2019-04-14] MEDS ORDERED: MIDODRINE 5 MG TAB PO PRN (06:00)
[2019-04-14] MEDS ORDERED: TORSEMIDE 20 MG TAB PO SCH (09:00)
[2019-04-14] MEDS ORDERED: CALCITRIOL 0.25 MCG CAP PO SCH (09:00)
[2019-04-14] MEDS: DOCUSATE ORAL SOLN 100 MG/10 ML CUP PO SCH ×2 (09:02→20:39)
[2019-04-14] MEDS: SPIRONOLACTONE 25 MG TAB PO SCH (09:02)
[2019-04-14] MEDS: PANTOPRAZOLE 40 MG TABLET PO SCH (09:02)
[2019-04-14] MEDS: METOPROLOL SUCCINATE (ER) 50 MG TAB.ER.24H PO SCH (09:02)
[2019-04-14] MEDS: ALLOPURINOL 100 MG TAB PO SCH ×2 (09:02→20:44)
[2019-04-14] MEDS: ASPIRIN 81 MG PO SCH (09:02)
--- NOTE | 2019-04-14 09:30 | P.CRDCN ---
History of Present Illness Consult date: 04/14/19 Requesting physician: Itz Dorantes Consult reason: congestive heart failure Chief complaint: Bilateral lower extremity edema and shortness of breath History of present illness: This is a pleasant 79-year-old female with past medical history significant for coronary artery disease, prior angioplasty, ischemic cardio myopathy with prior AICD, chronic systolic congestive heart failure, hyperlipidemia, paroxysmal atrial fibrillation, hypertension, peripheral vascular disease status post right carotid endarterectomy, COPD, chronic kidney disease and former nicotine dependence. She follows with Dr. Waqar Grijalva in the office. She presents to the hospital on this occasion with symptoms of bilateral lower extremity edema and worsening in shortness of breath. According to the patient, over the past few days she has noticed her legs to be significantly more swollen, she's developed ulcerated areas that it started to weep. For this reason she came to the emergency room for further evaluation. Chest x-ray on arrival here showed chronic findings with no acute cardiopulmonary process. Her EKG shows paced rhythm. Blood pressure 128/60 with a heart rate in the 50s, temperature 96.3, 96% on room air. White blood cell count 3.6, hemoglobin 11.8, platelet count 86, INR 2.3, sodium 140, potassium 4.8, BUN 34 and creatinine 1.2. Total bilirubin is 1.6, AST 38 ALT 26 troponin less than 0.12 and BNP level 3850. Patient was initiated on IV Lasix in the emergency room. Her weight is down 3 kg today. At the time of my examination this morning, the patient is lying fairly flat in bed, denies any overt shortness of breath this morning, he can bilateral peripheral edema. Past Medical History Past Medical History: Coronary Artery Disease (CAD), Heart Failure, COPD, Deep Vein Thrombosis (DVT), Hyperlipidemia, Hypertension, Myocardial Infarction ([place]), Osteoarthritis (OA), Renal Disease, Thyroid Disorder, Vascular Disorder Additional Past Medical History / Comment(s): 2013 rt axillary,brachial artery thrombosis, djd , RENAL FX AT 65%(PER FAMILY), HX BENIGN BREAST TUMORS, recurring uti, leg swelling Last Myocardial Infarction Date:: 2017 History of Any Multi-Drug Resistant Organisms: None Reported Past Surgical History: Adenoidectomy, AICD, Breast Surgery, Cholecystectomy, Heart Catheterization With Stent, Hysterectomy, Joint Replacement, Pacemaker, Tonsillectomy, Tubal Ligation Additional Past Surgical History / Comment(s): 08-07-13 aicd(biventricular dual chamber aicd/pacemaker-[employer], thrombectomy rt arm, rt knee replacement, rt carotid endartectomy Past Anesthesia/Blood Transfusion Reactions: No Reported Reaction Additional Past Anesthesia/Blood Transfusion Reaction / Comment(s): blood transfusion 1969- no reaction Date of Last Stent Placement:: 11/2017 Type of Cardiac Device: AICD Device Placement Date:: 08-07-13 Past Psychological History: Anxiety, Depression Additional Psychological History / Comment(s): lives alone uses walker when up Smoking Status: Former smoker Past Alcohol Use History: None Reported Additional Past Alcohol Use History / Comment(s): smoked x 30 years 1/2 ppd, quit 2012 Past Drug Use History: None Reported - Past Family History Father Family Medical History: Diabetes Mellitus, Myocardial Infarction ([place]) Mother Family Medical History: Cancer, Hyperlipidemia, Hypertension Additional Family Medical History / Comment(s): BREAST CA Brother(s) Family Medical History: Myocardial Infarction ([place]) Additional Family Medical History / Comment(s): AGE 57 FROM [place] Sister(s) Family Medical History: Cancer Additional Family Medical History / Comment(s): YOUNGER SISTER FROM OVARIAN CANCER AGE 51 AND ANOTHER SISTER HAD [place]/CAD,OPEN HEART W/VALVE REPLACEMENT AND DM Medications and Allergies Home Medications Medication Instructions Recorded Confirmed Type Aspirin 81 mg PO DAILY 06/08/15 04/13/19 History Levothyroxine Sodium [Synthroid] 50 mcg PO DAILY@0600 06/08/15 04/13/19 History Omeprazole [PriLOSEC] 20 mg PO DAILY 06/08/15 04/13/19 History Febuxostat [Uloric] 80 mg PO DAILY 06/10/17 04/13/19 History Atorvastatin [Lipitor] 40 mg PO HS #30 tab 12/15/17 04/13/19 Rx Nitroglycerin Sl Tabs [Nitrostat] 0.4 mg SUBLINGUAL Q5M PRN tab 12/19/17 04/13/19 Rx ALPRAZolam [Xanax] 0.25 mg PO TID PRN #9 tablet 03/04/18 04/13/19 Rx HYDROcodone/APAP 7.5-325MG [[place] 1 tab PO Q4H PRN #10 tab 03/04/18 04/13/19 Rx 7.5-325] Lisinopril [Zestril] 2.5 mg PO DAILY@1700 05/27/18 04/13/19 History Warfarin Sodium 4 mg PO MOWETHFRSA 05/27/18 04/13/19 History Warfarin [Coumadin] 2 mg PO SUTU 05/27/18 04/13/19 History Metoprolol Succinate [Toprol Xl] 50 mg PO DAILY 12/12/18 04/13/19 History Calcitriol 0.5 mcg PO Q7D 04/13/19 04/13/19 History Colace 50mg 50 mg PO BID 04/13/19 04/13/19 History Midodrine [ProAmatine] 5 mg PO TID PRN 04/13/19 04/13/19 History Spironolactone [Aldactone] 12.5 mg PO DAILY 04/13/19 04/13/19 History Torsemide [Demadex] 20 mg PO Q48H 04/13/19 04/13/19 History Allergies Allergy/AdvReac Type Severity Reaction Status Date / Time Penicillins Allergy Rash/Hives Verified 04/13/19 18:29 dexamethasone AdvReac Nausea & Verified 04/13/19 18:29 Vomiting methylprednisolone AdvReac Unknown Verified 04/13/19 18:29 Physical Exam Vitals: Vital Signs Temp Pulse Pulse Resp BP BP Pulse Ox 04/14/19 08:00 96.3 F L 54 L 20 129/59 96 04/14/19 04:00 97.8 F 55 L 18 147/60 95 04/13/19 23:34 50 L 18 04/13/19 23:33 98.0 F 50 L 18 127/58 100 04/13/19 21:45 50 L 18 04/13/19 21:20 98.2 F 50 L 18 153/67 97 04/13/19 21:00 50 L 16 121/53 96 04/13/19 19:27 50 L 18 129/47 96 04/13/19 18:04 98.7 F 50 L 18 137/64 96 Intake and Output 04/13/19 04/14/19 04/14/19 22:59 06:59 14:59 Output Total 500 1200 Balance -500 -1200 Output: Urine 500 1200 Other: Voiding Method Bedpan Bedpan Bedpan # Voids 1 3 Weight 82.1 kg 79.9 kg GENERAL: This is a 78-year-old female in no apparent distress at the time of my examination. HEENT: Head is atraumatic, normocephalic. Pupils are equal, round. Sclerae anicteric. Conjunctivae are clear. Mucous membranes of the mouth are moist. Neck is supple. There is jugular venous distention noted bilaterally. No carotid bruit is heard. LUNGS: Clear to auscultation no wheezes, rales or rhonchi. No chest wall tenderness is noted on palpation or with deep breathing. Diminished bilaterally with prolonged inspiration. HEART: Regular rate and rhythm with systolic ejection murmur at the left sternal border, no rubs or gallops. S1 and S2 heard. ABDOMEN: Soft, nontender. Bowel sounds are heard. No organomegaly noted. EXTREMITIES: 2+ bilateral lower extremity pitting edema bilaterally. Evidence of chronic venous stasis. Open ulcerated area X2 noted on the left lower ex tremity. No calf tenderness noted. VASCULAR: Radial and dorsalis pedis pulses palpated, no evidence of clubbing. NEUROLOGIC: Patient is awake, alert and oriented x3. Results 04/13/19 18:39 04/13/19 18:39 Cardiac Enzymes 04/13/19 04/13/19 Range/Units 18:39 18:39 AST 38 H (14-36) U/L Troponin I <0.012 (0.000-0.034) ng/mL Coagulation 04/13/19 Range/Units 18:39 PT 22.3 H (9.0-12.0) sec APTT 35.1 H (22.0-30.0) sec CBC 04/13/19 Range/Units 18:39 WBC 3.6 L (3.8-10.6) k/uL RBC 4.07 (3.80-5.40) m/uL Hgb 11.8 (11.4-16.0) gm/dL Hct 38.3 (34.0-46.0) % Plt Count 86 L (150-450) k/uL Comprehensive Metabolic Panel 04/13/19 Range/Units 18:39 Sodium 140 (137-145) mmol/L Potassium 4.8 (3.5-5.1) mmol/L Chloride 108 H (98-107) mmol/L Carbon Dioxide 25 (22-30) mmol/L BUN 34 H (7-17) mg/dL Creatinine 1.21 H (0.52-1.04) mg/dL Glucose 141 H (74-99) mg/dL Calcium 9.1 (8.4-10.2) mg/dL AST 38 H (14-36) U/L ALT 26 (9-52) U/L Alkaline Phosphatase 99 (38-126) U/L Total Protein 6.0 L (6.3-8.2) g/dL Albumin 3.4 L (3.5-5.0) g/dL Current Medications Generic Name Dose Route Start Last Admin Trade Name Freq PRN Reason Stop Dose Admin Hydrocodone Bitart/Acetaminophen 1 each 04/14/19 00:47 04/14/19 05:04 [place] 7.5-325 PO 1 each Q4H PRN Administration Pain Allopurinol 200 mg 04/14/19 09:00 04/14/19 09:02 Zyloprim PO 200 mg BID [facility] Administration Alprazolam 0.25 mg 04/14/19 00:47 Xanax PO TID PRN Anxiety Aspirin 81 mg 04/14/19 09:00 04/14/19 09:02 Aspirin PO 81 mg DAILY [facility] Administration Atorvastatin Calcium 40 mg 04/14/19 21:00 Lipitor PO HS [facility] Calcitriol 0.5 mcg 04/14/19 09:00 04/14/19 09:01 Rocaltrol PO 0.5 mcg Q7D [facility] Administration Docusate Sodium 50 mg 04/14/19 09:00 04/14/19 09:02 Colace Oral Soln PO 50 mg BID [facility] Administration Furosemide 40 mg 04/14/19 03:00 04/14/19 03:35 Lasix IV 40 mg Q8H [facility] Administration Levothyroxine Sodium 50 mcg 04/14/19 06:30 04/14/19 05:05 Synthroid PO 50 mcg DAILY@0630 [facility] Administration Lisinopril 2.5 mg 04/14/19 17:00 Zestril PO DAILY@1700 [facility] Metoprolol Succinate 50 mg 04/14/19 09:00 04/14/19 09:02 Toprol Xl PO 50 mg DAILY [facility] Administration Midodrine 5 mg 04/14/19 06:00 Proamatine PO TID PRN DIZZINESS Nitroglycerin 0.4 mg 06/03/19 00:47 Nitrostat SUBLINGUAL Q5M PRN Chest Pain Pantoprazole Sodium 40 mg 04/14/19 09:00 04/14/19 09:02 Protonix PO 40 mg DAILY [facility] Administration Spironolactone 12.5 mg 04/14/19 09:00 04/14/19 09:02 Aldactone PO 12.5 mg DAILY [facility] Administration Torsemide 20 mg 04/14/19 09:00 04/14/19 09:02 Demadex PO 20 mg Q48H [facility] Administration Warfarin Sodium 2 mg 04/15/19 18:00 Coumadin PO SuTu@1800 [facility] Warfarin Sodium 4 mg 04/14/19 18:00 Coumadin PO MoWeThFrSa@1800 [facility] Intake and Output 04/13/19 04/14/19 04/14/19 22:59 06:59 14:59 Output Total 500 1200 Balance -500 -1200 Output: Urine 500 1200 Other: Voiding Method Bedpan Bedpan Bedpan # Voids 1 3 Weight 82.1 kg 79.9 kg 04/13/19 18:39 04/13/19 18:39 EKG Interpretations (text) EKG shows a paced rhythm. Assessment and Plan Plan: ASSESSMENT and plan #1 Acute on chronic systolic heart failure #2 Acute on chronic kidney injury #3 History of coronary artery disease s/p recent PCI on dual anti-platelet therapy #4 Ischemic cardiomyopathy s/p AICD implantation #5 Hypertension #6 Dyslipidemia #7 Paroxysmal atrial fibrillation on residential anticoagulation #8 Peripheral vascular disease s/p carotid endartectomy #9 history of nicotine dependence Plan We will continue current dose of IV Lasix 40 mg IV every 8 hourly, continue to monitor intake and output along with daily weights and daily lytes BUN and creatinine. Continue Lipitor, lisinopril, metoprolol, and Aldactone. Obtain echocardiogram with Doppler study. Further recommendations to follow. DNP note has been reviewed, I agree with a documented findings and plan of care. Patient was seen and examined.
[2019-04-14 15:37] VITALS: BMI 35.6
[2019-04-14] MEDS ORDERED: LISINOPRIL 2.5 MG TAB PO SCH (17:00)
--- NOTE | 2019-04-14 17:28 | HP ---
HISTORY AND PHYSICAL DATE OF ADMISSION: April 13, 2019. DATE OF SERVICE: April 14, 2019. PRESENTING COMPLAINT: Short of breath, edema. HISTORY OF PRESENTING COMPLAINT: This is a pleasant 79-year-old patient with an extensive medical history. Chronic stable medical conditions include coronary artery disease, chronic kidney disease stage 2, COPD, primary osteoarthritis, AICD, paroxysmal atrial fibrillation, hyperthyroid, congestive heart failure, severe tricuspid regurgitation on Coumadin and also COPD. The patient has been progressively getting more short of breath. Significant edema in the lower extremity and also developed blisters. Denies any cough. No fever. No chills. No pain. Appetite is okay. The patient is found to be in congestive heart failure. Started on IV Lasix. REVIEW OF SYSTEMS: CONSTITUTIONAL: Tired. HEENT: None. RESPIRATORY: As above. CARDIOVASCULAR: As above. GASTROINTESTINAL none. GENITOURINARY: None. MUSCULOSKELETAL: Some arthritic pain in joints. DERMATOLOGICAL: Blisters lower extremity HEMATOLOGICAL: None. LYMPHATICS none. PSYCHIATRY none. NEUROLOGICAL none. 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 Additional past medical history is right axillary and brachial artery thrombosis. PAST SURGICAL HISTORY: Adenoidectomy, AICD, breast surgery, cardiac cath with stent, hysterectomy, joint replacement, pacemaker, tonsillectomy, tubal ligation, in 2012 had a AICD placed, thrombectomy right arm, right knee replacement, right carotid endarterectomy. PSYCH HISTORY: Anxiety, depression. SOCIAL HISTORY: Does use a walker. Patient smoked for 30 years, half a pack a day, stopped in 2012. Lives by herself. FAMILY HISTORY: Of diabetes, myocardial infarction, breast cancer. HOME MEDICATIONS: 1. Coumadin 2 mg on Sunday and Sunday, 4 mg Sunday, Sunday, , Sunday, Sunday. 2. Demadex 20 mg every 48 hours. 3. Aldactone 12.5 p.o. daily. 4. Prilosec 20 mg p.o. daily. 5. Nitrostat 0.4 sublingual q.5 p.r.n. 6. Midodrine 5 mg p.o. t.i.d. p.r.n. 7. Toprol-XL 50 mg p.o. daily. 8. Zestril 2.5 mg p.o. daily at 5:00 pm. 9. Synthroid 50 mcg p.o. daily. 10.[place] 7.5 one tab p.o. q.4h p.r.n. 11.Uloric 50 mg p.o. daily. 12.Colace 50 mg b.i.d. 13.Calcitriol 0.5 mcg p.o. every 7 days. 14.Lipitor 40 mg q.h.s. 15.Aspirin 81 mg p.o. daily. 16.Xanax 0.25 p.o. t.i.d. p.r.n. ALLERGIES: TO PENICILLIN DEXAMETHASONE, METHYLPREDNISONE. No true allergy. PHYSICAL EXAMINATION: VITAL SIGNS: Temperature 98.7, pulse 50, respiratory rate 18, blood pressure 137/64, pulse ox 96% on room air. GENERAL APPEARANCE: Well built. BMI 35.6. Sitting up, slightly short of breath. EYES: Pupils equal. Conjunctivae normal. HEENT: External appearance of nose and ears normal. Oral cavity normal. NECK: Veins are prominent, possibly JVD. Mass not palpable. RESPIRATORY: Effort increased. LUNGS: Decreased breath sounds. Some crackles. CARDIOVASCULAR: Heart sounds irregular. Edema present. ABDOMEN: Distended. Soft. Liver and spleen not palpable. LYMPHATICS: No lymph nodes palpable in the neck and axilla. PSYCHIATRY: Alert and oriented x3. Mood and affect normal. NEUROLOGICAL: Pupils equal. Cranial nerves grossly intact. Power and sensation grossly intact. INVESTIGATIONS: White count 3.6, hemoglobin 11.8, INR 2.3, potassium 4.8, BUN 34, creatinine 1.21. ProBNP 3850. Troponin less than 0.012. EKG tracing personally reviewed by me shows paced rhythm. Chest x-ray film personally reviewed by me shows cardiomegaly, pulmonary edema. ASSESSMENT: 1. Acute on chronic congestive heart failure exacerbation from systolic dysfunction EF 35-40 percent from underlying coronary artery disease. 2. Coronary artery disease prior history of coronary bypass and stent to LAD. 3. Chronic kidney disease stage 2 from nephrosclerosis. 4. Chronic obstructive pulmonary disease. 5. Primary osteoarthritis multiple joints. 6. AICD. 7. History of atrial fibrillation for which chronically on Coumadin. 8. Coumadin monitoring. 9. Hypothyroidism. 10.Anxiety not otherwise specified. 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 12.Severe tricuspid regurgitation, nonrheumatic. 13.Chronic obstructive pulmonary disease in an ex-smoker. 14.Essential hypertension. 15.Hyperlipidemia. 16.Coumadin monitoring. 17.Hypothyroidism. 18.CODE STATUS: DO NOT RESUSCITATE. PLAN: Cardiology was consulted. Home medications are resumed. Patient is put on IV Lasix. We will use Micha wrap to lower extremity. Care was discussed with the patient. Prognosis guarded. Follow electrolytes closely. Copy to Dr. Hedrick. KEREN / JERRIN: [id number] /
[2019-04-14] MEDS ORDERED: WARFARIN 2 MG TAB PO SCH (18:00)
[2019-04-14] MEDS: ALPRAZolam 0.25 MG TAB PO PRN (20:45)
[2019-04-14] MEDS: ATORVASTATIN 40 MG TAB PO SCH (20:45)
[2019-04-15] MEDS: LEVOTHYROXINE 50 MCG TAB PO SCH (04:42)
[2019-04-15] MEDS: FUROSEMIDE 10 MG/ML 4 ML VIAL IV SCH ×3 (04:42→20:05)
[2019-04-15] MEDS: DOCUSATE ORAL SOLN 100 MG/10 ML CUP PO SCH ×2 (08:31→20:05)
[2019-04-15] MEDS: ASPIRIN 81 MG PO SCH (08:32)
[2019-04-15] MEDS: PANTOPRAZOLE 40 MG TABLET PO SCH (08:32)
[2019-04-15] MEDS: METOPROLOL SUCCINATE (ER) 50 MG TAB.ER.24H PO SCH (08:32)
[2019-04-15] MEDS: HYDROcodone/APAP 7.5-325MG 1 EACH TAB PO PRN ×3 (08:33→19:33)
[2019-04-15] MEDS: SPIRONOLACTONE 25 MG TAB PO SCH (08:33)
[2019-04-15] MEDS: ALLOPURINOL 100 MG TAB PO SCH ×2 (08:34→20:05)
--- NOTE | 2019-04-15 11:00 | P.NPCON ---
History of Present Illness - Reason for Consult acute renal failure, chronic renal failure - History of Present Illness Reason for consultation: Acute kidney injury on chronic kidney disease. Patient is a 79-year-old female seen in consultation for acute kidney injury and chronic disease. Patient's had multiple episodes of acute kidney injury related to hypovolemia from diuretics and infections. Patient was last seen in the office in February 2019. At that time torsemide was decreased to 20 mg every other day due to acute kidney injury. Patient's creatinine in December 2018 was 1.7 and was up to 2.0 in February 2019. Patient presented to the hospital with lower extremity edema. Patient states she had gained about 10-11 pounds over the last 1 week. She denies vomiting or diarrhea. Admits to good urine output. No hematuria or dysuria. Denies chest pain or shortness of breath. Creatinine was 1.21 on admission April 13. No labs since then. She denies use of nonsteroidals. No history of diabetes. Vital signs are stable. General: The patient appeared well nourished and normally developed. HEENT: Head exam is unremarkable. Neck is without jugular venous distension. LUNGS: Lungs are clear to auscultation and percussion. Breath sounds decreased. HEART: Rate and Rhythm are regular. First and second heart sounds normal. No murmurs, rubs or gallops. ABDOMEN: Abdominal exam reveals normal bowel sounds. Non-tender and non- distended. No evidence of peritonitis. EXTREMITITES: 1+ edema. Past Medical History Past Medical History: Coronary Artery Disease (CAD), Heart Failure, COPD, Deep Vein Thrombosis (DVT), Hyperlipidemia, Hypertension, Myocardial Infarction (PR), Osteoarthritis (OA), Renal Disease, Thyroid Disorder, Vascular Disorder Additional Past Medical History / Comment(s): 2012 rt axillary,brachial artery thrombosis, djd , RENAL FX AT 65%(PER FAMILY), HX BENIGN BREAST TUMORS, recurring uti, leg swelling Last Myocardial Infarction Date:: 2018 History of Any Multi-Drug Resistant Organisms: None Reported Past Surgical History: Adenoidectomy, AICD, Breast Surgery, Cholecystectomy, Heart Catheterization With Stent, Hysterectomy, Joint Replacement, Pacemaker, Tonsillectomy, Tubal Ligation Additional Past Surgical History / Comment(s): 08-07-13 aicd(biventricular dual chamber aicd/pacemaker-[employer], thrombectomy rt arm, rt knee replacement, rt carotid endartectomy Past Anesthesia/Blood Transfusion Reactions: No Reported Reaction Additional Past Anesthesia/Blood Transfusion Reaction / Comment(s): blood transfusion 1968- no reaction Date of Last Stent Placement:: 11/2017 Type of Cardiac Device: AICD Device Placement Date:: 08-07-13 Past Psychological History: Anxiety, Depression Additional Psychological History / Comment(s): lives alone uses walker when up Smoking Status: Former smoker Past Alcohol Use History: None Reported Additional Past Alcohol Use History / Comment(s): smoked x 30 years 1/2 ppd, quit 2012 Past Drug Use History: None Reported - Past Family History Father Family Medical History: Diabetes Mellitus, Myocardial Infarction (PR) Mother Family Medical History: Cancer, Hyperlipidemia, Hypertension Additional Family Medical History / Comment(s): BREAST CA Brother(s) Family Medical History: Myocardial Infarction (PR) Additional Family Medical History / Comment(s): AGE 57 FROM PR Sister(s) Family Medical History: Cancer Additional Family Medical History / Comment(s): YOUNGER SISTER FROM OVARIAN CANCER AGE 51 AND ANOTHER SISTER HAD PR/CAD,OPEN HEART W/VALVE REPLACEMENT AND DM Medications and Allergies Home Medications Medication Instructions Recorded Confirmed Type Aspirin 81 mg PO DAILY 06/08/15 04/13/19 History Levothyroxine Sodium [Synthroid] 50 mcg PO DAILY@0600 06/08/15 04/13/19 History Omeprazole [PriLOSEC] 20 mg PO DAILY 06/08/15 04/13/19 History Febuxostat [Uloric] 80 mg PO DAILY 06/10/17 04/13/19 History Atorvastatin [Lipitor] 40 mg PO HS #30 tab 12/15/17 04/13/19 Rx Nitroglycerin Sl Tabs [Nitrostat] 0.4 mg SUBLINGUAL Q5M PRN tab 12/19/17 04/13/19 Rx ALPRAZolam [Xanax] 0.25 mg PO TID PRN #9 tablet 03/04/18 04/13/19 Rx HYDROcodone/APAP 7.5-325MG [[place] 1 tab PO Q4H PRN #10 tab 03/04/18 04/13/19 Rx 7.5-325] Lisinopril [Zestril] 2.5 mg PO DAILY@1700 05/27/18 04/13/19 History Warfarin Sodium 4 mg PO MOWETHFRSA 05/27/18 04/13/19 History Warfarin [Coumadin] 2 mg PO SUTU 05/27/18 04/13/19 History Metoprolol Succinate [Toprol Xl] 50 mg PO DAILY 12/12/18 04/13/19 History Calcitriol 0.5 mcg PO Q7D 04/13/19 04/13/19 History Colace 50mg 50 mg PO BID 04/13/19 04/13/19 History Midodrine [ProAmatine] 5 mg PO TID PRN 04/13/19 04/13/19 History Spironolactone [Aldactone] 12.5 mg PO DAILY 04/13/19 04/13/19 History Torsemide [Demadex] 20 mg PO Q48H 04/13/19 04/13/19 History Allergies Allergy/AdvReac Type Severity Reaction Status Date / Time Penicillins Allergy Rash/Hives Verified 04/13/19 18:29 dexamethasone AdvReac Nausea & Verified 04/13/19 18:29 Vomiting methylprednisolone AdvReac Unknown Verified 04/13/19 18:29 Physical Exam Vitals: Vital Signs Temp Pulse Resp BP BP BP BP 04/15/19 08:10 98.1 F 58 L 18 122/52 04/15/19 04:00 98.2 F 55 L 18 124/56 04/15/19 00:00 98.8 F 55 L 18 130/67 04/14/19 20:00 98.4 F 55 L 16 126/58 04/14/19 16:00 97.6 F 50 L 20 101/53 04/14/19 12:00 50 L 20 120/58 121/56 130/56 Pulse Ox 04/15/19 08:10 96 04/15/19 04:00 97 04/15/19 00:00 97 04/14/19 20:00 100 04/14/19 16:00 96 04/14/19 12:00 Intake and Output 04/14/19 04/15/19 04/15/19 22:59 06:59 14:59 Intake Total 360 360 Output Total 1000 Balance -640 360 Intake: Oral 360 360 Output: Urine 1000 Other: Voiding Method Bedpan Bedpan # Voids 1 1 Weight 79.9 kg 82.5 kg Results - Lab Results Most recent lab results Calcium 9.1 mg/dL (8.4-10.2) 04/13/19 18:39 Magnesium 2.1 mg/dL (1.6-2.3) 04/13/19 18:39 04/13/19 18:39 04/13/19 18:39 Assessment and Plan Plan: Assessment: 1. Acute kidney injury mostly prerenal secondary to cardiorenal syndrome. Creatinine 1.21 on admission on April 13. No labs since then. 2. Chronic kidney disease stage III secondary to nephrosclerosis and cardiorenal syndrome with baseline creatinine in the range of 1-1.1. 3. Volume overload. Improving with diuresis. 4. Chronic kidney disease mineral bone disease maintained on calcitriol. 5. Systolic CHF status post AICD placement. 6. Paroxysmal A. fib maintained on anticoagulation. Plan: Maintain IV Lasix 40 mg 3 times daily. Can transition over to oral Demadex tomorrow. Check labs today. Avoid nephrotoxins. Continue to monitor renal function and urine output. Thank you for the consultation. I will continue to follow the patient with you during her hospital stay.
[2019-04-15 12:14] LABS: Magnesium 1.9 mg/dL (1.6-2.3); Potassium 3.8 mmol/L (3.5-5.1)
--- NOTE | 2019-04-15 16:23 | P.PN ---
Subjective Progress Note Date: 04/15/19 This is a pleasant 79-year-old female with past medical history significant for coronary artery disease, prior angioplasty, ischemic cardio myopathy with prior AICD, chronic systolic congestive heart failure, hyperlipidemia, paroxysmal atrial fibrillation, hypertension, peripheral vascular disease status post right carotid endarterectomy, COPD, chronic kidney disease and former nicotine dependence. She follows with Dr. Waqar Grijalva in the office. She presents to the hospital on this occasion with symptoms of bilateral lower extremity edema and worsening in shortness of breath. According to the patient, over the past few days she has noticed her legs to be significantly more swollen, she's developed ulcerated areas that it started to weep. For this reason she came to the emergency room for further evaluation. Chest x-ray on arrival here showed chronic findings with no acute cardiopu lmonary process. Her EKG shows paced rhythm. Blood pressure 128/60 with a heart rate in the 50s, temperature 96.3, 96% on room air. White blood cell count 3.6, hemoglobin 11.8, platelet count 86, INR 2.3, sodium 140, potassium 4.8, BUN 34 and creatinine 1.2. Total bilirubin is 1.6, AST 38 ALT 26 troponin less than 0.12 and BNP level 3850. Patient was initiated on IV Lasix in the emergency room. Her weight is down 3 kg today. At the time of my examination this morning, the patient is lying fairly flat in bed, denies any overt shortness of breath this morning, he can bilateral peripheral edema. 04/15/2019 Patient was seen and examined this morning, diuresing well overall. Still feel ing somewhat short of breath, continues to have bilateral peripheral edema. Blood pressure 118/60 with a heart rate in the 50s, 95 room air. Sodium 141, potassium 3.8, BUN 37 and creatinine 1.2. No PT/INR were drawn today. Objective - Vital Signs Vital signs: Vital Signs Temp 98.2 F 04/15/19 12:00 Pulse 50 L 04/15/19 12:00 Resp 18 04/15/19 12:00 BP 118/68 04/15/19 12:00 Pulse Ox 95 04/15/19 12:00 Intake & Output 04/14/19 04/15/19 04/15/19 18:59 06:59 18:59 Intake Total 360 360 360 Output Total 1500 500 400 Balance -1140 -140 -40 Weight 79.9 kg 82.5 kg Intake: Oral 360 360 360 Output: Urine 1500 500 400 Other: Voiding Method Bedpan Bedpan # Voids 2 1 2 - Exam GENERAL: This is a 78-year-old female in no apparent distress at the time of my examination. HEENT: Head is atraumatic, normocephalic. Pupils are equal, round. Sclerae anicteric. Conjunctivae are clear. Mucous membranes of the mouth are moist. Neck is supple. There is jugular venous distention noted bilaterally. No carotid bruit is heard. LUNGS: Clear to auscultation no wheezes, rales or rhonchi. No chest wall tenderness is noted on palpation or with deep breathing. Diminished bilaterally with prolonged inspiration. HEART: Regular rate and rhythm with systolic ejection murmur at the left sternal border, no rubs or gallops. S1 and S2 heard. ABDOMEN: Soft, nontender. Bowel sounds are heard. No organomegaly noted. EXTREMITIES: 2+ bilateral lower extremity pitting edema bilaterally. Evidence of chronic venous stasis. Open ulcerated area X2 noted on the left lower extremity. No calf tenderness noted. VASCULAR: Radial and dorsalis pedis pulses palpated, no evidence of clubbing. NEUROLOGIC: Patient is awake, alert and oriented x3. 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 Check PT/INR. Continue Lipitor, lisinopril, metoprolol, and Aldactone. Once the INR is less than 2 we will start the patient on Eliquis 5 mg one tablet by mouth twice a day. From tomorrow we will start the patient on Entresto. DNP note has been reviewed, I agree with a documented findings and plan of care. Patient was seen and examined.
[2019-04-15 17:12] LABS: INR 1.8 (<1.2); Prothrombin Time 17.9 sec (9.0-12.0)
[2019-04-15] MEDS ORDERED: WARFARIN 2 MG TAB PO SCH (18:00)
[2019-04-15] MEDS: ALPRAZolam 0.25 MG TAB PO PRN (20:05)
[2019-04-15] MEDS: ATORVASTATIN 40 MG TAB PO SCH (20:05)
[2019-04-15 20:53] LABS: Glucose,Whole Blood 123 mg/dL (75-99)
--- NOTE | 2019-04-15 23:02 | PN ---
PROGRESS NOTE DATE OF SERVICE: 04/15/2019 PRESENTING COMPLAINT: Short of breath, edema. INTERVAL HISTORY: This patient presented with CHF exacerbation. Edema has slightly gone down. Did tolerate a diet. Breathing is actually getting better. REVIEW OF SYSTEMS: Done for constitutional, cardiovascular, GI, pulmonary; relevant findings as above. CURRENT MEDICATIONS: Reviewed that include IV Lasix 40 q.8h and Aldactone. PHYSICAL EXAMINATION: VITAL SIGNS: Temperature 98.2. Pulse 50, respiratory 18, blood pressure 118/68, pulse ox 95% on room air. GENERAL APPEARANCE: Sitting up, awake. EYES: Pupils are equal. Conjunctivae normal. NECK: JVD less prominent. Mass not palpable. RESPIRATORY: Effort increased. LUNGS: Decreased breath sounds. Less crackles. CARDIOVASCULAR: Heart sounds irregular, decreased edema with Micha wrap. PSYCHIATRY: Alert and oriented x3. Mood and affect normal. INVESTIGATIONS: INR 1.8, BUN 37, creatinine 1.24. ASSESSMENT: 1. Acute on chronic congestive heart failure exacerbation from systolic dysfunction EF 35-40 percent, underlying coronary artery disease. 2. Coronary artery disease prior history of coronary bypass and stent to the LAD. 3. Chronic kidney stage 2 from nephrosclerosis. 4. Chronic obstructive pulmonary disease. 5. Primary osteoarthritis multiple joints. 6. AICD. 7. History of atrial fibrillation for which patient is chronically on Coumadin. 8. Coumadin monitoring. 9. Hypothyroidism. 10.Anxiety, not otherwise specified. 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 12.Severe tricuspid regurgitation, nonrheumatic. 13.Chronic obstructive pulmonary disease in an ex-smoker. 14.Essential hypertension. 15.Hyperlipidemia. 16.Hypothyroidism. 17.CODE STATUS: DO NOT RESUSCITATE. PLAN: Continue current medication and treatment plan. Keep the patient on IV Lasix. Repeat electrolytes. Care was discussed with the patient. MMODL / IJN: [id number] /
[2019-04-16] MEDS: HYDROcodone/APAP 7.5-325MG 1 EACH TAB PO PRN ×3 (02:11→20:06)
[2019-04-16] MEDS: FUROSEMIDE 10 MG/ML 4 ML VIAL IV SCH ×3 (02:14→20:06)
[2019-04-16 05:52] LABS: Glucose,Whole Blood 98 mg/dL (75-99)
[2019-04-16] MEDS: LEVOTHYROXINE 50 MCG TAB PO SCH (06:06)
[2019-04-16 06:58] LABS: Magnesium 1.9 mg/dL (1.6-2.3); Potassium 3.6 mmol/L (3.5-5.1)
[2019-04-16 08:14] LABS: INR 1.7 (<1.2); Prothrombin Time 16.7 sec (9.0-12.0)
[2019-04-16] MEDS: SPIRONOLACTONE 25 MG TAB PO SCH (09:25)
[2019-04-16] MEDS: ALLOPURINOL 100 MG TAB PO SCH ×2 (09:25→20:06)
[2019-04-16] MEDS: METOPROLOL SUCCINATE (ER) 50 MG TAB.ER.24H PO SCH (09:25)
[2019-04-16] MEDS: PANTOPRAZOLE 40 MG TABLET PO SCH (09:25)
[2019-04-16] MEDS: ASPIRIN 81 MG PO SCH (09:25)
[2019-04-16] MEDS: SACUBITRIL/VALSARTAN 24 MG-26 MG TABLET PO SCH ×2 (09:26→20:06)
[2019-04-16] MEDS: DOCUSATE ORAL SOLN 100 MG/10 ML CUP PO SCH ×2 (09:26→20:06)
[2019-04-16 12:12] LABS: Glucose,Whole Blood 96 mg/dL (75-99)
[2019-04-16] MEDS: APIXABAN 5 MG TAB PO SCH ×2 (12:50→20:05)
--- NOTE | 2019-04-16 15:15 | P.PN ---
Subjective Progress Note Date: 04/16/19 This is a pleasant 79-year-old female with past medical history significant for coronary artery disease, prior angioplasty, ischemic cardio myopathy with prior AICD, chronic systolic congestive heart failure, hyperlipidemia, paroxysmal atrial fibrillation, hypertension, peripheral vascular disease status post right carotid endarterectomy, COPD, chronic kidney disease and former nicotine dependence. She follows with Dr. Waqar Grijalva in the office. She presents to the hospital on this occasion with symptoms of bilateral lower extremity edema and worsening in shortness of breath. According to the patient, over the past few days she has noticed her legs to be significantly more swollen, she's developed ulcerated areas that it started to weep. For this reason she came to the emergency room for further evaluation. Chest x-ray on arrival here showed chronic findings with no acute cardiopu lmonary process. Her EKG shows paced rhythm. Blood pressure 128/60 with a heart rate in the 50s, temperature 96.3, 96% on room air. White blood cell count 3.6, hemoglobin 11.8, platelet count 86, INR 2.3, sodium 140, potassium 4.8, BUN 34 and creatinine 1.2. Total bilirubin is 1.6, AST 38 ALT 26 troponin less than 0.12 and BNP level 3850. Patient was initiated on IV Lasix in the emergency room. Her weight is down 3 kg today. At the time of my examination this morning, the patient is lying fairly flat in bed, denies any overt shortness of breath this morning, he can bilateral peripheral edema. 04/15/2019 Patient was seen and examined this morning, diuresing well overall. Still feel ing somewhat short of breath, continues to have bilateral peripheral edema. Blood pressure 118/60 with a heart rate in the 50s, 95 room air. Sodium 141, potassium 3.8, BUN 37 and creatinine 1.2. No PT/INR were drawn today. 04/16/2019 Patient was seen and examined this morning, continues to diurese well overall. Reading is improved significantly. Blood pressure 120/60 with a heart rate in the 50s, 92% on room air. Pro time today is 16.7 with an INR of 1.7. Sodium 142, potassium 3.6, BUN 38 and creatinine 1.2, magnesium 1.9. Objective - Vital Signs Vital signs: Vital Signs Temp 98 F 04/16/19 12:00 Pulse 51 L 04/16/19 12:00 Resp 17 04/16/19 12:00 BP 120/69 04/16/19 12:00 Pulse Ox 92 L 04/16/19 12:00 Intake & Output 04/15/19 04/16/19 04/16/19 18:59 06:59 18:59 Intake Total 600 Output Total 400 350 200 Balance 200 -350 -200 Weight 78.7 kg Intake: Oral 600 Output: Urine 400 350 200 Other: Voiding Method Toilet # Voids 2 1 1 - Exam GENERAL: This is a 78-year-old female in no apparent distress at the time of my examination. HEENT: Head is atraumatic, normocephalic. Pupils are equal, round. Sclerae anicteric. Conjunctivae are clear. Mucous membranes of the mouth are moist. Neck is supple. There is jugular venous distention noted bilaterally. No carotid bruit is heard. LUNGS: Clear to auscultation no wheezes, rales or rhonchi. No chest wall tenderness is noted on palpation or with deep breathing. Diminished bilaterally with prolonged inspiration. HEART: Regular rate and rhythm with systolic ejection murmur at the left sternal border, no rubs or gallops. S1 and S2 heard. ABDOMEN: Soft, nontender. Bowel sounds are heard. No organomegaly noted. EXTREMITIES: 1+ bilateral lower extremity pitting edema bilaterally. Evidence of chronic venous stasis. Open ulcerated area X2 noted on the left lower extremity. No calf tenderness noted. VASCULAR: Radial and dorsalis pedis pulses palpated, no evidence of clubbing. NEUROLOGIC: Patient is awake, alert and oriented x3. - Labs CBC & Chem 7: 04/13/19 18:39 04/16/19 06:26 Labs: Abnormal Lab Results - Last 24 Hours (Table) 04/15/19 04/15/19 04/16/19 Range/Units 16:53 20:52 06:26 PT 17.9 H (9.0-12.0) sec INR 1.8 H (<1.2) Carbon Dioxide 33 H (22-30) mmol/L BUN 38 H (7-17) mg/dL Creatinine 1.27 H (0.52-1.04) mg/dL POC Glucose (mg/dL) 123 H (75-99) mg/dL 04/16/19 Range/Units 06:37 PT 16.7 H (9.0-12.0) sec INR 1.7 H (<1.2) Carbon Dioxide (22-30) mmol/L BUN (7-17) mg/dL Creatinine (0.52-1.04) mg/dL POC Glucose (mg/dL) (75-99) mg/dL Assessment and Plan Plan: ASSESSMENT and plan #1 Acute on chronic systolic heart failure #2 Acute on chronic kidney injury #3 History of coronary artery disease s/p recent PCI on dual anti-platelet therapy #4 Ischemic cardiomyopathy s/p AICD implantation #5 Hypertension #6 Dyslipidemia #7 Paroxysmal atrial fibrillation on manager intermediate anticoagulation #8 Peripheral vascular disease s/p carotid endartectomy #9 history of nicotine dependence Plan We will continue current dose of IV Lasix 40 mg IV every 8 hourly, continue to monitor intake and output along with daily weights and daily lytes BUN and creatinine. DNP note has been reviewed, I agree with a documented findings and plan of care. Patient was seen and examined.
[2019-04-16 17:03] LABS: Glucose,Whole Blood 95 mg/dL (75-99)
[2019-04-16] MEDS: ATORVASTATIN 40 MG TAB PO SCH (20:06)
[2019-04-16 20:37] LABS: Glucose,Whole Blood 101 mg/dL (75-99)
--- NOTE | 2019-04-16 23:05 | PN ---
PROGRESS NOTE DATE OF SERVICE: 04/16/2019 PRESENTING COMPLAINT: Short of breath. INTERVAL HISTORY: Patient with CHF exacerbation continues to improve. Edema continues to go down. Breathing is much better. Tolerating a diet. REVIEW OF SYSTEMS: Done for constitutional, cardiovascular, GI, pulmonary; relevant findings as above. CURRENT MEDICATIONS: Reviewed. They include Lasix 40 mg q.8. PHYSICAL EXAMINATION: Temperature 98, pulse 54, respiration 17, blood pressure 120/69, pulse ox 92% on room air. GENERAL APPEARANCE: Sitting up, awake. EYES: Pupils equal. Conjunctivae normal. NECK: JVD not raised. Mass not palpable. RESPIRATORY: Effort normal. LUNGS: Improved air entry. CARDIOVASCULAR: Heart sounds irregular. Decreased edema. ABDOMEN: Soft, nontender. Liver and spleen not palpable. PSYCHIATRY: Alert and oriented x3. Mood and affect normal. INVESTIGATIONS: BUN 38, creatinine 1.27. INR 1.7. ASSESSMENT: 1. Acute on chronic congestive heart failure exacerbation from systolic dysfunction, ejection fraction 35% to 40%, from underlying coronary artery disease, improving. 2. Coronary artery disease with prior history of coronary artery bypass and stent to LAD. 3. Chronic kidney disease, stage II, from nephrosclerosis. 4. Chronic obstructive pulmonary disease. 5. Primary osteoarthritis in multiple joints. 6. Automated implantable cardioverter defibrillator. 7. History of atrial fibrillation, for which patient is chronically on Coumadin. 8. Coumadin monitoring. 9. Hypothyroidism. 10.Anxiety not otherwise specified. 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 12.Severe tricuspid regurgitation, non-rheumatic. 13.Essential hypertension. 14.Hyperlipidemia. 15.Hypothyroidism. 16.CODE STATUS: DO NOT RESUSCITATE. PLAN: Will give the patient IV Lasix today; should be able to switch over to home dose of Demadex; she takes 20 mg. It can be switched actually to a daily course. Patient has started to become alkalotic. MMODL / IJN: [id number] /
[2019-04-17] MEDS: FUROSEMIDE 10 MG/ML 4 ML VIAL IV SCH (05:20)
[2019-04-17] MEDS: HYDROcodone/APAP 7.5-325MG 1 EACH TAB PO PRN ×3 (05:20→20:36)
[2019-04-17] MEDS: LEVOTHYROXINE 50 MCG TAB PO SCH (05:20)
[2019-04-17 05:59] LABS: Glucose,Whole Blood 102 mg/dL (75-99)
[2019-04-17 06:17] LABS: Calcium 8.4 mg/dL (8.4-10.2); Potassium 3.6 mmol/L (3.5-5.1)
[2019-04-17] MEDS: METOPROLOL SUCCINATE (ER) 25 MG TAB.ER.24H PO SCH ×2 (08:39→13:35)
[2019-04-17] MEDS: SACUBITRIL/VALSARTAN 24 MG-26 MG TABLET PO SCH ×2 (08:39→20:28)
[2019-04-17] MEDS: ALLOPURINOL 100 MG TAB PO SCH ×2 (08:41→20:36)
[2019-04-17] MEDS: PANTOPRAZOLE 40 MG TABLET PO SCH (08:41)
[2019-04-17] MEDS: APIXABAN 5 MG TAB PO SCH ×2 (08:42→20:36)
[2019-04-17] MEDS: ASPIRIN 81 MG PO SCH (08:42)
[2019-04-17] MEDS: SPIRONOLACTONE 25 MG TAB PO SCH (08:42)
[2019-04-17] MEDS: DOCUSATE ORAL SOLN 100 MG/10 ML CUP PO SCH ×2 (08:43→20:36)
[2019-04-17] MEDS ORDERED: TORSEMIDE 20 MG TAB PO SCH (09:00)
--- NOTE | 2019-04-17 11:17 | P.PN ---
Subjective Patient is seen in follow-up for acute kidney injury on chronic kidney disease. Patient has chronic kidney disease stage III with baseline creatinine in the range of 1-1.1. Creatinine today is up to 1.49. Edema has improved. She admits to good urine output. Oral intake is fair. No vomiting or diarrhea. IV Lasix was discontinued this morning and she is now on oral Demadex. Vital signs are stable. General: The patient appeared well nourished and normally developed. HEENT: Head exam is unremarkable. Neck is without jugular venous distension. LUNGS: Lungs are clear to auscultation and percussion. Breath sounds decreased. HEART: Rate and Rhythm are regular. First and second heart sounds normal. No murmurs, rubs or gallops. ABDOMEN: Abdominal exam reveals normal bowel sounds. Non-tender and non- distended. No evidence of peritonitis. EXTREMITITES: No clubbing, cyanosis, or edema. Objective - Vital Signs Vital signs: Vital Signs Temp 97.8 F 04/17/19 08:00 Pulse 50 L 04/17/19 08:00 Resp 17 04/17/19 08:00 BP 74/38 04/17/19 08:00 Pulse Ox 95 04/17/19 08:00 Intake & Output 04/16/19 04/17/19 04/17/19 18:59 06:59 18:59 Intake Total 300 350 240 Output Total 1350 300 100 Balance -1050 50 140 Weight 79.2 kg Intake: Oral 300 230 240 Blood Product 120 Output: Urine 1350 300 100 Other: Voiding Method Toilet # Voids 1 - Labs CBC & Chem 7: 04/13/19 18:39 04/17/19 05:45 Labs: Abnormal Lab Results - Last 24 Hours (Table) 04/16/19 04/17/19 04/17/19 Range/Units 20:35 05:45 05:58 Carbon Dioxide 32 H (22-30) mmol/L BUN 46 H (7-17) mg/dL Creatinine 1.49 H (0.52-1.04) mg/dL POC Glucose (mg/dL) 101 H 102 H (75-99) mg/dL Assessment and Plan Plan: Assessment: 1. Acute kidney injury mostly prerenal secondary to cardiorenal syndrome. Creatinine 1.21 on admission on April 13. It is 1.49 today which is due to diuresis. 2. Chronic kidney disease stage III secondary to nephrosclerosis and cardiorenal syndrome with baseline creatinine in the range of 1-1.1. 3. Volume overload. Improving with diuresis. 4. Chronic kidney disease mineral bone disease maintained on calcitriol. 5. Systolic CHF status post AICD placement. 6. Paroxysmal A. fib maintained on anticoagulation. Plan: Maintain Demadex 20 mg once daily. Maintain midodrine. I will add potassium supplementation. Anticipate discharge soon. Patient will need a BMP and a magnesium level checked within 2-3 days of discharge. Follow up outpatient in the next 1-2 weeks.
[2019-04-17] MEDS: POTASSIUM CHLORIDE ER 10 MEQ TAB.ER.PRT PO SCH (12:19)
--- NOTE | 2019-04-17 13:49 | XR ---
EXAMINATION TYPE: XR chest 2V DATE OF EXAM: 04/17/2019 COMPARISON: 04/13/2019 TECHNIQUE: PA and lateral views submitted. HISTORY: Follow-up CHF FINDINGS: Diffuse interstitial pattern with small bilateral effusions. Cardiomegaly and atherosclerotic change aorta. Cardiac device noted. Diffuse osteopenia with arthropathy of the shoulders. Biapical pleural t hickening. IMPRESSION: 1. Bilateral consolidation and small effusions with persistent interstitial pattern suggestive of CHF .
--- NOTE | 2019-04-17 14:13 | P.PN ---
Subjective Progress Note Date: 04/17/19 This is a pleasant 79-year-old female with past medical history significant for coronary artery disease, prior angioplasty, ischemic cardio myopathy with prior AICD, chronic systolic congestive heart failure, hyperlipidemia, paroxysmal atrial fibrillation, hypertension, peripheral vascular disease status post right carotid endarterectomy, COPD, chronic kidney disease and former nicotine dependence. She follows with Dr. Waqar Grijalva in the office. She presents to the hospital on this occasion with symptoms of bilateral lower extremity edema and worsening in shortness of breath. According to the patient, over the past few days she has noticed her legs to be significantly more swollen, she's developed ulcerated areas that it started to weep. For this reason she came to the emergency room for further evaluation. Chest x-ray on arrival here showed chronic findings with no acute cardiopu lmonary process. Her EKG shows paced rhythm. Blood pressure 128/60 with a heart rate in the 50s, temperature 96.3, 96% on room air. White blood cell count 3.6, hemoglobin 11.8, platelet count 86, INR 2.3, sodium 140, potassium 4.8, BUN 34 and creatinine 1.2. Total bilirubin is 1.6, AST 38 ALT 26 troponin less than 0.12 and BNP level 3850. Patient was initiated on IV Lasix in the emergency room. Her weight is down 3 kg today. At the time of my examination this morning, the patient is lying fairly flat in bed, denies any overt shortness of breath this morning, he can bilateral peripheral edema. 04/15/2019 Patient was seen and examined this morning, diuresing well overall. Still feel ing somewhat short of breath, continues to have bilateral peripheral edema. Blood pressure 118/60 with a heart rate in the 50s, 95 room air. Sodium 141, potassium 3.8, BUN 37 and creatinine 1.2. No PT/INR were drawn today. 04/16/2019 Patient was seen and examined this morning, continues to diurese well overall. Reading is improved significantly. Blood pressure 120/60 with a heart rate in the 50s, 92% on room air. Pro time today is 16.7 with an INR of 1.7. Sodium 142, potassium 3.6, BUN 38 and creatinine 1.2, magnesium 1.9. 04/17/2019 was seen and examined this morning, feeling significantly better overall. Breathing is stable. Her blood pressure this morning was noted to be in the 70s systolic range. Her beta paresh and Entresto were held. Later on in the morning her blood pressure came up to 134/80. We will give the patient her dose of beta paresh, and also attempt to start the patient on Entresto again. Monitoring her for another 24 hours. We will decrease the dose of Demadex to 10 mg daily as well. Objective - Vital Signs Vital signs: Vital Signs Temp 97.6 F 04/17/19 12:00 Pulse 52 L 04/17/19 12:00 Resp 17 04/17/19 12:00 BP 134/80 04/17/19 12:00 Pulse Ox 93 L 04/17/19 12:00 Intake & Output 04/16/19 04/17/19 04/17/19 18:59 06:59 18:59 Intake Total 300 350 480 Output Total 1350 300 500 Balance -1050 50 -20 Weight 79.2 kg Intake: Oral 300 230 480 Blood Product 120 Output: Urine 1350 300 500 Other: Voiding Method Toilet # Voids 1 2 - Exam GENERAL: This is a 78-year-old female in no apparent distress at the time of my examination. HEENT: Head is atraumatic, normocephalic. Pupils are equal, round. Sclerae anicteric. Conjunctivae are clear. Mucous membranes of the mouth are moist. Neck is supple. There is jugular venous distention noted bilaterally. No carotid bruit is heard. LUNGS: Clear to auscultation no wheezes, rales or rhonchi. No chest wall tendern ess is noted on palpation or with deep breathing. Diminished bilaterally with prolonged inspiration. HEART: Regular rate and rhythm with systolic ejection murmur at the left sternal border, no rubs or gallops. S1 and S2 heard. ABDOMEN: Soft, nontender. Bowel sounds are heard. No organomegaly noted. EXTREMITIES: 1+ bilateral lower extremity pitting edema bilaterally. Evidence of chronic venous stasis. Open ulcerated area X2 noted on the left lower extremity. No calf tenderness noted. VASCULAR: Radial and dorsalis pedis pulses palpated, no evidence of clubbing. NEUROLOGIC: Patient is awake, alert and oriented x3. 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 Continue to monitor for another 24 hours. DNP note has been reviewed, I agree with a documented findings and plan of care. Patient was seen and examined.
[2019-04-17] MEDS: ATORVASTATIN 40 MG TAB PO SCH (20:36)
[2019-04-17] MEDS ORDERED: SACUBITRIL/VALSARTAN 24 MG-26 MG TABLET PO SCH (21:00)
--- NOTE | 2019-04-17 23:44 | PN ---
PROGRESS NOTE DATE OF SERVICE: 04/17/2019 PRESENTING COMPLAINT: Short of breath. INTERVAL HISTORY: Patient admitted with CHF exacerbation. Breathing is getting better. This morning dropped her blood pressure to 70 systolic. The patient had to be started on Entresto yesterday. The patient's dose of beta paresh and Entresto was held this morning. Dr. Malena Carvajal was going to re-evaluate the patient this afternoon. REVIEW OF SYSTEMS: Done for constitutional, cardiovascular, GI, pulmonary; relevant findings as above. CURRENT MEDICATIONS: Reviewed that include Eliquis 5 mg b.i.d., Toprol-XL 25 mg a day new dose and Demadex dose was decreased to 10 mg. Patient is also on Aldactone. PHYSICAL EXAMINATION: VITAL SIGNS: Temperature 97.8, pulse 50, respiration 17, blood pressure 72/35, pulse ox 95% on room air. GENERAL APPEARANCE: Sitting up, awake. EYES: Pupils are equal. Conjunctivae normal. NECK: JVD not raised. Mass not palpable. RESPIRATORY effort normal. LUNGS improved air entry. CARDIOVASCULAR: Heart sounds irregular. Decreased edema. ABDOMEN: Soft, nontender. Liver and spleen not palpable. PSYCHIATRY: Alert and oriented x2. Mood and affect normal. INVESTIGATIONS: BUN 46, creatinine 1.49. ASSESSMENT: 1. Hypotension, multifactorial. 2. Acute on chronic congestive heart failure exacerbation from systolic dysfunction EF 35-40 percent underlying coronary artery disease. The patient is euvolemic. 3. Coronary artery disease, prior history of bypass and stent to LAD. 4. Chronic kidney disease stage 2 from nephrosclerosis. 5. Chronic obstructive pulmonary disease. 6. Primary osteoarthritis in multiple joints. 7. AICD. 8. History of atrial fibrillation for which patient is chronically on Coumadin. 9. Coumadin monitoring. 10.Hypothyroidism. 11.Anxiety not otherwise specified. 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 13.Severe tricuspid regurgitation, nonrheumatic. 14.Essential hypertension. 15.Hyperlipidemia. 16.Hypothyroidism. 17.CODE STATUS: DO NOT RESUSCITATE. PLAN: Cardiology has adjusted some of the medications. I will keep a close eye on patient's creatinine. The patient is also becoming a bit alkalotic. We will hold off the morning dose of Demadex till patient is seen by Cardiology tomorrow morning. Care was discussed with the patient. MMODL / IJN: [id number] /
[2019-04-18] MEDS: LEVOTHYROXINE 50 MCG TAB PO SCH (06:15)
[2019-04-18] MEDS: HYDROcodone/APAP 7.5-325MG 1 EACH TAB PO PRN ×2 (06:15→20:45)
[2019-04-18 06:39] LABS: Calcium 8.9 mg/dL (8.4-10.2); Potassium 3.8 mmol/L (3.5-5.1)
[2019-04-18] MEDS: DOCUSATE ORAL SOLN 100 MG/10 ML CUP PO SCH ×2 (08:51→20:41)
[2019-04-18] MEDS: ALLOPURINOL 100 MG TAB PO SCH ×2 (08:52→20:45)
[2019-04-18] MEDS: APIXABAN 5 MG TAB PO SCH ×2 (08:52→20:45)
[2019-04-18] MEDS: POTASSIUM CHLORIDE ER 10 MEQ TAB.ER.PRT PO SCH (08:52)
[2019-04-18] MEDS: ASPIRIN 81 MG PO SCH (08:52)
[2019-04-18] MEDS: PANTOPRAZOLE 40 MG TABLET PO SCH (08:52)
--- NOTE | 2019-04-18 09:35 | P.PN ---
Subjective Patient is seen in follow-up for acute kidney injury on chronic kidney disease. Patient has chronic kidney disease stage III with baseline creatinine in the range of 1-1.1. Renal function stable. Edema has improved. She admits to good urine output. Oral intake is fair. No vomiting or diarrhea. IV Lasix was discontinued this morning and she is now on oral Demadex. Entresto was also started this admission. Vital signs are stable. General: The patient appeared well nourished and normally developed. HEENT: Head exam is unremarkable. Neck is without jugular venous distension. LUNGS: Lungs are clear to auscultation and percussion. Breath sounds decreased. HEART: Rate and Rhythm are regular. First and second heart sounds normal. No murmurs, rubs or gallops. ABDOMEN: Abdominal exam reveals normal bowel sounds. Non-tender and non-diste nded. No evidence of peritonitis. EXTREMITITES: No clubbing, cyanosis, or edema. Objective - Vital Signs Vital signs: Vital Signs Temp 98.0 F 04/18/19 08:48 Pulse 50 L 04/18/19 08:48 Resp 18 04/18/19 08:48 BP 86/49 04/18/19 08:48 Pulse Ox 95 04/18/19 08:48 Intake & Output 04/17/19 04/18/19 04/18/19 18:59 06:59 18:59 Intake Total 720 Output Total 700 500 Balance 20 -500 Weight 79.6 kg Intake: Oral 720 Output: Urine 700 500 Other: Voiding Method Toilet # Voids 2 1 - Labs CBC & Chem 7: 04/13/19 18:39 04/18/19 05:37 Labs: Abnormal Lab Results - Last 24 Hours (Table) 04/18/19 Range/Units 05:37 Carbon Dioxide 31 H (22-30) mmol/L BUN 46 H (7-17) mg/dL Creatinine 1.50 H (0.52-1.04) mg/dL Assessment and Plan Plan: Assessment: 1. Acute kidney injury mostly prerenal secondary to cardiorenal syndrome. Cr eatinine 1.21 on admission on April 13. Renal function stable. Patient was also started on Entresto this admission. 2. Chronic kidney disease stage III secondary to nephrosclerosis and cardiorenal syndrome with baseline creatinine in the range of 1-1.1. 3. Volume overload. Improving with diuresis. 4. Chronic kidney disease mineral bone disease maintained on calcitriol. 5. Systolic CHF status post AICD placement. 6. Paroxysmal A. fib maintained on anticoagulation. Plan: Maintain current regimen of diuretics. Anticipate discharge soon. Patient will need a BMP and a magnesium level checke d within 2-3 days of discharge. Follow up outpatient in the next 1-2 weeks.
[2019-04-18] MEDS: SACUBITRIL/VALSARTAN 24 MG-26 MG TABLET PO SCH ×2 (13:16→20:45)
[2019-04-18] MEDS: METOPROLOL SUCCINATE (ER) 25 MG TAB.ER.24H PO SCH (13:16)
[2019-04-18] MEDS: TORSEMIDE 20 MG TAB PO SCH (13:28)
[2019-04-18] MEDS: SPIRONOLACTONE 25 MG TAB PO SCH (13:28)
--- NOTE | 2019-04-18 15:19 | P.PN ---
Subjective Progress Note Date: 04/18/19 This is a pleasant 79-year-old female with past medical history significant for coronary artery disease, prior angioplasty, ischemic cardio myopathy with prior AICD, chronic systolic congestive heart failure, hyperlipidemia, paroxysmal atrial fibrillation, hypertension, peripheral vascular disease status post right carotid endarterectomy, COPD, chronic kidney disease and former nicotine dependence. She follows with Dr. Waqar Grijalva in the office. She presents to the hospital on this occasion with symptoms of bilateral lower extremity edema and worsening in shortness of breath. According to the patient, over the past few days she has noticed her legs to be significantly more swollen, she's developed ulcerated areas that it started to weep. For this reason she came to the emergency room for further evaluation. Chest x-ray on arrival here showed chronic findings with no acute cardiopu lmonary process. Her EKG shows paced rhythm. Blood pressure 128/60 with a heart rate in the 50s, temperature 96.3, 96% on room air. White blood cell count 3.6, hemoglobin 11.8, platelet count 86, INR 2.3, sodium 140, potassium 4.8, BUN 34 and creatinine 1.2. Total bilirubin is 1.6, AST 38 ALT 26 troponin less than 0.12 and BNP level 3850. Patient was initiated on IV Lasix in the emergency room. Her weight is down 3 kg today. At the time of my examination this morning, the patient is lying fairly flat in bed, denies any overt shortness of breath this morning, he can bilateral peripheral edema. 04/15/2019 Patient was seen and examined this morning, diuresing well overall. Still feel ing somewhat short of breath, continues to have bilateral peripheral edema. Blood pressure 118/60 with a heart rate in the 50s, 95 room air. Sodium 141, potassium 3.8, BUN 37 and creatinine 1.2. No PT/INR were drawn today. 04/16/2019 Patient was seen and examined this morning, continues to diurese well overall. Reading is improved significantly. Blood pressure 120/60 with a heart rate in the 50s, 92% on room air. Pro time today is 16.7 with an INR of 1.7. Sodium 142, potassium 3.6, BUN 38 and creatinine 1.2, magnesium 1.9. 04/17/2019 Patient was seen and examined this morning, feeling significantly better overall. Breathing is stable. Her blood pressure this morning was noted to be in the 70s systolic range. Her beta paresh and Entresto were held. Later on in the morning her blood pressure came up to 134/80. We will give the patient her dose of beta paresh, and also attempt to start the patient on Entresto again. Monitoring her for another 24 hours. We will decrease the dose of Demadex to 10 mg daily as well. 04/18/2019 Patient was seen and examined today, overall doing well, tolerating her medications well, blood pressure staying in the high 80s to low 100s overall. IV diuretics will be discontinued today patient will be changed over to oral diuretics and she may be able to be discharged home from our perspective. Objective - Vital Signs Vital signs: Vital Signs Temp 98.1 F 04/18/19 11:51 Pulse 50 L 04/18/19 11:51 Resp 18 04/18/19 11:51 BP 122/56 04/18/19 11:51 Pulse Ox 97 04/18/19 11:51 Intake & Output 04/17/19 04/18/19 04/18/19 18:59 06:59 18:59 Intake Total 720 240 Output Total 700 500 300 Balance 20 -500 -60 Weight 79.6 kg Intake: Oral 720 240 Output: Urine 700 500 300 Other: Voiding Method Toilet Toilet # Voids 2 1 1 - Exam GENERAL: This is a 78-year-old female in no apparent distress at the time of my examination. HEENT: Head is atraumatic, normocephalic. Pupils are equal, round. Sclerae anicteric. Conjunctivae are clear. Mucous membranes of the mouth are moist. Neck is supple. There is jugular venous distention noted bilaterally. No carotid bruit is heard. LUNGS: Clear to auscultation no wheezes, rales or rhonchi. No chest wall tenderness is noted on palpation or with deep breathing. Diminished bilaterally with prolonged inspiration. HEART: Regular rate and rhythm with systolic ejection murmur at the left sternal border, no rubs or gallops. S1 and S2 heard. ABDOMEN: Soft, nontender. Bowel sounds are heard. No organomegaly noted. EXTREMITIES: 1+ bilateral lower extremity pitting edema bilaterally. Evidence of chronic venous stasis. Open ulcerated area X2 noted on the left lower extremity. No calf tenderness noted. VASCULAR: Radial and dorsalis pedis pulses palpated, no evidence of clubbing. NEUROLOGIC: Patient is awake, alert and oriented x3. 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 BOB Grijalva in the office post discharge. DNP note has been reviewed, I agree with a documented findings and plan of care. Patient was seen and examined.
[2019-04-18] MEDS: ATORVASTATIN 40 MG TAB PO SCH (20:45)
[2019-04-18 20:51] VITALS: RESP 17
--- NOTE | 2019-04-18 21:27 | PN ---
PROGRESS NOTE DATE OF SERVICE: April 18, 2019. PRESENTING COMPLAINT: Short of breath. INTERVAL HISTORY: Patient admitted with CHF exacerbation. Breathing is getting better. Patient's blood pressure is running low. Cardiology has been adjusting the medications. Breathing overall is feeling better. REVIEW OF SYSTEMS: Done for constitutional, cardiovascular, GI, pulmonary; relevant findings as above. CURRENT MEDICATIONS: Reviewed that include: 1. Toprol-XL 12.5 mg a day. 2. Entresto one tablet p.o. b.i.d. 3. Aldactone 12.5 p.o. daily. 4. Demadex 10 mg p.o. daily. The patient did get Aldactone today, did not get any Entresto yesterday or today. Did get the Demodex and did not get any Toprol-XL. PHYSICAL EXAMINATION: VITAL SIGNS: Temp 97.8, pulse 54, respiratory 18, blood pressure 131/60, pulse ox 100 percent on room air. GENERAL APPEARANCE: Sitting up, awake, more comfortable. EYES: Pupils equal. Conjunctivae normal. NECK: JVD not raised. Mass not palpable. RESPIRATORY effort normal. LUNGS: Fair entry. CARDIOVASCULAR: Heart sounds irregular. Decreased edema. ABDOMEN: Soft, nontender. Liver and spleen not palpable. PSYCHIATRY: Awake, answering questions. INVESTIGATIONS: Potassium 3.8, BUN 46, creatinine 1.50. ASSESSMENT: 1. Hypotension, multifactorial, improved. 2. Acute on chronic congestive heart failure exacerbation from systolic dysfunction, EF 35-40 percent, underlying coronary artery disease. 3. Coronary artery disease, prior history of bypass and stent to the LAD. 4. Chronic kidney disease stage 2 from nephrosclerosis. 5. Chronic obstructive pulmonary disease. 6. Primary osteoarthritis in multiple joints. 7. AICD. 8. History of atrial fibrillation for which patient is chronically on Coumadin. 9. Coumadin monitoring. 10.Hypothyroidism. 11.Anxiety, not otherwise specified. 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 13.Severe tricuspid regurgitation, nonrheumatic. 14.Essential hypertension. 15.Hyperlipidemia. 16.Hypothyroidism. 17.CODE STATUS: DNR. PLAN: Patient's medications were further adjusted. We will keep the patient another 24 hours to make sure the patient's blood pressure is respectable with a change in medications. If so, patient hopefully can be discharged later tomorrow. MMODL / IJN: [id number] /
[2019-04-19] MEDS: HYDROcodone/APAP 7.5-325MG 1 EACH TAB PO PRN ×2 (04:06→12:48)
[2019-04-19] MEDS: LEVOTHYROXINE 50 MCG TAB PO SCH (06:19)
[2019-04-19 06:58] LABS: Calcium 8.7 mg/dL (8.4-10.2); Potassium 4.2 mmol/L (3.5-5.1)
[2019-04-19] MEDS: DOCUSATE ORAL SOLN 100 MG/10 ML CUP PO SCH (08:55)
[2019-04-19] MEDS: ALLOPURINOL 100 MG TAB PO SCH (08:55)
[2019-04-19] MEDS: APIXABAN 5 MG TAB PO SCH (08:55)
[2019-04-19] MEDS: POTASSIUM CHLORIDE ER 10 MEQ TAB.ER.PRT PO SCH (08:55)
[2019-04-19] MEDS: ASPIRIN 81 MG PO SCH (08:55)
[2019-04-19] MEDS: PANTOPRAZOLE 40 MG TABLET PO SCH (08:55)
[2019-04-19] MEDS: SPIRONOLACTONE 25 MG TAB PO SCH (08:55)
[2019-04-19] MEDS: TORSEMIDE 20 MG TAB PO SCH (08:56)
[2019-04-19] MEDS ORDERED: METOPROLOL SUCCINATE (ER) 25 MG TAB.ER.24H PO SCH (09:00)
--- NOTE | 2019-04-19 10:25 | P.PN ---
Subjective Patient is seen in follow-up for acute kidney injury on chronic kidney disease. Patient has chronic kidney disease stage III with baseline creatinine in the range of 1-1.1. Renal function stable. Edema has improved. She admits to good urine output. Oral intake is fair. No vomiting or diarrhea. Currently on oral diuretics. Entresto was also started this admission. Vital signs are stable. General: The patient appeared well nourished and normally developed. HEENT: Head exam is unremarkable. Neck is without jugular venous distension. LUNGS: Lungs are clear to auscultation and percussion. Breath sounds decreased. HEART: Rate and Rhythm are regular. First and second heart sounds normal. No murmurs, rubs or gallops. ABDOMEN: Abdominal exam reveals normal bowel sounds. Non-tender and non- distended. No evidence of peritonitis. EXTREMITITES: No clubbing, cyanosis, or edema. Objective - Vital Signs Vital signs: Vital Signs Temp 98 F 04/18/19 20:00 Pulse 67 04/19/19 04:00 Resp 17 04/19/19 04:00 BP 107/66 04/19/19 04:00 Pulse Ox 95 04/19/19 04:00 Intake & Output 04/18/19 04/19/19 04/19/19 18:59 06:59 18:59 Intake Total 480 80 Output Total 300 Balance 180 80 Weight 80 kg Intake: Oral 480 80 Output: Urine 300 Other: Voiding Method Toilet Toilet # Voids 1 1 - Labs CBC & Chem 7: 04/13/19 18:39 04/19/19 06:00 Labs: Abnormal Lab Results - Last 24 Hours (Table) 04/19/19 Range/Units 06:00 BUN 46 H (7-17) mg/dL Creatinine 1.49 H (0.52-1.04) mg/dL Assessment and Plan Plan: Assessment: 1. Acute kidney injury mostly prerenal secondary to cardiorenal syndrome. Creatinine 1.21 on admission on April 13. Renal function stable. Patient was also started on Entresto this admission. 2. Chronic kidney disease stage III secondary to nephrosclerosis and cardiorenal syndrome with baseline creatinine in the range of 1-1.1. 3. Volume overload. Improving with diuresis. 4. Chronic kidney disease mineral bone disease maintained on calcitriol. 5. Systolic CHF status post AICD placement. 6. Paroxysmal A. fib maintained on anticoagulation. Plan: Maintain current regimen of diuretics. Anticipate discharge soon. Patient will need a BMP and a magnesium level checked within 2-3 days of discharge. Follow up outpatient in the next 1-2 weeks.
[2019-04-19 10:59] VITALS: TEMP 97.4
[2019-04-19] MEDS: SACUBITRIL/VALSARTAN 24 MG-26 MG TABLET PO SCH (12:46)
--- NOTE | 2019-04-19 14:04 | P.PN ---
Subjective Progress Note Date: 04/19/19 This is a pleasant 79-year-old female with past medical history significant for coronary artery disease, prior angioplasty, ischemic cardio myopathy with prior AICD, chronic systolic congestive heart failure, hyperlipidemia, paroxysmal atrial fibrillation, hypertension, peripheral vascular disease status post right carotid endarterectomy, COPD, chronic kidney disease and former nicotine dependence. She follows with Dr. Waqar Grijalva in the office. She presents to the hospital on this occasion with symptoms of bilateral lower extremity edema and worsening in shortness of breath. According to the patient, over the past few days she has noticed her legs to be significantly more swollen, she's developed ulcerated areas that it started to weep. For this reason she came to the emergency room for further evaluation. Chest x-ray on arrival here showed chronic findings with no acute cardiopu lmonary process. Her EKG shows paced rhythm. Blood pressure 128/60 with a heart rate in the 50s, temperature 96.3, 96% on room air. White blood cell count 3.6, hemoglobin 11.8, platelet count 86, INR 2.3, sodium 140, potassium 4.8, BUN 34 and creatinine 1.2. Total bilirubin is 1.6, AST 38 ALT 26 troponin less than 0.12 and BNP level 3850. Patient was initiated on IV Lasix in the emergency room. Her weight is down 3 kg today. At the time of my examination this morning, the patient is lying fairly flat in bed, denies any overt shortness of breath this morning, he can bilateral peripheral edema. 04/15/2019 Patient was seen and examined this morning, diuresing well overall. Still feel ing somewhat short of breath, continues to have bilateral peripheral edema. Blood pressure 118/60 with a heart rate in the 50s, 95 room air. Sodium 141, potassium 3.8, BUN 37 and creatinine 1.2. No PT/INR were drawn today. 04/16/2019 Patient was seen and examined this morning, continues to diurese well overall. Reading is improved significantly. Blood pressure 120/60 with a heart rate in the 50s, 92% on room air. Pro time today is 16.7 with an INR of 1.7. Sodium 142, potassium 3.6, BUN 38 and creatinine 1.2, magnesium 1.9. 04/17/2019 Patient was seen and examined this morning, feeling significantly better overall. Breathing is stable. Her blood pressure this morning was noted to be in the 70s systolic range. Her beta paresh and Entresto were held. Later on in the morning her blood pressure came up to 134/80. We will give the patient her dose of beta paresh, and also attempt to start the patient on Entresto again. Monitoring her for another 24 hours. We will decrease the dose of Demadex to 10 mg daily as well. 04/18/2019 Patient was seen and examined today, overall doing well, tolerating her medications well, blood pressure staying in the high 80s to low 100s overall. IV diuretics will be discontinued today patient will be changed over to oral diuretics and she may be able to be discharged home from our perspective. 04/19/2019 Patient was seen and examined this morning, breathing is stable, hemodynamically stable. Anticipating discharge home today. Objective - Vital Signs Vital signs: Vital Signs Temp 97.4 F L 04/19/19 08:00 Pulse 52 L 04/19/19 08:00 Resp 17 04/19/19 04:00 BP 80/30 04/19/19 08:00 Pulse Ox 96 04/19/19 08:00 Intake & Output 04/18/19 04/19/19 04/19/19 18:59 06:59 18:59 Intake Total 480 80 Output Total 300 Balance 180 80 Weight 80 kg Intake: Oral 480 80 Output: Urine 300 Other: Voiding Method Toilet Toilet # Voids 1 1 - Exam GENERAL: This is a 78-year-old female in no apparent distress at the time of my examination. HEENT: Head is atraumatic, normocephalic. Pupils are equal, round. Sclerae anicteric. Conjunctivae are clear. Mucous membranes of the mouth are moist. Neck is supple. There is jugular venous distention noted bilaterally. No carotid bruit is heard. LUNGS: Clear to auscultation no wheezes, rales or rhonchi. No chest wall tenderness is noted on palpation or with deep breathing. Diminished bilaterally with prolonged inspiration. HEART: Regular rate and rhythm with systolic ejection murmur at the left sternal border, no rubs or gallops. S1 and S2 heard. ABDOMEN: Soft, nontender. Bowel sounds are heard. No organomegaly noted. EXTREMITIES: 1+ bilateral lower extremity trace edema bilaterally. Evidence of chronic venous stasis. Open ulcerated area X2 noted on the left lower extremity. No calf tenderness noted. VASCULAR: Radial and dorsalis pedis pulses palpated, no evidence of clubbing. NEUROLOGIC: Patient is awake, alert and oriented x3. - Labs CBC & Chem 7: 04/13/19 18:39 04/19/19 06:00 Labs: Abnormal Lab Results - Last 24 Hours (Table) 04/19/19 Range/Units 06:00 BUN 46 H (7-17) mg/dL Creatinine 1.49 H (0.52-1.04) mg/dL Assessment and Plan Plan: ASSESSMENT and plan #1 Acute on chronic systolic heart failure #2 Acute on chronic kidney injury #3 History of coronary artery disease s/p recent PCI on dual anti-platelet therapy #4 Ischemic cardiomyopathy s/p AICD implantation #5 Hypertension #6 Dyslipidemia #7 Paroxysmal atrial fibrillation on longterm anticoagulation #8 Peripheral vascular disease s/p carotid endartectomy #9 history of nicotine dependence Plan From cardiology's perspective, patient may be able to be discharged home, we'll make her a follow-up appointment to see Dr. BOB Grijalva in the office post discharge. DNP note has been reviewed, I agree with a documented findings and plan of care. Patient was seen and examined.
[2019-04-19 14:59] VITALS: BP 107/45; PULSE 50
== END 2019-04-19 15:34 | disposition home or self-care (01) | DRG 291 ==
LOC: EC 17:59 → 3SCARD 20:12
PROVIDERS: ADMIT Hospitalist; ATTEND Hospitalist
DX: I13.0 Hypertensive heart and chronic kidney disease with heart failure and stage 1 through stage 4 chronic kidney disease, or unspecified chronic kidney disease (principal); I50.23 Acute on chronic systolic (congestive) heart failure; N17.9 Acute kidney failure, unspecified; I25.5 Ischemic cardiomyopathy; I73.9 Peripheral vascular disease, unspecified; I48.0 Paroxysmal atrial fibrillation; E78.5 Hyperlipidemia, unspecified; J44.9 Chronic obstructive pulmonary disease, unspecified; M19.91 Primary osteoarthritis, unspecified site; E03.9 Hypothyroidism, unspecified; I07.1 Rheumatic tricuspid insufficiency; F41.9 Anxiety disorder, unspecified; N18.3 Chronic kidney disease, stage 3 (moderate); Z66 Do not resuscitate; I25.10 Atherosclerotic heart disease of native coronary artery without angina pectoris; Z96.651 Presence of right artificial knee joint; I95.9 Hypotension, unspecified; T50.2X5A Adverse effect of carbonic-anhydrase inhibitors, benzothiadiazides and other diuretics, initial encounter; M89.8X9 Other specified disorders of bone, unspecified site; F32.9 Major depressive disorder, single episode, unspecified; E05.90 Thyrotoxicosis, unspecified without thyrotoxic crisis or storm; Z80.3 Family history of malignant neoplasm of breast; Z87.891 Personal history of nicotine dependence; Z80.41 Family history of malignant neoplasm of ovary; Z95.810 Presence of automatic (implantable) cardiac defibrillator; Z79.01 Long term (current) use of anticoagulants; Z79.82 Long term (current) use of aspirin; Z79.890 Hormone replacement therapy; I25.2 Old myocardial infarction; Z79.899 Other long term (current) drug therapy; Z82.49 Family history of ischemic heart disease and other diseases of the circulatory system; Z83.3 Family history of diabetes mellitus; Z90.710 Acquired absence of both cervix and uterus; Z95.1 Presence of aortocoronary bypass graft; Z88.0 Allergy status to penicillin; Z88.8 Allergy status to other drugs, medicaments and biological substances; Z90.89 Acquired absence of other organs; Z98.51 Tubal ligation status; Z95.5 Presence of coronary angioplasty implant and graft
CPT/HCPCS: 36415; 71046; 80048; 80053; 83735; 83880; 84484; 85025; 85610; 85730; 93005; 96374; 99284